=== PATIENT | female | born 1945 | race Caucasian/White ===

== ENCOUNTER → 2016-11-28 | Outpatient (CLI) | payer BC ==
[~2016-11-28] MED LIST: ASPCH81X PO; CARB1SOL; CHOL20009 PO; COEN150C PO; LEVO88TA3 PO; LORA-741 PO; MISCCAP80; MULTTAB58 PO; PANT40TA PO; SIMV40TA2 PO
[2016-11-28 12:51] LABS: ESTIMATED AVERAGE GLUCOSE 114 mg/dl; HA1C FLAG Normal (Normal)
[2016-11-28 12:56] LABS: AST/SGOT 20 U/L (15-37); BLOOD UREA NITROGEN 20 mg/dl (7-18); BUN/CREATININE RATIO 26.5 (10-20); CALCIUM 8.8 mg/dl (8.5-10.1); CARBON DIOXIDE 29 mmol/L (21-32); CHLORIDE 108 mmol/L (98-107); CREATININE 0.75 mg/dl (0.60-1.20); GLUCOSE 92 mg/dl (70-99); POTASSIUM 4.7 mmol/L (3.5-5.1); SODIUM 143 mmol/L (136-145)
[2016-11-28 13:07] LABS: ALB/GLOB RATIO 1.1 (0.9-2); ALKALINE PHOSPHATASE 70 U/L (45-117); ALT/SGPT 23 U/L (12-78); CHOLESTEROL 229 mg/dl (0-200); CHOLESTEROL/HDL RATIO 2.5; HDL CHOLESTEROL 92 mg/dl; LDL CHOLESTEROL CALCULATED 115 mg/dl; TRIGLYCERIDES 111 mg/dl (0-150); VERY LOW DENSITY LIPOPROT CALC 22 mg/dl
== END | disposition home or self-care (01) ==
LOC: C.LABBFT 07:51
PROVIDERS: ATTEND Internal Medicine
DX: Z00.00 Encounter for general adult medical examination without abnormal findings (principal); E03.9 Hypothyroidism, unspecified; E78.00 Pure hypercholesterolemia, unspecified; R73.01 Impaired fasting glucose

== ENCOUNTER → 2017-01-01 | Outpatient (CLI) | payer BC ==
--- NOTE | 2017-01-01 12:49 | MAMMOGRAPHY REPORT ---
BILATERAL DIGITAL SCREENING MAMMOGRAM WITH CAD: 01/01/2017 CLINICAL HISTORY: Patient presents for routine screening. S/P bilateral augmentation. TECHNIQUE: Current study was also evaluated with a Computer Aided Detection (CAD) system. Bilatera l CC and MLO views including implant displaced views were obtained. COMPARISON: Comparison is made to exams dated: 12/24/2015 mammogram, 12/19/2013 mammogram, 12/21/2014 mammogram, 10/19/2012 mammogram, 10/15/2011 mammogram, and 10/14/2010 mammogram - [facility] nt. BREAST COMPOSITION: The tissue of both breasts is almost entirely fatty. FINDINGS: No suspicious masses, calcifications, or areas of architectural distortion are noted in e ither breast. There has been no significant interval change compared to prior exams. Bilateral pre- pectoral silicone implants are stable in appearance. IMPRESSION: ACR BI-RADS CATEGORY 2: BENIGN There is no mammographic evidence of malignancy. A 1 year screening mammogram is recommended. The p atient will receive written notification of the results. Approximately 10% of breast cancers are not detected with mammography. A negative mammographic repor t should not delay biopsy if a clinically suggestive mass is present. Tessy Perla M.D. ah/:01/01/2017 07:50:33 Gallery Assistant: Shayy ROMERO)(Sugar), [facility] letter sent: Normal 1/2 BI-RADS Code: ACR BI-RADS Category 2: Benign
== END | disposition home or self-care (01) ==
LOC: C.MAMM 07:23
PROVIDERS: ATTEND Obstetrics & Gynecology
DX: Z12.31 Encounter for screening mammogram for malignant neoplasm of breast (principal)

== ENCOUNTER → 2017-03-13 | Outpatient (CLI) | payer BC ==
[2017-03-13 12:31] LABS: BASO % 0.6 %; BASO ABS # 0.04 K/uL (0-0.2); COMPLETE YES; EOS % 1.9 %; HEMATOCRIT 39.1 % (37-47); IG% 0.1 %; LYMPH % 32.4 %; LYMPH ABS # 2.23 K/uL (1.2-3.4); MEAN CELL VOLUME 94.9 fL (80-100); MEAN CORPUSCULAR HEMOGLOBIN 30.8 pg (25-34); MEAN CORPUSCULAR HGB CONC 32.5 g/dl (32-36); MEAN PLATELET VOLUME 11.8 fL (7.4-10.4); MONO % 8.6 %; NEUT % 56.4 %; PLATELET COUNT 238 K/uL (130-400); RED BLOOD COUNT 4.12 M/uL (4.2-5.4); WHITE BLOOD COUNT 6.88 K/uL (4.8-10.8)
[2017-03-13 13:05] LABS: ALT/SGPT 23 U/L (12-78); AST/SGOT 18 U/L (15-37); BLOOD UREA NITROGEN 21 mg/dl (7-18); BUN/CREATININE RATIO 28.5 (10-20); CARBON DIOXIDE 27 mmol/L (21-32); CHLORIDE 106 mmol/L (98-107); CREATININE 0.72 mg/dl (0.60-1.20); GLUCOSE 87 mg/dl (70-99); POTASSIUM 4.4 mmol/L (3.5-5.1); SODIUM 140 mmol/L (136-145)
[2017-03-13 13:15] LABS: ALB/GLOB RATIO 1.1 (0.9-2); ALKALINE PHOSPHATASE 72 U/L (45-117)
[2017-03-13 13:20] LABS: CALCIUM 9.1 mg/dl (8.5-10.1)
== END | disposition home or self-care (01) ==
LOC: C.LABBFT 10:06
PROVIDERS: ATTEND Physician Assistant Medical
DX: R42 Dizziness and giddiness (principal)

== ENCOUNTER → 2017-06-17 | Outpatient (CLI) | payer BC ==
[2017-06-17 13:08] LABS: ESTIMATED AVERAGE GLUCOSE 117 mg/dl; HA1C FLAG Normal (Normal)
[2017-06-17 13:22] LABS: ALT/SGPT 17 U/L (12-78); AST/SGOT 18 U/L (15-37); BLOOD UREA NITROGEN 22 mg/dl (7-18); BUN/CREATININE RATIO 31.6 (10-20); CALCIUM 8.7 mg/dl (8.5-10.1); CARBON DIOXIDE 27 mmol/L (21-32); CHLORIDE 107 mmol/L (98-107); CHOLESTEROL 228 mg/dl (0-200); CREATININE 0.69 mg/dl (0.60-1.20); GLUCOSE 93 mg/dl (70-99); POTASSIUM 4.3 mmol/L (3.5-5.1); SODIUM 140 mmol/L (136-145); TRIGLYCERIDES 83 mg/dl (0-150); VERY LOW DENSITY LIPOPROT CALC 17 mg/dl
[2017-06-17 13:32] LABS: ALB/GLOB RATIO 1.1 (0.9-2); ALKALINE PHOSPHATASE 73 U/L (45-117); CHOLESTEROL/HDL RATIO 2.7; HDL CHOLESTEROL 85 mg/dl; LDL CHOLESTEROL CALCULATED 126 mg/dl
== END | disposition home or self-care (01) ==
LOC: C.LABBFT 07:27
PROVIDERS: ATTEND Internal Medicine
DX: Z00.00 Encounter for general adult medical examination without abnormal findings (principal); E03.9 Hypothyroidism, unspecified; E78.00 Pure hypercholesterolemia, unspecified; R73.01 Impaired fasting glucose; M85.80 Other specified disorders of bone density and structure, unspecified site; E55.9 Vitamin D deficiency, unspecified; I10 Essential (primary) hypertension; Z79.1 Long term (current) use of non-steroidal anti-inflammatories (NSAID)

== ENCOUNTER → 2017-12-16 | Outpatient (CLI) | payer BC ==
[2017-12-16 12:46] LABS: ALBUMIN 3.6 gm/dl (3.4-5.0); ALT/SGPT 20 U/L (12-78); AST/SGOT 17 U/L (15-37); BLOOD UREA NITROGEN 22 mg/dl (7-18); CALCIUM 8.5 mg/dl (8.5-10.1); CARBON DIOXIDE 25 mmol/L (21-32); CREATININE 0.71 mg/dl (0.60-1.20); GLUCOSE 97 mg/dl (70-99); POTASSIUM 4.2 mmol/L (3.5-5.1); SODIUM 139 mmol/L (136-145)
[2017-12-16 12:57] LABS: ALKALINE PHOSPHATASE 68 U/L (45-117); CHOLESTEROL 229 mg/dl (0-200); LDL CHOLESTEROL CALCULATED 123 mg/dl; TOTAL PROTEIN 7.2 gm/dl (6.4-8.2)
[2017-12-16 13:06] LABS: HEMOGLOBIN A1C 5.8 % (4.5-5.6)
== END | disposition home or self-care (01) ==
LOC: C.LABBFT 07:12
PROVIDERS: ATTEND Internal Medicine
DX: Z00.00 Encounter for general adult medical examination without abnormal findings (principal); E03.9 Hypothyroidism, unspecified; E78.00 Pure hypercholesterolemia, unspecified; R73.01 Impaired fasting glucose; E55.9 Vitamin D deficiency, unspecified; I10 Essential (primary) hypertension

== ENCOUNTER → 2018-01-07 | Outpatient (CLI) | payer BC ==
--- NOTE | 2018-01-08 07:21 | MAMMOGRAPHY REPORT ---
BILATERAL DIGITAL SCREENING MAMMOGRAM TOMOSYNTHESIS WITH CAD: 01/07/2018 CLINICAL HISTORY: Patient presents for routine screening. S/P bilateral augmentation. TECHNIQUE: Breast tomosynthesis in addition to standard 2D mammography was performed. Current study was also evaluated with a Computer Aided Detection (CAD) system. Tomosynthesis images were obtained of the implant displaced views only. COMPARISON: Comparison is made to exams dated: 01/01/2017 mammogram, 12/24/2015 mammogram, 12/21/2014 m ammogram, 12/19/2013 mammogram, 10/19/2012 mammogram, and 10/15/2011 mammogram - [facility]. BREAST COMPOSITION: The tissue of both breasts is almost entirely fatty. FINDINGS: No suspicious masses, calcifications, or areas of architectural distortion are noted in ei ther breast. There has been no significant interval change compared to prior exams. Bilateral pre-pe ctoral silicone implants are stable in appearance. IMPRESSION: ACR BI-RADS CATEGORY 2: BENIGN There is no mammographic evidence of malignancy. A 1 year screening mammogram is recommended. The pa tient will receive written notification of the results. Approximately 10% of breast cancers are not detected with mammography. A negative mammographic report should not delay biopsy if a clinically suggestive mass is present. Tessy Perla M.D. /:01/07/2018 08:19:45 Director Supply Chain: Shayy STEWART(R)(M), [facility] letter sent: Normal 1/2 BI-RADS Code: ACR BI-RADS Category 2: Benign
== END | disposition home or self-care (01) ==
LOC: C.MAMM 07:53
PROVIDERS: ATTEND Obstetrics & Gynecology
DX: Z12.31 Encounter for screening mammogram for malignant neoplasm of breast (principal)

== ENCOUNTER → 2018-02-24 | Outpatient (CLI) | payer BC | END | disposition home or self-care (01) | LOC: C.LABBFT 07:23 | PROVIDERS: ATTEND Internal Medicine | DX: E78.00 Pure hypercholesterolemia, unspecified (principal); E03.9 Hypothyroidism, unspecified; Z00.00 Encounter for general adult medical examination without abnormal findings ==

== ENCOUNTER 2021-04-17 06:25 | Observation (INO) ==
--- NOTE | 2021-04-09 14:35 | PAT Medication Instructions ---
Medication Instructions Date of Service April 09, 2021 Home Medications Medication Instructions Recorded cholecalciferol (vitamin D3) 125 125 mcg PO DAILY #30 cap 04/14/20 mcg (5,000 unit) capsule simvastatin 10 mg tablet 10 mg PO QPM #90 tab 03/18/21 aspirin 81 mg tablet 81 mg PO HS cholecalciferol (vitamin D3) 125 mcg (5,000 unit) capsule 125 mcg PO DAILY cholecalciferol (vitamin D3) 50 mcg (2,000 unit) capsule 50 mcg PO DAILY simvastatin 10 mg tablet 10 mg PO QPM co [id number] oil-omega 3-E 1 cap PO QAM diclofenac sodium [Voltaren] 75 mg PO BID PRN diphenhydramine-acetaminophen [Tylenol PM Extra Strength] 1 tab PO BID PRN estradiol 0.5 mg PO UD ipratropium bromide 2 sprays INTNAS TID PRN levothyroxine [Synthroid] 112 mcg PO QAM losartan 50 mg PO QAM multivitamin 1 cap PO QAM pantoprazole 40 mg PO DAILY PRN Continue as directed estradiol 0.5 mg PO UD (continue as normal unless told otherwise by surgeon) ASK your surgeon for instructions diclofenac sodium [Voltaren] 75 mg PO BID PRN STOP taking 2 weeks before surgery (or as soon as possible if surgery is within 2 weeks) co [id number] oil-omega 3-E 1 cap PO QAM DO NOT take the morning of surgery cholecalciferol (vitamin D3) 125 mcg (5,000 unit) capsule 125 mcg PO DAILY cholecalciferol (vitamin D3) 50 mcg (2,000 unit) capsule 50 mcg PO DAILY diphenhydramine-acetaminophen [Tylenol PM Extra Strength] 1 tab PO BID PRN losartan 50 mg PO QAM multivitamin 1 cap PO QAM Take morning of surgery With a small sip of water, OTHERWISE NOTHING TO EAT OR DRINK AFTER MIDNIGHT: ipratropium bromide 2 sprays INTNAS TID PRN (if needed) levothyroxine [Synthroid] 112 mcg PO QAM pantoprazole 40 mg PO DAILY PRN(if needed) Take evening before surgery aspirin 81 mg tablet 81 mg PO HS (continue as normal unless told otherwise by surgeon) simvastatin 10 mg tablet 10 mg PO QPM diphenhydramine-acetaminophen [Tylenol PM Extra Strength] 1 tab PO BID PRN (if needed) ipratropium bromide 2 sprays INTNAS TID PRN (if needed) pantoprazole 40 mg PO DAILY PRN (if needed) Other Notes If you have any questions please call us at [phone] or [phone] or [phone] or [phone]
--- NOTE | 2021-04-10 15:07 | Anesthesiology Consultation ---
Date of Service April 10, 2021 Assessment & Plan (1) Encounter for pre-operative examination: Chart Review Chart Review: Acceptable Risk for Surgery (pending surgeon ordered PCP clearance and preop Covid testing results ) and Patient seen in Pre Admission Testing Awaiting surgeon ordered PCP clearance 04/12/21 Per PAT appt on 04/10/21, pt works in [email or web address]. No known Covid positive contacts or Covid related symptoms. No known Covid infection in the past 90 days. Preop Covid testing scheduled 04/15/21= will await results. Educated on importance of self quarantining, social distancing and wearing mask in public both for the patient after Covid testing done. Pt fully vaccinated for Covid. Teaching & Discussion Pre-Anesthesia Teaching/Discussion Notes: Instructed NPO after midnight before surgery,except medications with 15 cc of water. Medication instructions provided according to the [facility] guidelines. History Surgery Operation Date: 04/17/21 08:50 Proposed Procedures p Left Total Knee Arthroplasty(Left) - Christiano Salazar MD Height/Weight Height: 5 ft Weight: 85.4 kg Allergies Allergy/AdvReac Type Severity Reaction Status Date / Time atorvastatin [From Lipitor] Allergy Mild pt unsure Verified 04/08/21 12:44 it was long time ago Medications Home Medications Medication Instructions Recorded Confirmed Last Taken aspirin 81 mg tablet 81 mg PO HS tab 09/25/19 04/08/21 Unknown cholecalciferol (vitamin D3) 125 125 mcg PO DAILY #30 cap 04/14/20 04/08/21 Unknown mcg (5,000 unit) capsule cholecalciferol (vitamin D3) 50 50 mcg PO DAILY 07/13/20 04/08/21 Unknown mcg (2,000 unit) capsule simvastatin 10 mg tablet 10 mg PO QPM #90 tab 03/18/21 04/08/21 Unknown co [id number] oil-omega 3-E 1 cap PO QAM 04/08/21 04/08/21 Unknown diclofenac sodium [Voltaren] 75 mg PO BID PRN 04/08/21 04/08/21 Unknown diphenhydramine-acetaminophen 1 tab PO BID PRN 04/08/21 04/08/21 Unknown [Tylenol PM Extra Strength] estradiol 0.5 mg PO UD 04/08/21 04/08/21 Unknown ipratropium bromide 2 sprays INTNAS TID PRN 04/08/21 04/08/21 Unknown levothyroxine [Synthroid] 112 mcg PO QAM 04/08/21 04/08/21 Unknown losartan 50 mg PO QAM 04/08/21 04/08/21 Unknown multivitamin 1 cap PO QAM 04/08/21 04/08/21 Unknown pantoprazole 40 mg PO DAILY PRN 04/08/21 04/08/21 Unknown Past Medical History Medical History (Updated 04/10/21 @ 15:30 by Zoya Dye PA-C) GERD (gastroesophageal reflux disease) Hx of ulcers and had Ishmael Fundoplication Well controlled and stable Hyperlipidemia Hypertension Hypothyroidism Impaired fasting glucose Hgb A1C = 6.0 Obesity Osteopenia Exercise / Class Metabolic Activity II 4-5 Yardwork/Stairs/Walk up hill (one flight of stairs - no chest pain or SOB ) Past Family History Family History Father Acute myocardial infarction Mother Acute myocardial infarction Hypertension Brother Acute myocardial infarction Sister Hypertension Pure hypercholesterolemia Unknown Diabetes Denies family history of Breast cancer Colorectal cancer Colonic polyp Past Surgical History Surgical History H/O breast augmentation H/O colonoscopy History of Ishmael fundoplication Hx of cataract surgery right and left S/P total abdominal hysterectomy w/ removal of both ovaries Past Anesthesia History No Hx of Anesthesia Complications and No Family Hx of Anesthesia Complications History of PONV No Hx of PONV and No Hx of Motion Sickness Social History Smoking Status: Never smoker Do You Dip or Chew Tobacco: No Hx Alcohol Use: Yes Alcohol type: wine alcohol intake frequency: 0-2 drinks per day (1 glass of wine/night ) Hx Substance Use: No substance use type: does not use Review of Systems Patient denies chest pain, shortness of breath, dyspnea on exertion, cough, wheezing, palpitations. No hx of seizures, stroke, CT, apnea/snoring. No hx of blood clots or blood transfusions Physical Exam Vital Signs VITALS BP 141/83 P 81 TEMP 98.2 SP02 98% RESP 16 Constitutional no acute distress ENMT Mouth: no TMJ clicking Thyromental Distance: > or= 3.5 Finger Breadths (3.5) Mallampati Class: III Crowns to molars Neck neck extension not limited Respiratory normal respiratory effort; no respiratory distress Auscultation: lungs clear to auscultation bilaterally; no wheezes Cardiovascular Rate/Rhythm: regular rate and regular rhythm Heart Sounds: no murmur (no significant murmur noted ) Vessels: no carotid bruit Musculoskeletal Spine: no pain with cervical ROM Extremities: extremities normal to inspection Psychiatric Orientation: alert Lab Results Anesthesia Preop Results Results Anesthesia Widget: WBC 6.25 K/uL (4.8-10.8) 04/09/21 Hgb 11.6 g/dL (12.0-16.0) L 04/09/21 Hct 36.3 % (37-47) L 04/09/21 Plt 272 K/uL (130-400) 04/09/21 Na 140 mmol/L (136-145) 04/09/21 K 3.8 mmol/L (3.5-5.1) 04/09/21 Cl 109 mmol/L (98-107) H 04/09/21 CO2 27 mmol/L (21-32) 04/09/21 BUN 16 mg/dl (7-18) 04/09/21 Creat 0.59 mg/dl (0.6-1.2) L 04/09/21 Glucose Level 90 mg/dl (70-99) 04/09/21 PT 9.3 Seconds (9.0-12.0) 04/10/21 PTT 23.6 Seconds (21.0-31.0) 04/10/21 INR 0.9 (0.9-1.1) 04/10/21 TSH 1.160 uIu/ml (0.300-4.500) 04/09/21 HA1c 6.0 % (4.5-5.6) H 04/09/21 Urine Color Yellow 04/10/21 Urine Appearance Clear (Clear) 04/10/21 Urine pH 6.5 (4.5-7.5) 04/10/21 Urine Specific [place] 1.025 (1.000-1.030) 04/10/21 Urine Protein Trace (Negative) H 04/10/21 Urine Glucose (UA) Negative (Negative) 04/10/21 Urine Ketones Trace (Negative) H 04/10/21 Urine Blood Negative (Negative) 04/10/21 Urine Nitrite Negative (Negative) 04/10/21 Urine Bilirubin Negative (Negative) 04/10/21 Urine Urobilinogen Negative (Negative) 04/10/21 Urine Leukocyte Esterase Negative (Negative) 04/10/21 Urine WBC (Auto) 1-5 /hpf (0-5) 04/10/21 Urine RBC (Auto) 0-4 /hpf (0-4) 04/10/21 Urine Hyaline Casts (Auto) 1-5 /lpf (0-5) 04/10/21 Urine Epithelial Cells (Auto) >30 /lpf (0-5) H 04/10/21 Urine Bacteria (Auto) Negative (Negative) 04/10/21 Blood Type O Positive 04/10/21 Antibody Screen NEGATIVE 04/10/21 Lab Comments: Mild anemia- PCP ordered labs- pt has PCP clearance 04/12/21 Testing Electrocardiogram Date: 04/10/21 Normal sinus rhythm with sinus arrhythmia at 79 bpm. Chest X-Ray Date: 04/10/21 Findings: + NAD FINDINGS: PA and lateral chest radiographs are compared to study dated 01/17/2013. The cardiomediastinal silhouette is unremarkable noting atherosclerotic calcification of the thoracic aorta. There are low lung volumes with bibasilar atelectasis. No airspace consolidation or pleural effusion is identified. There is no pneumothorax. The skeletal structures are osteopenic. The bony thorax appears intact. There are calcified breast implants
--- NOTE | 2021-04-17 06:19 | History & Physical Bridge Note ---
Date of Service April 17, 2021 History & Physical Bridge Note I have examined the patient, reviewed the History & Physical and in the interval since the performance of the History & Physical I have noted the following changes of clinical significance:consent obtained/site verified/covid screen negative. no changes noted
[~2021-04-17 06:25] MED LIST changes: -ASPCH81X PO; -CARB1SOL; -CHOL20009 PO; -COEN150C PO; -LEVO88TA3 PO; -LORA-741 PO; +LR 500ML BOLUS, THEN 15ML/HR IV SCH; +LR 60ML/HR IV SCH; -MISCCAP80; -MULTTAB58 PO; -PANT40TA PO; +ROPIVACAINE 0.5% HCL/PF 150 MG, BUPIVACAINE 0.75% MPF 20 ML, EPINEPHrine 0.15 MG, Ketor... INFIL SCH; -SIMV40TA2 PO; +TRANEXAMIC ACID 1,000 MG **IV Pre-op IV SCH; +ceFAZolin 2000MG 2,000 MG/15 ML SYR IV SCH
[2021-04-17] MEDS ORDERED: EPINEPHrine INJ 1 MG/ML AMP ONE (06:33)
[2021-04-17] MEDS ORDERED: BUPIVACAINE 0.5 % 5 MG/1 ML PF 10ML VIAL ONE (06:33)
[2021-04-17] MEDS ORDERED: ROPIVACAINE 0.5% 5 MG/ML 30 ML VIAL ONE (06:33)
[2021-04-17] MEDS ORDERED: MIDAZOLAM HCL 1 MG/ML 2ML VIAL ONE ×3 (07:23→09:58)
[2021-04-17] MEDS ORDERED: fentaNYL citrate 100 MCG/2 ML VIAL ONE (07:23)
[2021-04-17] MEDS ORDERED: ORTHO JOINT ANESTHETIC ONE (08:33)
[2021-04-17] MEDS ORDERED: PROPOFOL IV EMULSION 10 MG/ML 20 ML VIAL IV ONE (08:34)
[2021-04-17] MEDS ORDERED: ONDANSETRON INJ 2 MG/ML 2 ML VIAL ONE (08:34)
[2021-04-17] MEDS ORDERED: ePHEDrine sulfate 50 MG/ML AMP IV PRN (08:56)
[2021-04-17] MEDS ORDERED: ATROPINE SULFATE 0.1 MG/ML 10ML SYR IV PRN (08:56)
--- NOTE | 2021-04-17 10:18 | Post Operative Brief Note ---
Immediate Post Op Note v1 Date of Surgery April 17, 2021 Pre & Post Diagnosis Operation Date: 04/17/21 08:50 Pre-Op Diagnosis: Left Knee Degenerative Joint Disease Post-Op Diagnosis: Left Knee Degenerative Joint Disease I identified the patient and participated in the time-out.: Yes Procedure Operation Date: 04/17/21 08:50 Actual Procedures p Left Total Knee Arthroplasty(Left) - Christiano Salazar MD Surgeon Christiano Salazar MD Licensed Nursing Assistant [facility] Estimated Blood Loss 25 Findings Consistent with Post-Op Diagnosis
--- NOTE | 2021-04-17 10:27 | Operative Report ---
Post Operative Report Pre & Post Diagnosis Operation Date: 04/17/21 08:50 Pre-Op Diagnosis: Left Knee Degenerative Joint Disease Post-Op Diagnosis: Left Knee Degenerative Joint Disease I identified the patient and participated in the time-out.: Yes Procedure Operation Date: 04/17/21 08:50 Actual Procedures p Left Total Knee Arthroplasty(Left) - Christiano Salazar MD Surgeon Christiano Salazar MD Custodial Worker JEZ iVveros Estimated Blood Loss 25 Findings Consistent with Post-Op Diagnosis Specimens Bone and soft tissue Drains None Anesthesia Type MAC Spinal Regional Complications none Disposition Accompanied Patient To Recovery: Yes Disposition: Recovery Room Description of Procedure Patient was taken to the operating room and placed under IV sedation with spinal anesthesia and peripheral nerve block done preoperatively. She was given 2 g of IV Ancef for surgical prophylaxis. Time out was performed. She was prepped and draped in routine sterile fashion. I was present during the entire case and assisted with positioning, tissue retraction, implantation of hardware, debridement, closure and dressings. Please see Dr. Salazar's operative report for further detail regarding today's procedure. Patient was awakened and transferred to the recovery room in stable condition. I attest to the content of the Intraoperative Record and any orders documented therein. Any exceptions are noted below.
--- NOTE | 2021-04-17 10:31 | Operative Report (OR) ---
DATE OF PROCEDURE: 04/17/2021 SURGEON: Christiano Salazar MD. WATCH ENGINE OPERATOR: Felice, no resident or fellow available. PREOPERATIVE DIAGNOSIS: Osteoarthritis with varus flexion deformity, left knee. POSTOPERATIVE DIAGNOSIS: Osteoarthritis with varus flexion deformity, left knee. OPERATION PERFORMED: Cemented left total knee replacement. PERIOPERATIVE SITUATION: Medically cleared female with intractable knee pain, has failed all conserv ative management and wished to proceed with surgical treatment. She understands the risks and conseq uences. SUMMARY OF IMPLANTS: Size 2.5 left femur, size 2.5 mobile bearing tray tibia, oval dome 3 peg patella , 2.5 x 12.5 posterior cruciate substituting insert, 2 bags of Palacos G cement. ESTIMATED BLOOD LOSS: 25 mL. CRYSTALLOID: Per anesthesia. Bone pathology pending. DVT prophylaxis per protocol. DESCRIPTION OF PROCEDURE: The patient was appropriately identified, site verified, consent verified. Antibiotics were confirmed as being given. The left lower extremity was prepped and draped in usua l routine fashion. Tourniquet was inflated to 300 mmHg after exsanguination of limb with a rubber Es march bandage for a total of 46 minutes. Midline exposure was utilized. Parapatellar arthrotomy per formed. Synovectomy completed, osteophytes resected. Distal femur entered. Cruciates resected. Ti arleth was subluxated, menisci resected. Distal femur resected 14 mm, proximal tibia 4 mm and the exten grecia gap was excellent. The femur was sized to 2.5. Appropriate cutting block applied. The anterio r, posterior condylar and chamfer cuts were made. Flexion gap was checked; it was excellent. Guard Sergeant ior capsule was injected. A box cut was made. Size 2.5 fit well. Tibia then subluxated, broached a nd reamed to 2.5 and with a 12.5 spacer had excellent mid range, stability, no loss of extension, and full flexion. The patella tracked well. The patella was resected and a 35 button drilled into posi tion. Excellent position was obtained and tracking obtained. The rest of the Orthomix was then inje cted about the knee. Trial implants were then removed. The wound irrigated with Betadine Pulsavac a nd the permanent cemented into position -- tibia, femur and patella in that order. At 12 minutes, the tourniquet released. Minor bleeding points controlled with electrocautery. Minimal blood loss of 2 5 mL. Once the cement was hard, the spacer was removed and then the wound irrigated one final time. Any minor cement removal occurred and then the permanent liner seated and then the knee closed at 40 degrees of flexion using #2 Vicryl, 2-0 Vicryl and stainless steel clips. Appropriate dressing appli ed. The patient was transferred to recovery room in satisfactory condition, having tolerated the pro cedure well. Pathology pending on bone. No other specimens. Job ID: [id number]
--- NOTE | 2021-04-17 10:35 | XRay Report ---
XR knee LT 1 or 2V routine HISTORY: 76 years-old Female S/P L TKA left knee total joint arthroplasty COMPARISON: 04/08/2021 TECHNIQUE: 2 views of the left knee FINDINGS: Total joint arthroplasty and patella resurfacing. Anterior midline skin jeremiah are noted along with expected postoperative soft tissue swelling and deep tissue air. No acute fracture, malalignment or u nexpected opaque foreign body. IMPRESSION: Left knee total joint arthroplasty with expected postoperative changes. ACT 112: Negative or not required by law. The above report was generated using voice recognition software. It may contain grammatical, syntax o r spelling errors. Electronically signed by: Aguilar Echeverria M.D. 04/17/2021 10:33 AM
--- NOTE | 2021-04-17 10:39 | Progress Notes ---
DATE OF SERVICE: 04/17/2021 SUBJECTIVE: Postop check status post left total knee replacement. The patient is sitting comfortabl y in bed. Denies chest pain, shortness of breath, fever, chills, nausea, vomiting or headache. OBJECTIVE: VITAL SIGNS: Stable. She is afebrile. Neurovascular check of the femoral sciatic nerve is limited by her block and spinal wearing off. Postop x-rays look excellent. ASSESSMENT: Doing well. Continue postoperative care plan. Follow up with case management, discharg e early tomorrow. Job ID: [id number]
--- NOTE | 2021-04-17 10:48 | Discharge Summary (DS) ---
DATE OF DISCHARGE: 04/18/2021, pending. CHIEF COMPLAINT: Left knee pain. HISTORY OF PRESENT ILLNESS AND HOSPITAL COURSE: Underwent elective left total knee replacement. Hospital course to date has been uneventful. PREADMISSION MEDICATIONS: Include baby aspirin, vitamins, simvastatin, estradiol, nasal spray, Synthroid, losartan, pantoprazole. ALLERGY: TO LIPITOR, NOT SURE WHAT IT WAS FAR REACTION. PAST MEDICAL AND PAST SURGICAL HISTORY: Remarkable for hyperlipidemia, hypertension, hypothyroidism, obesity, osteopenia, GERD. History of breast surgery, history of colonoscopies, history of Ishmael fundoplication, history of cataract surgery, total abdominal hysterectomy, oophorectomy. FAMILY HISTORY: Remarkable for myocardial disease, hypercholesterolemia. SOCIAL HISTORY: Reveals she does not smoke, does not drink. REVIEW OF SYSTEMS: Noncontributory. DIAGNOSTIC DATA: Postop x-rays look excellent. ASSESSMENT: Doing well status post left total knee replacement. PLAN: Discharge to home tomorrow if she does well overnight. Job ID: [id number] [facility]
--- NOTE | 2021-04-17 11:13 | Anesthesiology Progress Note ---
Date of Service April 17, 2021 Anesthesia Post Procedure Vital Signs Vital Signs: Temp Pulse Pulse Resp BP Pulse Ox 04/17/21 11:05 80 18 136/74 97 04/17/21 10:50 36.3 C L 84 16 134/65 95 04/17/21 10:40 85 17 129/67 95 04/17/21 10:30 91 H 18 114/59 L 99 04/17/21 10:24 36.1 C L 93 H 20 114/59 L 92 04/17/21 07:25 36.7 C 102 H 18 203/100 H 99 04/17/21 07:09 36.9 C 91 H 20 204/101 H 99 Transfer of Care Handoff Completed per policy Notes Mental Status: alert / awake / arousable Patient Amnestic to Procedure: Yes Nausea / Vomiting: adequately controlled Pain: adequately controlled Airway Patency, RR, SpO2: stable & adequate BP & HR: stable & adequate Hydration State: stable & adequate Neuraxial Anesthesia: was administered and sensory block is resolving Anesthetic Complications: no major complications apparent
[2021-04-17] MEDS ORDERED: PANTOprazole 40 MG TAB PO PRN (14:48)
[2021-04-17] MEDS ORDERED: NALOXONE HCL 0.4 MG/1 ML VIAL/CARP IV PRN (14:48)
[2021-04-17] MEDS ORDERED: HYDROmorphone INJ 1 MG/ML SYRINGE IV PRN (14:48)
[2021-04-17] MEDS ORDERED: bisacodyL 10 MG SUPP PR PRN (14:48)
[2021-04-17] MEDS ORDERED: SODIUM CHLORIDE 0.9% 1000ML 1,000 ML IV SCH (14:48)
[2021-04-17] MEDS ORDERED: ONDANSETRON INJ 2 MG/ML 2 ML VIAL IV PRN (14:48)
[2021-04-17] MEDS ORDERED: METOCLOPRAMIDE HCL INJ 5 MG/ML 2 ML VIAL IV PRN (14:48)
[2021-04-17] MEDS ORDERED: HYDROmorphone INJ 0.5 MG/0.5 ML SYR IV PRN (14:48)
[2021-04-17] MEDS ORDERED: MAGNESIUM HYDROXIDE SUSP 30 ML UDC PO PRN (14:48)
[2021-04-17] MEDS ORDERED: oxyCODONE HCL IR 5 MG TAB (IMMEDIATE RELEASE) PO PRN (14:48)
[2021-04-17] MEDS ORDERED: WARFARIN SOD 5 MG TAB PO SCH (16:00)
[2021-04-17] MEDS: ACETAMINOPHEN 500 MG TAB PO SCH ×2 (16:22→21:58)
[2021-04-17] MEDS: ceFAZolin 2000MG 2,000 MG/15 ML SYR IV SCH ×2 (16:23→23:53)
[2021-04-17] MEDS: LOSARTAN POTASSIUM 50 MG TAB PO SCH (16:23)
[2021-04-17] MEDS: KETOROLAC TROMETHAMINE 15 MG/ML VIAL IV SCH ×2 (16:24→21:56)
[2021-04-17] MEDS ORDERED: TRANEXAMIC ACID / 0.7% NACL 1,000 MG/100 ML BAG IV SCH (16:30)
[2021-04-17] MEDS ORDERED: SENNA 8.6 MG TAB PO SCH (21:00)
[2021-04-17] MEDS ORDERED: ASPIRIN 81 MG ECTAB PO SCH (21:00)
[2021-04-17] MEDS ORDERED: SIMVASTATIN 10 MG TAB PO SCH (21:00)
[2021-04-17] MEDS: DOCUSATE SODIUM 100 MG CAP PO SCH (21:57)
[2021-04-18] MEDS: KETOROLAC TROMETHAMINE 15 MG/ML VIAL IV SCH ×2 (03:36→09:43)
[2021-04-18] MEDS: ACETAMINOPHEN 500 MG TAB PO SCH (06:06)
--- NOTE | 2021-04-18 06:20 | Progress Notes ---
DATE: 04/18/2021 SUBJECTIVE: Status post left total knee replacement. The patient did well overnight. Denies chest pain, shortness of breath, fever, chills, nausea, vomiting or headache. OBJECTIVE: VITAL SIGNS: Stable. She is afebrile. EXTREMITIES: Wound dressing clean, dry and intact. Femoral sciatic nerve functioning well.Can do a SLR. Calves nontender. LABORATORY DATA: A.m. labs pending. ASSESSMENT: Doing well. PLAN: Discharge home today after PT/OT. Coumadin dose per INR result. Job ID: [id number] MTDD
[2021-04-18] MEDS ORDERED: LEVOTHYROXINE SODIUM 112 MCG TABLET PO SCH (06:30)
[2021-04-18 06:37] LABS: Hematocrit (blood only) 27.6 % (37-47); Hemoglobin 9.1 g/dL (12.0-16.0); Mean Corpuscular Hemoglobin 30.8 pg (25-34); Mean Corpuscular Volume 93.6 fL (80-100); Mean Platelet Volume 10.3 fL (7.4-10.4); Platelet Count 216 K/uL (130-400); RDW Coefficient of Variation 15.3 % (11.5-14.5); RDW Standard Deviation 52.4 fL (36.4-46.3); Red Blood Count 2.95 M/uL (4.2-5.4); White Blood Count 10.15 K/uL (4.8-10.8)
[2021-04-18 07:11] LABS: BUN Creatinine Ratio 26.1 (10-20); Calcium 8.4 mg/dl (8.5-10.1); Creatinine Clr Calc Pharmacy 71.7 ml/min; Est GFR (African American) 100.5 ml/min; Est GFR (Non-African American) 86.7 ml/min; Potassium 3.9 mmol/L (3.5-5.1)
[2021-04-18] MEDS ORDERED: dexAMETHasone 4 MG TAB PO SCH (08:00)
[2021-04-18] MEDS: DOCUSATE SODIUM 100 MG CAP PO SCH (08:52)
[2021-04-18] MEDS ORDERED: CHOLECALCIFEROL 1,000 UNITS 25 MCG TAB PO SCH (09:00)
[2021-04-18] MEDS ORDERED: MULTIVITAMIN TAB PO SCH (09:00)
[2021-04-18 09:10] LABS: INR 1.1 (0.9-1.1); Prothrombin Time 11.1 Seconds (9.0-12.0)
[2021-04-18] MEDS ORDERED: WARFARIN SOD 5 MG TAB PO ONE (11:15)
[2021-04-18] MEDS: LOSARTAN POTASSIUM 50 MG TAB PO SCH (11:21)
[2021-04-18] MEDS ORDERED: ORTHO WARFARIN NOMOGRAM SCH (14:00)
== END 2021-04-18 12:12 | disposition home or self-care (01) ==
LOC: PACUINP 06:25 → ASU 06:25 → 3W 14:44

== ENCOUNTER 2022-02-10 15:07 | Inpatient (IN) ==
[2022-02-10 15:51] LABS: Basophils # (auto) 0.04 K/uL (0-0.2); Basophils % (auto) 0.5 %; Eosinophils # (auto) 0.06 K/uL (0-0.5); Eosinophils % (auto) 0.8 %; Hematocrit (blood only) 36.8 % (37-47); Hemoglobin 11.6 g/dL (12.0-16.0); Immature Granulocytes # (auto) 0.01 K/uL (0.00-0.02); Immature Granulocytes % (auto) 0.1 %; Lymphocytes # (auto) 1.04 K/uL (1.2-3.4); Mean Corpuscular Hemoglobin 29.4 pg (25-34); Mean Corpuscular Hgb Conc 31.5 g/dL (32-36); Mean Corpuscular Volume 93.2 fL (80-100); Monocytes # (auto) 0.65 K/uL (0.11-0.59); Monocytes % (auto) 8.7 %; Neutrophils # (auto) 5.63 K/uL (1.4-6.5); Neutrophils % (auto) 75.9 %; Platelet Count 345 K/uL (130-400); RDW Coefficient of Variation 15.4 % (11.5-14.5); RDW Standard Deviation 51.9 fL (36.4-46.3); Red Blood Count 3.95 M/uL (4.2-5.4); White Blood Count 7.43 K/uL (4.8-10.8)
[2022-02-10 16:01] LABS: INR 1.3 (0.9-1.1); Partial Thromboplastin Ratio 1.1; Partial Thromboplastin Time 29.1 Seconds (21.0-31.0); Prothrombin Time 13.9 Seconds (9.0-12.0)
[2022-02-10] MEDS ORDERED: METOPROLOL TARTRATE 1 MG/ML VIAL IV STA ×2 (16:07→16:44)
--- NOTE | 2022-02-10 16:08 | Emergency Department Note ---
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 Patient with a right knee replacement a few weeks ago and then developed A. fib 2 weeks ago. She has had a persistent worsening decline since developing A. fib with significant exercise intolerance to the point that she cannot even ambulate without significant shortness of breath. She is having echo done over cards this morning when she was noted to have abnormalities left ventricular wall and persistent tachycardia that she was sent to the ER for further evaluation. On evaluation patient is in no significant distress though she does appear significantly fluid overloaded without hypoxia as well as she is quite tachycardic in the 140s irregular. EKG confirms A. fib RVR in the 140s. She was given initially given Lopressor 5 mg IV followed by a second dose of Lopressor 5 mg IV. She has mild improvement in her heart rate briefly following these but the heart rate does trend back up to the 130s 140s. Chest x-ray confirms concerns for developing pulmonary edema. While she is not hypoxic at this time I do feel that she is at the cusp of significant congestive heart failure. I discussed the findings with cardiology who agree with trialing some Lasix and admitting her to the hospitalist service. Patient is already on anticoagulation and thus heparin not indicated emergently. Given no significant hypoxia and she is already on anticoagulant and not think that there is clear indication that CTA is necessary emergently either. I discussed the case with hospitalist and will try a small dose of Cardizem to see how she tolerates that understanding there is some congestive failure issues going on as well. Patient comfortable with this plan as his daughter. Do not see any clear indication that this is infectious related and she otherwise looks well with blood counts looking okay. Postsurgically she is doing well from a knee replacement standpoint. Prior Medical Record and Triage/Nursing Notes reviewed by Me Additional history obtained from chart, daughter, cardiology Differentials:Premature contractions, electrolyte abnormality, cardiac dysrhythmia, thyroid dysfunction, pulmonary embolism, infection, gastrointestinal, as well as other pathologies. Vital Signs: reviewed and remarkable for tachycardia Interventions: Lopressor 5 mg IV x2, Cardizem 10 mg IV, Lasix 40 mg IV Labs:Reviewed and remarkable for no significant abnormalities Imagin view chest x-ray reveals congestive failure developing new from previous EKG:Per My Interpretation: Indication tachycardia: A. fib RVR 148 bpm, qtc 508. No Ischemia. Compared to EKG April 10, 2021 she is now in A. fib and heart rate has increased Cardiac/Tele Monitoring: Cardiac Monitoring: An Order was placed for continuous cardiac monitoring. The monitor shows a rate of 140 with a A. fib RVR rhythm. Consults:Dr. Yao, Dr Ford MONAHAN Hospitalist Plan: Disposition:Hospitalization. Condition: Good History of Present Illness: 76-year-old female arrives for evaluation of shortness of breath. Patient notes that she has been having increasing shortness of breath over the last 2 weeks. She was diagnosed with A. fib 2 weeks ago. She was started on metoprolol and Xarelto. Heart rate has continued to remain in the 140s and 150s only periodically coming down. She says she is getting a point where she can even walk across the briones. She denies any shortness of breath while just sitting and at rest. She does note she can feel her heart racing at times. She is also been dealing with on and off diarrhea which seems to come and go to the point where she can even control it when it comes. Then she will go several days without any diarrhea issues. She denies any abdominal pain, nausea, vomiting, fevers, chills, blood in stool. Stool is liquidy yellow and has been tested which she reports is negative. Patient denies any falls, trauma, injuries. She states she is having no chest pain, syncope, back pain, headache, neck pain, neurologic deficits, weakness nor other symptoms. She took her typical medications this morning. She was seen by cardiology this morning and was having an echo when she was sent to the ER for further evaluation due to the persistent A. fib and questionable left ventricular abnormality. Patient admits any exertion makes worse and rest makes better. ROS: See above HPI for pertinent positives & negatives. A total of 10 systems reviewed and were otherwise negative. Past Medical History:See Below Past Surgical History:See Below Family History:See Below Social History:See Below Home Medications:See Below Allergies: Atorvastatin Vitals:Blood Pressure: 135/85, Pulse 145, RR 16, T 36.8C, O2 97% on RA Physical Exam: GENERAL: Patient is well appearing and in no acute distress. EYES: No scleral icterus, unremarkable pupils. ENT: Mucous membranes moist, no nasal congestion. NECK: No masses appreciated, nomeningismus, trachea is midline. RESPIRATORY: Moderate crackles throughout without wheezing and equal bilaterally CARDIOVASCULAR: Tachy irregular.No murmurs, rubs, gallops appreciated. GASTROINTESTINAL: Abdomen soft, non-tender, no peritonitis.Bowel sounds positive.No masses appreciated. BACK: No midline tenderness, no CVA tenderness EXTREMITIES: Normal motion all extremities, no cyanosis, moderate bilateral lower leg edema right greater than left NEUROLOGIC: Alert and oriented, no acute motor or sensory deficits, no focal weakness, cranial nerves grossly intact. SKIN: No rash, no jaundice, no diaphoresis. PSYCH: Appropriate GCS: 15 ED Course: Times/Reassessments: Heart rate trends down briefly after IV meds but does come back up patient is relatively comfortable while sitting in bed and agreeable to cessation Critical Care: I have personally spent 37 minutes of critical care time in the direct management of this patient. A. fib RVR requiring multiple rounds of IV Lopressor and Cardizem This was a life/limb threatening event. This 37 minutes is in excess of all separately billable procedures. 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 No postop issues per anesthesia progress note. History of esophagogastroduodenoscopy (EGD) History of Ishmael fundoplication 2003, hiatal hernia Hx of cataract surgery right and left S/P total abdominal hysterectomy w/ removal of both ovaries Family History Father Acute myocardial infarction Mother Acute myocardial infarction Hypertension Brother Acute myocardial infarction Sister Hypertension Pure hypercholesterolemia Unknown Diabetes Other Stroke Denies family history of Breast cancer Colorectal cancer Colonic polyp Social History Smoking Status: Never smoker Second Hand Exposure: No; Hx Alcohol Use: Yes Alcohol type: wine Hx Substance Use: No Preferred Language: Gambian Communication Ability: Effective Visual Impairment: No Limitations Hearing Ability: Normal Front Line Leader Required: No Beliefs That Will Affect Care: None marital status: Current Living Situation: Alone current occupational status: employed How many Children do You have: 1 Feels Safe at Home: Yes Childhood Exposure to Second-Hand Smoke: Yes caffeine: Yes Dental Care, Regularly: Yes Physical Activity Frequency: Daily Physical Activity Frequency Comment: walking 20 min Seatbelt Use: always Sunscreen Use: Yes Assistive Devices: Cane and Walker Allergies Allergies Allergy/AdvReac Type Severity Reaction Status Date / Time atorvastatin [From Lipitor] Allergy Mild pt unsure Verified 02/03/22 11:00 it was long time ago Home Meds Home Medications Medication Instructions Recorded Confirmed estradiol 0.5 mg tablet 0.5 mg PO UD 04/08/21 02/10/22 ipratropium bromide 21 mcg (0.03 2 sprays INTNAS TID PRN 04/08/21 02/10/22 %) nasal spray levothyroxine 112 mcg tablet 112 mcg PO QAM 04/08/21 02/10/22 (Synthroid) losartan 50 mg tablet 50 mg PO QAM 04/08/21 02/10/22 multivitamin 1 cap PO QAM 04/08/21 02/10/22 pantoprazole 40 mg tablet,delayed 40 mg PO DAILY PRN 04/08/21 02/10/22 release cholecalciferol (vitamin D3) 125 125 mcg PO QAM 11/25/21 02/10/22 mcg (5,000 unit) capsule Previous Rx's Medication Instructions Recorded simvastatin 10 mg tablet 10 mg PO QPM #90 tab 03/18/21 lorazepam 0.5 mg tablet 0.5 mg PO Q8H PRN #30 tab 01/29/22 rivaroxaban 20 mg tablet (Xarelto) 20 mg PO DAILY #28 tab 01/29/22 metoprolol succinate 100 mg 100 mg PO DAILY #30 tab 02/03/22 tablet,extended release 24 hr Results & Data (ED) Vital Signs Vital Signs - 24 hr 02/10/22 15:16 02/10/22 16:01 02/10/22 16:02 Temperature 36.6 C Temperature Source Oral Pulse Rate 145 H Pulse Rate [Apical] 148 H Respiratory Rate 21 22 Blood Pressure 147/101 H Blood Pressure [Right Arm] 142/101 H Blood Pressure Mean 116 Blood Pressure Mean [Right Arm] 114 Pulse Oximetry 99 97 Oxygen Delivery Method Room Air Room Air Room Air Sepsis Recent Fever Within 48 Hours No Sepsis New/Unexplained Change in Mental Status N/A Sepsis Action Taken by Nursing No Action Required 02/10/22 16:14 02/10/22 16:48 02/10/22 16:49 Temperature Temperature Source Pulse Rate 147 H 140 H 138 H Pulse Rate [Apical] Respiratory Rate 20 Blood Pressure 142/101 H 138/11 L 138/111 H Blood Pressure [Right Arm] Blood Pressure Mean 120 Blood Pressure Mean [Right Arm] Pulse Oximetry 97 Oxygen Delivery Method Sepsis Recent Fever Within 48 Hours Sepsis New/Unexplained Change in Mental Status Sepsis Action Taken by Nursing Laboratory Data Result diagrams: 02/11/22 06:04 02/11/22 06:04 Lab Results 02/10/22 02/10/22 02/10/22 Range/Units 15:34 15:34 15:34 WBC 7.43 (4.8-10.8) K/uL RBC 3.95 L (4.2-5.4) M/uL Hgb 11.6 L (12.0-16.0) g/dL Hct 36.8 L (37-47) % MCV 93.2 (80-100) fL MCH 29.4 (25-34) pg MCHC 31.5 L (32-36) g/dL RDW Std Deviation 51.9 H (36.4-46.3) fL RDW Coeff of Ezequiel 15.4 H (11.5-14.5) % Plt Count 345 (130-400) K/uL MPV 11.0 H (7.4-10.4) fL Immature Gran % (Auto) 0.1 % Neut % (Auto) 75.9 % Lymph % (Auto) 14.0 % Faulk % (Auto) 8.7 % Eos % (Auto) 0.8 % Baso % (Auto) 0.5 % Neut # (Auto) 5.63 (1.4-6.5) K/uL Lymph # (Auto) 1.04 L (1.2-3.4) K/uL Faulk # (Auto) 0.65 H (0.11-0.59) K/uL Eos # (Auto) 0.06 (0-0.5) K/uL Baso # (Auto) 0.04 (0-0.2) K/uL Immature Gran # (Auto) 0.01 (0.00-0.02) K/uL PT 13.9 H (9.0-12.0) Seconds INR 1.3 H (0.9-1.1) APTT 29.1 (21.0-31.0) Seconds PTT Ratio 1.1 Sodium (136-145) mmol/L Potassium (3.5-5.1) mmol/L Chloride (98-107) mmol/L Carbon Dioxide (21-32) mmol/L Anion Gap (3-11) BUN (6-23) mg/dl Creatinine (0.6-1.2) mg/dl Est Cr Clr Drug Dosing ml/min Est GFR ( Amer) ml/min Est GFR (Non-Af Amer) ml/min BUN/Creatinine Ratio (10-20) Glucose (70-99(Fasting)) mg/dl Calcium (8.5-10.1) mg/dl Magnesium (1.7-2.4) mg/dl Total Bilirubin (0.2-1.0) mg/dl AST (13-39) U/L ALT (7-52) U/L Alkaline Phosphatase (34-104) U/L Troponin I High Sens 11.9 (0-14) pg/ml Total Protein (6.0-8.3) gm/dl Albumin (3.4-5.0) gm/dl Globulin (2.5-4.0) gm/dl Albumin/Globulin Ratio (0.9-2) TSH (0.300-4.500) uIu/ml SARS-CoV-2, RNA, NAAT (NEGATIVE) 02/10/22 02/10/22 02/10/22 Range/Units 15:34 15:34 15:34 WBC (4.8-10.8) K/uL RBC (4.2-5.4) M/uL Hgb (12.0-16.0) g/dL Hct (37-47) % MCV (80-100) fL MCH (25-34) pg MCHC (32-36) g/dL RDW Std Deviation (36.4-46.3) fL RDW Coeff of Ezequiel (11.5-14.5) % Plt Count (130-400) K/uL MPV (7.4-10.4) fL Immature Gran % (Auto) % Neut % (Auto) % Lymph % (Auto) % Faulk % (Auto) % Eos % (Auto) % Baso % (Auto) % Neut # (Auto) (1.4-6.5) K/uL Lymph # (Auto) (1.2-3.4) K/uL Faulk # (Auto) (0.11-0.59) K/uL Eos # (Auto) (0-0.5) K/uL Baso # (Auto) (0-0.2) K/uL Immature Gran # (Auto) (0.00-0.02) K/uL PT (9.0-12.0) Seconds INR (0.9-1.1) APTT (21.0-31.0) Seconds PTT Ratio Sodium 139 (136-145) mmol/L Potassium 4.2 (3.5-5.1) mmol/L Chloride 105 (98-107) mmol/L Carbon Dioxide 23 (21-32) mmol/L Anion Gap 11 (3-11) BUN 20 (6-23) mg/dl Creatinine 0.76 (0.6-1.2) mg/dl Est Cr Clr Drug Dosing 61.4 ml/min Est GFR ( Amer) 88.3 ml/min Est GFR (Non-Af Amer) 76.2 ml/min BUN/Creatinine Ratio 26.3 H (10-20) Glucose 120 H (70-99(Fasting)) mg/dl Calcium 9.2 (8.5-10.1) mg/dl Magnesium 2.0 (1.7-2.4) mg/dl Total Bilirubin 1.0 (0.2-1.0) mg/dl AST 32 (13-39) U/L ALT 24 (7-52) U/L Alkaline Phosphatase 150 H (34-104) U/L Troponin I High Sens (0-14) pg/ml Total Protein 6.5 (6.0-8.3) gm/dl Albumin 4.1 (3.4-5.0) gm/dl Globulin 2.4 L (2.5-4.0) gm/dl Albumin/Globulin Ratio 1.7 (0.9-2) TSH 3.129 (0.300-4.500) uIu/ml SARS-CoV-2, RNA, NAAT (NEGATIVE) 02/10/22 Range/Units 16:17 WBC (4.8-10.8) K/uL RBC (4.2-5.4) M/uL Hgb (12.0-16.0) g/dL Hct (37-47) % MCV (80-100) fL MCH (25-34) pg MCHC (32-36) g/dL RDW Std Deviation (36.4-46.3) fL RDW Coeff of Ezequiel (11.5-14.5) % Plt Count (130-400) K/uL MPV (7.4-10.4) fL Immature Gran % (Auto) % Neut % (Auto) % Lymph % (Auto) % Faulk % (Auto) % Eos % (Auto) % Baso % (Auto) % Neut # (Auto) (1.4-6.5) K/uL Lymph # (Auto) (1.2-3.4) K/uL Faulk # (Auto) (0.11-0.59) K/uL Eos # (Auto) (0-0.5) K/uL Baso # (Auto) (0-0.2) K/uL Immature Gran # (Auto) (0.00-0.02) K/uL PT (9.0-12.0) Seconds INR (0.9-1.1) APTT (21.0-31.0) Seconds PTT Ratio Sodium (136-145) mmol/L Potassium (3.5-5.1) mmol/L Chloride (98-107) mmol/L Carbon Dioxide (21-32) mmol/L Anion Gap (3-11) BUN (6-23) mg/dl Creatinine (0.6-1.2) mg/dl Est Cr Clr Drug Dosing ml/min Est GFR ( Amer) ml/min Est GFR (Non-Af Amer) ml/min BUN/Creatinine Ratio (10-20) Glucose (70-99(Fasting)) mg/dl Calcium (8.5-10.1) mg/dl Magnesium (1.7-2.4) mg/dl Total Bilirubin (0.2-1.0) mg/dl AST (13-39) U/L ALT (7-52) U/L Alkaline Phosphatase (34-104) U/L Troponin I High Sens (0-14) pg/ml Total Protein (6.0-8.3) gm/dl Albumin (3.4-5.0) gm/dl Globulin (2.5-4.0) gm/dl Albumin/Globulin Ratio (0.9-2) TSH (0.300-4.500) uIu/ml SARS-CoV-2, RNA, NAAT NEGATIVE (NEGATIVE) Administered Medications Diltiazem HCl 125 mg/ Dextrose 125 mls @ 15 mls/hr IV .[id number] [facility]; Protocol Stop: 03/12/22 19:14 Last Admin: 02/11/22 06:09 Dose: 15 mg/hr, 15 mls/hr Documented by: [id number] Cosigned by: [id number] Titration: 02/11/22 06:09 Dose: 15 mg/hr, 15 mls/hr Documented by: [id number] Cosigned by: [id number] Titration: 02/11/22 01:21 Dose: 15 mg/hr, 15 mls/hr Documented by: [id number] Cosigned by: [id number] Titration: 02/10/22 20:51 Dose: 10 mg/hr, 10 mls/hr Documented by: [id number] Cosigned by: [id number] Admin: 02/10/22 19:38 Dose: 5 mg/hr, 5 mls/hr Documented by: [id number] Cosigned by: [id number] Levothyroxine Sodium (Levothyroxine Sodium 112 Mcg Tablet) 112 mcg PO DAILYBB [facility] Stop: 03/13/22 06:29 Last Admin: 02/11/22 05:45 Dose: 112 mcg Documented by: [id number] Losartan Potassium (Losartan Potassium 50 Mg Tab) 50 mg PO QAM [facility] Stop: 03/13/22 08:59 Last Admin: 02/11/22 09:24 Dose: 50 mg Documented by: [id number] Potassium Chloride (Potassium Chloride 10 Meq Tabcr) 30 meq PO BID [facility] Stop: 02/11/22 21:01 Last Admin: 02/11/22 11:53 Dose: 30 meq Documented by: [id number] Rivaroxaban (Rivaroxaban 20 Mg Tab) 20 mg PO DAILY [facility] Stop: 03/13/22 08:59 Last Admin: 02/11/22 09:24 Dose: 20 mg Documented by: [id number] Simvastatin (Simvastatin 10 Mg Tab) 10 mg PO QPM [facility] Stop: 03/12/22 21:26 Last Admin: 02/10/22 22:38 Dose: 10 mg Documented by: [id number] Vitamin D (Cholecalciferol 5,000 Units 125 Mcg Tab) 5,000 units PO QAM [facility] Stop: 03/13/22 08:59 Last Admin: 02/11/22 09:24 Dose: 5,000 units Documented by: [id number] Discontinued Medications Diltiazem HCl (Diltiazem Hcl 5 Mg/Ml 5 Ml Vial) 10 mg IV NOW STA Stop: 02/10/22 17:25 Last Admin: 02/10/22 17:54 Dose: 10 mg Documented by: [id number] Cosigned by: [id number] Diltiazem HCl (Diltiazem Hcl 5 Mg/Ml 5 Ml Vial) 10 mg IV NOW STA Stop: 02/10/22 18:21 Last Admin: 02/10/22 18:39 Dose: 10 mg Documented by: [id number] Cosigned by: [id number] Furosemide (Furosemide 40 Mg/4 Ml Vial) 40 mg IV ONE ONE Stop: 02/10/22 16:51 Last Admin: 02/10/22 16:54 Dose: 40 mg Documented by: [id number] Digoxin 250 mcg/ Syringe 10 mls @ 2 mls/min IV ONE ONE Stop: 02/11/22 05:19 Last Admin: 02/11/22 06:01 Dose: 2 mls/min Documented by: [id number] Metoprolol Succinate (Metoprolol Succ 50mg Ext Rel Tab) 100 mg PO DAILY [facility] Stop: 03/13/22 08:59 Last Admin: 02/11/22 09:24 Dose: 100 mg Documented by: [id number] Metoprolol Succinate (Metoprolol Succ 50mg Ext Rel Tab) 50 mg PO NOW STA Stop: 02/11/22 10:39 Last Admin: 02/11/22 11:53 Dose: 50 mg Documented by: [id number] Metoprolol Tartrate (Metoprolol Tartrate 1 Mg/Ml Vial) 5 mg IV NOW STA; Protocol Stop: 02/10/22 16:08 Last Admin: 02/10/22 16:14 Dose: 5 mg Documented by: [id number] Metoprolol Tartrate (Metoprolol Tartrate 1 Mg/Ml Vial) 5 mg IV NOW STA; Protocol Stop: 02/10/22 16:45 Last Admin: 02/10/22 16:48 Dose: 5 mg Documented by: [id number] Discharge Plan Visit Data Chief Complaint: Arrhythmia/Palpitations Stated Complaint: SHORTNESS OF BREATH, SENT BY JOSE MYRICK ED Provider: Jose Wilkins Discharge Problem: Atrial fibrillation with rapid ventricular response, Fluid overload Patient Disposition: Admitted As Inpatient Discharge Instructions Interventions: ED Discharge Assessment Last Done: 02/10/22 21:10 Discharge Problem: Fluid overload Qualifiers: Hypervolemia type: unspecified Qualified Code(s): E87.70 - Fluid overload, unspecified
--- NOTE | 2022-02-10 16:28 | XRay Report ---
SINGLE VIEW CHEST CLINICAL HISTORY: Atypical chest pain. FINDINGS: An AP, portable, upright chest radiograph is compared to study dated 04/10/2021. The heart i s enlarged. There is pulmonary vascular congestion. Atelectasis is noted at the lung bases. No large pleural effusion or pneumothorax is seen. The skeletal structures are osteopenic. The bony thorax is grossly intact. There are calcified bilateral breast implants. IMPRESSION: Cardiomegaly with pulmonary vascular congestion. ACT 112: Negative or not required by law. Electronically signed by: Rahul Rutledge M.D. 02/10/2022 4:26 PM
[2022-02-10 16:31] LABS: Albumin Globulin Ratio 1.7 (0.9-2); Albumin Level 4.1 gm/dl (3.4-5.0); BUN Creatinine Ratio 26.3 (10-20); Calcium 9.2 mg/dl (8.5-10.1); Creatinine Clr Calc Pharmacy 61.4 ml/min; Est GFR (African American) 88.3 ml/min; Est GFR (Non-African American) 76.2 ml/min; Globulin 2.4 gm/dl (2.5-4.0); Potassium 4.2 mmol/L (3.5-5.1); Total Protein 6.5 gm/dl (6.0-8.3)
[2022-02-10] MEDS ORDERED: FUROSEMIDE 40 MG/4 ML VIAL IV ONE (16:50)
[2022-02-10] MEDS ORDERED: dilTIAZem HCl 5 MG/ML 5 ML VIAL IV STA ×2 (17:24→18:20)
[2022-02-10] MEDS ORDERED: STAT IV Infusion **Titration per Protocol STA (19:04)
--- NOTE | 2022-02-10 19:18 | History & Physical Report ---
Date of Service February 10, 2022 Assessment & Plan (1) Shortness of breath: (2) Atrial fibrillation with rapid ventricular response: Plan: Atrial fibrillation with rapid ventricular response-/hypertension/long-term anticoagulant use The patient will be admitted to telemetry for serial cardiac enzymes, serial EKG's, cardiac rhythm monitoring The patient did have an outpatient echocardiogram done earlier in the day today, and when it was noted she was in A. fib with RVR and short of breath, she was advised to come to the ED for assessment Continue metoprolol succinate 100 mg daily She was given Lopressor 5 mg IV x2 and then furosemide 40 mg IV by the ED, with no significant change in heart rate Patient was then given Cardizem 10 mg IV in succession x2, and then was started on a Cardizem drip with improvement in rate control. Continue losartan, and Xarelto Cardiology will be consulted in the a.m. to follow patient (3) Hyperlipidemia: Plan: Continue simvastatin 10 mg daily (4) GERD (gastroesophageal reflux disease): Plan: Continue pantoprazole 40 mg daily (5) Hypothyroidism: Plan: Continue levothyroxine 112 mcg daily (6) Hypertension: Plan: See above (7) Anticoagulant long-term use: Plan: See above History of Present Illness Chief Complaint: The patient presents to the emergency department for assessment of worsening shortness of breath which initially began about 2 weeks ago, and was attributed to a new onset atrial fibrillation that was detected by her PCP Primary Care Provider: Socorro Fan MD The patient is a 76-year-old female with past medical history including atrial fibrillation with rapid ventricular response, right rotator cuff tendinitis, impaired fasting glucose, metabolic syndrome, obesity, hyperlipidemia, GERD, hypothyroidism, hypertension, osteopenia and long-term anticoagulant use. Her symptoms initially developed 2 weeks ago, she was seen by her PCP, who noted on examination that she was in atrial fibrillation, which was confirmed by EKG. She was started on metoprolol and Xarelto, and had these dosages of metoprolol titrated by cardiology Dr. Yao, who increased her dosing from 25 mg twice daily to 50 mg twice daily to 75 mg twice daily and today she started 100 mg twice daily. She was advised by the outpatient doctors to come to the emergency department for assessment and further treatment. Allergies Allergy/AdvReac Type Severity Reaction Status Date / Time atorvastatin [From Lipitor] Allergy Mild pt unsure Verified 02/03/22 11:00 it was long time ago Home Medications Medication Instructions Recorded Confirmed Type simvastatin 10 mg tablet 10 mg PO QPM #90 tab 03/18/21 02/10/22 Rx estradiol 0.5 mg tablet 0.5 mg PO UD 04/08/21 02/10/22 History ipratropium bromide 21 mcg (0.03 2 sprays INTNAS TID PRN 04/08/21 02/10/22 History %) nasal spray levothyroxine 112 mcg tablet 112 mcg PO QAM 04/08/21 02/10/22 History (Synthroid) losartan 50 mg tablet 50 mg PO QAM 04/08/21 02/10/22 History multivitamin 1 cap PO QAM 04/08/21 02/10/22 History pantoprazole 40 mg tablet,delayed 40 mg PO DAILY PRN 04/08/21 02/10/22 History release cholecalciferol (vitamin D3) 125 125 mcg PO QAM 11/25/21 02/10/22 History mcg (5,000 unit) capsule lorazepam 0.5 mg tablet 0.5 mg PO Q8H PRN #30 tab 01/29/22 02/10/22 Rx rivaroxaban 20 mg tablet (Xarelto) 20 mg PO DAILY #28 tab 01/29/22 02/10/22 Rx metoprolol succinate 100 mg 100 mg PO DAILY #30 tab 02/03/22 02/10/22 Rx tablet,extended release 24 hr Past Med/Surg History Medical History (Updated 02/10/22 @ 19:53 by Bob Youngblood MD) GERD (gastroesophageal reflux disease) Hx of gastric ulcer >30 yrs ago Hx of ovarian cyst (reason for FELISHA w/BSO) Hyperlipidemia Hypertension Hypothyroidism Metabolic syndrome Obesity Osteoarthritis Osteopenia Shortness of breath Surgical History H/O breast augmentation H/O colonoscopy 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 No postop issues per anesthesia progress note. History of esophagogastroduodenoscopy (EGD) History of Ishmael fundoplication 2003, hiatal hernia Hx of cataract surgery right and left S/P total abdominal hysterectomy w/ removal of both ovaries Family History Father Acute myocardial infarction Mother Acute myocardial infarction Hypertension Brother Acute myocardial infarction Sister Hypertension Pure hypercholesterolemia Unknown Diabetes Other Stroke Denies family history of Breast cancer Colorectal cancer Colonic polyp Social History Smoking Status: Never smoker Second Hand Exposure: No; Hx Alcohol Use: Yes Alcohol type: wine Hx Substance Use: No Preferred Language: Arabic Communication Ability: Effective Visual Impairment: No Limitations Hearing Ability: Normal Regional Cra Required: No Beliefs That Will Affect Care: None marital status: Current Living Situation: Alone current occupational status: employed Feels Safe at Home: Yes Childhood Exposure to Second-Hand Smoke: Yes caffeine: Yes Dental Care, Regularly: Yes Physical Activity Frequency: Daily Physical Activity Frequency Comment: walking 20 min Seatbelt Use: always Sunscreen Use: Yes Assistive Devices: None Review of Systems Review of Systems: The patient denies chest pain, palpitations, cough, lower extremity swelling, sore throat, fevers, chills, sweats, nausea, vomiting, diarrhea , constipation, abdominal pain, pelvic pain, blood in urine or stool, dysuria, urinary frequency or urgency, lightheadedness, dizziness, headache, memory loss, loss of consciousness, rash, abnormal bruising or bleeding, imbalance, focal weakness, numbness or tingling in arms or legs, generalized arthralgias or myalgias, back or neck pain, or night sweats. The review of systems is otherwise negative other than for that already noted above, and at least 10 systems have been reviewed. Physical Exam Physical Exam: The patient is awake, alert and oriented 3, well developed and well nourished, normocephalic and atraumatic, lying in bed and in no acute distress. HEENT--PERRL, EOMI, mucous membranes and oropharynx dry. Neck--supple. No JVD. No bruits. Thyroid normal, trachea midline, no adenopathy. Heart--irregularly irregular and tachycardic. No murmurs, rubs or gallops. Lungs--clear bilaterally, no respiratory distress, no accessory muscle use. Abdomen--normal bowel sounds and soft. Nontender. Nondistended, no hernias or masses, no organomegaly. Extremities--no cyanosis or clubbing. No edema. Dermatologic--normal skin turgor, normal color, no abnormal lymph nodes, no rash. Neurologic--cranial nerves II through XII grossly intact. Rheumatologic--normal range of motion. Psychiatric--normal affect. Results & Data Results & Data ([facility]) Vital Signs (Past 12 Hours) Vital Signs Temp Pulse Pulse Resp BP BP Pulse Ox 02/10/22 18:00 141 H 18 156/121 H 94 02/10/22 16:49 138 H 20 138/111 H 97 02/10/22 16:48 140 H 138/11 L 02/10/22 16:14 147 H 142/101 H 02/10/22 16:01 148 H 22 142/101 H 97 02/10/22 15:16 36.6 C 145 H 21 147/101 H 99 Laboratory Results Laboratory Results WBC 7.43 K/uL (4.8-10.8) 02/10/22 15:34 RBC 3.95 M/uL (4.2-5.4) L 02/10/22 15:34 Hgb 11.6 g/dL (12.0-16.0) L 02/10/22 15:34 Hct 36.8 % (37-47) L 02/10/22 15:34 MCV 93.2 fL (80-100) 02/10/22 15:34 MCH 29.4 pg (25-34) 02/10/22 15:34 MCHC 31.5 g/dL (32-36) L 02/10/22 15:34 RDW Std Deviation 51.9 fL (36.4-46.3) H 02/10/22 15:34 RDW Coeff of Ezequiel 15.4 % (11.5-14.5) H 02/10/22 15:34 Plt Count 345 K/uL (130-400) 02/10/22 15:34 MPV 11.0 fL (7.4-10.4) H 02/10/22 15:34 Immature Gran % (Auto) 0.1 % 02/10/22 15:34 Neut % (Auto) 75.9 % 02/10/22 15:34 Lymph % (Auto) 14.0 % 02/10/22 15:34 Jewell % (Auto) 8.7 % 02/10/22 15:34 Eos % (Auto) 0.8 % 02/10/22 15:34 Baso % (Auto) 0.5 % 02/10/22 15:34 Neut # (Auto) 5.63 K/uL (1.4-6.5) 02/10/22 15:34 Lymph # (Auto) 1.04 K/uL (1.2-3.4) L 02/10/22 15:34 Jewell # (Auto) 0.65 K/uL (0.11-0.59) H 02/10/22 15:34 Eos # (Auto) 0.06 K/uL (0-0.5) 02/10/22 15:34 Baso # (Auto) 0.04 K/uL (0-0.2) 02/10/22 15:34 Immature Gran # (Auto) 0.01 K/uL (0.00-0.02) 02/10/22 15:34 PT 13.9 Seconds (9.0-12.0) H 02/10/22 15:34 INR 1.3 (0.9-1.1) H 02/10/22 15:34 APTT 29.1 Seconds (21.0-31.0) 02/10/22 15:34 PTT Ratio 1.1 02/10/22 15:34 Sodium 139 mmol/L (136-145) 02/10/22 15:34 Potassium 4.2 mmol/L (3.5-5.1) 02/10/22 15:34 Chloride 105 mmol/L (98-107) 02/10/22 15:34 Carbon Dioxide 23 mmol/L (21-32) 02/10/22 15:34 Anion Gap 11 (3-11) 02/10/22 15:34 BUN 20 mg/dl (6-23) 02/10/22 15:34 Creatinine 0.76 mg/dl (0.6-1.2) 02/10/22 15:34 Est Cr Clr Drug Dosing 61.4 ml/min 02/10/22 15:34 Est GFR ( Amer) 88.3 ml/min 02/10/22 15:34 Est GFR (Non-Af Amer) 76.2 ml/min 02/10/22 15:34 BUN/Creatinine Ratio 26.3 (10-20) H 02/10/22 15:34 Glucose 120 mg/dl (70-99(Fasting)) H 02/10/22 15:34 Calcium 9.2 mg/dl (8.5-10.1) 02/10/22 15:34 Magnesium 2.0 mg/dl (1.7-2.4) 02/10/22 15:34 Total Bilirubin 1.0 mg/dl (0.2-1.0) 02/10/22 15:34 AST 32 U/L (13-39) 02/10/22 15:34 ALT 24 U/L (7-52) 02/10/22 15:34 Alkaline Phosphatase 150 U/L (34-104) H 02/10/22 15:34 Troponin I High Sens 11.9 pg/ml (0-14) 02/10/22 15:34 Total Protein 6.5 gm/dl (6.0-8.3) 02/10/22 15:34 Albumin 4.1 gm/dl (3.4-5.0) 02/10/22 15:34 Globulin 2.4 gm/dl (2.5-4.0) L 02/10/22 15:34 Albumin/Globulin Ratio 1.7 (0.9-2) 02/10/22 15:34 TSH 3.129 uIu/ml (0.300-4.500) 02/10/22 15:34 SARS-CoV-2, RNA, NAAT NEGATIVE (NEGATIVE) 02/10/22 16:17 Impressions Chest X-Ray 02/10/22 15:19 SINGLE VIEW CHEST CLINICAL HISTORY: Atypical chest pain. FINDINGS: An AP, portable, upright chest radiograph is compared to study dated 04/10/2021. The heart is enlarged. There is pulmonary vascular congestion. Ate lectasis is noted at the lung bases. No large pleural effusion or pneumothorax is seen. The skeletal structures are osteopenic. The bony thorax is grossly intact. There are calcified bilateral breast implants. IMPRESSION: Cardiomegaly with pulmonary vascular congestion. ACT 112: Negative or not required by law. Electronically signed by: Rahul Rutledge M.D. 02/10/2022 4:26 PM Code Status & VTE Plan Code Status Full code VTE Prophylaxis Plan VTE Prophylaxis will be ordered: Yes PG Care Time/CCT Total # of Minutes Spent Total Time Spent with Patient: Total time spent is greater than 50% in coordination of care (as documented) at patient's floor/unit and/or counseling patient: Coding Level of Care Code 60512 Initial Inpt Care Lvl 3 Diagnoses Atrial fibrillation with rapid ventricular response I48.91 Hyperlipidemia E78.5 GERD (gastroesophageal reflux disease) K21.9 Hypothyroidism E03.9 Hypertension I10 Shortness of breath R06.02 Anticoagulant long-term use Z79.01
[2022-02-10] MEDS: dilTIAZem HCL 125 MG in DEXTROSE 5% 100 ML IV SCH (19:38)
[2022-02-10] MEDS ORDERED: PANTOprazole 40 MG TAB PO PRN (21:27)
[2022-02-10] MEDS ORDERED: ACETAMINOPHEN 325 MG TAB PO PRN (21:27)
[2022-02-10] MEDS ORDERED: LORazepam 0.5 MG TAB PO PRN (21:27)
[2022-02-10] MEDS ORDERED: ONDANSETRON INJ 2 MG/ML 2 ML VIAL IV PRN (21:27)
[2022-02-10] MEDS: SIMVASTATIN 10 MG TAB PO SCH (22:38)
--- NOTE | 2022-02-11 05:01 | Communication Note ---
Date of Service: February 11, 2022 Notified by patient's nurse around 02 08 that patient had remained persistently in atrial fibrillation with rapid ventricular response despite being maxed out on diltiazem drip since around 11 10. I spoke with telemetry, who did confirm that patient's rates had persistently been in the [id number] range with occasional spikes to the 150s Thankfully, patient remained asymptomatic throughout all this; her blood pressures remained stable, as that her oxygen saturation and respiratory rate Her TTE was reviewed, which was taken yesterday; EF 35 to 40% Given that she received multiple rounds of Lopressor, diltiazem, and is maxed out on diltiazem drip with ongoing RVR, opt to load now with digoxin 250 mcg Can consider additional loading pending response at 0800 (2 hours post first dose) Maintain magnesium over 2, potassium over 4 d/w attending physician, updated RN about plan In close contact with patient's RN Resident Activity Tracking Resident Involvement: Resident Care Provided Care Provided: Adult Hospital Medicine
[2022-02-11] MEDS ORDERED: DIGOXIN 250 MCG in SYRINGE 9 ML IV ONE (05:15)
[2022-02-11] MEDS: LEVOTHYROXINE SODIUM 112 MCG TABLET PO SCH (05:45)
[2022-02-11] MEDS: dilTIAZem HCL 125 MG in DEXTROSE 5% 100 ML IV SCH ×3 (06:09→22:12)
[2022-02-11 07:10] LABS: Basophils # (auto) 0.05 K/uL (0-0.2); Basophils % (auto) 0.7 %; Eosinophils # (auto) 0.09 K/uL (0-0.5); Eosinophils % (auto) 1.2 %; Hematocrit (blood only) 33.3 % (37-47); Hemoglobin 10.5 g/dL (12.0-16.0); Immature Granulocytes # (auto) 0.02 K/uL (0.00-0.02); Immature Granulocytes % (auto) 0.3 %; Lymphocytes % (auto) 19.9 %; Mean Corpuscular Hemoglobin 29.2 pg (25-34); Mean Corpuscular Hgb Conc 31.5 g/dL (32-36); Mean Corpuscular Volume 92.8 fL (80-100); Monocytes # (auto) 0.96 K/uL (0.11-0.59); Monocytes % (auto) 12.7 %; Neutrophils # (auto) 4.91 K/uL (1.4-6.5); Neutrophils % (auto) 65.2 %; Platelet Count 319 K/uL (130-400); RDW Coefficient of Variation 15.3 % (11.5-14.5); RDW Standard Deviation 51.7 fL (36.4-46.3); Red Blood Count 3.59 M/uL (4.2-5.4); White Blood Count 7.53 K/uL (4.8-10.8)
[2022-02-11 08:47] LABS: Albumin Level 3.6 gm/dl (3.4-5.0); BUN Creatinine Ratio 23.1 (10-20); Calcium 8.7 mg/dl (8.5-10.1); Creatinine Clr Calc Pharmacy 59.8 ml/min; Est GFR (African American) 85.6 ml/min; Est GFR (Non-African American) 73.8 ml/min; Magnesium 1.8 mg/dl (1.7-2.4); Phosphorus 3.6 mg/dl (2.5-4.9); Potassium 3.2 mmol/L (3.5-5.1)
--- NOTE | 2022-02-11 08:57 | Cardiology Progress Note ---
Date of Service February 11, 2022 Assessment & Plan (1) Atrial fibrillation with rapid ventricular response: (2) Hypertension: (3) Hypothyroidism: (4) Obesity: (5) Hyperlipidemia: (6) Anticoagulant long-term use: (7) Cardiomyopathy: (8) CHF exacerbation: Plan: 1. Atrial fibrillation: Atrial fibrillation was only diagnosed around January 29, 2022 when an electrocardiogram was done for shortness of breath. The shortness of breath probably started several weeks before, it is conceivable that she has had this arrhythmia before but it has not been identified, she did have an electrocardiogram done in December 2021 which showed sinus rhythm so it is not a longstanding arrhythmia. Since she does not have palpitations it is hard to know exactly when it might have started. It is also not possible to determine whether was related to the stress of her retiring or whether it is a spontaneous arrhythmia, since it is common I do not think we can assume that it is due to stress. Atrial fibrillation is correlated to weight as well as sleep apnea, and she also has hypothyroidism for which she is on Synthroid although her TSH was normal in October of this year. She does have severe left atrial enlargement which correlates with atrial fibrillation. It is a little bit early to convert her rhythm (she has only been on anticoagulation for about 2 weeks) but we could consider that with a MYRNA. If possible I would like to get her heart rate controlled as this may be a long- term issue in any case and I do want to go up on beta-blockade with her cardiomyopathy. My approach therefore would be to control her heart rate over the next day or 2 and see whether we can postpone cardioversion for a week or 2. 2. Hypertension: She does have a history of hypertension, today her blood pressure is borderline. She could use a little better blood pressure control based on her recent measurements and I am going to be going up on her metoprolol to help control heart rate as well 3. Hypothyroidism: She does take Synthroid, her TSH is normal so I suspect this is not a cause of her atrial fibrillation but we will follow-up on that. 4. Obesity: She is overweight, her weight has really not changed much lately based on her history and our records. This may or may not be influencing her atrial fibrillation. 5. Hyperlipidemia: She is on low-dose simvastatin and I recommended she continue. 6. Anticoagulation: She is on Xarelto, she is tolerating it well. She is on the correct dose and I recommended she continue it. 7. Cardiomyopathy: She does have left ventricular dysfunction and I am hopeful this is related to her arrhythmia but she does have a lot of other issues including severe tricuspid regurgitation with pulmonary hypertension mild to moderate mitral regurgitation, mild to moderate aortic insufficiency and severe left atrial enlargement. Some of these findings may improve with control of her arrhythmia but I suspect they are part of the reason she has atrial fibrillation. We will need to keep her on medications for her cardiomyopathy a nd hopefully heart function will improve. 8. Congestive heart failure: I think she has congestive heart failure, most likely related to the onset of the atrial fibrillation in the setting of her lef t ventricular dysfunction and other issues. I think little more diuresis would be in order. Her BUN and creatinine have not increased. Admission and Anticipated Discharge Date Admission Date: February 10, 2022 Subjective This is a 76-year-old woman who has a history of hypothyroidism, hypertension, dyslipidemia and more recently identification of atrial fibrillation. She had right knee surgery performed on December 31, 2021 and at that time was not in atrial fibrillation, however developed some shortness of breath which initially was orthopnea around the first week of January 2022. She had an electrocardiogram performed on January 29, 2022 when this was investigated and was in atrial fibrillation with a rapid ventricular response. Xarelto 20 mg daily and metoprolol succinate 25 mg daily were initiated on that day. An echocardiogram was scheduled but was not done until February 10, 2022. In general she has been feeling quite well until recently. 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 She then had the knee surgery and she has been under a lot of stress with her snf and although she has physically felt fairly well (other than some shortness of breath, she has no palpitations) she has felt anxious although that may be due to her situation not the arrhythmia. She is unaware of the arrhythmia itself and could have had it in the past although it has never been identified. We had been adjusting her rate control medications as an outpatient and we were using metoprolol succinate 100 mg daily, additionally she has been taking Xarelto 20 mg daily. She had her echocardiogram done February 10, 2022 and this showed normal left ventricular size with moderate left ventricular systolic dysfunction and ejection fraction felt to be 35 to 40% with global hypokinesis. She did have severe left atrial dilatation, mild to moderate aortic regurgitation and mild to moderate mitral regurgitation as well as severe tricuspid regurgitation and moderate pulmonary hypertension. She had noticed increasing shortness of breath recently and her heart rate remained fast, therefore with worsening symptoms and her left ventricular dysfunction she was referred to the emergency room on February 10, 2022. She was diuresed in the emergency room and diltiazem intravenously was added to her regimen. She feels much better today, she is much less short of breath with ambulation in the room and notes that her leg swelling is improved. She has had no lightheadedness or dizziness and very little in the way of palpitations. Physical Exam Physical Exam: Constitutional: Alert, cooperative and in no distress. HEENT: Unremarkable Neck: No jugular venous distention, carotid pulses are irregular but otherwise normal and equal bilaterally without bruits. Pulmonary: Basilar crackles bilaterally. Cardiac: Irregular rhythm with no murmur, gallop or rub. Abdomen: Soft, nontender with normal bowel sounds. Extremities: No edema. Distal pulses intact. Neurologic: No focal findings. Gait was not tested. Skin: No rash, ecchymoses or petechiae. Results & Data ([facility]) Vital Signs (Past 12 Hours) Vital Signs Temp Pulse Pulse Resp BP Pulse Ox 02/11/22 07:20 123 H 02/11/22 07:04 37.1 C 123 H 18 132/91 98 02/11/22 06:01 132 H 02/11/22 04:35 37.2 C 130 H 16 119/84 92 02/11/22 00:00 116 H 02/10/22 23:43 36.8 C 144 H 12 140/86 96 02/10/22 21:30 127 H 02/10/22 21:28 37.0 C 146 H 20 141/100 H 96 Laboratory Results Cardiac Enzymes 02/10/22 02/10/22 Range/Units 15:34 15:34 AST 32 (13-39) U/L Troponin I High Sens 11.9 (0-14) pg/ml Coagulation 02/10/22 Range/Units 15:34 PT 13.9 H (9.0-12.0) Seconds APTT 29.1 (21.0-31.0) Seconds CBC 02/10/22 02/11/22 Range/Units 15:34 06:04 WBC 7.43 7.53 (4.8-10.8) K/uL RBC 3.95 L 3.59 L (4.2-5.4) M/uL Hgb 11.6 L 10.5 L (12.0-16.0) g/dL Hct 36.8 L 33.3 L (37-47) % Plt Count 345 319 (130-400) K/uL Neut # (Auto) 5.63 4.91 (1.4-6.5) K/uL Lymph # (Auto) 1.04 L 1.50 (1.2-3.4) K/uL Darke # (Auto) 0.65 H 0.96 H (0.11-0.59) K/uL Eos # (Auto) 0.06 0.09 (0-0.5) K/uL Baso # (Auto) 0.04 0.05 (0-0.2) K/uL Comprehensive Metabolic Panel 02/10/22 02/11/22 Range/Units 15:34 06:04 Sodium 139 140 (136-145) mmol/L Potassium 4.2 3.2 L D (3.5-5.1) mmol/L Chloride 105 104 (98-107) mmol/L Carbon Dioxide 23 24 (21-32) mmol/L BUN 20 18 (6-23) mg/dl Creatinine 0.76 0.78 (0.6-1.2) mg/dl Glucose 120 H 93 (70-99(Fasting)) mg/dl Calcium 9.2 8.7 (8.5-10.1) mg/dl AST 32 (13-39) U/L ALT 24 (7-52) U/L Alkaline Phosphatase 150 H (34-104) U/L Total Protein 6.5 (6.0-8.3) gm/dl Albumin 4.1 3.6 (3.4-5.0) gm/dl Intake and Output 02/10/22 02/11/22 02/11/22 22:59 06:59 14:59 Intake Total 6.083 / 273.083 267 / 273.083 Output Total 650 / 650 Balance 6.083 / -376.917 -383 / -376.917 Intake: IV 6.083 / 123.083 117 / 123.083 dilTIAZem HCL 125 mg In 6.083 / 123.083 117 / 123.083 Dextrose 5% 100 ml @ 15 MG/HR 15 mls/hr IV .[id number] MICHELINE Rx#: [id number] Oral 150 / 150 Output: Urine 650 / 650 Other: Other Intake Source sips Weight 86.2 kg Weight Measurement Method Chair Scale Diagnostic Findings Telemetry: Atrial fibrillation, heart rate still elevated at around 120 bpm. PG Care Time/CCT Total # of Minutes Spent Total Time Spent with Patient: Total time spent is greater than 50% in coordination of care (as documented) at patient's floor/unit and/or counseling patient: Coding Level of Care Code 10722 Subseq Hosp Care Lvl 3 Diagnoses Atrial fibrillation with rapid ventricular response I48.91 Anticoagulant long-term use Z79.01 Hypertension I10 Hypertension type: primary hypertension Hypothyroidism E03.9 Obesity E66.09 Obesity type: due to excess calories Obesity classification: unspecified obesity classification Serious obesity comorbidity presence: without serious comorbidity Cardiomyopathy I42.9 Cardiomyopathy type: unspecified CHF exacerbation I50.43 Heart failure type: combined systolic and diastolic Hyperlipidemia E78.5 Hyperlipidemia type: unspecified (1) Hypertension Hypertension type: primary hypertension Qualified Code(s): I10 - Essential (primary) hypertension (2) Obesity Obesity type: due to excess calories Obesity classification: unspecified obes ity classification Serious obesity comorbidity presence: without serious comorbidity Qualified Code(s): E66.09 - Other obesity due to excess calories (3) Cardiomyopathy Cardiomyopathy type: unspecified Qualified Code(s): I42.9 - Cardiomyopathy, unspecified (4) CHF exacerbation Heart failure type: combined systolic and diastolic Qualified Code(s): I50.43 - Acute on chronic combined systolic (congestive) and diastolic (congestive) heart failure (5) Hyperlipidemia Hyperlipidemia type: unspecified Qualified Code(s): E78.5 - Hyperlipidemia, unspecified
[2022-02-11] MEDS ORDERED: METOPROLOL SUCC 50MG EXT REL TAB PO SCH (09:00)
[2022-02-11] MEDS: LOSARTAN POTASSIUM 50 MG TAB PO SCH (09:24)
[2022-02-11] MEDS: CHOLECALCIFEROL 5,000 UNITS 125 MCG TAB PO SCH (09:24)
[2022-02-11] MEDS: RIVAROXABAN 20 MG TAB PO SCH (09:24)
[2022-02-11] MEDS ORDERED: METOPROLOL SUCC 50MG EXT REL TAB PO STA (10:38)
[2022-02-11] MEDS: POTASSIUM CHLORIDE 10 MEQ TABCR PO SCH ×2 (11:53→19:27)
--- NOTE | 2022-02-11 14:34 | Hospitalist Progress Note ---
Date of Service February 11, 2022 Assessment & Plan (1) Atrial fibrillation with rapid ventricular response: Plan: Atrial fibrillation with rapid ventricular response. - Continue metoprolol succinate 100 mg daily - Continue diltiazem gtt - Continue Xarelto - Cardiology consulted (2) Cardiomyopathy: Plan: Echo on 02/10 showed EF 35-40%. Likely tachycardia-mediated acute on chronic systolic heart failure. - Plan as above -> Continue rate control - Continue ARB (3) Hypertension: Plan: BP presently 135/85. - Continue home losartan (4) Hyperlipidemia: Plan: - Continue simvastatin 10 mg daily (5) GERD (gastroesophageal reflux disease): Plan: - Continue pantoprazole 40 mg daily (6) Hypothyroidism: Plan: - Continue levothyroxine 112 mcg daily Admission and Anticipated Discharge Date Admission Date: February 10, 2022 Subjective A bit discouraged, but overall doing well. Reports no fevers/chills, chest pain, shortness of breath, abdominal pain, nausea, or vomiting. Physical Exam Constitutional: WD/WN, vitals as above Eyes: EOM intact bilaterally; no conjunctival abnormality ENMT: external ear and nose normal, oropharynx normal Neck: trachea midline, no thyromegaly normal visual inspection Respiratory: normal respiratory effort, lungs clear to auscultation no respiratory distress Cardiovascular: Rate/Rhythm: + tachycardic and + irregularly irregular Extremities: no edema Gastrointestinal (Abdomen): Inspection/Auscultation: abdomen normal to inspection; abdomen not distended Musculoskeletal: no cyanosis or clubbing, extremities motor strength 5/5 Skin: no rashes, warm and dry Neurologic: moves all extremities and awake Psychiatric: Orientation: alert, oriented to person and cooperative Results & Data Results & Data ([facility]) Vital Signs (Past 12 Hours) Vital Signs Temp Pulse Pulse Resp BP Pulse Ox 02/11/22 11:43 36.8 C 120 H 17 135/85 97 02/11/22 07:20 123 H 02/11/22 07:04 37.1 C 123 H 18 132/91 98 02/11/22 06:01 132 H 02/11/22 04:35 37.2 C 130 H 16 119/84 92 PG Care Time/CCT Total # of Minutes Spent Total Time Spent with Patient: Total time spent is greater than 50% in coordination of care (as documented) at patient's floor/unit and/or counseling patient: Coding Level of Care Code 47548 Subseq Hosp Care Lvl 3 Diagnoses Atrial fibrillation with rapid ventricular response I48.91 Hyperlipidemia E78.5 Hyperlipidemia type: unspecified GERD (gastroesophageal reflux disease) K21.9 Hypothyroidism E03.9 Hypertension I10 Hypertension type: primary hypertension Cardiomyopathy I42.9 Cardiomyopathy type: unspecified (1) Hyperlipidemia Hyperlipidemia type: unspecified Qualified Code(s): E78.5 - Hyperlipidemia, unspecified (2) Hypertension Hypertension type: primary hypertension Qualified Code(s): I10 - Essential (primary) hypertension (3) Cardiomyopathy Cardiomyopathy type: unspecified Qualified Code(s): I42.9 - Cardiomyopathy, unspecified
[2022-02-11] MEDS: SIMVASTATIN 10 MG TAB PO SCH (19:27)
[2022-02-12 06:17] LABS: Basophils # (auto) 0.02 K/uL (0-0.2); Basophils % (auto) 0.3 %; Eosinophils # (auto) 0.19 K/uL (0-0.5); Eosinophils % (auto) 2.7 %; Hematocrit (blood only) 32.6 % (37-47); Hemoglobin 10.3 g/dL (12.0-16.0); Immature Granulocytes # (auto) 0.02 K/uL (0.00-0.02); Immature Granulocytes % (auto) 0.3 %; Lymphocytes # (auto) 1.07 K/uL (1.2-3.4); Mean Corpuscular Hemoglobin 29.3 pg (25-34); Mean Corpuscular Hgb Conc 31.6 g/dL (32-36); Mean Corpuscular Volume 92.6 fL (80-100); Monocytes # (auto) 0.87 K/uL (0.11-0.59); Monocytes % (auto) 12.2 %; Neutrophils # (auto) 4.95 K/uL (1.4-6.5); Neutrophils % (auto) 69.5 %; Platelet Count 321 K/uL (130-400); RDW Coefficient of Variation 15.4 % (11.5-14.5); RDW Standard Deviation 51.4 fL (36.4-46.3); Red Blood Count 3.52 M/uL (4.2-5.4); White Blood Count 7.12 K/uL (4.8-10.8)
[2022-02-12] MEDS: LEVOTHYROXINE SODIUM 112 MCG TABLET PO SCH (06:25)
[2022-02-12 06:37] LABS: Albumin Level 3.4 gm/dl (3.4-5.0); BUN Creatinine Ratio 21.6 (10-20); Calcium 8.7 mg/dl (8.5-10.1); Creatinine Clr Calc Pharmacy 52.6 ml/min; Est GFR (Non-African American) 63.8 ml/min; Magnesium 1.8 mg/dl (1.7-2.4); Potassium 3.8 mmol/L (3.5-5.1)
[2022-02-12] MEDS: dilTIAZem HCL 125 MG in DEXTROSE 5% 100 ML IV SCH (07:00)
[2022-02-12] MEDS: LOSARTAN POTASSIUM 50 MG TAB PO SCH (08:28)
[2022-02-12] MEDS: CHOLECALCIFEROL 5,000 UNITS 125 MCG TAB PO SCH (08:30)
[2022-02-12] MEDS: RIVAROXABAN 20 MG TAB PO SCH (08:30)
[2022-02-12] MEDS ORDERED: estradioL 1 MG TAB PO SCH (09:00)
[2022-02-12] MEDS ORDERED: METOPROLOL SUCC 50MG EXT REL TAB PO SCH (09:00)
[2022-02-12] MEDS ORDERED: METOPROLOL SUCC 50MG EXT REL TAB PO STA (10:41)
--- NOTE | 2022-02-12 10:47 | Cardiology Progress Note ---
Date of Service February 12, 2022 Assessment & Plan (1) Atrial fibrillation with rapid ventricular response: (2) Hypertension: (3) Hypothyroidism: (4) Obesity: (5) Hyperlipidemia: (6) Anticoagulant long-term use: (7) Cardiomyopathy: (8) CHF exacerbation: Plan: 1. Atrial fibrillation: Atrial fibrillation was only diagnosed around January 29, 2022 when an electrocardiogram was done for shortness of breath. The shortness of breath probably started several weeks before, it is conceivable that she has had this arrhythmia before but it has not been identified, she did have an electrocardiogram done in December 2021 which showed sinus rhythm so it is not a longstanding arrhythmia. Since she does not have palpitations it is hard to know exactly when it might have started. It is also not possible to determine whether was related to the stress of her retiring or whether it is a spontaneous arrhythmia, since it is common and she does have other cardiac issues and risk factors for atrial fibrillation I do not think we can assume that it is due to stress. Atrial fibrillation is correlated to weight as well as sleep apnea, and she also has hypothyroidism for which she is on Synthroid although her TSH was normal in October of this year. She does have severe left atrial enlargement which correlates with atrial fibrillation. It is a little bit early to convert her rhythm (she has only been on anticoagulation for about 2 weeks) but we could consider that with a MYRNA. If possible I would like to get her heart rate controlled as this may be a long- term issue in any case and I do want to go up on beta-blockade with her cardiomyopathy. My approach therefore would be to control her heart rate and see whether we can postpone cardioversion for a week or 2. We are going to increase her metoprolol succinate to 150 mg today and discontinue the diltiazem. 2. Hypertension: She does have a history of hypertension, today her blood pressure is good. She could probably use a little better blood pressure control based on her recent measurements and I am going to continue increasing her metoprolol to help control heart rate as well. 3. Hypothyroidism: She does take Synthroid, her TSH is normal so I suspect this is not a cause of her atrial fibrillation but we will follow-up on that. 4. Obesity: She is overweight, her weight has really not changed much lately based on her history and our records. This may or may not be influencing her atrial fibrillation. 5. Hyperlipidemia: She is on low-dose simvastatin and I recommended she continue. 6. Anticoagulation: She is on Xarelto, she is tolerating it well. She is on the correct dose and I recommended she continue it. 7. Cardiomyopathy: She does have left ventricular dysfunction and I am hopeful this is related to her arrhythmia but she does have a lot of other issues including severe tricuspid regurgitation with pulmonary hypertension, mild to moderate mitral regurgitation, mild to moderate aortic insufficiency and severe left atrial enlargement. Some of these findings may improve with control of her arrhythmia but I suspect they are part of the reason she has atrial fibrillation. We will need to keep her on medications for her cardiomyopathy and hopefully heart function will improve. 8. Congestive heart failure: I think she had congestive heart failure on presentation, most likely related to the onset of the atrial fibrillation in the setting of her left ventricular dysfunction and other issues. I think she is relatively euhydrated currently. Her BUN and creatinine have not increased and her weight has dropped slightly by our scales. Admission and Anticipated Discharge Date Admission Date: February 10, 2022 Subjective She is feeling relatively well, she has not been ambulating in the briones but does not have difficulty in her room and is definitely better than on presentation as far as her breathing. No palpitations. Physical Exam Physical Exam: Constitutional: Alert, cooperative and in no distress. HEENT: Unremarkable Neck: No jugular venous distention, carotid pulses are irregular but otherwise normal and equal bilaterally without bruits. Pulmonary: Basilar crackles bilaterally. Cardiac: Irregular rhythm with a grade 2/6 holosystolic murmur at the apex, no gallop or rub. Abdomen: Soft, nontender with normal bowel sounds. Extremities: No edema. Distal pulses intact. Neurologic: No focal findings. Gait was not tested. Skin: No rash, ecchymoses or petechiae. Results & Data ([facility]) Vital Signs (Past 12 Hours) Vital Signs Temp Pulse Pulse Resp BP Pulse Ox 02/12/22 08:00 37.0 C 109 H 20 122/76 96 02/12/22 07:34 113 H 02/12/22 03:45 37.4 C 106 H 20 130/92 93 02/12/22 00:00 37.1 C 116 H 112 H 20 108/72 93 Laboratory Results CBC 02/12/22 Range/Units 05:33 WBC 7.12 (4.8-10.8) K/uL RBC 3.52 L (4.2-5.4) M/uL Hgb 10.3 L (12.0-16.0) g/dL Hct 32.6 L (37-47) % Plt Count 321 (130-400) K/uL Neut # (Auto) 4.95 (1.4-6.5) K/uL Lymph # (Auto) 1.07 L (1.2-3.4) K/uL [place] # (Auto) 0.87 H (0.11-0.59) K/uL Eos # (Auto) 0.19 (0-0.5) K/uL Baso # (Auto) 0.02 (0-0.2) K/uL Comprehensive Metabolic Panel 02/12/22 Range/Units 05:33 Sodium 138 (136-145) mmol/L Potassium 3.8 (3.5-5.1) mmol/L Chloride 105 (98-107) mmol/L Carbon Dioxide 25 (21-32) mmol/L BUN 19 (6-23) mg/dl Creatinine 0.88 (0.6-1.2) mg/dl Glucose 108 H (70-99(Fasting)) mg/dl Calcium 8.7 (8.5-10.1) mg/dl Albumin 3.4 (3.4-5.0) gm/dl Intake and Output 02/11/22 02/12/22 02/12/22 22:59 06:59 14:59 Intake Total 242.75 / 1505.75 125 / 1505.75 Balance 242.75 / 1305.75 125 / 1305.75 Intake: IV 122.75 / 365.75 125 / 365.75 dilTIAZem HCL 125 mg In 122.75 / 365.75 125 / 365.75 Dextrose 5% 100 ml @ 15 MG/HR 15 mls/hr IV .[id number] [facility] Rx#: [id number] Oral 120 / 1140 Other: # Unmeasured Voids 2 Weight 85 kg Weight Measurement Method Built in [facility] Diagnostic Findings Telemetry: Atrial fibrillation, heart rate varies from 90-110 with an average of about 100 visually over the past 24 hours PG Care Time/CCT Total # of Minutes Spent Total Time Spent with Patient: Total time spent is greater than 50% in coordination of care (as documented) at patient's floor/unit and/or counseling patient: Coding Level of Care Code 36109 Subseq Hosp Care Lvl 2 Diagnoses Atrial fibrillation with rapid ventricular response I48.91 Hypertension I10 Hypertension type: primary hypertension Hypothyroidism E03.9 Obesity E66.09 Obesity type: due to excess calories Obesity classification: unspecified obesity classification Serious obesity comorbidity presence: without serious comorbidity Hyperlipidemia E78.5 Hyperlipidemia type: unspecified Anticoagulant long-term use Z79.01 Cardiomyopathy I42.9 Cardiomyopathy type: unspecified CHF exacerbation I50.43 Heart failure type: combined systolic and diastolic (1) Hypertension Hypertension type: primary hypertension Qualified Code(s): I10 - Essential (primary) hypertension (2) Obesity Obesity type: due to excess calories Obesity classification: unspecified obesity classification Serious obesity comorbidity presence: without serious comorbidity Qualified Code(s): E66.09 - Other obesity due to excess calories (3) Hyperlipidemia Hyperlipidemia type: unspecified Qualified Code(s): E78.5 - Hyperlipidemia, unspecified (4) Cardiomyopathy Cardiomyopathy type: unspecified Qualified Code(s): I42.9 - Cardiomyopathy, unspecified (5) CHF exacerbation Heart failure type: combined systolic and diastolic Qualified Code(s): I50.43 - Acute on chronic combined systolic (congestive) and diastolic (congestive) heart failure
--- NOTE | 2022-02-12 15:03 | Electrocardiogram Report ---
Test Reason : Blood Pressure : / mmHG Vent. Rate : 148 BPM Atrial Rate : 147 BPM P-R Int : 000 ms QRS Dur : 080 ms QT Int : 324 ms P-R-T Axes : 000 018 052 degrees QTc Int : 508 ms Poor data quality, interpretation may be adversely affected Atrial fibrillation with rapid ventricular response Possible Anterior infarct , age undetermined Abnormal ECG When compared with ECG of 10-APR-2021 15:39, Atrial fibrillation has replaced Sinus rhythm Vent. rate has increased BY 69 BPM Borderline criteria for Anterior infarct are now Present Nonspecific T wave abnormality now evident in Lateral leads Confirmed by Jesus Yao ([id number]) on 02/12/2022 3:02:55 PM Referred By: Confirmed By:Jesus Yao
--- NOTE | 2022-02-12 15:10 | Discharge Summary ---
Date of Service February 12, 2022 Admission HPI Per Admitting Provider The patient is a 76-year-old female with past medical history including atrial fibrillation with rapid ventricular response, right rotator cuff tendinitis, impaired fasting glucose, metabolic syndrome, obesity, hyperlipidemia, GERD, hypothyroidism, hypertension, osteopenia and long-term anticoagulant use. Her symptoms initially developed 2 weeks ago, she was seen by her PCP, who noted on examination that she was in atrial fibrillation, which was confirmed by EKG. She was started on metoprolol and Xarelto, and had these dosages of metoprolol titrated by cardiology Dr. Yao, who increased her dosing from 25 mg twice daily to 50 mg twice daily to 75 mg twice daily and today she started 100 mg twice daily. She was advised by the outpatient doctors to come to the emergency department for assessment and further treatment. Principal Diagnosis Afib with RVR Discharge Exam Constitutional WD/WN, vitals as above Eyes EOM intact bilaterally; no conjunctival abnormality ENMT external ear and nose normal, oropharynx normal Neck trachea midline, no thyromegaly normal visual inspection Respiratory normal respiratory effort, lungs clear to auscultation no respiratory distress Cardiovascular Rate/Rhythm: + tachycardic and + irregularly irregular Extremities: no edema Gastrointestinal (Abdomen) Inspection/Auscultation: abdomen normal to inspection; abdomen not distended Musculoskeletal no cyanosis or clubbing, extremities motor strength 5/5 Skin no rashes, warm and dry Neurologic moves all extremities and awake Psychiatric Orientation: alert, oriented to person and cooperative Discharge Data Allergies Allergy/AdvReac Type Severity Reaction Status Date / Time atorvastatin [From Lipitor] Allergy Mild pt unsure Verified 02/03/22 11:00 it was long time ago Consultations 02/10/22 17:01 ED Decision to Admit Stat 02/10/22 21:27 Consult Cardiology Routine Hospital Course (1) Atrial fibrillation with rapid ventricular response: Atrial fibrillation with rapid ventricular response. - Continue metoprolol succinate -> Increased to 150 mg daily - Held diltiazem gtt on 02/12 per cardiology. Rates remained stable off dilt iazem gtt. - Continue Xarelto - Cardiology consulted -> Discussed with Dr. Yao on the day of discharge. Plan for office visit in ~2 weeks for cardioversion at that time. (4 weeks after starting anticoagulation). (2) Cardiomyopathy: Echo on 02/10 showed EF 35-40%. Likely tachycardia-mediated acute on chronic systolic heart failure. - Plan as above -> Continue rate control - Continue ARB - Appeared euvolemic on day of discharge. (3) Hypertension: BP presently 105/65. 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 Yao at your previously scheduled appointment.) Socorro Fan MD [Primary Care Provider] - Diet: Heart Healthy Addtl Attending Provider Instructions: Ms. Joiner, You were admitted to the hospital with a rapid heart rate from atrial fibrillation. With a day or so of adjustments, we were able to get it going slower. Dr. Yao saw you while here and would like to see you in 2 weeks to see how your heart rate is doing and consider converting you back into normal sinus rhythm at that time. For now, we would like you to take 1 1/2 of your metoprolol tablets. (These are the [address] Yao sent in recently.) You should have plenty of refills at the pharmacy, but if you think you will run out, let Dr. Yao or Dr. Fan's office know. Please check your heart rate in the morning. You can check your Apple Watch to see what your heart rate averaged overnight, and what it is while you are at rest. The goal would in the 80 - 90 range while at rest, then somewhat higher with exertion (such as perhaps 120 - 130). If you see your heart rate changing or well outside of those guidelines, please call Dr. Yao's office. Please come back to the hospital if you feel lightheaded, dizzy, pass out, have worsening shortness of breath, chest pain, or other concerning symptoms. Pending Studies at Discharge: No Stand-Alone Forms: My [facility] [email or web address], Smoking Cessation Medications and DC Order Prescriptions: Continued simvastatin 10 mg tablet 10 mg PO QPM Qty: 90 RF: 3 lorazepam 0.5 mg tablet 0.5 mg PO Q8H PRN (Reason: anxiety) Qty: 30 RF: 0 Xarelto 20 mg tablet 20 mg PO DAILY Qty: 28 RF: 0 multivitamin Capsule 1 cap PO QAM RF: 0 losartan 50 mg tablet 50 mg PO QAM RF: 0 pantoprazole 40 mg tablet,delayed release (DR/EC) 40 mg PO DAILY PRN (Reason: Stomach Upset) RF: 0 estradiol 0.5 mg tablet 0.5 mg PO UD RF: 0 ipratropium bromide 0.03 % spray,non-aerosol 2 sprays INTNAS TID PRN (Reason: Congestion) RF: 0 levothyroxine [Synthroid] 112 mcg tablet 112 mcg PO QAM RF: 0 cholecalciferol (vitamin D3) 125 mcg (5,000 unit) capsule 125 mcg PO QAM RF: 0 Changed metoprolol succinate 100 mg tablet extended release 24 hr 150 mg PO DAILY Qty: 30 RF: 2 Discharge Orders: Discharge Order (Routine); Ordered 02/12/22 Ordered By: Seamus Alvarado Admission Data Admit Date/Time: 02/10/22 17:52 Attending Provider: Seamus Alvarado Admit Provider: Bob Youngblood Primary Care Provider: Socorro Fan Other Providers: Jesus Yao ; Seamus Alvarado Coding Level of Care Code D/C DAY MANAGEMENT >30 MINS Diagnoses Atrial fibrillation with rapid ventricular response I48.91 Cardiomyopathy I42.9 Cardiomyopathy type: unspecified Hypertension I10 Hypertension type: primary hypertension Hyperlipidemia E78.5 Hyperlipidemia type: unspecified GERD (gastroesophageal reflux disease) K21.9 Hypothyroidism E03.9
--- NOTE | 2022-02-12 15:39 | Electrocardiogram Report ---
Test Reason : Blood Pressure : / mmHG Vent. Rate : 133 BPM Atrial Rate : 138 BPM P-R Int : 000 ms QRS Dur : 076 ms QT Int : 354 ms P-R-T Axes : 000 000 -55 degrees QTc Int : 526 ms Atrial fibrillation with rapid ventricular response Nonspecific ST and T wave abnormality Abnormal ECG When compared with ECG of 10-FEB-2022 15:23, (unconfirmed) Borderline criteria for Anterior infarct are no longer Present Nonspecific T wave abnormality now evident in Inferior leads Confirmed by Jesus Yao ([id number]) on 02/12/2022 3:39:28 PM Referred By: REFERRED SELF Confirmed By:Jesus Yao
[2022-02-13] MEDS ORDERED: METOPROLOL SUCC 50MG EXT REL TAB PO SCH (09:00)
--- NOTE | 2022-02-13 10:33 | Electrocardiogram Report ---
Test Reason : Blood Pressure : / mmHG Vent. Rate : 107 BPM Atrial Rate : 131 BPM P-R Int : 000 ms QRS Dur : 080 ms QT Int : 278 ms P-R-T Axes : 000 -07 107 degrees QTc Int : 371 ms Atrial fibrillation with rapid ventricular response Inferior infarct , age undetermined Cannot rule out Anterior infarct , age undetermined Abnormal ECG When compared with ECG of 11-FEB-2022 05:55, (unconfirmed) No significant change was found Confirmed by Jesus Yao ([id number]) on 02/13/2022 10:32:33 AM Referred By: REFERRED SELF Confirmed By:Jesus Yao
== END 2022-02-12 16:18 | disposition home or self-care (01) | DRG 308 ==
LOC: ED 15:07 → SUATTDRO 17:52 → 2S 17:52
DX: Z90.710 Acquired absence of both cervix and uterus; Z96.652 Presence of left artificial knee joint; Z98.41 Cataract extraction status, right eye; E66.9 Obesity, unspecified; I48.91 Unspecified atrial fibrillation; K21.9 Gastro-esophageal reflux disease without esophagitis; Z90.722 Acquired absence of ovaries, bilateral; M19.90 Unspecified osteoarthritis, unspecified site; I50.43 Acute on chronic combined systolic (congestive) and diastolic (congestive) heart failure; E03.9 Hypothyroidism, unspecified; Z79.890 Hormone replacement therapy; Z79.01 Long term (current) use of anticoagulants; E88.81 Metabolic syndrome and other insulin resistance; I42.9 Cardiomyopathy, unspecified; Z98.42 Cataract extraction status, left eye; Z88.8 Allergy status to other drugs, medicaments and biological substances; I11.0 Hypertensive heart disease with heart failure; Z68.36 Body mass index [BMI] 36.0-36.9, adult; E78.5 Hyperlipidemia, unspecified

== ENCOUNTER 2022-03-11 14:01 | Inpatient (IN) ==
[2022-03-11] MEDS ORDERED: dilTIAZem HCl 5 MG/ML 5 ML VIAL IV STA (15:03)
[2022-03-11] MEDS ORDERED: STAT IV Infusion **Titration per Protocol STA (15:03)
--- NOTE | 2022-03-11 15:07 | Emergency Department Note ---
Impression & Plan Atrial fibrillation with RVR, Palpitations ED Provider Note NAME: ANGELA MAYFIELD AGE: 76 SEX: F : 1945 ARRIVES VIA: Walk-In INFORMANT: Patient ED PROVIDER(S): Geovanny Alvarez DO CHIEF COMPLAINT: palpitations HPI: Patient is a 76-year-old female recently diagnosed with A. fib in early February. She also has a history of cardiomyopathy and CHF. 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 fib with RVR. She denies any headache or change in vision. No chest pain or shortness of breath. She can somewhat feel her heart racing. She admits to some intermittent small loose bowel movements. No belly pain. No dysuria, urgency, or frequency. No other exacerbating or remitting factors. ROS: See above HPI for pertinent positives & negatives. A total of 10 systems reviewed and were otherwise negative. PAST MEDICAL HISTORY:See Below PAST SURGICAL HISTORY:See Below FAMILY HISTORY:See Below SOCIAL HISTORY:See Below HOME MEDICATIONS:See Below ALLERGIES:See Below VITALS:See Below PHYSICAL EXAMINATION: GENERAL: Sitting up in bed, alert, well appearing, well nourished, no distress, non-toxic EYE EXAM: normal conjunctiva. PERRL and EOM's grossly intact. OROPHARYNX: no exudate, no erythema, lips, buccal mucosa, and tongue normal and mucous membranes are moist NECK: supple, no nuchal rigidity, no adenopathy, non-tender LUNGS: Clear to auscultation. Normal chest wall mechanics HEART: Tachycardic and irregular regular, S1 normal and S2 normal ABDOMEN: abdomen soft, non-tender, normo-active bowel sounds, no masses, no rebound or guarding. UPPER EXTREMITIES: upper extremities are grossly normal. LOWER EXTREMITIES: No pitting edema. NEURO EXAM: Normal sensorium, cranial nerves II-XII grossly intact, normal speech, no gross weakness of arms, no gross weakness of legs. MEDICAL DECISION MAKING: Patient is a 76-year-old female who presents the ER with past medical history of CHF and a cardiomyopathy for A. fib with RVR. Patient was seen in cardiology's office and sent over for further evaluation. IV was established blood work was obtained. Labs show no significant leukocytosis or anemia. INR 1.6. BMP along with LFTs bilirubin and troponin was remarkable for T bili 1.1. Lipase was normal. COVID was negative. Patient was placed on Cardizem drip and given a bolus. She is updated bedside. Chest x-ray was unremarkable. Patient was updated bedside admit to the hospital for further work-up. Heart rate trended down from the 170s to 130s while in the ER. Cardizem drip was titrated up to 10. Triage Nursing notes reviewed. Limited review of prior medical records performed Vital Signs: reviewed and remarkable for hypotension and tachy Differential diagnosis: Differential diagnoses includes but is not limited to acute coronary syndrome, myocardial infarction, pericarditis, pulmonary embolus, aortic dissection, pneumonia, pneumothorax, musculoskeletal, shingles, esophageal. ER treatment provided: See below Diagnostics interpreted by me: ECG: A. fib RVR rate of 167 Normal axis No PVCs QTC 463 Cardiac Monitoring: An order was placed for continuous cardiac monitoring. The monitor shows a rate of 162 with sinus rhythm. Laboratory studies: As stated above and show below. Imaging studies: Portable AP upright 1 view of the chest showed no focal infiltrate Consultation(s): Discussed with hospitalist for further evaluation Procedures: none Critical Care: I have personally spent 32 minutes of critical care time in the direct management of this patient. This includes bedside care, interpretation of diagnostic studies, and testing, discussion with consultants, patient, and family members, and other required patient management activities. This 32 minutes is in excess of all separately billable procedures. Past Med/Surg History Medical History (Updated 03/11/22 @ 21:33 by Geovanny Alvarez DO) Anticoagulant long-term use Xarelto daily Atrial fibrillation with rapid ventricular response Admitted to [facility] 02/10/22 to 02/12/22 Cardiomyopathy EF 35-40% on 02/10/22 ECHO GERD (gastroesophageal reflux disease) Hx of gastric ulcer >30 yrs ago Hx of ovarian cyst (reason for FELISHA w/BSO) Hyperlipidemia Hypertension Hypothyroidism Metabolic syndrome Hgb A1C 5.7 in 10/2021 Obesity Osteoarthritis Osteopenia Shortness of breath SOB with stairs and exertion per nursing assessment Surgical History H/O breast augmentation H/O colonoscopy 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 No postop issues per anesthesia progress note. History of esophagogastroduodenoscopy (EGD) History of Ishmael fundoplication 2003, hiatal hernia History of total right knee replacement (TKR) (~12/2021) @ [facility] Hx of cataract surgery right and left S/P total abdominal hysterectomy w/ removal of both ovaries Family History Father Acute myocardial infarction Mother Acute myocardial infarction Hypertension Brother Acute myocardial infarction Sister Hypertension Pure hypercholesterolemia Unknown Diabetes Other Stroke Denies family history of Breast cancer Colorectal cancer Colonic polyp Social History (Updated 02/18/22 @ 13:47 by Lisa Villatoro LPN) Smoking Status: Never smoker Second Hand Exposure: No; Do You Dip or Chew Tobacco: No; Tobacco Cessation Education Requested by Patient: No Hx Alcohol Use: Yes Alcohol type: wine Hx Substance Use: No Preferred Language: Luxembourgish Communication Ability: Effective Visual Impairment: No Limitations Hearing Ability: Normal Pantograph Ii Engraver Required: No Beliefs That Will Affect Care: None marital status: Current Living Situation: Alone current occupational status: employed How many Children do You have: 1 Other Information That Helps Us Care for You: No Feels Safe at Home: Yes Safety Concerns: Feels Safe At This Time Childhood Exposure to Second-Hand Smoke: Yes caffeine: Yes Dental Care, Regularly: Yes Physical Activity Frequency: Daily Physical Activity Frequency Comment: walking 20 min Seatbelt Use: always Sunscreen Use: Yes Assistive Devices: Glasses Allergies Allergies Allergy/AdvReac Type Severity Reaction Status Date / Time atorvastatin [From Lipitor] Allergy Mild pt unsure Verified 03/11/22 14:55 it was long time ago Home Meds Home Medications Medication Instructions Recorded Confirmed estradiol 0.5 mg tablet 0.5 mg PO 3XWK 04/08/21 03/11/22 ipratropium bromide 21 mcg (0.03 2 sprays INTNAS TID PRN 04/08/21 03/11/22 %) nasal spray pantoprazole 40 mg tablet,delayed 40 mg PO DAILY PRN 04/08/21 03/11/22 release cholecalciferol (vitamin D3) 125 125 mcg PO QAM 11/25/21 03/11/22 mcg (5,000 unit) capsule levothyroxine 112 mcg tablet 112 mcg PO QAM 02/28/22 03/11/22 (Synthroid) losartan 50 mg tablet 50 mg PO QAM 02/28/22 03/11/22 rivaroxaban 20 mg tablet (Xarelto) 20 mg PO QAM 02/28/22 03/11/22 multivitamin 1 tab PO DAILY 03/11/22 03/11/22 potassium chloride 20 mEq 20 meq PO UD PRN 03/11/22 03/11/22 tablet,extended release Previous Rx's Medication Instructions Recorded simvastatin 10 mg tablet 10 mg PO QPM #90 tab 03/18/21 furosemide 20 mg tablet 20 mg PO DAILY PRN #30 tab 02/13/22 lorazepam 0.5 mg tablet 0.5 mg PO Q8H PRN #30 tab 02/24/22 metoprolol succinate 100 mg 150 mg PO QAM #135 tab 03/05/22 tablet,extended release 24 hr Results & Data (ED) Vital Signs Vital Signs - 24 hr 03/11/22 14:30 03/11/22 14:42 03/11/22 14:50 Temperature 36.8 C Temperature Source Temporal Artery Scan Pulse Rate 177 H 158 H Pulse Rate [Apical] 166 H Pulse Rhythm Irregular Pulse Strength Normal Respiratory Rate 20 21 23 Respiratory Effort / Characteristics Non-Labored Spontaneous Respiratory Depth Normal Blood Pressure 134/77 Blood Pressure [Right Arm] 94/66 L Blood Pressure Mean 96 Blood Pressure Mean [Right Arm] 75 Blood Pressure Position Lying Pulse Oximetry 97 98 99 Oxygen Delivery Method Room Air Room Air Room Air Sepsis Recent Fever Within 48 Hours No Sepsis New/Unexplained Change in Mental Status N/A Sepsis Action Taken by Nursing No Action Required 03/11/22 15:14 03/11/22 16:44 Temperature Temperature Source Pulse Rate Pulse Rate [Apical] 147 H 149 H Pulse Rhythm Pulse Strength Respiratory Rate 28 H 15 Respiratory Effort / Characteristics Non-Labored Spontaneous Non-Labored Spontaneous Respiratory Depth Normal Normal Blood Pressure Blood Pressure [Right Arm] 120/103 H 147/104 H Blood Pressure Mean Blood Pressure Mean [Right Arm] 108 118 Blood Pressure Position Pulse Oximetry 98 97 Oxygen Delivery Method Room Air Room Air Sepsis Recent Fever Within 48 Hours Sepsis New/Unexplained Change in Mental Status Sepsis Action Taken by Nursing Laboratory Data Result diagrams: 03/11/22 14:45 03/11/22 14:45 Lab Results 03/11/22 03/11/22 03/11/22 Range/Units 14:45 14:45 14:45 WBC 5.59 (4.8-10.8) K/uL RBC 4.72 (4.2-5.4) M/uL Hgb 12.6 (12.0-16.0) g/dL Hct 40.6 (37-47) % MCV 86.0 (80-100) fL MCH 26.7 (25-34) pg MCHC 31.0 L (32-36) g/dL RDW Std Deviation 50.4 H (36.4-46.3) fL RDW Coeff of Ezequiel 16.0 H (11.5-14.5) % Plt Count 339 (130-400) K/uL MPV 11.6 H (7.4-10.4) fL Immature Gran % (Auto) 0.4 % Neut % (Auto) 66.5 % Lymph % (Auto) 20.4 % [place] % (Auto) 10.4 % Eos % (Auto) 1.4 % Baso % (Auto) 0.9 % Neut # (Auto) 3.72 (1.4-6.5) K/uL Lymph # (Auto) 1.14 L (1.2-3.4) K/uL [place] # (Auto) 0.58 (0.11-0.59) K/uL Eos # (Auto) 0.08 (0-0.5) K/uL Baso # (Auto) 0.05 (0-0.2) K/uL Immature Gran # (Auto) 0.02 (0.00-0.02) K/uL PT 16.4 H (9.0-12.0) Seconds INR 1.6 H (0.9-1.1) Sodium 138 (136-145) mmol/L Potassium 3.8 (3.5-5.1) mmol/L Chloride 102 (98-107) mmol/L Carbon Dioxide 25 (21-32) mmol/L Anion Gap 11 (3-11) BUN 16 (6-23) mg/dl Creatinine 0.92 (0.6-1.2) mg/dl Est Cr Clr Drug Dosing 48.7 ml/min Est GFR ( Amer) 70.1 ml/min Est GFR (Non-Af Amer) 60.5 ml/min BUN/Creatinine Ratio 17.4 (10-20) Glucose 135 H (70-99(Fasting)) mg/dl Calcium 9.2 (8.5-10.1) mg/dl Total Bilirubin 1.1 H (0.2-1.0) mg/dl AST 20 (13-39) U/L ALT 12 (7-52) U/L Alkaline Phosphatase 121 H (34-104) U/L Troponin I High Sens 9.2 (0-14) pg/ml Total Protein 7.0 (6.0-8.3) gm/dl Albumin 3.9 (3.4-5.0) gm/dl Globulin 3.1 (2.5-4.0) gm/dl Albumin/Globulin Ratio 1.3 (0.9-2) Lipase 14 (11-82) U/L SARS-CoV-2, RNA, NAAT (NEGATIVE) 03/11/22 Range/Units 15:22 WBC (4.8-10.8) K/uL RBC (4.2-5.4) M/uL Hgb (12.0-16.0) g/dL Hct (37-47) % MCV (80-100) fL MCH (25-34) pg MCHC (32-36) g/dL RDW Std Deviation (36.4-46.3) fL RDW Coeff of Ezequiel (11.5-14.5) % Plt Count (130-400) K/uL MPV (7.4-10.4) fL Immature Gran % (Auto) % Neut % (Auto) % Lymph % (Auto) % [place] % (Auto) % Eos % (Auto) % Baso % (Auto) % Neut # (Auto) (1.4-6.5) K/uL Lymph # (Auto) (1.2-3.4) K/uL [place] # (Auto) (0.11-0.59) K/uL Eos # (Auto) (0-0.5) K/uL Baso # (Auto) (0-0.2) K/uL Immature Gran # (Auto) (0.00-0.02) K/uL PT (9.0-12.0) Seconds INR (0.9-1.1) Sodium (136-145) mmol/L Potassium (3.5-5.1) mmol/L Chloride (98-107) mmol/L Carbon Dioxide (21-32) mmol/L Anion Gap (3-11) BUN (6-23) mg/dl Creatinine (0.6-1.2) mg/dl Est Cr Clr Drug Dosing ml/min Est GFR ( Amer) ml/min Est GFR (Non-Af Amer) ml/min BUN/Creatinine Ratio (10-20) Glucose (70-99(Fasting)) mg/dl Calcium (8.5-10.1) mg/dl Total Bilirubin (0.2-1.0) mg/dl AST (13-39) U/L ALT (7-52) U/L Alkaline Phosphatase (34-104) U/L Troponin I High Sens (0-14) pg/ml Total Protein (6.0-8.3) gm/dl Albumin (3.4-5.0) gm/dl Globulin (2.5-4.0) gm/dl Albumin/Globulin Ratio (0.9-2) Lipase (11-82) U/L SARS-CoV-2, RNA, NAAT NEGATIVE (NEGATIVE) Administered Medications Diltiazem HCl 125 mg/ Dextrose 125 mls @ 15 mls/hr IV .[id number] [facility]; Protocol Stop: 04/10/22 15:14 Last Titration: 03/11/22 16:51 Dose: 15 mg/hr, 15 mls/hr Documented by: [id number] Cosigned by: [id number] Titration: 03/11/22 15:51 Dose: 10 mg/hr, 10 mls/hr Documented by: [id number] Cosigned by: [id number] Admin: 03/11/22 15:15 Dose: 5 mg/hr, 5 mls/hr Documented by: [id number] Cosigned by: [id number] Discontinued Medications Diltiazem HCl (Diltiazem Hcl 5 Mg/Ml 5 Ml Vial) 10 mg IV NOW STA Stop: 03/11/22 15:04 Last Admin: 03/11/22 15:08 Dose: 10 mg Documented by: [id number] Cosigned by: [id number] Metoprolol Tartrate (Metoprolol Tartrate 50 Mg Tab) 100 mg PO NOW STA Stop: 03/11/22 17:43 Last Admin: 03/11/22 21:04 Dose: 100 mg Documented by: [id number] Miscellaneous (Stat Iv Infusion Titration Per Protocol) 1 ea N/A NOW STA Stop: 03/11/22 15:04 Last Admin: 03/11/22 15:34 Dose: Not Given Documented by: [id number] Imaging Data Radiologist's Impression: Chest X-Ray 03/11/22 14:55 XR chest 1V portable CLINICAL HISTORY: Atypical chest pain TECHNIQUE: Single frontal radiograph of the chest was obtained. Comparison: Comparison is made to chest radiograph 02/10/2022 FINDINGS: No lines and tubes are seen. The cardiomediastinal silhouette is normal. The lungs are clear. No evidence of pleural effusion or pneumothorax. IMPRESSION: No acute chest disease. Previously noted pulmonary edema has resolved. ACT 112: Negative or not required by law. Electronically signed by: Chacho Nieves M.D. 03/11/2022 3:09 PM Discharge Plan Visit Data Chief Complaint: Referred by Doctor Stated Complaint: A FIB, REFERRED BY ED Provider: Geovanny Alvarez Discharge Problem: Atrial fibrillation with RVR, Palpitations Patient Disposition: Admitted As Inpatient Discharge Instructions Interventions: ED Discharge Assessment Last Done: 03/11/22 17:58
--- NOTE | 2022-03-11 15:10 | XRay Report ---
XR chest 1V portable CLINICAL HISTORY: Atypical chest pain TECHNIQUE: Single frontal radiograph of the chest was obtained. Comparison: Comparison is made to chest radiograph 02/10/2022 FINDINGS: No lines and tubes are seen. The cardiomediastinal silhouette is normal. The lungs are clear. No evid ence of pleural effusion or pneumothorax. IMPRESSION: No acute chest disease. Previously noted pulmonary edema has resolved. ACT 112: Negative or not required by law. Electronically signed by: Chacho Nieves M.D. 03/11/2022 3:09 PM
[2022-03-11 15:11] LABS: Basophils # (auto) 0.05 K/uL (0-0.2); Basophils % (auto) 0.9 %; Eosinophils # (auto) 0.08 K/uL (0-0.5); Eosinophils % (auto) 1.4 %; Hematocrit (blood only) 40.6 % (37-47); Hemoglobin 12.6 g/dL (12.0-16.0); Immature Granulocytes # (auto) 0.02 K/uL (0.00-0.02); Immature Granulocytes % (auto) 0.4 %; Lymphocytes # (auto) 1.14 K/uL (1.2-3.4); Lymphocytes % (auto) 20.4 %; Mean Corpuscular Hemoglobin 26.7 pg (25-34); Mean Platelet Volume 11.6 fL (7.4-10.4); Monocytes # (auto) 0.58 K/uL (0.11-0.59); Monocytes % (auto) 10.4 %; Neutrophils # (auto) 3.72 K/uL (1.4-6.5); Neutrophils % (auto) 66.5 %; Platelet Count 339 K/uL (130-400); RDW Standard Deviation 50.4 fL (36.4-46.3); Red Blood Count 4.72 M/uL (4.2-5.4); White Blood Count 5.59 K/uL (4.8-10.8)
[2022-03-11] MEDS: dilTIAZem HCL 125 MG in DEXTROSE 5% 100 ML IV SCH (15:15)
[2022-03-11 15:26] LABS: INR 1.6 (0.9-1.1); Prothrombin Time 16.4 Seconds (9.0-12.0)
--- NOTE | 2022-03-11 15:28 | Electrocardiogram Report ---
Test Reason : Blood Pressure : / mmHG Vent. Rate : 167 BPM Atrial Rate : 197 BPM P-R Int : 000 ms QRS Dur : 074 ms QT Int : 278 ms P-R-T Axes : 000 001 109 degrees QTc Int : 463 ms Poor data quality, interpretation may be adversely affected Atrial fibrillation with rapid ventricular response Low voltage QRS Nonspecific ST and T wave abnormality Abnormal ECG When compared with ECG of 05-MAR-2022 07:24, Atrial fibrillation has replaced Sinus rhythm Vent. rate has increased BY 87 BPM Nonspecific T wave abnormality, worse in Inferior leads T wave inversion now evident in Lateral leads Confirmed by Russ Williamson ([id number]) on 03/11/2022 3:28:42 PM Referred By: Confirmed By:Russ Williamson
[2022-03-11 15:31] LABS: Troponin I High Sensitivity 9.2 pg/ml (0-14)
[2022-03-11 15:32] LABS: Potassium 3.8 mmol/L (3.5-5.1)
[2022-03-11 15:33] LABS: Albumin Globulin Ratio 1.3 (0.9-2); Albumin Level 3.9 gm/dl (3.4-5.0); BUN Creatinine Ratio 17.4 (10-20); Bilirubin,Total 1.1 mg/dl (0.2-1.0); Calcium 9.2 mg/dl (8.5-10.1); Creatinine Clr Calc Pharmacy 48.7 ml/min; Est GFR (African American) 70.1 ml/min; Est GFR (Non-African American) 60.5 ml/min; Globulin 3.1 gm/dl (2.5-4.0)
[2022-03-11] MEDS ORDERED: LORazepam 0.5 MG TAB PO PRN (17:11)
[2022-03-11] MEDS ORDERED: PANTOprazole 40 MG TAB PO PRN (17:11)
--- NOTE | 2022-03-11 17:25 | History & Physical Report ---
Date of Service March 11, 2022 Assessment & Plan (1) Atrial fibrillation with RVR: Plan: Patient admitted to PCU with A fib RVR Placed on Diltiazem drip. Patient did not take her medications this AM. Will given a stat dose of metoprolol [address] on 100 mg PO BID. Patient may require cardioversion in AM. Patient will be npo after midnight. Consult cardio May require amiodarone (2) Cardiomyopathy: Plan: echo from 02/10/22: EF 35-40 Globa hypokinesis. Patient does not have acute CHF. will resume home meds (3) Anticoagulant long-term use: Plan: resume xarelto. due to creatinine: will place on 15 mg (4) Hyperlipidemia: Plan: held simvastatin. will likely need to switch to atorvastatin. (5) Hypothyroidism: Plan: resume home meds recent TSH at goal (6) Hypertension: Plan: resume home meds (7) Diarrhea: Plan: Patient has had fecal incontinence. Doubt c diff. Patient had colonscopy by Dr. Hartman last year which was negative. May require repeat scope as symptoms are new.. Dif diagnosis: microscopic colitis, bacterial overgrowth syndrome. History of Present Illness Chief Complaint: rapid heart rate Primary Care Provider: Socorro Fan MD 76 yo female with history of hypothyroidism, hypertension, dyslipidemia and more recently identification of atrial fibrillation. She reports having 3 weeks of looe stools and diarrhea. Patient sttaes she had a colonoscopcy by Dr. Hartman on Nov. Patient denies any recent antibiotic use. Patient was seen by her veneer layer for followup after cardioversion last week on 03/05. She was found to be in atrial fibrillation and was told to return to the ER, Patient placed on diltaizem drip and admission was called. Allergies Allergy/AdvReac Type Severity Reaction Status Date / Time atorvastatin [From Lipitor] Allergy Mild pt unsure Verified 03/11/22 14:55 it was long time ago Home Medications Medication Instructions Recorded Confirmed Type simvastatin 10 mg tablet 10 mg PO QPM #90 tab 03/18/21 03/11/22 Rx estradiol 0.5 mg tablet 0.5 mg PO 3XWK 04/08/21 03/11/22 History ipratropium bromide 21 mcg (0.03 2 sprays INTNAS TID PRN 04/08/21 03/11/22 History %) nasal spray pantoprazole 40 mg tablet,delayed 40 mg PO DAILY PRN 04/08/21 03/11/22 History release cholecalciferol (vitamin D3) 125 125 mcg PO QAM 11/25/21 03/11/22 History mcg (5,000 unit) capsule furosemide 20 mg tablet 20 mg PO DAILY PRN #30 tab 02/13/22 03/11/22 Rx lorazepam 0.5 mg tablet 0.5 mg PO Q8H PRN #30 tab 02/24/22 03/11/22 Rx levothyroxine 112 mcg tablet 112 mcg PO QAM 02/28/22 03/11/22 History (Synthroid) losartan 50 mg tablet 50 mg PO QAM 02/28/22 03/11/22 History rivaroxaban 20 mg tablet (Xarelto) 20 mg PO QAM 02/28/22 03/11/22 History metoprolol succinate 100 mg 150 mg PO QAM #135 tab 03/05/22 03/11/22 Rx tablet,extended release 24 hr multivitamin 1 tab PO DAILY 03/11/22 03/11/22 History potassium chloride 20 mEq 20 meq PO UD PRN 03/11/22 03/11/22 History tablet,extended release Past Med/Surg History Medical History Anticoagulant long-term use Xarelto daily Atrial fibrillation with rapid ventricular response Admitted to [facility] 02/10/22 to 02/12/22 Cardiomyopathy EF 35-40% on 02/10/22 ECHO GERD (gastroesophageal reflux disease) Hx of gastric ulcer >30 yrs ago Hx of ovarian cyst (reason for FELISHA w/BSO) Hyperlipidemia Hypertension Hypothyroidism Metabolic syndrome Hgb A1C 5.7 in 10/2021 Obesity Osteoarthritis Osteopenia Shortness of breath SOB with stairs and exertion per nursing assessment Surgical History H/O breast augmentation H/O colonoscopy 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 No postop issues per anesthesia progress note. History of esophagogastroduodenoscopy (EGD) History of Ishmael fundoplication 2003, hiatal hernia History of total right knee replacement (TKR) (~12/2021) @ [facility] Hx of cataract surgery right and left S/P total abdominal hysterectomy w/ removal of both ovaries Family History Father Acute myocardial infarction Mother Acute myocardial infarction Hypertension Brother Acute myocardial infarction Sister Hypertension Pure hypercholesterolemia Unknown Diabetes Other Stroke Denies family history of Breast cancer Colorectal cancer Colonic polyp Social History Smoking Status: Never smoker Second Hand Exposure: No; Do You Dip or Chew Tobacco: No; Tobacco Cessation Education Requested by Patient: No Hx Alcohol Use: Yes Alcohol type: wine Hx Substance Use: No Preferred Language: Slovak Communication Ability: Effective Visual Impairment: No Limitations Hearing Ability: Normal Metal Forger'S Assistant Required: No Beliefs That Will Affect Care: None marital status: Current Living Situation: Alone current occupational status: employed How many Children do You have: 1 Other Information That Helps Us Care for You: No Feels Safe at Home: Yes Safety Concerns: Feels Safe At This Time Childhood Exposure to Second-Hand Smoke: Yes caffeine: Yes Dental Care, Regularly: Yes Physical Activity Frequency: Daily Physical Activity Frequency Comment: walking 20 min Seatbelt Use: always Sunscreen Use: Yes Assistive Devices: Glasses Review of Systems Constitutional: no fever Eyes: no blind spots and no diplopia Ear, Nose, Mouth, Throat: no ear pain Respiratory: + dyspnea and + dyspnea on exertion; no cough Cardiovascular: no chest pain and no chest pain at rest Gastrointestinal: + diarrhea/loose stools Genitourinary: no dysuria Musculoskeletal: no swelling Integumentary: no acne Neurologic: no gait abnormality Psychiatric: no behavioral changes Endocrine: no fatigue Hematologic / Lymphatic: no easy bleeding Allergy / Immunological: no GI upset with certain foods Physical Exam Constitutional: WD/WN, vitals as above Eyes: PERRL, conjunctivae normal, anicteric sclerae ENMT: external ear and nose normal, oropharynx normal Neck: trachea midline, no thyromegaly Respiratory: normal respiratory effort, lungs clear to auscultation Cardiovascular: Rate/Rhythm: + tachycardic and + irregularly irregular Heart Sounds: normal S1 and normal S2 Gastrointestinal (Abdomen): normal bowel sounds, soft, nontender, no hepatosplenomegaly Musculoskeletal: no cyanosis or clubbing, extremities motor strength 5/5 Skin: no rashes, warm and dry Neurologic: PERRL, EOMI, accommodation nl, no face palsy, no dysarthria Psychiatric: A+Ox3, euthymic affect Lymphatic: no cervical or axillary lymphadenopathy Results & Data Results & Data ([facility]) Vital Signs (Past 12 Hours) Vital Signs Temp Pulse Pulse Resp BP BP Pulse Ox 03/11/22 16:44 149 H 15 147/104 H 97 03/11/22 15:14 147 H 28 H 120/103 H 98 03/11/22 14:50 158 H 23 99 03/11/22 14:42 166 H 21 94/66 L 98 03/11/22 14:30 36.8 C 177 H 20 134/77 97 PG Care Time/CCT Total # of Minutes Spent Total Time Spent with Patient: Total time spent is greater than 50% in coordination of care (as documented) at patient's floor/unit and/or counseling patient: Coding Level of Care Code 19912 Initial Inpt Care Lvl 3 Diagnoses Atrial fibrillation with RVR I48.91 Cardiomyopathy I42.9 Cardiomyopathy type: unspecified Anticoagulant long-term use Z79.01 Hyperlipidemia E78.5 Hyperlipidemia type: unspecified Hypothyroidism E03.9 Hypertension I10 Hypertension type: primary hypertension Diarrhea R19.7 (1) Cardiomyopathy Cardiomyopathy type: unspecified Qualified Code(s): I42.9 - Cardiomyopathy, unspecified (2) Hyperlipidemia Hyperlipidemia type: unspecified Qualified Code(s): E78.5 - Hyperlipidemia, unspecified (3) Hypertension Hypertension type: primary hypertension Qualified Code(s): I10 - Essential (primary) hypertension
[2022-03-11] MEDS ORDERED: METOPROLOL TARTRATE 50 MG TAB PO STA (17:42)
[2022-03-11] MEDS ORDERED: IPRATROPIUM BROMIDE NASAL SPRAY 0.06% 15ML NAE PRN (18:40)
[2022-03-12] MEDS: dilTIAZem HCL 125 MG in DEXTROSE 5% 100 ML IV SCH ×2 (00:22→08:03)
[2022-03-12] MEDS: LEVOTHYROXINE SODIUM 112 MCG TABLET PO SCH (05:55)
[2022-03-12 07:02] LABS: Hematocrit (blood only) 37.2 % (37-47); Hemoglobin 11.5 g/dL (12.0-16.0); Mean Corpuscular Hemoglobin 26.4 pg (25-34); Mean Corpuscular Hgb Conc 30.9 g/dL (32-36); Mean Corpuscular Volume 85.3 fL (80-100); Mean Platelet Volume 11.3 fL (7.4-10.4); Platelet Count 337 K/uL (130-400); RDW Standard Deviation 50.1 fL (36.4-46.3); Red Blood Count 4.36 M/uL (4.2-5.4); White Blood Count 5.56 K/uL (4.8-10.8)
[2022-03-12 07:26] LABS: BUN Creatinine Ratio 17.1 (10-20); Calcium 8.7 mg/dl (8.5-10.1); Creatinine Clr Calc Pharmacy 54.9 ml/min; Est GFR (African American) 80.6 ml/min; Est GFR (Non-African American) 69.5 ml/min; Potassium 3.6 mmol/L (3.5-5.1)
[2022-03-12] MEDS: MULTIVITAMIN TAB PO SCH (08:06)
[2022-03-12] MEDS: estradioL 1 MG TAB PO SCH (08:06)
[2022-03-12] MEDS: CHOLECALCIFEROL 5,000 UNITS 125 MCG TAB PO SCH (08:06)
[2022-03-12] MEDS: LOSARTAN POTASSIUM 50 MG TAB PO SCH (08:08)
--- NOTE | 2022-03-12 08:13 | Hospitalist Progress Note ---
Date of Service March 12, 2022 Assessment & Plan (1) Atrial fibrillation with RVR: Plan: Patient admitted to PCU with A fib RVR -- rates initially 160-170s, now 130- 140s, asymptomatic Recently cardioverted Remains on cardizem gtt Continue metoprolol 100mg BID Cardiology on consulted Plans on repeating echo given prior EF 35-40% to determine antiarrhythmic Dr Yao said last ECHO during acute episode and hopefully EF improved as patient looks better Remains NPO for cardioversion, timing to be determined today May require amio vs other Of note, most recent TSH wnl, however did repeat and TSH elevated at 7.36 ?if reactive with her diarrhea (RUQ US pending given elevated TB/ALP) if normal US, consider increasing to 125mcg daily vs repeat outpatient Continue to monitor on telemetry (2) Diarrhea: Plan: Patient has had fecal incontinence. Doubt c diff. Patient had colonscopy by Dr. Hartman last year which was negative. May require repeat scope as symptoms are new.. Dif diagnosis: microscopic colitis, bacterial overgrowth syndrome. Review of labs on admission with Tb 1.1, alk phos elevated to 121. Lipase wnl -CXR on admit done for "atypical chest pain" -Not febrile/no WBC elevation but given diarrhea will check routine GB US given atypical CP on admit -repeat LFTs with morning labs -stool pcr -GI consulted on admission for diarrhea Of note, patient also with what sounds like history of Ishmael fundoplication in the past Monitor (3) Cardiomyopathy: Plan: echo from 02/10/22: EF 35-40. Global hypokinesis. Patient does not have acute CHF. Home meds continued Repeat ECHO as above (4) Anticoagulant long-term use: Plan: Secondary to afib, nonvalvular Continued on Xarelto but reduced to 15mg this morning due to cr cl improved on am labs but given 15mg tablet discussed with pharmacy and additional 2 of the 2.5mg tablets provided after discussion with Dr Yao (5) Hyperlipidemia: Plan: held simvastatin. will likely need to switch to atorvastatin however reported allergy on medication list (6) Hypothyroidism: Plan: continue usual synthroid recent TSH at goal, however did repeat with AM labs -- elevated at 7.36 ?reactive from diarrhea vs increase her usual dose to 125mcg vs repeat outpt 4-6 wks/adjustment if needed (7) Hypertension: Plan: BP stable continue TIEN/BB Plan: repeat echo pending to assess EF/consideration for antiarrhythmics cardioversion for today planned Admission and Anticipated Discharge Date Admission Date: March 11, 2022 Supervising Physician Co-Signing Physician Notes KIERAN Supervision Note: I personally saw and examined the patient. I verified all mcdonough points and agree with KIERAN Kowalski with the following exceptions and/or additions: S-Pt seen after cardioversion while having hypotension to the 70s systolic that was persistent despite bolus of 250mL NS, bradycardia in the 40s, with associated nausea/vomiting, lightheadedness. SHe was placed flat in bed and given the bolus. Dr. Yao came to bedside as well. Decision made to start low dose dopamine infusion until BPs and HR improved. O- Vitals reviewed Gen: [AAOx3, NAD, anxious] HEENT: [anicteric sclerae] CV: [reg rhythm, bradycardic, no mgr nl S1S2] Pulm: [CTAB no wcr] Abd: [+BS soft NT ND no masses or hernias] Ext: [no edema, 2+ DP pulses] Skin: [no rashes, warm/dry] Neuro: [full strength throughout] A/P-76 yo female here with PEDRO now s/p CV and started on sotalol, with post-CV hypotension and bradycardia likely 2/2 previous dilt gtt, metoprolol po, losartan, and sotalol all on board. continue dopamine gtt until dilt wears off and then likely BPs will improve. Hold losartan and po metoprolol, continue sotalol Subjective Patient evaluated this morning. Doing alright. No CP/SOb at rest. States she does note SOB after walking up stairs and takes a break for rest. Dr Yao in room during eval, planning to repeat ECHO to eval EF to determine antiarrhythmic as we would like to initiate this. She notes no furthr diarrhea this morning but has been having loose stools for couple of weeks, sometimes incontinent. In past couple weeks did use imodium which has helped some. No other sick contacts. Will obtain stool PCR. Discussed checking US of gallbladder as she notes she has had 15-20lb weight loss due to nausea and then cant tell if nausea from not eating or from eating. She does note history of hiatal hernia and states she had surgery to correct this in the past. No fever/chills, nausea/vomiting, abdominal pain, dysuria at this time. Review of Systems Review of Systems: All systems reviewed & are unremarkable except as noted in HPI & below Physical Exam Constitutional: WD/WN, vitals as above Eyes: PERRL, conjunctivae normal, anicteric sclerae ENMT: external ear and nose normal, oropharynx normal Neck: trachea midline, no thyromegaly Respiratory: normal respiratory effort, lungs clear to auscultation Cardiovascular: Rate/Rhythm: + tachycardic (rate 130bpm) and + irregularly irregular Heart Sounds: normal S1, normal S2 and + murmur (systolic) Gastrointestinal (Abdomen): normal bowel sounds, soft, nontender, no hepatosplenomegaly Musculoskeletal: no cyanosis or clubbing, extremities motor strength 5/5 Skin: no rashes, warm and dry Neurologic: PERRL, EOMI, accommodation nl, no face palsy, no dysarthria Psychiatric: A+Ox3, euthymic affect Lymphatic: no cervical or axillary lymphadenopathy Results & Data Results & Data ([facility]) Vital Signs (Past 12 Hours) Vital Signs Temp Pulse Pulse Resp BP BP Pulse Ox 03/12/22 08:00 36.8 C 16 103/70 03/12/22 03:36 36.9 C 140 H 18 95/73 L 94 03/12/22 00:39 108/78 03/11/22 23:29 36.8 C 133 H 18 100/78 95 03/11/22 22:22 122 H 03/11/22 20:21 36.9 C 168 H 20 121/93 92 Laboratory Results 03/12/22 03/12/22 03/12/22 Range/Units 09:22 09:22 06:44 WBC (4.8-10.8) K/uL RBC (4.2-5.4) M/uL Hgb (12.0-16.0) g/dL Hct (37-47) % MCV (80-100) fL MCH (25-34) pg MCHC (32-36) g/dL RDW Std Deviation (36.4-46.3) fL RDW Coeff of Ezequiel (11.5-14.5) % Plt Count (130-400) K/uL MPV (7.4-10.4) fL Immature Gran % (Auto) % Neut % (Auto) % Lymph % (Auto) % [place] % (Auto) % Eos % (Auto) % Baso % (Auto) % Neut # (Auto) (1.4-6.5) K/uL Lymph # (Auto) (1.2-3.4) K/uL [place] # (Auto) (0.11-0.59) K/uL Eos # (Auto) (0-0.5) K/uL Baso # (Auto) (0-0.2) K/uL Immature Gran # (Auto) (0.00-0.02) K/uL PT (9.0-12.0) Seconds INR (0.9-1.1) Sodium 137 (136-145) mmol/L Potassium 3.6 (3.5-5.1) mmol/L Chloride 104 (98-107) mmol/L Carbon Dioxide 23 (21-32) mmol/L Anion Gap 10 (3-11) BUN 14 (6-23) mg/dl Creatinine 0.82 (0.6-1.2) mg/dl Est Cr Clr Drug Dosing 54.9 ml/min Est GFR ( Amer) 80.6 ml/min Est GFR (Non-Af Amer) 69.5 ml/min BUN/Creatinine Ratio 17.1 (10-20) Glucose 106 H (70-99(Fasting)) mg/dl Calcium 8.7 (8.5-10.1) mg/dl Magnesium 1.5 L (1.7-2.4) mg/dl Total Bilirubin 0.9 (0.2-1.0) mg/dl Direct Bilirubin 0.3 H (0-0.2) mg/dl AST 18 (13-39) U/L ALT 10 (7-52) U/L Alkaline Phosphatase 98 (34-104) U/L Troponin I High Sens (0-14) pg/ml Total Protein 6.2 (6.0-8.3) gm/dl Albumin 3.5 (3.4-5.0) gm/dl Globulin (2.5-4.0) gm/dl Albumin/Globulin Ratio (0.9-2) Lipase (11-82) U/L TSH 7.369 H (0.300-4.500) uIu/ml Free T4 Pending SARS-CoV-2, RNA, NAAT (NEGATIVE) 03/12/22 03/11/22 03/11/22 Range/Units 06:44 15:22 14:45 WBC 5.56 (4.8-10.8) K/uL RBC 4.36 (4.2-5.4) M/uL Hgb 11.5 L (12.0-16.0) g/dL Hct 37.2 (37-47) % MCV 85.3 (80-100) fL MCH 26.4 (25-34) pg MCHC 30.9 L (32-36) g/dL RDW Std Deviation 50.1 H (36.4-46.3) fL RDW Coeff of Ezequiel 16.0 H (11.5-14.5) % Plt Count 337 (130-400) K/uL MPV 11.3 H (7.4-10.4) fL Immature Gran % (Auto) % Neut % (Auto) % Lymph % (Auto) % [place] % (Auto) % Eos % (Auto) % Baso % (Auto) % Neut # (Auto) (1.4-6.5) K/uL Lymph # (Auto) (1.2-3.4) K/uL [place] # (Auto) (0.11-0.59) K/uL Eos # (Auto) (0-0.5) K/uL Baso # (Auto) (0-0.2) K/uL Immature Gran # (Auto) (0.00-0.02) K/uL PT 16.4 H (9.0-12.0) Seconds INR 1.6 H (0.9-1.1) Sodium (136-145) mmol/L Potassium (3.5-5.1) mmol/L Chloride (98-107) mmol/L Carbon Dioxide (21-32) mmol/L Anion Gap (3-11) BUN (6-23) mg/dl Creatinine (0.6-1.2) mg/dl Est Cr Clr Drug Dosing ml/min Est GFR ( Amer) ml/min Est GFR (Non-Af Amer) ml/min BUN/Creatinine Ratio (10-20) Glucose (70-99(Fasting)) mg/dl Calcium (8.5-10.1) mg/dl Magnesium (1.7-2.4) mg/dl Total Bilirubin (0.2-1.0) mg/dl Direct Bilirubin (0-0.2) mg/dl AST (13-39) U/L ALT (7-52) U/L Alkaline Phosphatase (34-104) U/L Troponin I High Sens (0-14) pg/ml Total Protein (6.0-8.3) gm/dl Albumin (3.4-5.0) gm/dl Globulin (2.5-4.0) gm/dl Albumin/Globulin Ratio (0.9-2) Lipase (11-82) U/L TSH (0.300-4.500) uIu/ml Free T4 SARS-CoV-2, RNA, NAAT NEGATIVE (NEGATIVE) 03/11/22 03/11/22 Range/Units 14:45 14:45 WBC 5.59 (4.8-10.8) K/uL RBC 4.72 (4.2-5.4) M/uL Hgb 12.6 (12.0-16.0) g/dL Hct 40.6 (37-47) % MCV 86.0 (80-100) fL MCH 26.7 (25-34) pg MCHC 31.0 L (32-36) g/dL RDW Std Deviation 50.4 H (36.4-46.3) fL RDW Coeff of Ezequiel 16.0 H (11.5-14.5) % Plt Count 339 (130-400) K/uL MPV 11.6 H (7.4-10.4) fL Immature Gran % (Auto) 0.4 % Neut % (Auto) 66.5 % Lymph % (Auto) 20.4 % [place] % (Auto) 10.4 % Eos % (Auto) 1.4 % Baso % (Auto) 0.9 % Neut # (Auto) 3.72 (1.4-6.5) K/uL Lymph # (Auto) 1.14 L (1.2-3.4) K/uL [place] # (Auto) 0.58 (0.11-0.59) K/uL Eos # (Auto) 0.08 (0-0.5) K/uL Baso # (Auto) 0.05 (0-0.2) K/uL Immature Gran # (Auto) 0.02 (0.00-0.02) K/uL PT (9.0-12.0) Seconds INR (0.9-1.1) Sodium 138 (136-145) mmol/L Potassium 3.8 (3.5-5.1) mmol/L Chloride 102 (98-107) mmol/L Carbon Dioxide 25 (21-32) mmol/L Anion Gap 11 (3-11) BUN 16 (6-23) mg/dl Creatinine 0.92 (0.6-1.2) mg/dl Est Cr Clr Drug Dosing 48.7 ml/min Est GFR ( Amer) 70.1 ml/min Est GFR (Non-Af Amer) 60.5 ml/min BUN/Creatinine Ratio 17.4 (10-20) Glucose 135 H (70-99(Fasting)) mg/dl Calcium 9.2 (8.5-10.1) mg/dl Magnesium (1.7-2.4) mg/dl Total Bilirubin 1.1 H (0.2-1.0) mg/dl Direct Bilirubin (0-0.2) mg/dl AST 20 (13-39) U/L ALT 12 (7-52) U/L Alkaline Phosphatase 121 H (34-104) U/L Troponin I High Sens 9.2 (0-14) pg/ml Total Protein 7.0 (6.0-8.3) gm/dl Albumin 3.9 (3.4-5.0) gm/dl Globulin 3.1 (2.5-4.0) gm/dl Albumin/Globulin Ratio 1.3 (0.9-2) Lipase 14 (11-82) U/L TSH (0.300-4.500) uIu/ml Free T4 SARS-CoV-2, RNA, NAAT (NEGATIVE) Diagnostic Findings Chest X-Ray 03/11/22 14:55 XR chest 1V portable CLINICAL HISTORY: Atypical chest pain TECHNIQUE: Single frontal radiograph of the chest was obtained. Comparison: Comparison is made to chest radiograph 02/10/2022 FINDINGS: No lines and tubes are seen. The cardiomediastinal silhouette is normal. The lungs are clear. No evidence of pleural effusion or pneumothorax. IMPRESSION: No acute chest disease. Previously noted pulmonary edema has resolved. ACT 112: Negative or not required by law. Electronically signed by: Chacho Nieves M.D. 03/11/2022 3:09 PM PG Care Time/CCT Total # of Minutes Spent Total Time Spent with Patient: Total time spent is greater than 50% in coordination of care (as documented) at patient's floor/unit and/or counseling patient: Coding Level of Care Code 52026 Subseq Hosp Care Lvl 3 Diagnoses Atrial fibrillation with RVR I48.91 Cardiomyopathy I42.9 Cardiomyopathy type: unspecified Anticoagulant long-term use Z79.01 Hyperlipidemia E78.5 Hyperlipidemia type: unspecified Hypothyroidism E03.9 Hypertension I10 Hypertension type: primary hypertension Diarrhea R19.7 (1) Hyperlipidemia Hyperlipidemia type: unspecified Qualified Code(s): E78.5 - Hyperlipidemia, unspecified (2) Hypertension Hypertension type: primary hypertension Qualified Code(s): I10 - Essential (primary) hypertension (3) Cardiomyopathy Cardiomyopathy type: unspecified Qualified Code(s): I42.9 - Cardiomyopathy, unspecified
[2022-03-12] MEDS ORDERED: METOPROLOL TARTRATE 100 MG TAB PO SCH (09:00)
[2022-03-12] MEDS ORDERED: RIVAROXABAN 2.5 MG TAB PO ONE (09:00)
[2022-03-12] MEDS ORDERED: RIVAROXABAN 15 MG TAB PO SCH (09:00)
--- NOTE | 2022-03-12 09:29 | Cardiology Progress Note ---
Date of Service March 12, 2022 Assessment & Plan (1) Atrial fibrillation with RVR: (2) Cardiomyopathy: Plan: 1. Atrial fibrillation: Her heart rate remains fast, she is on 15 mg/h of diltiazem as well as her beta-blockade. We are not going to be able to adequately control her heart rate it seems. I did consider adding digoxin but that is a little bit risky, additionally I was considering amiodarone but with her GI distress and the time it would take to become effective orally that may not be a good idea. At this point I think the best short-term option is cardioversion which is arranged for today but I do not have a time. For the long run we need to consider other alternatives such as ablation or AV block with dual-chamber pacing. With her very large atrium and early recurrence this time this may become a long-term management issue that we cannot easily manage medically. 2. Cardiomyopathy: She still has left ventricular dysfunction although some of it may be due to the rapid heart rate. I will repeat the echocardiogram when she is in sinus rhythm. I think would be safer to avoid drugs like flecainide so I am going to start her on sotalol to try to maintain sinus rhythm. 3. Anticoagulation: She has been on Xarelto without interruption and we will continue. Admission and Anticipated Discharge Date Admission Date: March 11, 2022 Subjective She is feeling better today, feels that her heart rate is improved although it is still fast. No shortness of breath, no lightheadedness or dizziness. She still has some anorexia and little bit of nausea but has not been vomiting. Physical Exam Physical Exam: Constitutional: Alert, cooperative and in no distress. HEENT: Unremarkable Neck: No jugular venous distention, carotid pulses are irregular but otherwise normal and equal bilaterally without bruits. Pulmonary: Basilar crackles bilaterally. Cardiac: Irregular rapid rhythm with a grade 2/6 holosystolic murmur at the apex, no gallop or rub. Abdomen: Soft, nontender with normal bowel sounds. Extremities: No edema. Distal pulses intact. Neurologic: No focal findings. Gait was not tested. Skin: No rash, ecchymoses or petechiae. Results & Data ([facility]) Vital Signs (Past 12 Hours) Vital Signs Temp Pulse Pulse Resp BP BP Pulse Ox 03/12/22 08:00 36.8 C 16 103/70 03/12/22 03:36 36.9 C 140 H 18 95/73 L 94 03/12/22 00:39 108/78 03/11/22 23:29 36.8 C 133 H 18 100/78 95 03/11/22 22:22 122 H Laboratory Results Cardiac Enzymes 03/11/22 Range/Units 14:45 AST 20 (13-39) U/L Troponin I High Sens 9.2 (0-14) pg/ml Coagulation 03/11/22 Range/Units 14:45 PT 16.4 H (9.0-12.0) Seconds CBC 03/11/22 03/12/22 Range/Units 14:45 06:44 WBC 5.59 5.56 (4.8-10.8) K/uL RBC 4.72 4.36 (4.2-5.4) M/uL Hgb 12.6 11.5 L (12.0-16.0) g/dL Hct 40.6 37.2 (37-47) % Plt Count 339 337 (130-400) K/uL Neut # (Auto) 3.72 (1.4-6.5) K/uL Lymph # (Auto) 1.14 L (1.2-3.4) K/uL [place] # (Auto) 0.58 (0.11-0.59) K/uL Eos # (Auto) 0.08 (0-0.5) K/uL Baso # (Auto) 0.05 (0-0.2) K/uL Comprehensive Metabolic Panel 03/11/22 03/12/22 Range/Units 14:45 06:44 Sodium 138 137 (136-145) mmol/L Potassium 3.8 3.6 (3.5-5.1) mmol/L Chloride 102 104 (98-107) mmol/L Carbon Dioxide 25 23 (21-32) mmol/L BUN 16 14 (6-23) mg/dl Creatinine 0.92 0.82 (0.6-1.2) mg/dl Glucose 135 H 106 H (70-99(Fasting)) mg/dl Calcium 9.2 8.7 (8.5-10.1) mg/dl AST 20 (13-39) U/L ALT 12 (7-52) U/L Alkaline Phosphatase 121 H (34-104) U/L Total Protein 7.0 (6.0-8.3) gm/dl Albumin 3.9 (3.4-5.0) gm/dl Intake and Output 03/11/22 03/12/22 03/12/22 22:59 06:59 14:59 Intake Total 113 / 225 112 / 225 115.25 / 115.25 Balance 113 / 225 112 / 225 115.25 / 115.25 Intake: IV 112 / 125 115.25 / 115.25 dilTIAZem HCL 125 mg In 112 / 125 115.25 / 115.25 Dextrose 5% 100 ml @ 15 MG/HR 15 mls/hr IV .Q8H20M [facility] Rx#: [id number] Oral 100 / 100 Other: Other Intake Source Patient is NPO # Unmeasured Voids 1 Weight 80.7 kg 80.7 kg Weight Measurement Method Standing Scale Built in [facility] Diagnostic Findings Telemetry: Atrial fibrillation with rapid heart rate remains, averaging around 120 bpm this morning Echocardiogram: I reviewed her echocardiogram when it was done and her ejection fraction will probably measure low, however it may be the heart rate and ir regularity. It may not be quite normal however. Certainly is no worse than before. PG Care Time/CCT Total # of Minutes Spent Total Time Spent with Patient: Total time spent is greater than 50% in coordination of care (as documented) at patient's floor/unit and/or counseling patient: Coding Level of Care Code 92734 Subseq Hosp Care Lvl 3 Diagnoses Atrial fibrillation with RVR I48.91 Cardiomyopathy I42.9 Cardiomyopathy type: unspecified (1) Cardiomyopathy Cardiomyopathy type: unspecified Qualified Code(s): I42.9 - Cardiomyopathy, unspecified
[2022-03-12 10:11] LABS: Albumin Level 3.5 gm/dl (3.4-5.0); Bilirubin Direct 0.3 mg/dl (0-0.2); Bilirubin,Total 0.9 mg/dl (0.2-1.0); Magnesium 1.5 mg/dl (1.7-2.4); Total Protein 6.2 gm/dl (6.0-8.3)
[2022-03-12 10:20] LABS: Thyroid Stimulating Hormone 7.369 uIu/ml (0.300-4.500)
[2022-03-12 10:54] LABS: T4 Free Thyroxine 1.42 ng/dl (0.61-1.60)
--- NOTE | 2022-03-12 11:05 | Ultrasound Report ---
ULTRASOUND RIGHT UPPER QUADRANT ABDOMEN CLINICAL HISTORY: Elevated hepatic transaminases. Diarrhea. COMPARISON STUDY: Abdominal CT dated 07/27/2019. TECHNIQUE: Real-time, grayscale, and color flow sonography of the right upper quadrant of the abdomen was performed. Images are reviewed in the transverse and longitudinal planes. FINDINGS: Liver: The liver is normal in size and echotexture. There is no intrahepatic biliary ductal dilatatio n. The main portal vein is patent. Gallbladder: The gallbladder is normal in appearance. No gallstones are identified. There is no gallb ladder wall thickening or pericholecystic fluid. A sonographic Guillen's sign is reportedly absent. Th e common bile duct measures up to 0.4 cm in diameter. Pancreas: Visualized portions of the pancreatic head and body are normal in appearance. Right kidney: Survey images of the right kidney demonstrate normal size and echotexture. There is no hydronephrosis. Ascites: None. IMPRESSION: Unremarkable sonographic examination of the right upper quadrant. No gallstones are ident ified. ACT 112: Negative or not required by law. Electronically signed by: Rahul Rutledge M.D. 03/12/2022 11:04 AM
--- NOTE | 2022-03-12 11:22 | Anesthesiology Consultation ---
Date of Service March 12, 2022 Assessment & Plan Chart Review Chart Review: Acceptable Risk for Surgery and Patient NOT seen in Pre Admission Testing Consults Requested none ASA ASA3 Proposed Anesthesia Anesthesia Type: MAC History Surgery Operation Date: 03/12/22 11:20 Proposed Procedures p Cardioversion Disk Sander w/Anesthesia - Jesus Yao MD Height/Weight Height: 5 ft Weight: 80.7 kg Allergies Allergy/AdvReac Type Severity Reaction Status Date / Time atorvastatin [From Lipitor] Allergy Mild pt unsure Verified 03/11/22 14:55 it was long time ago Medications Home Medications Medication Instructions Recorded Confirmed Last Taken simvastatin 10 mg tablet 10 mg PO QPM #90 tab 03/18/21 03/11/22 03/10/22 estradiol 0.5 mg tablet 0.5 mg PO [id number] 04/08/21 03/11/22 03/10/22 ipratropium bromide 21 mcg (0.03 2 sprays INTNAS TID PRN 04/08/21 03/11/22 03/10/22 %) nasal spray pantoprazole 40 mg tablet,delayed 40 mg PO DAILY PRN 04/08/21 03/11/22 2 Weeks Ago release ~04/03/21 cholecalciferol (vitamin D3) 125 125 mcg PO QAM 11/25/21 03/11/22 03/10/22 mcg (5,000 unit) capsule furosemide 20 mg tablet 20 mg PO DAILY PRN #30 tab 02/13/22 03/11/22 Unknown lorazepam 0.5 mg tablet 0.5 mg PO Q8H PRN #30 tab 02/24/22 03/11/22 Unknown levothyroxine 112 mcg tablet 112 mcg PO QAM 02/28/22 03/11/22 03/10/22 (Synthroid) losartan 50 mg tablet 50 mg PO QAM 02/28/22 03/11/22 03/10/22 rivaroxaban 20 mg tablet (Xarelto) 20 mg PO QAM 02/28/22 03/11/22 03/10/22 metoprolol succinate 100 mg 150 mg PO QAM #135 tab 03/05/22 03/11/22 03/10/22 tablet,extended release 24 hr multivitamin 1 tab PO DAILY 03/11/22 03/11/22 03/10/22 potassium chloride 20 mEq 20 meq PO UD PRN 03/11/22 03/11/22 Unknown tablet,extended release Active Medications Generic Name Dose Route Start Last Admin Trade Name Doreen PRN Reason Stop Dose Admin Estradiol 0.5 mg 03/12/22 09:00 03/12/22 08:06 Estradiol 1 Mg Tab PO 04/11/22 08:59 0.5 mg [id number] MICHELINE Administration Diltiazem HCl 125 mg/ Dextrose 125 mls @ 15 mls/hr 03/11/22 15:15 03/12/22 08:03 IV 04/10/22 15:14 15 mg/hr .Q8H20M MICHELINE 15 mls/hr Administration Protocol 15 MG/HR Levothyroxine Sodium 112 mcg 03/12/22 06:30 03/12/22 05:55 Levothyroxine Sodium 112 Mcg Tablet PO 04/11/22 06:29 112 mcg DAILYBB MICHELINE Administration Losartan Potassium 50 mg 03/12/22 09:00 03/12/22 08:08 Losartan Potassium 50 Mg Tab PO 04/11/22 08:59 50 mg QAM MICHELINE Administration Metoprolol Tartrate 100 mg 03/12/22 09:00 03/12/22 08:07 Metoprolol Tartrate 100 Mg Tab PO 04/11/22 08:59 100 mg BID MICHELINE Administration Multivitamins 1 tab 03/12/22 09:00 03/12/22 08:06 Multivitamin Tab PO 04/11/22 08:59 1 tab DAILY MICHELINE Administration Vitamin D 5,000 units 03/12/22 09:00 03/12/22 08:06 Cholecalciferol 5,000 Units 125 Mcg Tab PO 04/11/22 08:59 5,000 units QAM MICHELINE Administration Past Medical History Medical History Anticoagulant long-term use Xarelto daily Atrial fibrillation with rapid ventricular response Admitted to [facility] 02/10/22 to 02/12/22 Cardiomyopathy EF 35-40% on 02/10/22 ECHO GERD (gastroesophageal reflux disease) Hx of gastric ulcer >30 yrs ago Hx of ovarian cyst (reason for FELISHA w/BSO) Hyperlipidemia Hypertension Hypothyroidism Metabolic syndrome Hgb A1C 5.7 in 10/2021 Obesity Osteoarthritis Osteopenia Shortness of breath SOB with stairs and exertion per nursing assessment Past Family History Family History Father Acute myocardial infarction Mother Acute myocardial infarction Hypertension Brother Acute myocardial infarction Sister Hypertension Pure hypercholesterolemia Unknown Diabetes Other Stroke Denies family history of Breast cancer Colorectal cancer Colonic polyp Past Surgical History Surgical History H/O breast augmentation H/O colonoscopy 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 No postop issues per anesthesia progress note. History of esophagogastroduodenoscopy (EGD) History of Ishmael fundoplication 2003, hiatal hernia History of total right knee replacement (TKR) (~12/2021) @ [facility] Hx of cataract surgery right and left S/P total abdominal hysterectomy w/ removal of both ovaries Social History Smoking Status: Never smoker Do You Dip or Chew Tobacco: No Hx Alcohol Use: Yes Alcohol type: wine alcohol intake frequency: a few times a week Hx Substance Use: No substance use type: does not use Physical Exam Vital Signs Last Vital Signs Temp 36.8 C 03/12/22 08:10 Pulse 128 H 03/12/22 08:10 Resp 16 03/12/22 08:10 BP 103/70 03/12/22 08:10 Pulse Ox 95 03/12/22 08:10 Testing Laboratory Results 03/12/22 06:44 03/12/22 06:44 PT 16.4 Seconds (9.0-12.0) H 03/11/22 14:45 INR 1.6 (0.9-1.1) H 03/11/22 14:45 Echocardiogram Date: 03/12/22 EF: 35 Other Findings: + atrial enlargement pulmonary htn
--- NOTE | 2022-03-12 11:28 | Cardioversion ---
Date of Service March 12, 2022 PG Electrical Cardioversion Rp Electrical Cardioversion Report The patient was brought to the laboratory being NPO after midnight and was identified in the laboratory, connected to the recording apparatus including electrocardiographic monitoring, noninvasive blood pressure monitoring and pulse oximetry. Anteroposterior patch electrodes were placed. The patient was anesthetized by the anesthesia department. Once adequate anesthesia was obtained a synchronized biphasic shock was delivered using 200 J with conversion to a sinus bradycardia. Dopamine has been discontinued immediately prior to cardioversion and probably still remains in her system. The patient awoke from the anesthetic without sequela, will be observed briefly and then discharged. Coding Level of Care Code Cardioversion, elective Additional Codes Electrical Cardioversion Report ([id number])
[2022-03-12] MEDS: SOTALOL HCL 80 MG TAB PO SCH ×2 (12:05→20:21)
--- NOTE | 2022-03-12 12:57 | Anesthesiology Progress Note ---
Date of Service March 12, 2022 Anesthesia Post Procedure Vital Signs Vital Signs: Temp Pulse Pulse Pulse Resp BP BP 03/12/22 12:44 48 L 18 88/58 L 03/12/22 12:26 80/50 L 03/12/22 12:19 36.4 C L 62 18 73/49 L 03/12/22 11:38 47 L 14 84/54 L 03/12/22 11:23 45 L 16 85/45 L 03/12/22 08:10 36.8 C 128 H 16 103/70 03/12/22 08:00 36.8 C 16 103/70 03/12/22 03:36 36.9 C 140 H 18 03/12/22 00:39 108/78 03/11/22 23:29 36.8 C 133 H 18 03/11/22 22:22 122 H 03/11/22 20:21 36.9 C 168 H 20 121/93 03/11/22 20:02 157 H 03/11/22 17:58 15 03/11/22 16:44 149 H 15 03/11/22 15:14 147 H 28 H 03/11/22 14:50 158 H 23 03/11/22 14:42 166 H 21 03/11/22 14:30 36.8 C 177 H 20 134/77 BP Pulse Ox 03/12/22 12:44 97 03/12/22 12:26 03/12/22 12:19 97 03/12/22 11:38 99 03/12/22 11:23 98 03/12/22 08:10 95 03/12/22 08:00 03/12/22 03:36 95/73 L 94 03/12/22 00:39 03/11/22 23:29 100/78 95 03/11/22 22:22 03/11/22 20:21 92 03/11/22 20:02 03/11/22 17:58 97 03/11/22 16:44 147/104 H 97 03/11/22 15:14 120/103 H 98 03/11/22 14:50 99 03/11/22 14:42 94/66 L 98 03/11/22 14:30 97 Transfer of Care Handoff Completed per policy Notes Mental Status: alert / awake / arousable Patient Amnestic to Procedure: Yes Nausea / Vomiting: adequately controlled Pain: adequately controlled Airway Patency, RR, SpO2: stable & adequate BP & HR: stable & adequate Hydration State: stable & adequate Anesthetic Complications: no major complications apparent
[2022-03-12] MEDS ORDERED: SODIUM CHLORIDE 0.9% 1000ML 250 ML IV ONE (13:12)
[2022-03-12] MEDS ORDERED: POTASSIUM CHLORIDE CRTAB 20 MEQ TABCR PO STA (13:14)
[2022-03-12] MEDS: MAGNESIUM SULFATE / D5W 1 GM/100 ML BAG IV SCH ×2 (13:39→15:32)
--- NOTE | 2022-03-12 13:39 | XRay Report ---
XR chest 1V portable HISTORY: Shortness of breath. COMPARISON: Chest 03/11/2022. FINDINGS: No pneumothorax. The cardiac silhouette remains mildly enlarged. Calcified breast implants are again noted. Small patchy bibasilar densities are noted. These have slightly progressed. The uppe r lung zones are clear. No evidence for pulmonary edema. IMPRESSION: 1. Small patchy bibasilar densities. This may represent atelectasis or developing pneumonia. 2. Stable cardiomegaly. ACT 112: Negative or not required by law. Electronically signed by: Garrett Hampton M.D. 03/12/2022 1:37 PM
[2022-03-12] MEDS ORDERED: STAT IV Infusion **Titration per Protocol STA (14:04)
[2022-03-12] MEDS ORDERED: DOPamine / D5W 400 MG/250 ML BAG IV SCH (14:15)
--- NOTE | 2022-03-12 14:39 | Gastrointestinal Consultation ---
Date of Consultation March 12, 2022 Assessment & Plan (1) Loose stools: Pt is experiencing small volume loose BMs with rectal mucous as well as some fecal incontinence. Etiologies considered include microscopic colitis, diet changes during hospitalizations w A-fib, related to A-fib itself or anxiety, or side effect of medications from A-fib Will check stool for C-diff and culture but the pt doesn't appear to have clinically significant diarrhea. Would add fiber, once daily to firm up the stool. If no improvement then recommend OP GI office visit in approx one month at which time we will consider repeating the colonoscopy with biopsies. Supervising Physician Co-Signing Physician Notes Attending attestation I have seen, examined this patient, and agree with the findings and above by our mid-level provider FÉLIX Bernal, with the following additions: - Semi- Solid stool now, will arrange outpt f/u History of Present Illness Reason for Consultation: Diarrhea Requesting Physician: Dr. Mazariegos Attending Physician: Shara Sal MD History of Present Illness Ms. Yecenia Joiner is a 76 yr old female pt of Dr. Socorro Fan with a hx of hypothyroidism, hypertension, dyslipidemia. She has been dx'ed with new A-fib approx a month ago and was started on Xeralto. During this hospitalization, this was changed to Eliquis, and sotolol and diltiazem were added. She was sent from her cardiology office to the ED yesterday, 03/11 for A-fib in RVR. She underwent cardioversion today. On arrival, she mentioned loose stools and GI is consulted for diarrhea. This change in bowel habits started a week ago and consists of approx 3-4 BMs/day, the consistency of which are small soft pieces of stool with rectal mucous. She is most concerned about the yellow color of the fecal material. She denies liquid diarrhea. She has had incontinence of small amts of stool/mucous which is very concerning for her. Today, she had not yet had a BM at the time of our interview. She has not had abdominal pain/cramping. Her most recent Colonoscopy was in Nov [address] Hartman, was endoscopically normal, with a 3mm adenomatous polyp and recommendation for surveillance in 2024. Allergies Allergy/AdvReac Type Severity Reaction Status Date / Time atorvastatin [From Lipitor] Allergy Mild pt unsure Verified 03/11/22 14:55 it was long time ago Home Medications Medication Instructions Recorded Confirmed Type simvastatin 10 mg tablet 10 mg PO QPM #90 tab 03/18/21 03/11/22 Rx estradiol 0.5 mg tablet 0.5 mg PO 3XWK 04/08/21 03/11/22 History ipratropium bromide 21 mcg (0.03 2 sprays INTNAS TID PRN 04/08/21 03/11/22 History %) nasal spray pantoprazole 40 mg tablet,delayed 40 mg PO DAILY PRN 04/08/21 03/11/22 History release cholecalciferol (vitamin D3) 125 125 mcg PO QAM 11/25/21 03/11/22 History mcg (5,000 unit) capsule furosemide 20 mg tablet 20 mg PO DAILY PRN #30 tab 02/13/22 03/11/22 Rx lorazepam 0.5 mg tablet 0.5 mg PO Q8H PRN #30 tab 02/24/22 03/11/22 Rx levothyroxine 112 mcg tablet 112 mcg PO QAM 02/28/22 03/11/22 History (Synthroid) losartan 50 mg tablet 50 mg PO QAM 02/28/22 03/11/22 History rivaroxaban 20 mg tablet (Xarelto) 20 mg PO QAM 02/28/22 03/11/22 History metoprolol succinate 100 mg 150 mg PO QAM #135 tab 03/05/22 03/11/22 Rx tablet,extended release 24 hr multivitamin 1 tab PO DAILY 03/11/22 03/11/22 History potassium chloride 20 mEq 20 meq PO UD PRN 03/11/22 03/11/22 History tablet,extended release Patient History Medical History Anticoagulant long-term use Xarelto daily Atrial fibrillation with rapid ventricular response Admitted to [facility] 02/10/22 to 02/12/22 Cardiomyopathy EF 35-40% on 02/10/22 ECHO GERD (gastroesophageal reflux disease) Hx of gastric ulcer >30 yrs ago Hx of ovarian cyst (reason for FELISHA w/BSO) Hyperlipidemia Hypertension Hypothyroidism Metabolic syndrome Hgb A1C 5.7 in 10/2021 Obesity Osteoarthritis Osteopenia Shortness of breath SOB with stairs and exertion per nursing assessment Surgical History H/O breast augmentation H/O colonoscopy 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 No postop issues per anesthesia progress note. History of esophagogastroduodenoscopy (EGD) History of Ishmael fundoplication 2003, hiatal hernia History of total right knee replacement (TKR) (~12/2021) @ [facility] Hx of cataract surgery right and left S/P total abdominal hysterectomy w/ removal of both ovaries Family History Father Acute myocardial infarction Mother Acute myocardial infarction Hypertension Brother Acute myocardial infarction Sister Hypertension Pure hypercholesterolemia Unknown Diabetes Other Stroke Denies family history of Breast cancer Colorectal cancer Colonic polyp Social History Smoking Status: Never smoker Second Hand Exposure: No; Do You Dip or Chew Tobacco: No; Tobacco Cessation Education Requested by Patient: No Hx Alcohol Use: Yes Alcohol type: wine Hx Substance Use: No Preferred Language: Italian Communication Ability: Effective Visual Impairment: No Limitations Hearing Ability: Normal Sales Forecast Analyst Required: No Beliefs That Will Affect Care: None marital status: Current Living Situation: Alone current occupational status: employed How many Children do You have: 1 Other Information That Helps Us Care for You: No Feels Safe at Home: Yes Safety Concerns: Feels Safe At This Time Childhood Exposure to Second-Hand Smoke: Yes caffeine: Yes Dental Care, Regularly: Yes Physical Activity Frequency: Daily Physical Activity Frequency Comment: walking 20 min Seatbelt Use: always Sunscreen Use: Yes Assistive Devices: Cane and Walker Review of Systems Review of Systems: ROS: Gen: Denies weakness, fevers, weight loss Eyes: No eye redness, or pain, no recent vision changes Resp: No SOB, no cough Cardio: No palpitations/irregular beats, no chest pain GI: As per HPI, otherwis (-) : Denies pain on urination Skin: No jaundice, itching or new rashes Physical Exam Constitutional: well developed and cooperative Eyes: PERRL, conjunctivae normal, anicteric sclerae ENMT: external ear and nose normal, oropharynx normal Neck: trachea midline, no thyromegaly Respiratory: normal respiratory effort, lungs clear to auscultation Cardiovascular: Rate/Rhythm: + irregularly irregular Heart Sounds: no murmur peripheral edema Gastrointestinal (Abdomen): normal bowel sounds, soft, nontender, no hepatosplenomegaly Skin: no rashes, warm and dry normal turgor Neurologic: PERRL, EOMI, accommodation nl, no face palsy, no dysarthria awake; not confused Psychiatric: A+Ox3, euthymic affect Orientation: alert, oriented x 3 and cooperative Lymphatic: no cervical or axillary lymphadenopathy Results & Data ([facility]) Vital Signs (Past 12 Hours) Vital Signs Temp Pulse Pulse Resp BP BP Pulse Ox 03/12/22 14:28 47 L 20 72/42 L 97 03/12/22 13:57 42 L 74/38 L 03/12/22 13:41 78/45 L 03/12/22 13:34 49 L 22 78/50 L 97 03/12/22 13:09 78/50 L 03/12/22 12:44 48 L 18 88/58 L 97 03/12/22 12:26 80/50 L 03/12/22 12:19 36.4 C L 62 18 73/49 L 97 03/12/22 11:38 47 L 14 84/54 L 99 03/12/22 11:23 45 L 16 85/45 L 98 03/12/22 08:10 36.8 C 128 H 16 103/70 95 03/12/22 08:00 36.8 C 16 103/70 03/12/22 03:36 36.9 C 140 H 18 95/73 L 94 Laboratory Results WBC 5, Hb 11, Hct 37, Plts 337, Na 137, K 3.6, Cl 104, CO2 30, BUN 9, Cr 0.83, glucose 85. Diagnostic Findings RUQ US 03/12/22: normal.
[2022-03-12] MEDS ORDERED: METOPROLOL TARTRATE 25 MG TAB PO SCH (21:00)
--- NOTE | 2022-03-12 22:14 | XCELERA ---
[id number] \\[id number]___[id number]
--- NOTE | 2022-03-12 22:20 | XCELERA ---
[id number] \\[id number]___[id number]
[2022-03-13] MEDS: LEVOTHYROXINE SODIUM 112 MCG TABLET PO SCH (06:12)
--- NOTE | 2022-03-13 07:40 | Hospitalist Progress Note ---
Date of Service March 13, 2022 Assessment & Plan (1) Atrial fibrillation with RVR: Plan: Patient admitted to PCU with A fib RVR -- rates initially 160-170s, now 130- 140s, asymptomatic Recently cardioverted but flipped back into afib RVR at office visit, sent to ER Placed on cardizem gtt but was at max rate to keep rates 120-140s prior to being taken to EP suite for cardioversion. Had also gotten 100mg metoprolol, her losartan, and then was given sotalol directly afterwards Developed hypotension, nausea, vomiting post procedure Evaluated, ECHO not in system but EF low normal (reported improved after cardioversion), but was given 250cc NSS bolus with some improvement initially but pressures then stayed 70/80s systolic and was placed on dopamine at 2.5mg/kr/hr in MICU as waiting for sinus node depressing medications to wear off Pressures improved evening to 120s/70s and this was discontinued and patient no longer feeling nauseated, no vomiting, and was able to ambulate to the bathroom Metoprolol was placed on hold last evening to prevent worsening hypotension -- patient on succinate 150mg daily and was placed on tartrate 100mg BID on admission to help with rates Discontinuing metoprolol given improvement in EF to 50-55% after cardioversion Need to monitor on telemetry while on sotaolol at least another 24 hours, possible 48 hours. Heart rates remain in NSR in the 50-60s today, BP remains stable. No lightheadedness/dizziness when up and walking Of note, most recent TSH wnl, however did repeat and TSH elevated at 7.36 ?if reactive with her diarrhea (RUQ US pending given elevated TB/ALP --> RUQ without abnormality Repeat levels outpatient Continue to monitor on telemetry (2) Diarrhea: Plan: Patient has had fecal incontinence. Doubt c diff. Patient had colonscopy by Dr. Hartman last year which was negative. May require repeat scope as symptoms are new.. Dif diagnosis: microscopic colitis, bacterial overgrowth syndrome --> rec probiotc Review of labs on admission with Tb 1.1, alk phos elevated to 121. Lipase wnl -CXR on admit done for "atypical chest pain" -Not febrile/no WBC elevation but given diarrhea will check routine GB US given atypical CP on admit -repeat LFTs with morning labs with resolution -stool pcr not collected yet -GI consulted on admission for diarrhea Of note, patient also with what sounds like history of Corrine fundoplication in the past Add fiber On protonix daily prn --> given famotidine x 1 for some reflux, however discussed would resume daily protonix tomorrow and at discharge/monitor (3) Cardiomyopathy: Plan: echo from 02/10/22: EF 35-40. Global hypokinesis. Patient does not have acute CHF. Repeat ECHO with improvement in EF BB discontinued Sotalol to maintain NSR Would rec outpatient stress as discussed with Dr Yao. No need acutely (4) Anticoagulant long-term use: Plan: Secondary to afib, nonvalvular Continue xarelto -- 20mg daily (cr cl dipped today, but CHELA likely due to hypotension following cardioversion as above) Monitor cr cl for am, resume usual 20mg dose if stable (5) Hyperlipidemia: Plan: held simvastatin for now, resume in AM (6) Hypothyroidism: Plan: continue usual synthroid recent TSH at goal, however did repeat with AM labs -- elevated at 7.36, likely reactive --> rec repeat w/ PCP outpt (7) Hypertension: Plan: BP stable continue TEIN, BB discontinued --> placed losartan on hold but was given this morning BP remain stable 107/67 currently Plan: continue inpatient monitoring on sotalol Admission and Anticipated Discharge Date Admission Date: March 11, 2022 Supervising Physician Co-Signing Physician Notes PA Supervision Note: I did not personally see or examine the patient today, but I verified all mcdonough points of KIERAN Kowalski's assessment and plan with the following exceptions/additions: None Subjective Patient evaluated this morning. Doing well. Eating/drinking and ambulating in room. No lightheaded/dizziness. Initially hopeful for discharge but then discussed with cards and myself about monitoring on new medication but will discontinue the metoprolol. Did discuss my conversation with cards for stress testing in future given REAL reported in days prior and they are going to arrange for outpatient testing in future in follow up. She did note some nausea last evening with some regurgitation of mucus. Noted she did think she had to have some diarrhea last night but again just a little mucus/no further yellow appearance. Discussed prior corrine over 20 years ago and her PPI prn dosing. She does note she has had to increase this recently over the past couple weeks when she is having things like chocolate that increase reflux symptoms. No fever/chills, chest pain, lightheadedness, dizziness, abdominal pain, dysuria at this time. Continuing to monitor on telemetry. Possible d/c in next 24-48 hours. Review of Systems Review of Systems: All systems reviewed & are unremarkable except as noted in HPI & below Physical Exam Constitutional: WD/WN, vitals as above Eyes: PERRL, conjunctivae normal, anicteric sclerae ENMT: external ear and nose normal, oropharynx normal Neck: trachea midline, no thyromegaly Respiratory: normal respiratory effort, lungs clear to auscultation Cardiovascular: Rate/Rhythm: regular rhythm and + bradycardic Heart Sounds: normal S1, normal S2 and + murmur (systolic) Gastrointestinal (Abdomen): normal bowel sounds, soft, nontender, no hepatosplenomegaly Musculoskeletal: no cyanosis or clubbing, extremities motor strength 5/5 Skin: no rashes, warm and dry Neurologic: PERRL, EOMI, accommodation nl, no face palsy, no dysarthria Psychiatric: A+Ox3, euthymic affect Lymphatic: no cervical or axillary lymphadenopathy Results & Data Results & Data ([facility]) Vital Signs (Past 12 Hours) Vital Signs Temp Pulse Pulse Pulse Resp BP Pulse Ox 03/13/22 06:14 58 L 98/62 L 03/13/22 04:59 56 L 98/67 L 03/13/22 04:32 62 112/72 03/13/22 04:06 36.8 C 58 L 16 93/53 L 93 03/13/22 01:51 58 L 104/78 03/13/22 01:00 03/12/22 23:18 58 L 03/12/22 22:46 60 114/94 96 03/12/22 22:22 36.6 C 59 L 24 90/51 L 92 03/12/22 20:20 62 115/79 Pulse Ox 03/13/22 06:14 03/13/22 04:59 03/13/22 04:32 03/13/22 04:06 03/13/22 01:51 03/13/22 01:00 93 03/12/22 23:18 03/12/22 22:46 03/12/22 22:22 03/12/22 20:20 Laboratory Results 03/13/22 03/13/22 Range/Units 07:15 07:15 WBC 6.57 (4.8-10.8) K/uL RBC 4.00 L (4.2-5.4) M/uL Hgb 11.3 L (12.0-16.0) g/dL Hct 34.5 L (37-47) % MCV 86.3 (80-100) fL MCH 28.3 (25-34) pg MCHC 32.8 (32-36) g/dL RDW Std Deviation 51.6 H (36.4-46.3) fL RDW Coeff of Ezequiel 16.3 H (11.5-14.5) % Plt Count 303 (130-400) K/uL MPV 11.2 H (7.4-10.4) fL Sodium 136 (136-145) mmol/L Potassium 4.0 (3.5-5.1) mmol/L Chloride 105 (98-107) mmol/L Carbon Dioxide 20 L (21-32) mmol/L Anion Gap 11 (3-11) BUN 19 (6-23) mg/dl Creatinine 1.63 H D (0.6-1.2) mg/dl Est Cr Clr Drug Dosing 27.2 ml/min Est GFR ( Amer) 35.1 ml/min Est GFR (Non-Af Amer) 30.3 ml/min BUN/Creatinine Ratio 11.7 (10-20) Glucose 90 (70-99(Fasting)) mg/dl Calcium 8.5 (8.5-10.1) mg/dl Magnesium 2.1 (1.7-2.4) mg/dl Diagnostic Findings Chest X-Ray 03/11/22 14:55 XR chest 1V portable CLINICAL HISTORY: Atypical chest pain TECHNIQUE: Single frontal radiograph of the chest was obtained. Comparison: Comparison is made to chest radiograph 02/10/2022 FINDINGS: No lines and tubes are seen. The cardiomediastinal silhouette is normal. The lungs are clear. No evidence of pleural effusion or pneumothorax. IMPRESSION: No acute chest disease. Previously noted pulmonary edema has resolved. ACT 112: Negative or not required by law. Electronically signed by: Chacho Nieves M.D. 03/11/2022 3:09 PM Gallbladder Ultrasound 03/12/22 08:16 ULTRASOUND RIGHT UPPER QUADRANT ABDOMEN CLINICAL HISTORY: Elevated hepatic transaminases. Diarrhea. COMPARISON STUDY: Abdominal CT dated 07/27/2019. TECHNIQUE: Real-time, grayscale, and color flow sonography of the right upper quadrant of the abdomen was performed. Images are reviewed in the transverse and longitudinal planes. FINDINGS: Liver: The liver is normal in size and echotexture. There is no intrahepatic biliary ductal dilatation. The main portal vein is patent. Gallbladder: The gallbladder is normal in appearance. No gallstones are identified. There is no gallbladder wall thickening or pericholecystic fluid. A sonographic Guillen's sign is reportedly absent. The common bile duct measures up to 0.4 cm in diameter. Pancreas: Visualized portions of the pancreatic head and body are normal in appearance. Right kidney: Survey images of the right kidney demonstrate normal size and echotexture. There is no hydronephrosis. Ascites: None. IMPRESSION: Unremarkable sonographic examination of the right upper quadrant. No gallstones are identified. ACT 112: Negative or not required by law. Electronically signed by: Rahul Rutledge M.D. 03/12/2022 11:04 AM Chest X-Ray 03/12/22 13:12 XR chest 1V portable HISTORY: Shortness of breath. COMPARISON: Chest 03/11/2022. FINDINGS: No pneumothorax. The cardiac silhouette remains mildly enlarged. Calcified breast implants are again noted. Small patchy bibasilar densities are noted. These have slightly progressed. The upper lung zones are clear. No evidence for pulmonary edema. IMPRESSION: 1. Small patchy bibasilar densities. This may represent atelectasis or developing pneumonia. 2. Stable cardiomegaly. ACT 112: Negative or not required by law. Electronically signed by: Garrett Hampton M.D. 03/12/2022 1:37 PM PG Care Time/CCT Total # of Minutes Spent Total Time Spent with Patient: Total time spent is greater than 50% in coordination of care (as documented) at patient's floor/unit and/or counseling patient: Coding Level of Care Code 67796 Subseq Hosp Care Lvl 3 Diagnoses Atrial fibrillation with RVR I48.91 Diarrhea R19.7 Cardiomyopathy I42.9 Cardiomyopathy type: unspecified Anticoagulant long-term use Z79.01 Hyperlipidemia E78.5 Hyperlipidemia type: unspecified Hypothyroidism E03.9 Hypertension I10 Hypertension type: primary hypertension (1) Hyperlipidemia Hyperlipidemia type: unspecified Qualified Code(s): E78.5 - Hyperlipidemia, unspecified (2) Hypertension Hypertension type: primary hypertension Qualified Code(s): I10 - Essential (primary) hypertension (3) Cardiomyopathy Cardiomyopathy type: unspecified Qualified Code(s): I42.9 - Cardiomyopathy, unspecified
[2022-03-13 07:59] LABS: Hematocrit (blood only) 34.5 % (37-47); Hemoglobin 11.3 g/dL (12.0-16.0); Mean Corpuscular Hemoglobin 28.3 pg (25-34); Mean Corpuscular Hgb Conc 32.8 g/dL (32-36); Mean Corpuscular Volume 86.3 fL (80-100); Mean Platelet Volume 11.2 fL (7.4-10.4); Platelet Count 303 K/uL (130-400); RDW Coefficient of Variation 16.3 % (11.5-14.5); RDW Standard Deviation 51.6 fL (36.4-46.3); White Blood Count 6.57 K/uL (4.8-10.8)
[2022-03-13 08:07] LABS: BUN Creatinine Ratio 11.7 (10-20); Calcium 8.5 mg/dl (8.5-10.1); Creatinine Clr Calc Pharmacy 27.2 ml/min; Est GFR (African American) 35.1 ml/min; Est GFR (Non-African American) 30.3 ml/min; Magnesium 2.1 mg/dl (1.7-2.4)
[2022-03-13] MEDS: SOTALOL HCL 80 MG TAB PO SCH ×2 (08:37→20:09)
[2022-03-13] MEDS: MULTIVITAMIN TAB PO SCH (08:38)
[2022-03-13] MEDS: LOSARTAN POTASSIUM 50 MG TAB PO SCH (08:38)
[2022-03-13] MEDS: CHOLECALCIFEROL 5,000 UNITS 125 MCG TAB PO SCH (08:38)
[2022-03-13] MEDS ORDERED: RIVAROXABAN 20 MG TAB PO SCH (09:00)
[2022-03-13] MEDS ORDERED: FAMOTIDINE 20 MG TAB PO ONE (09:57)
--- NOTE | 2022-03-13 13:49 | Electrocardiogram Report ---
Test Reason : Blood Pressure : / mmHG Vent. Rate : 047 BPM Atrial Rate : 047 BPM P-R Int : 144 ms QRS Dur : 084 ms QT Int : 486 ms P-R-T Axes : -11 - 020 degrees QTc Int : 430 ms Sinus bradycardia Otherwise normal ECG When compared with ECG of 11-MAR-2022 14:41, Sinus rhythm has replaced Atrial fibrillation Vent. rate has decreased BY 120 BPM Nonspecific T wave abnormality, improved in Inferior leads T wave inversion no longer evident in Lateral leads Confirmed by Russ Williamson ([id number]) on 03/13/2022 1:49:00 PM Referred By: Socorro Fan Confirmed By:Russ Williamson
--- NOTE | 2022-03-13 14:22 | Electrocardiogram Report ---
Test Reason : Blood Pressure : / mmHG Vent. Rate : 050 BPM Atrial Rate : 050 BPM P-R Int : 148 ms QRS Dur : 092 ms QT Int : 602 ms P-R-T Axes : -24 047 040 degrees QTc Int : 548 ms Sinus bradycardia Prolonged QT Nonspecific T wave abnormality Septal leads Abnormal ECG When compared with ECG of 12-MAR-2022 11:25, QT has lengthened T-wave inversion in Septal leads now present Confirmed by Russ Williamson ([id number]) on 03/13/2022 2:22:00 PM Referred By: Socorro Fan Confirmed By:Russ Williamson
--- NOTE | 2022-03-13 16:37 | Cardiology Progress Note ---
Date of Service March 13, 2022 Assessment & Plan (1) Atrial fibrillation with RVR: (2) Cardiomyopathy: Plan: 1. Atrial fibrillation: She has remained in sinus rhythm and sinus bradycardia since cardioversion yesterday. I am hopeful that this will be controllable with sotalol. Technically she should remain in the hospital for 3 days on sotalol but if she is doing well tomorrow afternoon we can probably send her home. 2. Anticoagulation: She needs to continue anticoagulation. She is on the correct dose. 3. Cardiomyopathy: During atrial fibrillation her left ventricular function appears diminished however some of that may be simply due to the irregularity and the rapid rate, a repeat echocardiogram yesterday following termination of the arrhythmia shows near normalization of left ventricular function. I would continue our current treatment but do not think we need to add a beta-yenifer to her sotalol which could cause significant bradycardia. I do not think I would evaluate for ischemia at this point, we can consider that in the future. Admission and Anticipated Discharge Date Admission Date: March 11, 2022 Subjective She is feeling much better today, she is not having any of the weak feelings that she had yesterday when her heart rate was slow and aside from a little bit of nausea yesterday she has been tolerating her medications well so far. She is not having any palpitations (although has not in the past). Physical Exam Physical Exam: Constitutional: Alert, cooperative and in no distress. HEENT: Unremarkable Neck: No jugular venous distention, carotid pulses are normal and equal bilaterally without bruits. Pulmonary: Clear to auscultation bilaterally. Cardiac: Regular rhythm with no murmur, gallop or rub. Abdomen: Soft, nontender with normal bowel sounds. Extremities: No edema. Distal pulses intact. Neurologic: No focal findings. Gait is steady. Skin: No rash, ecchymoses or petechiae. Results & Data ([facility]) Vital Signs (Past 12 Hours) Vital Signs Temp Pulse Pulse Pulse Resp BP Pulse Ox 03/13/22 15:17 36.5 C 55 L 20 107/67 93 03/13/22 14:15 52 L 03/13/22 10:57 36.7 C 54 L 17 100/65 96 03/13/22 07:52 36.9 C 56 L 18 106/66 95 03/13/22 07:10 54 L 03/13/22 06:14 58 L 98/62 L 03/13/22 04:59 56 L 98/67 L Laboratory Results CBC 03/13/22 Range/Units 07:15 WBC 6.57 (4.8-10.8) K/uL RBC 4.00 L (4.2-5.4) M/uL Hgb 11.3 L (12.0-16.0) g/dL Hct 34.5 L (37-47) % Plt Count 303 (130-400) K/uL Comprehensive Metabolic Panel 03/13/22 Range/Units 07:15 Sodium 136 (136-145) mmol/L Potassium 4.0 (3.5-5.1) mmol/L Chloride 105 (98-107) mmol/L Carbon Dioxide 20 L (21-32) mmol/L BUN 19 (6-23) mg/dl Creatinine 1.63 H D (0.6-1.2) mg/dl Glucose 90 (70-99(Fasting)) mg/dl Calcium 8.5 (8.5-10.1) mg/dl Intake and Output 03/13/22 03/13/22 03/13/22 06:59 14:59 22:59 Other: Other Intake Source Sips # Unmeasured Voids 1 Weight 78.6 kg Weight Measurement Method Built in [facility] Diagnostic Findings Telemetry: Sinus rhythm and sinus bradycardia since cardioversion yesterday. PG Care Time/CCT Total # of Minutes Spent Total Time Spent with Patient: Total time spent is greater than 50% in coordination of care (as documented) at patient's floor/unit and/or counseling patient: Coding Level of Care Code 69574 Subseq Hosp Care Lvl 2 Diagnoses Atrial fibrillation with RVR I48.91 Cardiomyopathy I42.9 Cardiomyopathy type: unspecified (1) Cardiomyopathy Cardiomyopathy type: unspecified Qualified Code(s): I42.9 - Cardiomyopathy, unspecified
[2022-03-13] MEDS: PSYLLIUM or GUAR GUM FIBER POWDER PACKET PO SCH (17:56)
[2022-03-14] MEDS ORDERED: ceFAZolin 330 MG/ML 1 GM VIAL IV SCH (06:00)
[2022-03-14] MEDS: LEVOTHYROXINE SODIUM 112 MCG TABLET PO SCH (06:14)
[2022-03-14 07:28] LABS: Albumin Level 3.3 gm/dl (3.4-5.0); BUN Creatinine Ratio 15.5 (10-20); Bilirubin Direct 0.2 mg/dl (0-0.2); Bilirubin,Total 0.7 mg/dl (0.2-1.0); Calcium 8.7 mg/dl (8.5-10.1); Creatinine Clr Calc Pharmacy 25.4 ml/min; Est GFR (African American) 32.4 ml/min; Magnesium 2.1 mg/dl (1.7-2.4); Potassium 4.1 mmol/L (3.5-5.1); Total Protein 5.8 gm/dl (6.0-8.3)
--- NOTE | 2022-03-14 07:59 | Hospitalist Progress Note ---
Date of Service March 14, 2022 Assessment & Plan (1) Atrial fibrillation with RVR: Plan: Patient admitted to PCU with A fib RVR -- rates initially 160-170s, now 130- 140s, asymptomatic Recently cardioverted but flipped back into afib RVR at office visit, sent to ER Placed on cardizem gtt but was at max rate to keep rates 120-140s prior to being taken to EP suite for cardioversion. Had also gotten 100mg metoprolol, her losartan, and then was given sotalol directly afterwards Developed hypotension, nausea, vomiting post procedure and BP improved after dopamine 2.5mg/kg/hr which was d/c as BP improved as washout from BB effect evening 03/12 around 7pm Metoprolol discontinued as HR lower end, normalization of EF to 50-55% s/p cardioversion 03/12 03/14 BP remained stable, but QTC prolonged this morning, frequent ectopy on monitor however patient asymptomatic from such Eval Dr Yao , partially secondary to sotalol with prolonged QTC Moving to ICU for isoproterenol for improvement of HR NPO for permanent pacemaker and then discussion on AV ablation procedure Giving 1gm IV mag to help with QTC Keep mag >2, Phos>3, K>4 (will check phos to AM labs) BP stable 115/72 CHELA likely from hypotension following cardioversion -- monitor (given 500cc NS this morning) Continue to monitor on telemetry (2) Diarrhea: Plan: Patient has had fecal incontinence. Doubt c diff. Patient had colonscopy by Dr. Hartman last year which was negative. May require repeat scope as symptoms are new.. Dif diagnosis: microscopic colitis, bacterial overgrowth syndrome --> rec probiotc Review of labs on admission with Tb 1.1, alk phos elevated to 121. Lipase wnl -CXR on admit done for "atypical chest pain" -Not febrile/no WBC elevation but given diarrhea will check routine GB US given atypical CP on admit -repeat LFTs with morning labs with resolution -stool pcr not collected yet -GI consulted on admission for diarrhea Of note, patient also with what sounds like history of Ishmael fundoplication in the past Add fiber On protonix daily prn --> given famotidine x 1 for some reflux, however discussed would resume daily protonix (but would await normal Cr) NO FURTHER DIARRHEA 03/14 (3) Cardiomyopathy: Plan: echo from 02/10/22: EF 35-40. Global hypokinesis. Patient does not have acute CHF. Repeat ECHO with improvement in EF BB discontinued Sotalol to maintain NSR --> now on hold given QTC and PVC as above Would rec outpatient stress as discussed with Dr Yao. No need acutely (4) Anticoagulant long-term use: Plan: Secondary to afib, nonvalvular Continue xarelto -- 20mg daily (cr cl bumped today, but CHELA likely due to hypotension following cardioversion as above) Monitor cr cl for am, --> changed to 15mg for today, monitor AM labs/adjustment as needed (5) Hyperlipidemia: Plan: held simvastatin for now, resume in AM (6) Hypothyroidism: Plan: continue usual synthroid recent TSH at goal, however did repeat with AM labs -- elevated at 7.36, likely reactive --> rec repeat w/ PCP outpt (7) Hypertension: Plan: BP stable hold TIEN, BB discontinued BP stable IV gtt in ICU as above Plan: tx ICU, isoproterenol gtt per Maximilian, NPO for pacemaker Possibly could tx back to MICU after procedure Admission and Anticipated Discharge Date Admission Date: March 11, 2022 Supervising Physician Co-Signing Physician Notes PA Supervision Note: I did not personally see or examine the patient today, but I verified all mcdonough points of KIERAN Kowalski's assessment and plan with the following exceptions/additions: None Subjective Patient evaluated this morning. [place] ok, but having frequent ectopy on monitor. Eval by Dr Yao, wanting to place ICD and move to ICU for isoproterenol gtt to improve heart rate. Also giving 1gm IV magnesium to help with QTC. Patient denies fever, chills, chest pain, shortness of breath (but did get a little short of breath walking to the bathroom), palpitations, nausea/vomiting or abdominal pain. She does note some anxiety about staying more days but provided reassurance and will ensure she is doing well prior to discharge for safety. Review of Systems Review of Systems: All systems reviewed & are unremarkable except as noted in HPI & below Physical Exam Constitutional: WD/WN, vitals as above Eyes: PERRL, conjunctivae normal, anicteric sclerae ENMT: external ear and nose normal, oropharynx normal Neck: trachea midline, no thyromegaly Respiratory: normal respiratory effort, lungs clear to auscultation Cardiovascular: Rate/Rhythm: regular rhythm (frequent PVCs) and + bradycardic Heart Sounds: normal S1, normal S2 and + murmur (systolic) trace non- pitting edema pacemaker pads in place Gastrointestinal (Abdomen): normal bowel sounds, soft, nontender, no hepatosplenomegaly Musculoskeletal: no cyanosis or clubbing, extremities motor strength 5/5 Skin: no rashes, warm and dry Neurologic: PERRL, EOMI, accommodation nl, no face palsy, no dysarthria Psychiatric: A+Ox3, euthymic affect Lymphatic: no cervical or axillary lymphadenopathy Results & Data Results & Data ([facility]) Vital Signs (Past 12 Hours) Vital Signs Temp Pulse Pulse Pulse Resp BP Pulse Ox 03/14/22 03:31 36.7 C 62 18 109/60 94 03/14/22 00:00 54 L 03/13/22 23:19 36.7 C 61 18 118/69 98 Laboratory Results 03/14/22 03/13/22 03/13/22 Range/Units 06:32 07:15 07:15 WBC 6.57 (4.8-10.8) K/uL RBC 4.00 L (4.2-5.4) M/uL Hgb 11.3 L (12.0-16.0) g/dL Hct 34.5 L (37-47) % MCV 86.3 (80-100) fL MCH 28.3 (25-34) pg MCHC 32.8 (32-36) g/dL RDW Std Deviation 51.6 H (36.4-46.3) fL RDW Coeff of Ezequiel 16.3 H (11.5-14.5) % Plt Count 303 (130-400) K/uL MPV 11.2 H (7.4-10.4) fL Sodium 136 136 (136-145) mmol/L Potassium 4.1 4.0 (3.5-5.1) mmol/L Chloride 104 105 (98-107) mmol/L Carbon Dioxide 21 20 L (21-32) mmol/L Anion Gap 11 11 (3-11) BUN 27 H 19 (6-23) mg/dl Creatinine 1.74 H 1.63 H D (0.6-1.2) mg/dl Est Cr Clr Drug Dosing 25.4 27.2 ml/min Est GFR ( Amer) 32.4 35.1 ml/min Est GFR (Non-Af Amer) 28.0 30.3 ml/min BUN/Creatinine Ratio 15.5 11.7 (10-20) Glucose 92 90 (70-99(Fasting)) mg/dl Calcium 8.7 8.5 (8.5-10.1) mg/dl Magnesium 2.1 2.1 (1.7-2.4) mg/dl Total Bilirubin 0.7 (0.2-1.0) mg/dl Direct Bilirubin 0.2 (0-0.2) mg/dl AST 27 (13-39) U/L ALT 15 (7-52) U/L Alkaline Phosphatase 84 (34-104) U/L Total Protein 5.8 L (6.0-8.3) gm/dl Albumin 3.3 L (3.4-5.0) gm/dl PG Care Time/CCT Total # of Minutes Spent Total Time Spent with Patient: Total time spent is greater than 50% in coordination of care (as documented) at patient's floor/unit and/or counseling patient: Coding Level of Care Code 88811 Subseq Hosp Care Lvl 3 Diagnoses Atrial fibrillation with RVR I48.91 Diarrhea R19.7 Cardiomyopathy I42.9 Cardiomyopathy type: unspecified Anticoagulant long-term use Z79.01 Hyperlipidemia E78.5 Hyperlipidemia type: unspecified Hypothyroidism E03.9 Hypertension I10 Hypertension type: primary hypertension (1) Hyperlipidemia Hyperlipidemia type: unspecified Qualified Code(s): E78.5 - Hyperlipidemia, unspecified (2) Hypertension Hypertension type: primary hypertension Qualified Code(s): I10 - Essential (primary) hypertension (3) Cardiomyopathy Cardiomyopathy type: unspecified Qualified Code(s): I42.9 - Cardiomyopathy, unspecified
[2022-03-14] MEDS ORDERED: SODIUM CHLORIDE 0.9% 500 ML IV SCH (08:00)
[2022-03-14] MEDS: estradioL 1 MG TAB PO SCH (08:33)
[2022-03-14] MEDS: CHOLECALCIFEROL 5,000 UNITS 125 MCG TAB PO SCH (08:33)
[2022-03-14] MEDS: PSYLLIUM or GUAR GUM FIBER POWDER PACKET PO SCH (08:34)
[2022-03-14] MEDS: SOTALOL HCL 80 MG TAB PO SCH (08:34)
[2022-03-14] MEDS: MULTIVITAMIN TAB PO SCH (08:34)
[2022-03-14] MEDS ORDERED: PANTOprazole 40 MG TAB PO SCH (09:00)
[2022-03-14] MEDS: RIVAROXABAN 15 MG TAB PO SCH (09:38)
[2022-03-14] MEDS ORDERED: STAT IV Infusion **Titration per Protocol STA (10:28)
[2022-03-14] MEDS ORDERED: MAG SULFATE 50% 1GM/2ML VIAL IV ONE (10:32)
[2022-03-14] MEDS ORDERED: MAGNESIUM SULFATE / D5W 1 GM/100 ML BAG IV ONE (11:15)
--- NOTE | 2022-03-14 11:18 | Cardiology Progress Note ---
Date of Service March 14, 2022 Assessment & Plan (1) Atrial fibrillation with RVR: (2) Cardiomyopathy: (3) Anticoagulant long-term use: (4) Prolonged Q-T interval on ECG: Plan: 1. Atrial fibrillation: She has remained in sinus rhythm and sinus bradycardia since cardioversion. I was hopeful that this would be controllable with sotalol however she is having marked bradycardia and QT prolongation and ventricular ectopy. Some of this may be that she is on a somewhat increased dose, however it is not a terribly high dose and this indicates sotalol cannot be used over the long run. Amiodarone would almost certainly cause the same bradycardia although perhaps not the QT prolongation and ventricular ectopy. Dickason will likely be an issue as well. At this point I do not think we have a lot of options for medical therapy alone. My recommendation therefore is to implant a pacemaker, I would use a biventricular device, and then we can consider medical therapy for rhythm control and if needed can proceed with creation of AV block for rate control. We discussed doing this procedure today. 2. Anticoagulation: She needs to continue anticoagulation over the long run. She is on the correct dose. 3. Cardiomyopathy: During atrial fibrillation her left ventricular function appears diminished however some of that may be simply due to the irregularity and the rapid rate, a repeat echocardiogram yesterday following termination of the arrhythmia shows near normalization of left ventricular function. I held beta-blockade with the use of sotalol however after pacemaker implantation we should probably add metoprolol succinate. I do not think I would evaluate for ischemia at this point, we can consider that in the future. 4. QT prolongation: She has had significant prolongation on sotalol, we will not be able to use that drug. She is also having increased ventricular ectopy. I think we should try to increase her heart rate to shorten her QT interval by adding isoproterenol and I have ordered that. Additionally I am going to give her a dose of magnesium. Admission and Anticipated Discharge Date Admission Date: March 11, 2022 Subjective She is feeling relatively well today, she does not feel quite normal but is not having lightheadedness or dizziness. She has been pretty much staying in bed. Physical Exam Physical Exam: Constitutional: Alert, cooperative and in no distress. HEENT: Unremarkable Neck: No jugular venous distention, carotid pulses are normal and equal bilaterally without bruits. Pulmonary: Clear to auscultation bilaterally. Cardiac: Regular slow rhythm with premature beats and no murmur, gallop or rub. Abdomen: Soft, nontender with normal bowel sounds. Extremities: No edema. Distal pulses intact. Neurologic: No focal findings. Skin: No rash, ecchymoses or petechiae. Results & Data ([facility]) Vital Signs (Past 12 Hours) Vital Signs Temp Pulse Pulse Pulse Resp BP BP 03/14/22 09:00 36.7 C 64 18 115/72 03/14/22 08:30 129/72 03/14/22 08:00 60 03/14/22 03:31 36.7 C 62 18 109/60 03/14/22 00:00 54 L 03/13/22 23:19 36.7 C 61 18 118/69 Pulse Ox 03/14/22 09:00 93 03/14/22 08:30 03/14/22 08:00 03/14/22 03:31 94 03/14/22 00:00 03/13/22 23:19 98 Laboratory Results Cardiac Enzymes 03/14/22 Range/Units 06:32 AST 27 (13-39) U/L Comprehensive Metabolic Panel 03/14/22 Range/Units 06:32 Sodium 136 (136-145) mmol/L Potassium 4.1 (3.5-5.1) mmol/L Chloride 104 (98-107) mmol/L Carbon Dioxide 21 (21-32) mmol/L BUN 27 H (6-23) mg/dl Creatinine 1.74 H (0.6-1.2) mg/dl Glucose 92 (70-99(Fasting)) mg/dl Calcium 8.7 (8.5-10.1) mg/dl Direct Bilirubin 0.2 (0-0.2) mg/dl AST 27 (13-39) U/L ALT 15 (7-52) U/L Alkaline Phosphatase 84 (34-104) U/L Total Protein 5.8 L (6.0-8.3) gm/dl Albumin 3.3 L (3.4-5.0) gm/dl Intake and Output 03/13/22 03/14/22 03/14/22 22:59 06:59 14:59 Intake Total 200 / 200 Balance 200 / 200 Intake: Oral 200 / 200 Other: # Unmeasured Voids 1 Weight 78.1 kg Weight Measurement Method Built in [facility] Diagnostic Findings Telemetry: Sinus bradycardia with increasing ventricular ectopy including periods of bigeminy, as well as short runs of ventricular tachycardia and what appears to be QT prolongation. PG Care Time/CCT Total # of Minutes Spent Total Time Spent with Patient: Total time spent is greater than 50% in coordination of care (as documented) at patient's floor/unit and/or counseling patient: Coding Level of Care Code 24214 Subseq Hosp Care Lvl 3 Diagnoses Atrial fibrillation with RVR I48.91 Cardiomyopathy I42.9 Cardiomyopathy type: unspecified Anticoagulant long-term use Z79.01 Prolonged Q-T interval on ECG R94.31 (1) Cardiomyopathy Cardiomyopathy type: unspecified Qualified Code(s): I42.9 - Cardiomyopathy, unspecified
[2022-03-14] MEDS ORDERED: LIDOCAINE 1% LOCAL 20 ML VIAL ONE (12:08)
[2022-03-14] MEDS ORDERED: WATER, STERILE FOR INJ 10 ML VIAL ONE (12:08)
[2022-03-14] MEDS ORDERED: VANCOMYCIN HCL 1000MG/20ML VIAL ONE (12:08)
--- NOTE | 2022-03-14 12:37 | Critical Care Consultation ---
Date of Consultation March 14, 2022 Assessment & Plan (1) Atrial fibrillation with RVR: (2) Palpitations: (3) Prolonged Q-T interval on ECG: --A. fib with RVR with ventricular ectopy Currently on sotalol Started on isoproterenol by EP Plan is for permanent pacemaker -- Prolonged QT Partly secondary to sotalol, which was discontinued, QTC was 562 03/14/2022 Try to keep phosphorus greater than 3, magnesium greater than 2, potassium greater than 4 Avoid any other QT prolonging medication --CHELA Likely from hypotensive episode Monitor BUNs/creatinine Avoid nephrotoxic medication -- Dyslipidemia Continue with statin -- Hypothyroidism Continue with levothyroxine TSH 7.3, free T4 1.42 --Prophylaxis VTE: Rivaroxaban GI: Protonix Lines: Peripheral Diet: N.p.o. Plan: Continue with isoproterenol drip Keep an eye for ectopies Incentive spirometry will beneficial I have personally spent 35 minutes of critical care time in the direct management of this patient. This is a life/limb threatening event. This includes time spent evaluating patient, direct bedside care, chart review, placing orders, interpretation of diagnostic studies, discussion with consultants, patient, and family members, as well as other required patient management activities. This time is exclusive of all separately billable procedures, and teaching time and separate from and in addition to any other critical care service time. Please note the above document was generated using voice recognition software. It may contain grammatical, syntax or spelling errors. History of Present Illness Attending Physician: Shara Sal MD History of Present Illness 76-year-old female present to the hospital with A. fib and RVR Past medical history: Hypothyroidism, hypertension, dyslipidemia Patient had cardioversion done on 03/05/2022. At the time of admission she was started on diltiazem drip and sent to PCU Patient was again cardioverted and was given metoprolol. She had an episode of hypotension and was started on dopamine drip Today patient was found to have increased PVC and ectopy She was sent to the ICU for isoproterenol infusion Plan is to have pacemaker placed in today At the time of examination patient was on 4 of isoproterenol. Her heart rate was in the mid 60s, sinus rhythm. She denied any chest pain, no shortness of breath, no dizziness, no nausea, no vomiting. Denies any headache or blurry vision. Social history: Lifetime non-smoker. Has 2 dogs at home. Allergies Allergy/AdvReac Type Severity Reaction Status Date / Time atorvastatin [From Lipitor] Allergy Mild pt unsure Verified 03/11/22 14:55 it was long time ago Home Medications Medication Instructions Recorded Confirmed Type simvastatin 10 mg tablet 10 mg PO QPM #90 tab 03/18/21 03/11/22 Rx estradiol 0.5 mg tablet 0.5 mg PO [id number] 04/08/21 03/11/22 History ipratropium bromide 21 mcg (0.03 2 sprays INTNAS TID PRN 04/08/21 03/11/22 History %) nasal spray pantoprazole 40 mg tablet,delayed 40 mg PO DAILY PRN 04/08/21 03/11/22 History release cholecalciferol (vitamin D3) 125 125 mcg PO QAM 11/25/21 03/11/22 History mcg (5,000 unit) capsule furosemide 20 mg tablet 20 mg PO DAILY PRN #30 tab 02/13/22 03/11/22 Rx lorazepam 0.5 mg tablet 0.5 mg PO Q8H PRN #30 tab 02/24/22 03/11/22 Rx levothyroxine 112 mcg tablet 112 mcg PO QAM 02/28/22 03/11/22 History (Synthroid) losartan 50 mg tablet 50 mg PO QAM 02/28/22 03/11/22 History rivaroxaban 20 mg tablet (Xarelto) 20 mg PO QAM 02/28/22 03/11/22 History metoprolol succinate 100 mg 150 mg PO QAM #135 tab 03/05/22 03/11/22 Rx tablet,extended release 24 hr multivitamin 1 tab PO DAILY 03/11/22 03/11/22 History potassium chloride 20 mEq 20 meq PO UD PRN 03/11/22 03/11/22 History tablet,extended release Patient History Medical History (Updated 03/14/22 @ 11:13 by Jesus Yao MD) Anticoagulant long-term use Xarelto daily Atrial fibrillation with rapid ventricular response Admitted to [facility] 02/10/22 to 02/12/22 Cardiomyopathy EF 50-55% 03/13/22 ECHO EF 35-40% on 02/10/22 ECHO GERD (gastroesophageal reflux disease) Hx of gastric ulcer >30 yrs ago Hx of ovarian cyst (reason for FELISHA w/BSO) Hyperlipidemia Hypertension Hypothyroidism Metabolic syndrome Hgb A1C 5.7 in 10/2021 Obesity Osteoarthritis Osteopenia Shortness of breath SOB with stairs and exertion per nursing assessment Surgical History H/O breast augmentation H/O colonoscopy 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 No postop issues per anesthesia progress note. History of esophagogastroduodenoscopy (EGD) History of Ishmael fundoplication 2003, hiatal hernia History of total right knee replacement (TKR) (~12/2021) @ [facility] Hx of cataract surgery right and left S/P total abdominal hysterectomy w/ removal of both ovaries Family History Father Acute myocardial infarction Mother Acute myocardial infarction Hypertension Brother Acute myocardial infarction Sister Hypertension Pure hypercholesterolemia Unknown Diabetes Other Stroke Denies family history of Breast cancer Colorectal cancer Colonic polyp Social History Smoking Status: Never smoker Second Hand Exposure: No; Do You Dip or Chew Tobacco: No; Tobacco Cessation Education Requested by Patient: No Hx Alcohol Use: Yes Alcohol type: wine Hx Substance Use: No Preferred Language: Icelandic Communication Ability: Effective Visual Impairment: No Limitations Hearing Ability: Normal Antique Dealer Required: No Beliefs That Will Affect Care: None marital status: Current Living Situation: Alone current occupational status: employed How many Children do You have: 1 Other Information That Helps Us Care for You: No Feels Safe at Home: Yes Safety Concerns: Feels Safe At This Time Childhood Exposure to Second-Hand Smoke: Yes caffeine: Yes Dental Care, Regularly: Yes Physical Activity Frequency: Daily Physical Activity Frequency Comment: walking 20 min Seatbelt Use: always Sunscreen Use: Yes Assistive Devices: Cane and Walker Review of Systems Review of Systems: All systems reviewed & are unremarkable except as noted in HPI & below Physical Exam Physical Exam: Constitutional: No acute distress HEENT: EOMI, PERRLA Respiratory system: Good air entry bilaterally, no wheeze, no rhonchi, positive crackles bilateral lower lobes CVS: S1-S2 positive, no murmurs or gallops Abdomen: Soft, nontender, nondistended, positive bowel sounds x4 Extremities: +2 pulses bilaterally radialis/ dorsalis pedis, no cyanosis, no edema Neuro: Awake alert oriented x3 Psych: Normal mood and affect G/U: No [place] Skin: no rashes, warm and dry Lymphatic: no cervical or axillary lymphadenopathy Results & Data Results & Data ([facility]) Vital Signs (Past 12 Hours) Vital Signs Temp Pulse Pulse Pulse Resp BP BP 03/14/22 09:00 36.7 C 64 18 115/72 03/14/22 08:30 129/72 03/14/22 08:00 60 03/14/22 03:31 36.7 C 62 18 109/60 Pulse Ox 03/14/22 09:00 93 03/14/22 08:30 03/14/22 08:00 03/14/22 03:31 94 Laboratory Results 03/13/22 07:15 03/14/22 06:32 Coding Level of Care Code Critical Care 1st 30-74 mins Diagnoses Atrial fibrillation with RVR I48.91 Palpitations R00.2 Prolonged Q-T interval on ECG R94.31 Time Spent (min) 35
[2022-03-14] MEDS ORDERED: LACTATED RINGER'S 1,000 ML IV SCH (12:45)
[2022-03-14] MEDS ORDERED: fentaNYL citrate 100 MCG/2 ML VIAL ONE (13:06)
[2022-03-14] MEDS ORDERED: MIDAZOLAM HCL 5 MG/ML 1 ML VIAL ONE (13:06)
[2022-03-14] MEDS ORDERED: ceFAZolin 330 MG/ML 1 GM VIAL ONE (13:07)
--- NOTE | 2022-03-14 13:10 | Pre Anesthesia Assessment ---
Date of Service March 14, 2022 Pre Sedation Assessment Vital Signs Temp Pulse Pulse Pulse Resp BP BP 03/14/22 12:50 53 L 19 138/81 03/14/22 12:41 67 28 H 137/79 03/14/22 12:40 66 29 H 03/14/22 12:30 66 23 137/71 03/14/22 12:20 56 L 20 133/71 03/14/22 12:10 52 L 18 131/66 03/14/22 12:00 54 L 30 H 128/68 03/14/22 11:57 54 L 28 H 124/69 03/14/22 11:56 65 23 03/14/22 11:50 59 L 25 H 03/14/22 11:40 51 L 22 03/14/22 11:30 65 22 03/14/22 11:20 56 L 29 H 03/14/22 11:10 56 L 24 03/14/22 11:01 55 L 23 03/14/22 10:50 70 21 03/14/22 10:40 59 L 23 03/14/22 10:30 54 L 16 03/14/22 10:20 53 L 20 03/14/22 10:10 51 L 15 03/14/22 10:00 54 L 20 03/14/22 09:50 51 L 24 03/14/22 09:40 61 12 03/14/22 09:30 60 19 03/14/22 09:20 60 29 H 03/14/22 09:10 61 25 H 03/14/22 09:00 36.7 C 62 64 29 H 115/72 03/14/22 08:50 64 29 H 03/14/22 08:40 64 22 03/14/22 08:31 66 25 H 129/72 03/14/22 08:30 66 28 H 129/72 03/14/22 08:20 65 26 H 03/14/22 08:10 67 26 H 03/14/22 08:00 59 L 26 H 03/14/22 07:50 57 L 17 03/14/22 07:40 56 L 24 03/14/22 07:37 60 25 H 136/77 03/14/22 07:30 62 30 H 03/14/22 07:20 62 21 03/14/22 07:10 61 24 03/14/22 03:31 36.7 C 62 18 06/03/22 00:00 54 L 03/13/22 23:19 36.7 C 61 18 03/13/22 19:49 36.9 C 55 L 16 03/13/22 15:17 36.5 C 55 L 20 03/13/22 14:15 52 L BP Pulse Ox 03/14/22 12:50 91 03/14/22 12:41 96 03/14/22 12:40 95 03/14/22 12:30 97 03/14/22 12:20 96 03/14/22 12:10 95 03/14/22 12:00 94 03/14/22 11:57 97 03/14/22 11:56 83 L 03/14/22 11:50 94 03/14/22 11:40 98 03/14/22 11:30 94 03/14/22 11:20 95 03/14/22 11:10 96 03/14/22 11:01 97 03/14/22 10:50 95 03/14/22 10:40 03/14/22 10:30 97 03/14/22 10:20 95 03/14/22 10:10 93 03/14/22 10:00 90 03/14/22 09:50 94 03/14/22 09:40 94 03/14/22 09:30 96 03/14/22 09:20 94 03/14/22 09:10 94 03/14/22 09:00 95 03/14/22 08:50 93 03/14/22 08:40 95 03/14/22 08:31 95 03/14/22 08:30 95 03/14/22 08:20 93 03/14/22 08:10 95 03/14/22 08:00 93 03/14/22 07:50 95 03/14/22 07:40 97 03/14/22 07:37 99 03/14/22 07:30 96 03/14/22 07:20 96 03/14/22 07:10 96 03/14/22 03:31 109/60 94 03/14/22 00:00 03/13/22 23:19 118/69 98 03/13/22 19:49 123/77 95 03/13/22 15:17 107/67 93 03/13/22 14:15 Cardiovascular RRR, no murmur, no edema Respiratory normal respiratory effort, lungs clear to auscultation Pre-Sedation Airway Assessment Smoking Status: Never smoker Hx Sleep Apnea: No Mallampati Class: II ASA: ASA4 NPO Status Date of Last Intake of Fluids: 03/14/22 Date of Last Intake of Solid Food: 03/14/22 Procedure Planning Contraindications for Sedation: none Current Medications Reviewed: Yes Notes The planned sedation has been discussed with the patient. Informed Consent was obtained. I have identified the patient, determined the appropriateness of sedation and have assessed the patient immediately prior to the procedure. All medicine(s) and interventions are by my order.
[2022-03-14] MEDS ORDERED: BACITRACIN OINT 0.9 GM PKT ONE (14:52)
[2022-03-14] MEDS ORDERED: ACETAMINOPHEN 325 MG TAB PO PRN (15:19)
[2022-03-14] MEDS ORDERED: ACETAMINOPHEN W/CODEINE #3 1 TAB PO PRN (15:19)
--- NOTE | 2022-03-14 15:19 | Electrophysiology Report ---
Date of Service March 14, 2022 Electrophysiology Procedure Electrophysiology Procedure Report Preoperative diagnosis: Sick sinus syndrome with planned AV kristine ablation procedure Postoperative diagnosis: Same Procedure: Left subclavian venogram Atrial and ventricular pacemaker lead implantation Coronary sinus angiography Left ventricular lead implantation Biventricular pacemaker implantation Surgeon: Jesus Yao MD Estimated blood loss: 50 cc Complications: None Disposition: Cardiology recovery Procedure details: After obtaining informed consent for the procedure, the patient was brought to the laboratory and prepped and draped in the standard sterile manner. Dye was injected the left arm IV site to opacify the left subclavian vein. The subclavian vein was identified and found to be free of obstruction. The left prepectoral region was anesthetized with 1% lidocaine local anesthetic and left axillary venipuncture was performed by percutaneous technique and a guidewire placed through the left subclavian vein into the superior vena cava. The area was further infiltrated with 1% lidocaine local anesthetic and a 5 cm incision was made parallel to the left clavicle and 2 cm below it and carried down to the anterior pectoralis fascia. An pacemaker pocket was formed by blunt dissection anterior to the pectoralis fascia and a vancomycin-soaked sponge was placed in the pocket. An 8 [place] [employer] lead introducer was placed over the guidewire into the left subclavian vein, the dilator and guidewire were removed and a bipolar active fixation steroid tipped ventricular pacemaker lead was advanced through the introducer into the superior vena cava. A guidewire was placed through the introducer and the introducer was stripped from the lead and guidewire. An 8 [place] Med[employer] lead introducer was placed over the guidewire into the left subclavian vein, the dilator and guidewire were removed and a bipolar active fixation steroid tipped atrial lead was advanced through the introducer into the superior vena cava. A guidewire was placed back through the introducer and the introducer was stripped from the lead and guidewire. Using a curved stylette the ventricular lead was advanced through the right ventricular outflow tract into the pulmonary artery and then using a straight stylette was positioned in the right ventricular apex. The screw was extended fixing the lead in position. Pacing and sensing thresholds were evaluated in bipolar configuration and are recorded on the implant data sheet. Diaphragmatic pacing was evaluated at full bipolar output as indicated on the data sheet. Using a curved stylette the atrial lead was positioned in the region of the atrial appendage and the screw extended fixing the lead in position. Pacing and sensing thresholds were evaluated in bipolar configuration and are recorded on the implant data sheet. Diaphragmatic pacing was evaluated at full bipolar output as indicated on the data sheet. Once the leads were in position they were attached to the anterior pectoralis fascia using 1 suture of 2-0 silk around each lead collar. The short guidewire was exchanged for a long guidewire and a Valeriano coronary sinus sheath was advanced to position in the right atrium. The curved obturator was placed through the sheath and using x-ray dye the os of the coronary sinus was identified. A guidewire was placed through the introducer into the coronary sinus and the [place] sheath was advanced into the coronary sinus. Using a right angle catheter dye was injected in various projections and a good vessel was identified and a 0.014 inch guidewire was advanced into this vessel. A quadripolar coronary sinus catheter was advanced over the guidewire into good distal position. The left ventricular pacing threshold was evaluated in various configurations, as recorded on the implant data sheet. Diaphragmatic pacing was evaluated at full output, as indicated on the data sheet. Once this lead was in position the introducer system was removed from the lead and the lead was attached to the anterior pectoral fascia using 2 sutures of 2-0 silk around the lead collar. An additional suture of 2-0 silk was placed around each of the atrial and ventricular lead collars as well. The vancomycin-soaked sponge was removed from the pocket, hemostasis was obtained, the pacemaker was attached to the leads and placed in the pocket with the leads coiled beneath it. The incision was closed with a running double subcutaneous closure of 3-0 Vicryl absorbable suture, followed by running subcuticular skin closure of 4-0 Vicryl absorbable suture. Bacitracin ointment was placed on the incision and a dressing applied. [facility] Electrophysiology codes Indication for Procedure (1) SSS (sick sinus syndrome): Pacing Procedure 1: Pacin Insert/Replace Pacer A & V Procedure 2: Pacin BiV electrode w/Pacer / ICD implant, add on code Miscellaneous Procedures Procedure 1: EP Miscellaneous: 36183 Contrast injection for venography Procedure 2: EP Miscellaneous: 15908-37 Vengraphy, extremity Procedure 3: EP Miscellaneous: 37806-28 Venography, CS supevsion/interp PG Moderate Sedation Codes Moderate Sedation Codes Procedure 1: Sedation/Anesthesia: 96552 Mod Sedation by the same physician;Init15 Min Child Age 5 & Up Procedure 2: Sedation/Anesthesia: 23543 Mod Sedation by the same physician; Ea [id number] Minutes
[2022-03-14] MEDS ORDERED: METOPROLOL TARTRATE 100 MG TAB PO STA (15:20)
--- NOTE | 2022-03-14 17:01 | Post Anesthesia Assessment ---
Date of Service March 14, 2022 Post Sedation Assessment Vital Signs Temp Pulse Pulse Pulse Resp BP BP 03/14/22 16:15 63 20 03/14/22 16:11 60 21 145/87 H 03/14/22 16:01 67 18 142/89 H 03/14/22 16:00 75 15 03/14/22 15:51 62 23 150/75 H 03/14/22 15:45 61 24 153/77 H 03/14/22 15:30 60 16 145/82 H 03/14/22 15:15 60 16 149/79 H 03/14/22 12:50 53 L 19 138/81 03/14/22 12:41 67 28 H 137/79 03/14/22 12:40 66 29 H 03/14/22 12:30 66 23 137/71 03/14/22 12:20 56 L 20 133/71 03/14/22 12:10 52 L 18 131/66 03/14/22 12:00 54 L 30 H 128/68 03/14/22 11:57 54 L 28 H 124/69 03/14/22 11:56 65 23 03/14/22 11:50 59 L 25 H 03/14/22 11:40 51 L 22 03/14/22 11:30 65 22 03/14/22 11:20 56 L 29 H 03/14/22 11:10 56 L 24 03/14/22 11:01 55 L 23 03/14/22 10:50 70 21 03/14/22 10:40 59 L 23 03/14/22 10:30 54 L 16 03/14/22 10:20 53 L 20 03/14/22 10:10 51 L 15 03/14/22 10:00 54 L 20 03/14/22 09:50 51 L 24 03/14/22 09:40 61 12 03/14/22 09:30 60 19 03/14/22 09:20 60 29 H 03/14/22 09:10 61 25 H 03/14/22 09:00 36.7 C 62 64 29 H 115/72 03/14/22 08:50 64 29 H 03/14/22 08:40 64 22 03/14/22 08:31 66 25 H 129/72 03/14/22 08:30 66 28 H 129/72 03/14/22 08:20 65 26 H 06/03/22 08:10 67 26 H 03/14/22 08:00 59 L 26 H 03/14/22 07:50 57 L 17 03/14/22 07:40 56 L 24 03/14/22 07:37 60 25 H 136/77 03/14/22 07:30 62 30 H 03/14/22 07:20 62 21 03/14/22 07:10 61 24 03/14/22 03:31 36.7 C 62 18 03/14/22 00:00 54 L 03/13/22 23:19 36.7 C 61 18 03/13/22 19:49 36.9 C 55 L 16 BP Pulse Ox 03/14/22 16:15 97 03/14/22 16:11 83 L 03/14/22 16:01 92 03/14/22 16:00 95 03/14/22 15:51 93 03/14/22 15:45 94 03/14/22 15:30 96 03/14/22 15:15 96 03/14/22 12:50 91 03/14/22 12:41 96 03/14/22 12:40 95 03/14/22 12:30 97 03/14/22 12:20 96 03/14/22 12:10 95 03/14/22 12:00 94 03/14/22 11:57 97 03/14/22 11:56 83 L 03/14/22 11:50 94 03/14/22 11:40 98 03/14/22 11:30 94 03/14/22 11:20 95 03/14/22 11:10 96 03/14/22 11:01 97 03/14/22 10:50 95 03/14/22 10:40 03/14/22 10:30 97 03/14/22 10:20 95 03/14/22 10:10 93 03/14/22 10:00 90 03/14/22 09:50 94 03/14/22 09:40 94 03/14/22 09:30 96 03/14/22 09:20 94 03/14/22 09:10 94 03/14/22 09:00 95 03/14/22 08:50 93 03/14/22 08:40 95 03/14/22 08:31 95 03/14/22 08:30 95 03/14/22 08:20 93 03/14/22 08:10 95 03/14/22 08:00 93 03/14/22 07:50 95 03/14/22 07:40 97 03/14/22 07:37 99 03/14/22 07:30 96 03/14/22 07:20 96 03/14/22 07:10 96 03/14/22 03:31 109/60 94 03/14/22 00:00 03/13/22 23:19 118/69 98 03/13/22 19:49 123/77 95 Recovery Score Activity: Moves 4 extremities Respiration: Deep Breath/Cough Circulation: +/-20% PreAnes Value Consciousness: Fully Awake Oxygen Saturation: > 92% On Room Air Post Anesthesia Score: 10 Discharge Sedation Level of Care: Fast Track Phase II Post Sedation Plan On clinical assessment, the patient appears to have tolerated the sedation without complications. Patient is recovering as anticipated. Patient will continue to be monitored by nursing and may be discharged when sedation discharge criteria are met per below protocol. Upon Completions of procedure up to 15 minutes continue every 5 minute vital signs and the P.A.R. score; then discharge to a Phase I or Fast Track to Phase II per the following guidelines: * Discharge Patient to appropriate Phase II area if PAR is 8 or greater or return to pre- procedure baseline. The post - procedure orders will be as directed. * If PAR score is less than 8 or not return to pre-procedure baseline then patient will follow Phase I monitoring till PAR is reached for Phase II. The Phase I may be done in procedure room or may call to secure a Phase I area. * If naloxone or flumazenil are used for reversal, hold in Phase I for continued monitoring from when last reversal dose was given for a minimum of 60 minutes or longer pending the nurse and/or physician discretion of patient condition before discharge to Phase II. Please call the Sedation Physician to re-evaluate and complete post-note for discharge to Phase II area. Do NOT discharge from procedure sedation or Phase 1 until post- sedation evaluation note is complete by procedure /sedation MD Sedation Discharge Instructions to be given to the patient at discharge to home.
[2022-03-15 05:42] LABS: Hematocrit (blood only) 32.4 % (37-47); Mean Corpuscular Hemoglobin 26.2 pg (25-34); Mean Corpuscular Hgb Conc 30.9 g/dL (32-36); Mean Platelet Volume 11.1 fL (7.4-10.4); Platelet Count 312 K/uL (130-400); RDW Coefficient of Variation 16.2 % (11.5-14.5); RDW Standard Deviation 50.3 fL (36.4-46.3); Red Blood Count 3.81 M/uL (4.2-5.4); White Blood Count 5.91 K/uL (4.8-10.8)
[2022-03-15 06:03] LABS: BUN Creatinine Ratio 18.9 (10-20); Calcium 8.3 mg/dl (8.5-10.1); Creatinine Clr Calc Pharmacy 34.8 ml/min; Est GFR (African American) 47.5 ml/min; Magnesium 2.1 mg/dl (1.7-2.4); Potassium 3.8 mmol/L (3.5-5.1)
[2022-03-15] MEDS: LEVOTHYROXINE SODIUM 112 MCG TABLET PO SCH (06:18)
--- NOTE | 2022-03-15 07:43 | Hospitalist Progress Note ---
Date of Service March 15, 2022 Assessment & Plan (1) Atrial fibrillation with RVR: Plan: Patient admitted to PCU with A fib RVR -- rates initially 160-170s, now 130- 140s, asymptomatic Recently cardioverted but flipped back into afib RVR at office visit, sent to ER Placed on cardizem gtt but was at max rate to keep rates 120-140s prior to being taken to EP suite for cardioversion. Had also gotten 100mg metoprolol, her losartan, and then was given sotalol directly afterwards Developed hypotension, nausea, vomiting post procedure and BP improved after dopamine 2.5mg/kg/hr which was d/c as BP improved as washout from BB effect evening 03/12 around 7pm Metoprolol discontinued as HR lower end, normalization of EF to 50-55% s/p cardioversion 03/12 03/14: BP remained stable, but QTC prolonged in the morning with frequent ectopy and requested additional EKG --> further prolonged QT. Eval/discussed with Dr Yao and partially secondary to sotalol, given 500cc NS Given gm mag, tx to ICU for isoproterenol gtt and HR to 67 SR with no ventricular ectopy and QT interval appeared more normal Discussion for pacemaker implantation had, and sent to EP lab afternoon (returned to ICU post-pacer in stable condition and appeared comfortable visiting with daughter) 03/15: POD #1 s/p Left subclavian venogram, Atrial and ventricular pacemaker lead implantation, Coronary sinus angiography, Left ventricular lead implantation, Biventricular pacemaker implantation with Dr Yao. EBL 50cc Sotalol has been discontinued and patient placed on metoprolol succinate 200mg daily per Dr Yao BMP with improvement in CHELA (ATN 2nd from prolonged hypotension after cardioversion) - Cr 1.74--> 1.27 and will continue to hold losartan for now. Continue reduced dose 15mg Xarelto for now as well and monitor labs in AM/adjust if able to resume 20mg dose BP 119/76 (2) Diarrhea: Plan: Patient has had fecal incontinence. Doubt c diff. Patient had colonscopy by Dr. Hartman last year which was negative. May require repeat scope as symptoms are new.. Dif diagnosis: microscopic colitis, bacterial overgrowth syndrome --> rec probiotc Review of labs on admission with Tb 1.1, alk phos elevated to 121. Lipase wnl -CXR on admit done for "atypical chest pain" -Not febrile/no WBC elevation but given diarrhea will check routine GB US given atypical CP on admit -repeat LFTs with morning labs with resolution -stool pcr not collected yet -GI consulted on admission for diarrhea Of note, patient also with what sounds like history of Ishmael fundoplication in the past Add fiber On protonix daily prn --> given famotidine x 1 for some reflux, however discussed would resume daily protonix (but would await normal Cr) NO FURTHER DIARRHEA 03/14 (3) Cardiomyopathy: Plan: echo from 02/10/22: EF 35-40. Global hypokinesis. Patient does not have acute CHF. Repeat ECHO with improvement in EF BB discontinued Sotalol to maintain NSR --> now on hold given QTC and PVC as above Would rec outpatient stress as discussed with Dr Yao. No need acutely (4) Anticoagulant long-term use: Plan: Secondary to afib, nonvalvular Continue xarelto -- 20mg daily (cr cl bumped today, but CHELA likely due to hypotension following cardioversion as above) Monitor cr cl for am, --> changed to 15mg for today, monitor AM labs/adjustment as needed (5) Hyperlipidemia: Plan: held simvastatin for now, resume in AM (6) Hypothyroidism: Plan: continue usual synthroid recent TSH at goal, however did repeat with AM labs -- elevated at 7.36, likely reactive --> rec repeat w/ PCP outpt (7) Hypertension: Plan: BP stable hold TIEN, BB discontinued BP stable IV gtt in ICU as above Plan: tx ICU, isoproterenol gtt per Maximilian, VINO for pacemaker Possibly could tx back to MICU after procedure Admission and Anticipated Discharge Date Admission Date: March 11, 2022 Results & Data Results & Data ([facility]) Vital Signs (Past 12 Hours) Vital Signs Pulse Resp BP Pulse Ox 03/15/22 05:00 66 19 119/76 87 L 03/15/22 04:00 66 18 139/84 95 03/15/22 03:00 65 20 127/71 93 03/15/22 02:01 66 21 153/81 H 95 03/15/22 02:00 67 26 H 93 03/15/22 01:01 58 L 19 142/69 H 95 03/15/22 01:00 64 19 92 03/15/22 00:01 65 21 122/68 93 03/15/22 00:00 64 20 92 03/14/22 23:59 65 03/14/22 23:00 66 22 143/81 H 94 03/14/22 22:30 66 22 127/72 93 03/14/22 22:28 68 22 111/95 91 03/14/22 22:15 66 20 91 03/14/22 22:00 66 21 92 03/14/22 21:00 60 21 93 03/14/22 20:00 66 20 92 03/14/22 19:50 60 20 119/59 L 92 03/14/22 19:40 60 20 117/65 95 PG Care Time/CCT Total # of Minutes Spent Total Time Spent with Patient: Total time spent is greater than 50% in coordination of care (as documented) at patient's floor/unit and/or counseling patient: Coding Diagnoses Atrial fibrillation with RVR I48.91 Diarrhea R19.7 Cardiomyopathy I42.9 Cardiomyopathy type: unspecified Anticoagulant long-term use Z79.01 Hyperlipidemia E78.5 Hyperlipidemia type: unspecified Hypothyroidism E03.9 Hypertension I10 Hypertension type: primary hypertension (1) Cardiomyopathy Cardiomyopathy type: unspecified Qualified Code(s): I42.9 - Cardiomyopathy, unspecified (2) Hyperlipidemia Hyperlipidemia type: unspecified Qualified Code(s): E78.5 - Hyperlipidemia, unspecified (3) Hypertension Hypertension type: primary hypertension Qualified Code(s): I10 - Essential (primary) hypertension
[2022-03-15] MEDS: MULTIVITAMIN TAB PO SCH ×2 (07:56→08:29)
[2022-03-15] MEDS: RIVAROXABAN 15 MG TAB PO SCH (07:56)
[2022-03-15] MEDS: PSYLLIUM or GUAR GUM FIBER POWDER PACKET PO SCH ×2 (07:56→08:29)
[2022-03-15] MEDS: CHOLECALCIFEROL 5,000 UNITS 125 MCG TAB PO SCH (07:56)
--- NOTE | 2022-03-15 07:56 | Critical Care Progress Note ---
Date of Service March 15, 2022 Assessment & Plan (1) Atrial fibrillation with RVR: (2) Palpitations: (3) Prolonged Q-T interval on ECG: Plan: --A. fib with RVR with ventricular ectopy s/p isoproterenol by EP S/p permanent pacemaker 03/14/22 -- Prolonged QT Partly secondary to sotalol, which was discontinued, QTC was 562 03/14/2022 Try to keep phosphorus greater than 3, magnesium greater than 2, potassium greater than 4 Avoid any other QT prolonging medication --CHELA improving Likely from hypotensive episode Monitor BUNs/creatinine Avoid nephrotoxic medication -- Dyslipidemia Continue with statin -- Hypothyroidism Continue with levothyroxine TSH 7.3, free T4 1.42 --Prophylaxis VTE: Rivaroxaban GI: Protonix Lines: Peripheral Diet: Cardiac Plan: In/out: +1.2 L, not strict output measured. Patient is hemodynamically stable. Saturating well on room air Creatinine function is improving. Okay to be downgraded from ICU Please note the above document was generated using voice recognition software. It may contain grammatical, syntax or spelling errors.Any formal questions or concerns about the content, text or information contained within the body of this dictation should be directly addressed to the provider for clarification. Admission and Anticipated Discharge Date Admission Date: March 11, 2022 Subjective Patient seen and examined at bedside. No acute distress, no adverse events overnight. Does complain of mild soreness at the site of the pacemaker No dizziness, no headache, no nausea, no vomiting Fair appetite. Review of Systems Review of Systems: All systems reviewed & are unremarkable except as noted in Subjective Physical Exam Physical Exam: Constitutional: No acute distress HEENT: EOMI, PERRLA Respiratory system: Good air entry bilaterally, no wheeze, no rhonchi, positive crackles bilateral lower lobes CVS: S1-S2 positive, no murmurs or gallops Abdomen: Soft, nontender, nondistended, positive bowel sounds x4 Extremities: +2 pulses bilaterally radialis/ dorsalis pedis, no cyanosis, no edema Neuro: Awake alert oriented x3 Psych: Normal mood and affect G/U: No [place] Skin: no rashes, warm and dry Lymphatic: no cervical or axillary lymphadenopathy Results & Data Results & Data ([facility]) Vital Signs (Past 12 Hours) Vital Signs Pulse Resp BP Pulse Ox 03/15/22 05:00 66 19 119/76 87 L 03/15/22 04:00 66 18 139/84 95 03/15/22 03:00 65 20 127/71 93 03/15/22 02:01 66 21 153/81 H 95 03/15/22 02:00 67 26 H 93 03/15/22 01:01 58 L 19 142/69 H 95 03/15/22 01:00 64 19 92 03/15/22 00:01 65 21 122/68 93 03/15/22 00:00 64 20 92 03/14/22 23:59 65 03/14/22 23:00 66 22 143/81 H 94 03/14/22 22:30 66 22 127/72 93 03/14/22 22:28 68 22 111/95 91 03/14/22 22:15 66 20 91 03/14/22 22:00 66 21 92 03/14/22 21:00 60 21 93 03/14/22 20:00 66 20 92 Laboratory Results 03/15/22 05:17 03/15/22 05:17 Coding Level of Care Code 08159 Subseq Hosp Care Lvl 2 Diagnoses Atrial fibrillation with RVR I48.91 Palpitations R00.2 Prolonged Q-T interval on ECG R94.31
--- NOTE | 2022-03-15 08:16 | XRay Report ---
XR chest 2V PA/lateral HISTORY: 76 years-old Female EXACT TIME ORDERED Evaluate for pneumothorax and l status post placemen t of a left subclavian pacer COMPARISON: Chest radiograph 03/12/2022 TECHNIQUE: PA and lateral views of the chest FINDINGS: The cardiac silhouette is enlarged. Left subclavian pacer. Mild chronic interstitial coarsening of th e lung bases. No pneumothorax. Trace pleural effusions. Degenerative changes of the shoulders and spi ne. Calcified breast implants. IMPRESSION: 1. Status post placement of a 3-lead left subclavian pacer. No postprocedural pneumothorax. 2. Cardiomegaly with trace pleural effusions. ACT 112: Negative or not required by law. The above report was generated using voice recognition software. It may contain grammatical, syntax o r spelling errors. Electronically signed by: Aguilar Echeverria M.D. 03/15/2022 8:15 AM
[2022-03-15] MEDS ORDERED: METOPROLOL SUCC 50MG EXT REL TAB PO SCH (09:00)
[2022-03-15] MEDS ORDERED: AMIODARONE 200 MG TAB PO SCH (09:30)
--- NOTE | 2022-03-15 09:32 | Discharge Summary ---
Date of Service March 15, 2022 Admission HPI Per Admitting Provider 76 yo female with history of hypothyroidism, hypertension, dyslipidemia and more recently identification of atrial fibrillation. She reports having 3 weeks of looe stools and diarrhea. Patient sttaes she had a colonoscopcy by Dr. Hartman on Nov. Patient denies any recent antibiotic use. Patient was seen by her online marketing analyst for followup after cardioversion last week on 03/05. She was found to be in atrial fibrillation and was told to return to the ER, Patient placed on diltaizem drip and admission was called. Admission Exam Per Admitting Provider Constitutional: WD/WN, vitals as above Eyes: PERRL, conjunctivae normal, anicteric sclerae ENMT: external ear and nose normal, oropharynx normal Neck: trachea midline, no thyromegaly Respiratory: normal respiratory effort, lungs clear to auscultation Cardiovascular: Rate/Rhythm: + tachycardic and + irregularly irregular Heart Sounds: normal S1 and normal S2 Gastrointestinal (Abdomen): normal bowel sounds, soft, nontender, no hepatosplenomegaly Musculoskeletal: no cyanosis or clubbing, extremities motor strength 5/5 Skin: no rashes, warm and dry Neurologic: PERRL, EOMI, accommodation nl, no face palsy, no dysarthria Psychiatric: A+Ox3, euthymic affect Lymphatic: no cervical or axillary lymphadenopathy Principal Diagnosis AFIB RVR, SSS, s/p pacemaker Discharge Exam Constitutional: WD/WN, vitals as above Eyes: PERRL, conjunctivae normal, anicteric sclerae ENMT: external ear and nose normal, oropharynx normal Neck: trachea midline, no thyromegaly Respiratory: normal respiratory effort, lungs clear to auscultation, no w/c/r, on room air Cardiovascular: Chest: pacemaker L chest, dressing changed by Dr Yao at bedside, appropriately tender to palpation, no increased bleeding/hematoma Rate/Rhythm: RRR, +faint systolic murmur, trace edema, pulses palpable, calves non-tender Gastrointestinal (Abdomen): normal bowel sounds, soft, nontender, no hepatosplenomegaly Musculoskeletal: no cyanosis or clubbing, extremities motor strength 5/5 Skin: no rashes, warm and dry Neurologic: PERRL, EOMI, accommodation nl, no face palsy, no dysarthria Psychiatric: A+Ox3, pleasant and cooperative Lymphatic: no cervical or axillary lymphadenopathy Discharge Data Allergies Allergy/AdvReac Type Severity Reaction Status Date / Time atorvastatin [From Lipitor] Allergy Mild pt unsure Verified 03/11/22 14:55 it was long time ago Consultations 03/11/22 16:18 ED Decision to Admit Stat 03/11/22 21:54 Consult Gastroenterology Routine 03/11/22 22:18 Consult Cardiology Routine Procedures Performed Operation Date: 03/12/22 11:20 Actual Procedures p Cardioversion - Jesus Yao MD Operation Date: 03/14/22 11:30 Actual Procedures p Pacer with A/V Leads (Dual)(Left) - Jesus Yao MD s Angiogram Extremity Unilateral - Jesus Yao MD s Insertion Single Lead Only - Jesus Yao MD Ordered Studies Chest X-Ray 03/11/22 14:55 XR chest 1V portable CLINICAL HISTORY: Atypical chest pain TECHNIQUE: Single frontal radiograph of the chest was obtained. Comparison: Comparison is made to chest radiograph 02/10/2022 FINDINGS: No lines and tubes are seen. The cardiomediastinal silhouette is normal. The lungs are clear. No evidence of pleural effusion or pneumothorax. IMPRESSION: No acute chest disease. Previously noted pulmonary edema has resolved. ACT 112: Negative or not required by law. Electronically signed by: Chacho Nieves M.D. 03/11/2022 3:09 PM Gallbladder Ultrasound 03/12/22 08:16 ULTRASOUND RIGHT UPPER QUADRANT ABDOMEN CLINICAL HISTORY: Elevated hepatic transaminases. Diarrhea. COMPARISON STUDY: Abdominal CT dated 07/27/2019. TECHNIQUE: Real-time, grayscale, and color flow sonography of the right upper quadrant of the abdomen was performed. Images are reviewed in the transverse and longitudinal planes. FINDINGS: Liver: The liver is normal in size and echotexture. There is no intrahepatic biliary ductal dilatation. The main portal vein is patent. Gallbladder: The gallbladder is normal in appearance. No gallstones are identified. There is no gallbladder wall thickening or pericholecystic fluid. A sonographic Guillen's sign is reportedly absent. The common bile duct measures up to 0.4 cm in diameter. Pancreas: Visualized portions of the pancreatic head and body are normal in appearance. Right kidney: Survey images of the right kidney demonstrate normal size and echotexture. There is no hydronephrosis. Ascites: None. IMPRESSION: Unremarkable sonographic examination of the right upper quadrant. No gallstones are identified. ACT 112: Negative or not required by law. Electronically signed by: Rahul Rutledge M.D. 03/12/2022 11:04 AM Chest X-Ray 03/12/22 13:12 XR chest 1V portable HISTORY: Shortness of breath. COMPARISON: Chest 03/11/2022. FINDINGS: No pneumothorax. The cardiac silhouette remains mildly enlarged. Calcified breast implants are again noted. Small patchy bibasilar densities are noted. These have slightly progressed. The upper lung zones are clear. No evidence for pulmonary edema. IMPRESSION: 1. Small patchy bibasilar densities. This may represent atelectasis or developing pneumonia. 2. Stable cardiomegaly. ACT 112: Negative or not required by law. Electronically signed by: Garrett Hampton M.D. 03/12/2022 1:37 PM ECHOCARDIOGRAM 03/12 PRE-CARDIOVERSION LV size normal, mild concentric LVH. LVEF 35-40% global mild-moderate LV dysfunction. Mildly dilated RV with normal function. Moderate TR. Normal est PASP. Compared to prior study 02/10/2022: Remains in AF with RVR, no significant change ECHOCARDIOGRAM 03/12 POST-CARDIOVERSION LVEF 50-55%. Abnormal septal motion. Mild-moderate eccentric mitral regurgitation. Compared to earlier study, SR replaced AF. LV function has improved. Discussion with Dr Yao given exertional dyspnea and will arrange for outpatient follow-up/outpatient stress testing in follow-up Chest X-Ray 03/15/22 07:00 XR chest 2V PA/lateral HISTORY: 76 years-old Female EXACT TIME ORDERED Evaluate for pneumothorax and l status post placement of a left subclavian pacer COMPARISON: Chest radiograph 03/12/2022 TECHNIQUE: PA and lateral views of the chest FINDINGS: The cardiac silhouette is enlarged. Left subclavian pacer. Mild chronic interstitial coarsening of the lung bases. No pneumothorax. Trace pleural e ffusions. Degenerative changes of the shoulders and spine. Calcified breast implants. IMPRESSION: 1. Status post placement of a 3-lead left subclavian pacer. No postprocedural pneumothorax. 2. Cardiomegaly with trace pleural effusions. ACT 112: Negative or not required by law. The above report was generated using voice recognition software. It may contain grammatical, syntax or spelling errors. Electronically signed by: Aguilar Echeverria M.D. 03/15/2022 8:15 AM Hospital Course (1) Atrial fibrillation with RVR: Patient admitted to PCU with A fib RVR -- rates initially 160-170s, now 130-140s, asymptomatic Recently cardioverted but flipped back into afib RVR at office visit, sent to ER Placed on cardizem gtt but was at max rate to keep rates 120-140s prior to being taken to EP suite for cardioversion. Had also gotten 100mg metoprolol, her losartan, and then was given sotalol directly afterwards Developed hypotension, nausea, vomiting post procedure and BP improved after dopamine 2.5mg/kg/hr which was d/c as BP improved as washout from BB effect evening 03/12 around 7pm Metoprolol discontinued as HR lower end, normalization of EF to 50-55% s/p cardioversion 03/12/3: BP remained stable, but QTC prolonged in the morning with frequent ectopy and requested additional EKG --> further prolonged QT. Eval/discussed with Dr Yao and partially secondary to sotalol, given 500cc NS Given gm mag, tx to ICU for isoproterenol gtt and HR to 67 SR with no ventricular ectopy and QT interval appeared more normal Discussion for pacemaker implantation had, and sent to EP lab afternoon (returned to ICU post-pacer in stable condition and appeared comfortable visiting with daughter) 03/15: POD #1 s/p Left subclavian venogram, Atrial and ventricular pacemaker lead implantation, Coronary sinus angiography, Left ventricular lead implantation, Biventricular pacemaker implantation with Dr Yao. EBL 50cc Sotalol has been discontinued and patient placed on metoprolol succinate 200mg daily per Dr Yao BMP with improvement in CHELA (ATN 2nd from prolonged hypotension after cardioversion) - Cr 1.74--> 1.27 and will continue to hold losartan for now. Continue reduced dose 15mg Xarelto for now as well and monitor labs in AM/adjust if able to resume 20mg dose BP 119/[address] Yao, plans for continue metoprolol succinate but to 200mg daily added amiodarone 200mg BID for prevention and continued. Continue daily H2 yenifer vs PPI at discharge for reflux symptoms as reported improved Discontinued losartan for now as discussed with cards, can discuss resuming in follow up to prevent hypotensive episodes given inpatient course Stable for d/c, pacer check Thursday and f/u office 2 weeks (2) Diarrhea: Patient has had fecal incontinence reported, no stool amt concerning for c-diff C-scope [facility] last year, negative TB 1.1, alp 121 . Lipase wnl. checked RUQ US --> unremarkable, no stones or edema. CBD not dilated. No RUQ pain Hx Ishmael fundoplication in past, rec resuming protonix more often given she stated worse with eating chocolate Improvement in upper GI sx w/ pepcid as utilzed given elevated Cr however from ATN/hypotension and Cr improved and almost resolved on AM labs No stool pcr collected GI consulted, add fiber --> to do outpatient No further diarrhea reported (3) Cardiomyopathy: Improvement in EF on repeat echo post-cardiovesion No CP/SOB reported Sotalol discontinued and continue on BB as above, losartan placed on hold. F/u Dr Yao outpatient and rec'd/discussed with him about outpatient stress for further evaluation (4) Anticoagulant long-term use: Secondary to afib, nonvalvular Continue xarelto -- 20mg daily (cr cl lower than on admission) and changed to 15mg with reduction Cr improved and still given 15mg appropriately this morning for kidney function and as suspect given no further hypotension will be normalized in AM and instructed patient to resume her usual 20mg daily AC not held for pacemaker as was more emergent procedure, however pacer site looked great/no hematoma/significant bruising (5) Hyperlipidemia: On Simvastatin (6) Hypothyroidism: continue usual synthroid recent TSH at goal, however did repeat with AM labs -- elevated at 7.36, likely reactive --> rec repeat w/ PCP outpt, especially given new start for amiodarone avoided increasing give high recurrance of afib/s/p ablation and risk for arrhythmia and suspected reactive on admission from diarrhea (could have been viral) (7) Hypertension: Improved after intervnetion as above Metoprolol increased to 200mg daily at discharge (prior 150 daily), and held losartan as outlined BP stable and no further hypotension prior to discharge over last 24 hours discharged home with daughter Total Time Total Time Spent Total Time Spent (In Minutes): 60 Discharge Plan Discharge Items Patient Disposition: Home - Self-Care Reason For Visit: ATRIAL FIBRILLATION RVR Discharge Diagnosis: Atrial Fibrillation Goals: You have been hospitalized for an urgent problem which required surgery. During your stay at [facility], we have made an effort to correct the problem that brought you to the hospital while keeping you as comfortable as possible. Surgery and medications were used to bring your condition under control and your discharge instructions will include directions for any medications you should take after leaving the hospital. Please make sure to follow the advice of your surgeon regarding follow up with the surgeon and with your primary care provider. Activity: As commented below Activity Comment: no lifting arm above head for 2 weeks Non-emergency contact: Primary Care Provider and Facility Attendant Call non-emergency contact if: you have any medication questions, your symptoms worsen, your pain is not controlled and you have a fever Follow-up/Referrals: Jesus Yao MD [Physician] - (2 weeks) Socorro Fan MD [Primary Care Provider] - Diet: Dialysis Renal Addtl Attending Provider Instructions: You have been hospitalized for atrial fibrillation. We cardioverted you and you converted into a normal rhtyhm, and had some drop in blood pressure after with EKG changes and you were moved to ICU and taken for a pacemaker with Dr Yao. You are being restarted on Metoprolol but will have increased to 200mg daily. You should STOP your losartan for now. You have been started on amiodarone 200mg by mouth twice daily. You will need follow up with cardiology Thursday mid-morning for pacemaker check and will have follow up with Dr Yao in 2 weeks. Given the amiodarone can cause GI upset and we already placed you on pepcid for reflux with improvement in your GI symptoms I would recommend you continue this daily. You will need follow up with your PCP to recheck your thyroid hormones as well in 4-6 weeks, as they were elevated but likely reactive from stress/etc however amiodarone can affect these and we would like to monitor. Please return to the ER with any chest pain/shortness of breath or for any other symptoms concerning for you. Take care! Addtl Shanker Out Provider Instructions: ACTIVITY RECOMMENDATIONS: * Do not raise affected arm over head for 2 weeks. SPECIAL CARE INSTRUCTIONS: * If bleeding occurs, apply direct pressure to area for 5 minutes. * Call your doctor if you have severe pain, fever, drainage or bleeding at site. * Keep dressing on and dry for 48 hours then remove. * Keep any scheduled doctor's appointment. * Implant Card - hand held device with website information given. SKIN IRRITATION: * You may experience some redness and/or swelling in the area where radiation was administered. If any skin irritation occurs, please contact your family physician. FOLLOW UP VISIT: Keep any scheduled doctor appointments. Pending Studies at Discharge: No Stand-Alone Forms: My [facility] Medications and DC Order Prescriptions: New amiodarone 200 mg Tablet 200 mg PO BIDM Qty: 60 RF: 1 famotidine 20 mg tablet 20 mg PO DAILY Qty: 30 RF: 0 metoprolol succinate 200 mg tablet extended release 24 hr 200 mg PO DAILY Qty: 30 RF: 0 Continued simvastatin 10 mg tablet 10 mg PO QPM Qty: 90 RF: 3 furosemide 20 mg tablet 20 mg PO DAILY PRN (Reason: Leg swelling) Qty: 30 RF: 2 lorazepam 0.5 mg tablet 0.5 mg PO Q8H PRN (Reason: anxiety) Qty: 30 RF: 0 pantoprazole 40 mg tablet,delayed release (DR/EC) 40 mg PO DAILY PRN (Reason: Stomach Upset) RF: 0 estradiol 0.5 mg tablet 0.5 mg PO 3XWK RF: 0 ipratropium bromide 0.03 % spray,non-aerosol 2 sprays INTNAS TID PRN (Reason: Congestion) RF: 0 cholecalciferol (vitamin D3) 125 mcg (5,000 unit) capsule 125 mcg PO QAM RF: 0 multivitamin Tablet 1 tab PO DAILY RF: 0 potassium chloride 20 mEq tablet extended release 20 meq PO UD PRN (Reason: leg swelling) RF: 0 levothyroxine [Synthroid] 112 mcg tablet 112 mcg PO QAM RF: 0 Xarelto 20 mg tablet 20 mg PO QAM RF: 0 Discontinued metoprolol succinate 100 mg tablet extended release 24 hr 150 mg PO QAM Qty: 135 RF: 3 losartan 50 mg tablet 50 mg PO QAM RF: 0 Discharge Orders: Discharge Order (Routine); Ordered 03/15/22 Ordered By: Mary Kowalski Admission Data Admit Date/Time: 03/11/22 16:57 Attending Provider: Jose Sun Admit Provider: Jose Sun Primary Care Provider: Socorro Fan Other Providers: Jose Sun ; Monica Bautista ; Shima Elias ; Mark Mitchell ; Tanya Schwarz ; Kevin Hearn ; Mahsa Buckner ; Robe Hartman ; Bryce Whyte ; Lizbeth Salazar ; Katiana Blunt ; Mya Sloan ; Emilia Sage ; Yanet Wood ; Jesus Yao Other Interventions: Discharge Summary Assessment (RN) Last Done: 03/15/22 13:09 Coding Level of Care Code D/C DAY MANAGEMENT >30 MINS Diagnoses Atrial fibrillation with RVR I48.91 Diarrhea R19.7 Cardiomyopathy I42.9 Cardiomyopathy type: unspecified Anticoagulant long-term use Z79.01 Hyperlipidemia E78.5 Hyperlipidemia type: unspecified Hypothyroidism E03.9 Hypertension I10 Hypertension type: primary hypertension
--- NOTE | 2022-03-15 09:35 | Cardiology Progress Note ---
Date of Service March 15, 2022 Assessment & Plan (1) SSS (sick sinus syndrome): (2) Status post placement of cardiac pacemaker: Plan: 1. Postop day #1 pacemaker: Doing well postop, the chest x-ray looks good, the site looks good. RV and LV thresholds are somewhat elevated, this is acceptable at this time although future lead revision is possible. We do not have a lot of options for LV lead placement however. I did increase her atrial pacing rate to 70 to minimize the risk of recurrent atrial fibrillation. I also activated atrial arrhythmia antitachycardia pacing. 2. Atrial fibrillation: She has remained in sinus rhythm and sinus bradycardia since cardioversion. I am hopeful we can keep her out of atrial fibrillation, at least for the most part, but we will need some sort of medication. I think amiodarone would be the safest and I would suggest starting that at 200 mg twice a day. I would continue metoprolol succinate 200 mg daily. With the increased pacing rate, atrial antitachycardia pacing and amiodarone hopefully she will not have recurrence. 3. Anticoagulation: She needs to continue anticoagulation over the long run. She is on Xarelto and it was continued throughout surgery so I would continue it now. 4. Cardiomyopathy: During atrial fibrillation her left ventricular function appears diminished however some of that may be simply due to the irregularity and the rapid rate, a repeat echocardiogram yesterday following termination of the arrhythmia shows near normalization of left ventricular function. I do want to continue metoprolol succinate in part for rate control during atrial fibrillation and in part for her cardiomyopathy, we can hold off on TIEN or ARB therapy for the moment since her blood pressure is not elevated and I do not know that she needs it over the long run. 5. QT prolongation: She had significant prolongation on sotalol, we will not be able to use that drug. I would also be concerned about Tikosyn for the same reason. Amiodarone generally is not an issue for long QT therefore I am going to use that, at least for the time being. Today her QT interval is normal. Admission and Anticipated Discharge Date Admission Date: March 11, 2022 Subjective She is feeling much better today, she has no significant incisional discomfort, no chest discomfort and no shortness of breath. She feels that she could go home. Physical Exam Physical Exam: The incision is clean and dry, no significant ecchymosis, no bleeding or drainage, erythema or tenderness. Lungs are clear Cardiac rhythm is regular without rub. Results & Data ([facility]) Vital Signs (Past 12 Hours) Vital Signs Pulse Resp BP Pulse Ox 03/15/22 05:00 66 19 119/76 87 L 03/15/22 04:00 66 18 139/84 95 03/15/22 03:00 65 20 127/71 93 03/15/22 02:01 66 21 153/81 H 95 03/15/22 02:00 67 26 H 93 03/15/22 01:01 58 L 19 142/69 H 95 03/15/22 01:00 64 19 92 03/15/22 00:01 65 21 122/68 93 03/15/22 00:00 64 20 92 03/14/22 23:59 65 03/14/22 23:00 66 22 143/81 H 94 03/14/22 22:30 66 22 127/72 93 03/14/22 22:28 68 22 111/95 91 03/14/22 22:15 66 20 91 03/14/22 22:00 66 21 92 Laboratory Results CBC 03/15/22 Range/Units 05:17 WBC 5.91 (4.8-10.8) K/uL RBC 3.81 L (4.2-5.4) M/uL Hgb 10.0 L (12.0-16.0) g/dL Hct 32.4 L (37-47) % Plt Count 312 (130-400) K/uL Comprehensive Metabolic Panel 03/15/22 Range/Units 05:17 Sodium 138 (136-145) mmol/L Potassium 3.8 (3.5-5.1) mmol/L Chloride 106 (98-107) mmol/L Carbon Dioxide 21 (21-32) mmol/L BUN 24 H (6-23) mg/dl Creatinine 1.27 H D (0.6-1.2) mg/dl Glucose 83 (70-99(Fasting)) mg/dl Calcium 8.3 L (8.5-10.1) mg/dl Intake and Output 03/14/22 03/15/22 03/15/22 22:59 06:59 14:59 Intake Total 794.82 / 1262.67 300 / 1262.67 Balance 794.82 / 1262.67 300 / 1262.67 Intake: IV 794.82 / 812.67 Magnesium Sulfate / D5w 1 gm In 100 / 100 100 ml @ 50 mls/hr IV NOW ONE Rx#:[id number] Sodium Chloride 0.9% 500 ml @ 500 / 500 75 mls/hr IV .Q6H40M [facility] Rx#: [id number] isoproterenol HCL 1 mg In 194.82 / 212.67 Dextrose 5% 250 ml @ 4 MCG/MIN 61.2 mls/hr IV .Q4H10M [facility] Rx#: [id number] Oral 300 / 450 Other: # Unmeasured Voids 1 1 Weight 77.9 kg Weight Measurement Method Built in [facility] TAVR number okay can you spell the last name sriram he said Marisel bhatia thank you Diagnostic Findings Telemetry: Mostly atrial pacing appropriately with intact AV conduction Chest x-ray: Good lead position, no pneumothorax Electrocardiogram: Atrial paced appropriately, QT interval is normal. Device interrogation: Excellent atrial pacing and sensing, no atrial fibrillation. Her right ventricular and left ventricular thresholds are somewhat high, this is not an immediate problem but of concern over the long run if she would need to pace. PG Care Time/CCT Total # of Minutes Spent Total Time Spent with Patient: Total time spent is greater than 50% in coordination of care (as documented) at patient's floor/unit and/or counseling patient: Coding Level of Care Code 17409 Post Operative Follow-Up Diagnoses SSS (sick sinus syndrome) I49.5 Status post placement of cardiac pacemaker Z95.0 CPT Codes Pacemaker Multi Lead Programming - 80020 ([id number])
--- NOTE | 2022-03-16 07:53 | Electrocardiogram Report ---
Test Reason : Blood Pressure : / mmHG Vent. Rate : 060 BPM Atrial Rate : 060 BPM P-R Int : 160 ms QRS Dur : 082 ms QT Int : 562 ms P-R-T Axes : 038 006 029 degrees QTc Int : 562 ms Normal sinus rhythm Low voltage QRS Prolonged QT Abnormal ECG When compared with ECG of 12-MAR-2022 15:09, Nonspecific T wave abnormality now evident in Inferior leads Confirmed by Jesus Yao ([id number]) on 03/16/2022 7:53:17 AM Referred By: Socorro Fan Confirmed By:Jesus Yao
--- NOTE | 2022-03-16 07:56 | Electrocardiogram Report ---
Test Reason : Blood Pressure : / mmHG Vent. Rate : 052 BPM Atrial Rate : 052 BPM P-R Int : 116 ms QRS Dur : 082 ms QT Int : 742 ms P-R-T Axes : 040 003 024 degrees QTc Int : 690 ms Sinus bradycardia with ventricular bigeminy Nonspecific ST and T wave abnormality Prolonged QT Abnormal ECG When compared with ECG of 14-MAR-2022 09:10, (unconfirmed) Ventricular bigeminy is now present QT has lengthened Confirmed by Jesus Yao ([id number]) on 03/16/2022 7:55:53 AM Referred By: Socorro Fan Confirmed By:Jesus Yao
--- NOTE | 2022-03-16 08:41 | Electrocardiogram Report ---
Test Reason : Blood Pressure : / mmHG Vent. Rate : 070 BPM Atrial Rate : 070 BPM P-R Int : 212 ms QRS Dur : 070 ms QT Int : 438 ms P-R-T Axes : -15 -07 007 degrees QTc Int : 473 ms Atrial-paced rhythm with prolonged AV conduction Nonspecific ST and T wave abnormality Abnormal ECG When compared with ECG of 14-MAR-2022 10:11, (unconfirmed) Atrial-paced rhythm is now Present QT has shortened Confirmed by Jesus Yao ([id number]) on 03/16/2022 8:40:38 AM Referred By: Socorro Fan Confirmed By:Jesus Yao
== END 2022-03-15 13:43 | disposition home or self-care (01) | DRG 224 ==
LOC: ED 14:01 → SUATTDRO 16:57 → EDINP 16:57 → 2E 20:08 → 1E 03-14 11:02

== ENCOUNTER 2024-10-14 11:49 | Inpatient (IN) ==
--- NOTE | 2024-10-14 12:41 | XRay Report ---
XR knee RT 3V CLINICAL HISTORY: right knee pain, hematoma COMPARISON: Right knee radiograph December 31, 2021 and February 18, 2023. FINDINGS: Alignment of the total right knee arthroplasty is anatomic. There is no periprosthetic fra cture or lucency. There is a possible small joint effusion. Extensive right knee soft tissue swelling is noted. This is greatest anteriorly. IMPRESSION: 1. Intact right knee arthroplasty. No periprosthetic fracture or lucency. 2. Extensive soft tissue swelling, greatest anteriorly. This favors a contusion/hematoma. ACT 112: Negative or not required by law. Electronically signed by: Myron Fan M.D. 10/14/2024 12:40 PM
--- NOTE | 2024-10-14 13:39 | CT Scan Report ---
CT head/brain wo con CLINICAL HISTORY: head injury, facial injuries Technique: Contiguous axial CT images of the head were acquired from the base of the skull to the kapil huber without intravenous contrast administration. Images were viewed in brain, subdural and bone [facility] ws. Automated dose lowering techniques and/or adjustment according to patient size were utilized for this exam. Comparison: None available at the time of this dictation. Findings: The ventricles, basal cisterns, and cerebral sulci are normal. There is no acute intracranial hemorrh age or evidence of acute territorial infarction. Neither mass effect, shift of the midline structures , nor abnormal extra-axial fluid collections are shown. Imaged portions of the paranasal sinuses and mastoid air cells are clear. The orbits appear normal. There are no acute fractures of the calvaria or scalp swelling. Impression: No acute intracranial hemorrhage, no evidence of acute territorial infarction or other acute intracra nial disease process. ACT 112: Negative or not required by law. Electronically signed by: Chacho Nieves M.D. 10/14/2024 1:37 PM
--- NOTE | 2024-10-14 13:47 | CT Scan Report ---
MAXILLOFACIAL CT WITHOUT CONTRAST CLINICAL HISTORY: head injury, facial injuries COMPARISON STUDY: CT of the neck May 15, 2023. TECHNIQUE: A maxillofacial CT was performed without IV contrast. Coronal and sagittal reformats were viewed. Automated exposure control was utilized for the study. A dose lowering technique was utiliz ed adhering to the principles of ALARA. FINDINGS: Alignment of the temporomandibular joints is anatomic. No skull base fractures are identifi ed. Globes are intact. There is no retrobulbar hematoma. There is a nasal contusion. There is a proba ble acute nondisplaced right nasal bone fracture. There is a possible acute nondisplaced fracture of the nasal septum on image 168 of [id number]. No displaced facial fractures are identified. Orbital floors ar e intact. IMPRESSION: Nasal contusion. Probable acute nondisplaced right nasal bone fracture. Possible acute no ndisplaced nasal septal fracture. ACT 112: Negative or not required by law. Electronically signed by: Myron Fan M.D. 10/14/2024 1:45 PM
[2024-10-14 13:54] LABS: Basophils # (auto) 0.05 K/uL (0.00-0.20); Basophils % (auto) 0.5 %; Eosinophils # (auto) 0.08 K/uL (0.00-0.50); Eosinophils % (auto) 0.9 %; Hematocrit (blood only) 26.5 % (37.0-47.0); Hemoglobin 8.3 g/dl (12.0-16.0); Immature Granulocytes # (auto) 0.12 K/uL (0.01-0.20); Immature Granulocytes % (auto) 1.3 %; Lymphocytes # (auto) 0.95 K/uL (1.20-3.40); Lymphocytes % (auto) 10.2 %; Mean Corpuscular Hemoglobin 30.9 pg (25.0-34.0); Mean Corpuscular Hgb Conc 31.3 g/dL (32.0-36.0); Mean Corpuscular Volume 98.5 fL (80.0-100.0); Mean Platelet Volume 10.9 fL (9.4-12.4); Monocytes # (auto) 0.85 K/uL (0.11-0.59); Monocytes % (auto) 9.1 %; Neutrophils # (auto) 7.27 K/uL (1.40-6.50); Platelet Count 205 K/uL (130-400); RDW Coefficient of Variation 15.4 % (11.5-14.5); RDW Standard Deviation 55.4 fL (36.4-46.3); Red Blood Count 2.69 M/uL (4.20-5.40); White Blood Count 9.32 K/ul (4.8-10.8)
--- NOTE | 2024-10-14 13:54 | CT Scan Report ---
CT OF THE CERVICAL SPINE WITHOUT CONTRAST CLINICAL HISTORY: CT of the neck May 15, 2023. COMPARISON STUDY: No previous studies for comparison. TECHNIQUE: Helical axial images of the cervical spine were obtained without IV contrast. Sagittal a nd coronal reconstructions were viewed. Automated exposure control was utilized for the study. A do se lowering technique was utilized adhering to the principles of ALARA. FINDINGS: Alignment of the cervical spine is anatomic. Vertebral body heights are maintained. No acut e cervical spine fracture or subluxation is present. There is no prevertebral edema. Facet joints are intact. Moderate multilevel disc space narrowing and facet arthrosis is present. The central canal and neural foramen are suboptimally assessed given CT technique IMPRESSION: No acute cervical spine fracture or subluxation. ACT 112: Negative or not required by law. Electronically signed by: Myron Fan M.D. 10/14/2024 1:51 PM
[2024-10-14 14:10] LABS: Albumin Globulin Ratio 1.7 (0.9-2); Albumin Level 3.8 gm/dl (3.4-5.0); BUN Creatinine Ratio 16.5 (10-20); Bilirubin,Total 0.7 mg/dl (0.2-1.0); Calcium 9.2 mg/dl (8.6-10.3); Creatinine Clr Calc Pharmacy 46.9 ml/min; Globulin 2.2 gm/dl (2.5-4.0); Potassium 3.9 mmol/L (3.5-5.1)
[2024-10-14 14:16] LABS: Troponin I High Sensitivity 11.3 pg/ml (0-14)
--- NOTE | 2024-10-14 15:27 | Electrocardiogram Report ---
Test Reason : Blood Pressure : */* mmHG Vent. Rate : 70 BPM Atrial Rate : 70 BPM P-R Int : 186 ms QRS Dur : 92 ms QT Int : 432 ms P-R-T Axes : 245 -15 1 degrees QTcB Int : 466 ms Atrial-paced rhythm Moderate voltage criteria for LVH, may be normal variant ( R in aVL ) Abnormal ECG When compared with ECG of 15-Mar-2022 09:41, T wave inversion no longer evident in Anterior leads Confirmed by Darshan Yarbrough ([id number]) on 10/14/2024 3:26:58 PM Referred By: Confirmed By: Darshan Yarbrough
--- NOTE | 2024-10-14 16:09 | Emergency Department Note ---
ED Provider Note History of Present Illness Chief Complaint: Fall Stated Complaint: FELL ON FACE, ON BLOOD THINNER Time Seen by Provider: 10/14/24 11:59 Source: patient Mode of arrival: ambulatory Limitations: no limitations This patient is a 79-year-old female who presents to the emergency department for evaluation of a fall which occurred yesterday morning. Patient reports that she woke up in the middle of the night and got up to go to the bathroom. She states that she sat on the edge of the bed for a few minutes to make sure she was fully awake before standing up. She started to walk into the bathroom and the next thing she remembers she was waking up on the floor after hitting her face on the ground. She is not sure if she tripped and fell or what happened. She does not recall having any dizziness or lightheadedness. She does take Eliquis. She initially had some bleeding from the nose which has stopped. She has some bruising around both eyes. She reports some pain in the right knee and some swelling and bruising of the right knee and lower leg which is painful, but she is able to walk on with a walker/cane. She denies any abdominal, chest or back pain. He denies any confusion, vision changes or issues with her speech. Home Medications Medication Instructions Recorded Confirmed Type cholecalciferol (vitamin D3) 125 125 mcg PO QAM 11/25/21 10/14/24 History mcg (5,000 unit) capsule multivitamin 1 tab PO DAILY 03/11/22 10/14/24 History amoxicillin 500 mg tablet 2,000 mg (4 x 500 mg) PO .COMPLEX 03/11/23 10/14/24 Rx #4 tabs metoprolol succinate 200 mg 200 mg PO DAILY #90 tabs 11/27/23 10/14/24 Rx tablet,extended release 24 hr famotidine 20 mg tablet 20 mg PO HS PRN breakthrough acid 01/22/24 10/14/24 Rx reflux #90 tabs pantoprazole 40 mg tablet,delayed 40 mg PO DAILY #90 tabs 01/22/24 10/14/24 Rx release ipratropium bromide 21 mcg (0.03 2 spray intranasal TID PRN 03/24/24 10/14/24 Rx %) nasal spray Congestion #30 mL atorvastatin 20 mg tablet 20 mg PO DAILY #90 tabs 05/15/24 10/14/24 Rx amiodarone 100 mg tablet 100 mg PO DAILY #90 tabs 06/28/24 10/14/24 Rx lorazepam 0.5 mg tablet 0.5 mg PO Q8H PRN anxiety #30 tabs 08/16/24 10/14/24 Rx apixaban 2.5 mg tablet 2.5 mg PO BID #60 tabs 09/13/24 10/14/24 Rx estradiol 0.01% (0.1 mg/gram) 0.5 g vaginal .COMPLEX #42.5 grams 10/04/24 10/14/24 Rx vaginal cream levothyroxine 150 mcg tablet 150 mcg PO DAILYBB 10/14/24 10/14/24 History losartan 50 mg tablet 50 mg PO DAILY 10/14/24 10/14/24 History Allergies Allergy/AdvReac Type Severity Reaction Status Date / Time No Known Drug Allergies Allergy Verified 10/04/24 11:00 Past Med/Surg History Problem List (Updated 10/16/24 @ 13:01 by Orlando Hahn PA-C) Traumatic hematoma of right knee Venous insufficiency (Chronic) Degenerative disc disease at L5-S1 level (Chronic) Impaired fasting glucose (Chronic) Hormone replacement therapy Lumbosacral facet joint syndrome Hyperlipidemia (Chronic) Osteopenia (Chronic) Tendinitis of right rotator cuff Prolonged Q-T interval on ECG SSS (sick sinus syndrome) On amiodarone therapy Knee effusion Silicone leakage from breast implant Tinnitus Sacroiliac inflammation Leg length discrepancy Tendinitis of both rotator cuffs Medical History (Updated 10/16/24 @ 13:01 by Orlando Hahn PA-C) Closed head injury Fracture of nasal bones, closed Hematoma of right lower leg Aortic stenosis Mitral regurgitation Atrial fibrillation pacemaker 2021 Cardiac pacemaker Anticoagulant long-term use Xarelto daily Hypertension Hypothyroidism GERD (gastroesophageal reflux disease) Hx of ovarian cyst (reason for FELISHA w/BSO) Hx of gastric ulcer >30 yrs ago Osteoarthritis Surgical History Status post right knee replacement (12/2021) Status post placement of cardiac pacemaker History of total right knee replacement (TKR) (~12/2021) @ [facility] History of esophagogastroduodenoscopy (EGD) 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 No postop issues per anesthesia progress note. History of Ishmael fundoplication 2003, hiatal hernia H/O breast augmentation Hx of cataract surgery right and left S/P total abdominal hysterectomy w/ removal of both ovaries H/O colonoscopy Family History Father Acute myocardial infarction Mother Acute myocardial infarction Hypertension Brother Acute myocardial infarction Sister Hypertension Pure hypercholesterolemia Unknown Diabetes Other Stroke Denies family history of Breast cancer Colorectal cancer Colonic polyp Social History Smoking Status: Never smoker Second Hand Exposure: No; Do You Dip or Chew Tobacco: No; Tobacco Cessation Education Requested by Patient: No Hx Alcohol Use: Yes Alcohol type: wine and hard liquor Hx Substance Use: No Preferred Language: Malay Communication Ability: Effective Visual Impairment: No Limitations Hearing Ability: Normal 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 Beliefs That Will Affect Care: None marital status: Current Living Situation: Alone current occupational status: retired How many Children do You have: 1 Other Information That Helps Us Care for You: No Feels Safe at Home: Yes Safety Concerns: Feels Safe At This Time Childhood Exposure to Second-Hand Smoke: Yes caffeine: Yes Dental Care, Regularly: Yes Physical Activity Frequency: Daily Physical Activity Frequency Comment: walking 20 min Seatbelt Use: always Sunscreen Use: Yes Assistive Devices: None Physical Exam Vital Signs Vital Signs - 24 hr 10/16/24 08:00 10/16/24 08:02 10/16/24 08:02 Temperature 36.9 C Temperature Source Oral Pulse Rate 70 Pulse Rate [Apical] 70 Respiratory Rate 18 Respiratory Depth Normal Blood Pressure [Left Arm] 147/73 H Blood Pressure Mean [Left Arm] 97 Blood Pressure Position [Left Arm] Semi-fowlers Pulse Oximetry 97 Oxygen Delivery Method Nasal Cannula Oxygen Flow Rate 2 EWS Level of Consciousness - Last Result Spontaneously Alert EWS Temperature - Last Result 36.8 EWS Respiratory Rate - Last Result 21 EWS Oxygen Saturation - Last Result 95 EWS Oxygen in Use - Last Result Yes EWS Score 3 EWS Clinical Risk Moderate Risk VITALS: Vitals are noted on the nurse's note and reviewed by myself. GENERAL: This is a 79-year-old female, in no acute distress, well-developed well-nourished. SKIN: The skin was without rashes, erythema, edema, or bruising. HEAD: Normocephalic atraumatic. EARS: External auditory canals clear, tympanic membranes pearly hanson without erythema or effusion bilaterally. No hemotympanum. EYES: Infraorbital ecchymosis bilaterally. Pupils equal round and reactive to light and accommodation. No subconjunctival hemorrhage. No hyphema. NOSE: There is edema and ecchymosis over the nasal bridge. No bleeding from the nares. MOUTH: Mucous membranes moist. NECK: Supple without nuchal rigidity. Cervical spine is nontender. HEART: Regular rate and rhythm without murmurs gallops or rubs. LUNGS: Clear to auscultation bilaterally without wheezes, rales or rhonchi. ABDOMEN: Positive bowel sounds x 4. Soft, nontender. EXTREMITIES: There are no deformities. There is some generalized tenderness to palpation of the right knee. There is ecchymosis of the right knee extending into the right lower leg with significant swelling noted. Dorsalis pedis pulses are intact. Capillary refill within 2 seconds. NEURO: Patient was alert and oriented to person place and time. Course Administered Medications Acetaminophen (Acetaminophen 325 Mg Tab) 650 mg PO Q4H PRN PRN Reason: Pain or Fever Stop: 11/13/24 20:44 Last Admin: 10/15/24 14:50 Dose: 650 mg Documented By: GREGORY Amiodarone HCl (Amiodarone 200 Mg Tab) 100 mg PO DAILY [facility] Stop: 11/14/24 08:59 Last Admin: 10/16/24 08:18 Dose: 100 mg Documented By: Admin: 10/15/24 09:12 Dose: 100 mg Documented By: EUNICE Atorvastatin Calcium (Atorvastatin 20 Mg Tab) 20 mg PO HS [facility] Stop: 11/14/24 00:44 Last Admin: 10/16/24 20:36 Dose: 20 mg Documented By: ALTerrie Admin: 10/15/24 21:30 Dose: 20 mg Documented By: Admin: 10/15/24 01:37 Dose: 20 mg Documented By: ANA Levothyroxine Sodium (Levothyroxine Sodium 150 Mcg Tablet) [facility]: 11/14/24 06:29 Last Admin: 10/17/24 05:42 Dose: 150 mcg Documented By: Admin: 10/16/24 06:37 Dose: 150 mcg Documented By: Admin: 10/15/24 06:28 Dose: 150 mcg Documented By: PEYTON Lorazepam (Lorazepam 0.5 Mg Tab) 0.5 mg PO HS PRN PRN Reason: anxiety Stop: 11/14/24 00:57 Last Admin: 10/17/24 00:25 Dose: 0.5 mg Documented By: Admin: 10/15/24 01:37 Dose: 0.5 mg Documented By: ANA Losartan Potassium (Losartan Potassium 50 Mg Tab) 50 mg PO DAILY [facility] Stop: 11/14/24 08:59 Last Admin: 10/16/24 08:18 Dose: 50 mg Documented By: Admin: 10/15/24 09:12 Dose: 50 mg Documented By: EUNICE Metoprolol Succinate (Metoprolol Succ 50mg Ext Rel Tab) 200 mg PO DAILY [facility] Stop: 11/14/24 08:59 Last Admin: 10/16/24 08:17 Dose: 200 mg Documented By: Admin: 10/15/24 09:10 Dose: 200 mg Documented By: EUNICE Morphine Sulfate (Morphine Sulfate 2 Mg/Ml Carp) 2 mg IV Q4 PRN PRN Reason: Severe Pain (Scale 7, 8, 9,10) Stop: 10/29/24 15:36 Last Admin: 10/15/24 15:50 Dose: 2 mg Documented By: GREGORY Pantoprazole Sodium (Pantoprazole 40 Mg Tab) 40 mg PO DAILY [facility] Stop: 11/14/24 08:59 Last Admin: 10/16/24 08:18 Dose: 40 mg Documented By: Admin: 10/15/24 09:13 Dose: 40 mg Documented By: EUNICE Vitamin D (Cholecalciferol 125 Mcg (5,000 Units) Tab) 125 mcg PO QAM [facility] Stop: 11/14/24 08:59 Last Admin: 10/16/24 08:18 Dose: 125 mcg Documented By: Admin: 10/15/24 09:12 Dose: 125 mcg Documented By: EUNICE Discontinued Medications Bupivacaine HCl (Bupivacaine 0.5 % 5 Mg/1 Ml Mpf 30ml Vial) Confirm Administered Dose 30 ml .ROUTE .[facility] Stop: 10/15/24 20:08 Last Admin: 10/15/24 19:42 Dose: 12 ml Documented By: PSS Tranexamic Acid (Tranexamic Acid / 0.7% Nacl) 1,000 mg in 100 mls @ 600 mls/hr IV NOW STA Stop: 10/15/24 17:24 Last Infusion: 10/15/24 17:44 Dose: Infused Documented By: K Admin: 10/15/24 17:33 Dose: 600 mls/hr Documented By: GREGORY Cefazolin Sodium (Ancef 2000mg) 2,000 mg in 15 mls @ 3.75 mls/min IV ONCE ONE; Protocol Stop: 10/15/24 20:40 Last Admin: 10/15/24 19:42 Dose: 3.75 mls/min Documented By: TAP Tranexamic Acid (Tranexamic Acid / 0.7% Nacl) 1,000 mg in 100 mls @ 600 mls/hr IV ONE ONE Stop: 10/16/24 03:12 Last Infusion: 10/16/24 04:05 Dose: Infused Documented By: Admin: 10/16/24 03:41 Dose: 600 mls/hr Documented By: JORDYN Cefazolin Sodium (Ancef 2000mg) 2,000 mg in 15 mls @ 3.75 mls/min IV Q8H [facility] Stop: 10/17/24 03:59 Last Admin: 10/16/24 20:36 Dose: 3.75 mls/min Documented By: Admin: 10/16/24 11:46 Dose: 3.75 mls/min Documented By: Admin: 10/16/24 03:41 Dose: 3.75 mls/min Documented By: JORDYN Ioversol (Optiray 320 125ml) 119 ml IV ONCE ONE Stop: 10/15/24 16:17 Last Admin: 10/15/24 16:18 Dose: 119 ml Documented By: SAULO Labetalol HCl (Labetalol Hcl Iv 5 Mg/Ml 20ml) 5 mg IV Q5M PRN PRN Reason: PACU Use-SBP>160 or DBP>100 Stop: 10/16/24 05:23 Last Admin: 10/15/24 21:29 Dose: 5 mg Documented By: APRYL Lidocaine HCl (Lidocaine 1% Local 20 Ml Vial) Confirm Administered Dose 20 ml .ROUTE .[facility]-MED ONE Stop: 10/15/24 20:08 Last Admin: 10/15/24 20:35 Dose: 12 ml Documented By: CAMELIA Ondansetron HCl (Ondansetron Inj 2 Mg/Ml 2 Ml Vial) 4 mg IV ONCE PRN PRN Reason: PACU Use Only-Nausea/Vomiting Stop: 10/16/24 03:08 Last Admin: 10/15/24 21:10 Dose: 4 mg Documented By: APRYL Medical Decision Making Differential Diagnosis Differential diagnosis includes intracranial hemorrhage, cervical spine fracture, periprosthetic fracture, knee effusion, hematoma, among others. Laboratory Data Attestation: I reviewed the patient's lab results. 10/16/24 05:50 10/16/24 05:50 Lab Results 10/14/24 10/14/24 10/15/24 Range/Units 13:34 20:00 02:05 WBC 9.32 9.35 (4.8-10.8) K/ul RBC 2.69 L 2.60 L (4.20-5.40) M/uL Hgb 8.3 L 8.2 L 8.1 L (12.0-16.0) g/dl Hct 26.5 L 26.1 L 25.6 L (37.0-47.0) % MCV 98.5 98.5 (80.0-100.0) fL MCH 30.9 31.2 (25.0-34.0) pg MCHC 31.3 L 31.6 L (32.0-36.0) g/dL RDW Std Deviation 55.4 H 55.1 H (36.4-46.3) fL RDW Coeff of Ezequiel 15.4 H 15.2 H (11.5-14.5) % Plt Count 205 205 (130-400) K/uL MPV 10.9 10.8 (9.4-12.4) fL Immature Gran % (Auto) 1.3 % Neut % (Auto) 78.0 % Lymph % (Auto) 10.2 % [place] % (Auto) 9.1 % Eos % (Auto) 0.9 % Baso % (Auto) 0.5 % Neut # (Auto) 7.27 H (1.40-6.50) K/uL Lymph # (Auto) 0.95 L (1.20-3.40) K/uL [place] # (Auto) 0.85 H (0.11-0.59) K/uL Eos # (Auto) 0.08 (0.00-0.50) K/uL Baso # (Auto) 0.05 (0.00-0.20) K/uL Immature Gran # (Auto) 0.12 (0.01-0.20) K/uL PT 11.0 (9.0-12.0) Seconds INR 1.0 (0.9-1.1) APTT (21-31) Seconds PTT Ratio Fibrinogen (184-400) mg/dl Heparin Anti-Xa, LM Wt (< 0.10) IU/ML Sodium 139 140 (136-145) mmol/L Potassium 3.9 3.9 (3.5-5.1) mmol/L Chloride 105 106 (98-107) mmol/L Carbon Dioxide 27 25 (21-32) mmol/L Anion Gap 7 9 (3-11) BUN 15 13 (6-23) mg/dl Creatinine 0.91 0.77 (0.6-1.2) mg/dl Est Cr Clr Drug Dosing 46.9 55.5 ml/min eGFR 64.17 78.42 BUN/Creatinine Ratio 16.5 16.9 (10-20) Glucose 102 H 99 (70-99(Fasting)) mg/dl Calcium 9.2 8.7 (8.6-10.3) mg/dl Phosphorus 3.3 (2.5-4.9) mg/dl Magnesium 2.0 1.9 (1.7-2.4) mg/dl Total Bilirubin 0.7 (0.2-1.0) mg/dl AST 18 (13-39) U/L ALT 12 (7-52) U/L Alkaline Phosphatase 64 (34-104) U/L Troponin I High Sens 11.3 (0-14) pg/ml Total Protein 6.0 (6.0-8.3) gm/dl Albumin 3.8 (3.4-5.0) gm/dl Globulin 2.2 L (2.5-4.0) gm/dl Albumin/Globulin Ratio 1.7 (0.9-2) Urine Color Urine Appearance (Clear) Urine pH (4.5-7.5) Ur Specific [place] (1.000-1.030) Urine Protein (Negative) Urine Glucose (UA) (Negative) Urine Ketones (Negative) Urine Blood (Negative) Urine Nitrite (Negative) Urine Bilirubin (Negative) Urine Urobilinogen (Negative) Ur Leukocyte Esterase (Negative) Urine WBC (Auto) (0-5) /hpf Urine RBC (Auto) (0-2) /hpf U Hyaline Cast (Auto) (0-2) /lpf U Epithel Cells (Auto) (0-2) /hpf Urine Bacteria (Auto) (None Seen) Blood Type O Positive Antibody Screen NEGATIVE Crossmatch See Detail 10/15/24 10/15/24 10/15/24 Range/Units 07:54 15:15 16:40 WBC (4.8-10.8) K/ul RBC (4.20-5.40) M/uL Hgb 7.3 L 9.6 L (12.0-16.0) g/dl Hct 23.1 L 29.6 L (37.0-47.0) % MCV (80.0-100.0) fL MCH (25.0-34.0) pg MCHC (32.0-36.0) g/dL RDW Std Deviation (36.4-46.3) fL RDW Coeff of Ezequiel (11.5-14.5) % Plt Count (130-400) K/uL MPV (9.4-12.4) fL Immature Gran % (Auto) % Neut % (Auto) % Lymph % (Auto) % [place] % (Auto) % Eos % (Auto) % Baso % (Auto) % Neut # (Auto) (1.40-6.50) K/uL Lymph # (Auto) (1.20-3.40) K/uL [place] # (Auto) (0.11-0.59) K/uL Eos # (Auto) (0.00-0.50) K/uL Baso # (Auto) (0.00-0.20) K/uL Immature Gran # (Auto) (0.01-0.20) K/uL PT 10.6 (9.0-12.0) Seconds INR 1.0 (0.9-1.1) APTT 25 (21-31) Seconds PTT Ratio 0.9 Fibrinogen 387 (184-400) mg/dl Heparin Anti-Xa, LM Wt 0.49 (< 0.10) IU/ML Sodium (136-145) mmol/L Potassium (3.5-5.1) mmol/L Chloride (98-107) mmol/L Carbon Dioxide (21-32) mmol/L Anion Gap (3-11) BUN (6-23) mg/dl Creatinine (0.6-1.2) mg/dl Est Cr Clr Drug Dosing ml/min eGFR BUN/Creatinine Ratio (10-20) Glucose (70-99(Fasting)) mg/dl Calcium (8.6-10.3) mg/dl Phosphorus (2.5-4.9) mg/dl Magnesium (1.7-2.4) mg/dl Total Bilirubin (0.2-1.0) mg/dl AST (13-39) U/L ALT (7-52) U/L Alkaline Phosphatase (34-104) U/L Troponin I High Sens (0-14) pg/ml Total Protein (6.0-8.3) gm/dl Albumin (3.4-5.0) gm/dl Globulin (2.5-4.0) gm/dl Albumin/Globulin Ratio (0.9-2) Urine Color Urine Appearance (Clear) Urine pH (4.5-7.5) Ur Specific [place] (1.000-1.030) Urine Protein (Negative) Urine Glucose (UA) (Negative) Urine Ketones (Negative) Urine Blood (Negative) Urine Nitrite (Negative) Urine Bilirubin (Negative) Urine Urobilinogen (Negative) Ur Leukocyte Esterase (Negative) Urine WBC (Auto) (0-5) /hpf Urine RBC (Auto) (0-2) /hpf U Hyaline Cast (Auto) (0-2) /lpf U Epithel Cells (Auto) (0-2) /hpf Urine Bacteria (Auto) (None Seen) Blood Type Antibody Screen Crossmatch 10/15/24 10/16/24 Range/Units Unknown 05:50 WBC 12.55 H (4.8-10.8) K/ul RBC 2.84 L (4.20-5.40) M/uL Hgb 8.9 L (12.0-16.0) g/dl Hct 27.8 L (37.0-47.0) % MCV 97.9 (80.0-100.0) fL MCH 31.3 (25.0-34.0) pg MCHC 32.0 (32.0-36.0) g/dL RDW Std Deviation 58.0 H (36.4-46.3) fL RDW Coeff of Ezequiel 16.2 H (11.5-14.5) % Plt Count 183 (130-400) K/uL MPV 11.0 (9.4-12.4) fL Immature Gran % (Auto) % Neut % (Auto) % Lymph % (Auto) % [place] % (Auto) % Eos % (Auto) % Baso % (Auto) % Neut # (Auto) (1.40-6.50) K/uL Lymph # (Auto) (1.20-3.40) K/uL [place] # (Auto) (0.11-0.59) K/uL Eos # (Auto) (0.00-0.50) K/uL Baso # (Auto) (0.00-0.20) K/uL Immature Gran # (Auto) (0.01-0.20) K/uL PT (9.0-12.0) Seconds INR (0.9-1.1) APTT (21-31) Seconds PTT Ratio Fibrinogen (184-400) mg/dl Heparin Anti-Xa, LM Wt (< 0.10) IU/ML Sodium 137 (136-145) mmol/L Potassium 4.8 D (3.5-5.1) mmol/L Chloride 104 (98-107) mmol/L Carbon Dioxide 24 (21-32) mmol/L Anion Gap 9 (3-11) BUN 13 (6-23) mg/dl Creatinine 0.77 (0.6-1.2) mg/dl Est Cr Clr Drug Dosing 55.3 ml/min eGFR 78.42 BUN/Creatinine Ratio 16.9 (10-20) Glucose 150 H (70-99(Fasting)) mg/dl Calcium 8.3 L (8.6-10.3) mg/dl Phosphorus (2.5-4.9) mg/dl Magnesium (1.7-2.4) mg/dl Total Bilirubin (0.2-1.0) mg/dl AST (13-39) U/L ALT (7-52) U/L Alkaline Phosphatase (34-104) U/L Troponin I High Sens (0-14) pg/ml Total Protein (6.0-8.3) gm/dl Albumin (3.4-5.0) gm/dl Globulin (2.5-4.0) gm/dl Albumin/Globulin Ratio (0.9-2) Urine Color Yellow Urine Appearance Cloudy A (Clear) Urine pH 6.0 (4.5-7.5) Ur Specific [place] 1.017 (1.000-1.030) Urine Protein 1+ H (Negative) Urine Glucose (UA) Negative (Negative) Urine Ketones 1+ H (Negative) Urine Blood Negative (Negative) Urine Nitrite Negative (Negative) Urine Bilirubin Negative (Negative) Urine Urobilinogen Negative (Negative) Ur Leukocyte Esterase 2+ H (Negative) Urine WBC (Auto) >50 H (0-5) /hpf Urine RBC (Auto) 0-2 (0-2) /hpf U Hyaline Cast (Auto) 0-2 (0-2) /lpf U Epithel Cells (Auto) 0-2 (0-2) /hpf Urine Bacteria (Auto) 4+ H (None Seen) Blood Type Antibody Screen Crossmatch Imaging Data Attestation: I personally reviewed and interpreted this imaging study as follows: Radiologist's Impression: Face CT 10/14/24 12:[address] WITHOUT CONTRAST CLINICAL HISTORY: head injury, facial injuries COMPARISON STUDY: CT of the neck May 15, 2023. TECHNIQUE: A maxillofacial CT was performed without IV contrast. Coronal and sagittal reformats were viewed. Automated exposure control was utilized for the study. A dose lowering technique was utilized adhering to the principles of ALARA. FINDINGS: Alignment of the temporomandibular joints is anatomic. No skull base fractures are identified. Globes are intact. There is no retrobulbar hematoma. There is a nasal contusion. There is a probable acute nondisplaced right nasal bone fracture. There is a possible acute nondisplaced fracture of the nasal septum on image 168 of [id number]. No displaced facial fractures are identified. Orbital floors are intact. IMPRESSION: Nasal contusion. Probable acute nondisplaced right nasal bone fracture. Possible acute nondisplaced nasal septal fracture. ACT 112: Negative or not required by law. Electronically signed by: Myron Fan M.D. 10/14/2024 1:45 PM Knee X-Ray 10/14/24 12:15 XR knee RT 3V CLINICAL HISTORY: right knee pain, hematoma COMPARISON: Right knee radiograph December 31, 2021 and February 18, 2023. FINDINGS: Alignment of the total right knee arthroplasty is anatomic. There is no periprosthetic fracture or lucency. There is a possible small joint effusion. Extensive right knee soft tissue swelling is noted. This is greatest anteriorly. IMPRESSION: 1. Intact right knee arthroplasty. No periprosthetic fracture or lucency. 2. Extensive soft tissue swelling, greatest anteriorly. This favors a contusion/hematoma. ACT 112: Negative or not required by law. Electronically signed by: Myron Fan M.D. 10/14/2024 12:[address] 10/14/24 12:16 CT OF THE CERVICAL SPINE WITHOUT CONTRAST CLINICAL HISTORY: CT of the neck May 15, 2023. COMPARISON STUDY: No previous studies for comparison. TECHNIQUE: Helical axial images of the cervical spine were obtained without IV contrast. Sagittal and coronal reconstructions were viewed. Automated exposure control was utilized for the study. A dose lowering technique was utilized adhering to the principles of ALARA. FINDINGS: Alignment of the cervical spine is anatomic. Vertebral body heights are maintained. No acute cervical spine fracture or subluxation is present. There is no prevertebral edema. Facet joints are intact. Moderate multilevel disc space narrowing and facet arthrosis is present. The central canal and neural foramen are suboptimally assessed given CT technique IMPRESSION: No acute cervical spine fracture or subluxation. ACT 112: Negative or not required by law. Electronically signed by: Myron Fan M.D. 10/14/2024 1:[address] 10/14/24 12:16 CT head/brain wo con CLINICAL HISTORY: head injury, facial injuries Technique: Contiguous axial CT images of the head were acquired from the base of the skull to the vertex without intravenous contrast administration. Images were viewed in brain, subdural and bone windows. Automated dose lowering techniques and/or adjustment according to patient size were utilized for this exam. Comparison: None available at the time of this dictation. Findings: The ventricles, basal cisterns, and cerebral sulci are normal. There is no acute intracranial hemorrhage or evidence of acute territorial infarction. Neither mass effect, shift of the midline structures, nor abnormal extra-axial fluid collections are shown. Imaged portions of the paranasal sinuses and mastoid air cells are clear. The orbits appear normal. There are no acute fractures of the calvaria or scalp swelling. Impression: No acute intracranial hemorrhage, no evidence of acute territorial infarction or other acute intracranial disease process. ACT 112: Negative or not required by law. Electronically signed by: Chacho Nieves M.D. 10/14/2024 1:37 PM MDM Narrative This patient is a 79-year-old female who presents to the emergency department for evaluation after a fall. Patient fell and sustained a head injury yesterday. She is on Eliquis due to a history of atrial fibrillation. CT of the head shows no intracranial bleeding. CT of the facial bones shows nasal bone fractures but is otherwise negative. Cervical spine CT was negative. Knee x-ray does not show any fractures, although there is extensive soft tissue swelling consistent with patient's hematoma. Unfortunately patient's hemoglobin has decreased from 11.1 to 8.3 from 09/13/24. Suspect this is likely due to bleeding into the hematoma but given this significant drop I did recommend observation here to trend the hemoglobin. Patient was agreeable with the plan of care. Case discussed with the hospitalist who agreed to evaluate the patient for further care. Attending Attestation: I William Lopez MD independently saw and evaluated this patient and agree with history and physical is otherwise documented by the advanced practitioner. See their note for full details. Impression Hematoma of right lower leg, Fracture of nasal bones, closed, Closed head injury Discharge Plan Visit Data Chief Complaint: Fall Stated Complaint: FELL ON FACE, ON BLOOD THINNER ED Provider: William Lopez ED Midlevel Provider: Latonia Jones Discharge Problem: Hematoma of right lower leg, Fracture of nasal bones, closed, Closed head injury Patient Disposition: Admitted As Inpatient Discharge Instructions Interventions: ED Discharge Assessment Last Done: 10/14/24 20:46
--- NOTE | 2024-10-14 17:25 | History & Physical Report ---
Date of Service October 14, 2024 Assessment & Plan (1) Fracture of nasal bones, closed: (2) Hematoma of right lower leg: (3) Atrial fibrillation: (4) Hypothyroidism: (5) Hypertension: Plan #Fall #RLE ecchymosis #Periocular ecchymosis - place in observation with tele - hold eliquis - fall precautions - PT / OT eval - neurovascular checks - CT head / Cervical neck: without acute abnormalities #Anemia - admission Hgb 8.3, baseline Hgb around 11 - trend Hgb q6h x24 hrs - check iron studies - holding eliquis for now #Nondisplaced right nasal bone fracture #Nondisplaced right nasal septal fracture - noted on CT face - no intervention while inpt, likely heal on its own - pt can follow up with ENT as outpatient if she wishes #AFib - hold eliquis - cont amio, metoprolol #Hypothyroidism - cont synthroid #HLD - cont Lipitor #HTN - cont metoprolol and losartan History of Present Illness Primary Care Provider: Socorro Fan MD 79 yo F with PMHx of AFib, Hypothyroidism, HTN, HLD presents to the hospital for the evaluation after a fall. Pt had a fall 430am on 10/13/24. She was fully awake during the episode and did not lose consciousness. She did not have any prodromal symptoms. Since she is on Eliquis, she had significant bruising of the anterior right leg as well as around her eyes. She is otherwise asymptomatic. She did note that she has chronic lower extremity swelling that is causing some numbness and tingling and decreased sensation. She also noted that she has carpets in the room and possible that she may have tripped on it. She will be getting rid of them once she gets home. Allergies Allergy/AdvReac Type Severity Reaction Status Date / Time No Known Drug Allergies Allergy Verified 10/04/24 11:00 Home Medications Medication Instructions Recorded Confirmed Type cholecalciferol (vitamin D3) 125 125 mcg PO QAM 11/25/21 10/14/24 History mcg (5,000 unit) capsule multivitamin 1 tab PO DAILY 03/11/22 10/14/24 History amoxicillin 500 mg tablet 2,000 mg (4 x 500 mg) PO .COMPLEX 03/11/23 10/14/24 Rx #4 tabs metoprolol succinate 200 mg 200 mg PO DAILY #90 tabs 11/27/23 10/14/24 Rx tablet,extended release 24 hr famotidine 20 mg tablet 20 mg PO HS PRN breakthrough acid 01/22/24 10/14/24 Rx reflux #90 tabs pantoprazole 40 mg tablet,delayed 40 mg PO DAILY #90 tabs 01/22/24 10/14/24 Rx release ipratropium bromide 21 mcg (0.03 2 spray intranasal TID PRN 03/24/24 10/14/24 Rx %) nasal spray Congestion #30 mL atorvastatin 20 mg tablet 20 mg PO DAILY #90 tabs 05/15/24 10/14/24 Rx amiodarone 100 mg tablet 100 mg PO DAILY #90 tabs 06/28/24 10/14/24 Rx lorazepam 0.5 mg tablet 0.5 mg PO Q8H PRN anxiety #30 tabs 08/16/24 10/14/24 Rx apixaban 2.5 mg tablet 2.5 mg PO BID #60 tabs 09/13/24 10/14/24 Rx estradiol 0.01% (0.1 mg/gram) 0.5 g vaginal .COMPLEX #42.5 grams 10/04/24 10/14/24 Rx vaginal cream levothyroxine 150 mcg tablet 150 mcg PO DAILYBB 10/14/24 10/14/24 History losartan 50 mg tablet 50 mg PO DAILY 10/14/24 10/14/24 History Past Med/Surg History Problem List (Updated 10/14/24 @ 16:19 by Latonia Jones PA-C) Closed head injury (Acute) Fracture of nasal bones, closed (Acute) Hematoma of right lower leg (Acute) Aortic stenosis Venous insufficiency (Chronic) Degenerative disc disease at L5-S1 level (Chronic) Mitral regurgitation Impaired fasting glucose (Chronic) Hormone replacement therapy Cardiac pacemaker Atrial fibrillation (Chronic) pacemaker 2021 Lumbosacral facet joint syndrome Hyperlipidemia (Chronic) GERD (gastroesophageal reflux disease) (Chronic) Hypothyroidism (Chronic) Hypertension (Chronic) Osteopenia (Chronic) Tendinitis of right rotator cuff Anticoagulant long-term use Xarelto daily Prolonged Q-T interval on ECG SSS (sick sinus syndrome) On amiodarone therapy Knee effusion Silicone leakage from breast implant Tinnitus Sacroiliac inflammation Leg length discrepancy Tendinitis of both rotator cuffs Medical History Hx of ovarian cyst (reason for FELISHA w/BSO) Hx of gastric ulcer >30 yrs ago Osteoarthritis Surgical History Status post right knee replacement (12/2021) Status post placement of cardiac pacemaker History of total right knee replacement (TKR) (~12/2021) @ [facility] History of esophagogastroduodenoscopy (EGD) 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 No postop issues per anesthesia progress note. History of Ishmael fundoplication 2003, hiatal hernia H/O breast augmentation Hx of cataract surgery right and left S/P total abdominal hysterectomy w/ removal of both ovaries H/O colonoscopy Family History Father Acute myocardial infarction Mother Acute myocardial infarction Hypertension Brother Acute myocardial infarction Sister Hypertension Pure hypercholesterolemia Unknown Diabetes Other Stroke Denies family history of Breast cancer Colorectal cancer Colonic polyp Social History Smoking Status: Never smoker Second Hand Exposure: No; Do You Dip or Chew Tobacco: No; Hx Alcohol Use: Yes Alcohol type: wine Hx Substance Use: No Preferred Language: Spanish Communication Ability: Effective Visual Impairment: No Limitations Hearing Ability: Normal Rubber Goods Inspector Required: No Beliefs That Will Affect Care: None marital status: Current Living Situation: Alone current occupational status: retired How many Children do You have: 1 Feels Safe at Home: Yes Childhood Exposure to Second-Hand Smoke: Yes caffeine: Yes Dental Care, Regularly: Yes Physical Activity Frequency: Daily Physical Activity Frequency Comment: walking 20 min Seatbelt Use: always Sunscreen Use: Yes Assistive Devices: Glasses and Other Review of Systems Review of Systems: Comprehensive ROS neg Physical Exam Physical Exam: Gen: NAD, in bed comfortable, conversing appropriately HEENT: robert ocular ecchymosis, MMM Lungs: CTAB CVS: s1s2nl, RRR Abd: nl bowel sounds, soft, NT Ext: significant ecchymosis of the right knee / soto (pt states it is improving), pulses intact, cap refills < 2 secs Results & Data Results & Data Vital Signs (Past 12 Hours) Vital Signs Temp Pulse Resp BP Pulse Ox O2 Del Method 10/14/24 16:15 71 17 10/14/24 16:03 70 19 10/14/24 16:00 164/86 H 10/14/24 15:48 70 10/14/24 15:45 71 22 10/14/24 15:33 69 10/14/24 15:31 164/106 H 10/14/24 15:24 70 20 10/14/24 15:09 72 94 10/14/24 14:54 70 22 95 10/14/24 14:48 71 19 91 10/14/24 14:30 174/104 H 10/14/24 14:00 70 24 163/77 H 98 10/14/24 13:39 70 10/14/24 13:38 98 Room Air 10/14/24 11:52 36.6 C 79 16 135/60 96 Room Air Code Status & VTE Plan VTE Prophylaxis Plan VTE Prophylaxis will be ordered: No Reason for no VTE drug order: Contraindicated PG Care Time/CCT Total # of Minutes Spent Total Time Spent with Patient: Total time spent is greater than 50% in coordination of care (as documented) at patient's floor/unit and/or counseling patient: Coding Level of Care Code 16505 INT INP/OBS CARE 375MIN Diagnoses Fracture of nasal bones, closed S02.2XXA Encounter type: initial encounter Hematoma of right lower leg S80.11XA Atrial fibrillation I48.91 Hypothyroidism E03.9 Primary hypertension I10 Hypertension type: primary hypertension (1) Fracture of nasal bones, closed Encounter type: initial encounter Qualified Code(s): S02.2XXA - Fracture of nasal bones, initial encounter for closed fracture (5) Hypertension Hypertension type: primary hypertension Qualified Code(s): I10 - Essential (p rimary) hypertension
[2024-10-14 20:31] LABS: Hematocrit (blood only) 26.1 % (37.0-47.0); Hemoglobin 8.2 g/dl (12.0-16.0)
[2024-10-15] MEDS: ATORVASTATIN 20 MG TAB PO SCH (01:37)
[2024-10-15] MEDS: LORazepam 0.5 MG TAB PO PRN (01:37)
[2024-10-15 02:24] LABS: Hematocrit (blood only) 25.6 % (37.0-47.0); Hemoglobin 8.1 g/dl (12.0-16.0); Mean Corpuscular Hemoglobin 31.2 pg (25.0-34.0); Mean Corpuscular Hgb Conc 31.6 g/dL (32.0-36.0); Mean Corpuscular Volume 98.5 fL (80.0-100.0); Mean Platelet Volume 10.8 fL (9.4-12.4); Platelet Count 205 K/uL (130-400); RDW Coefficient of Variation 15.2 % (11.5-14.5); RDW Standard Deviation 55.1 fL (36.4-46.3); White Blood Count 9.35 K/ul (4.8-10.8)
[2024-10-15 02:33] LABS: BUN Creatinine Ratio 16.9 (10-20); Calcium 8.7 mg/dl (8.6-10.3); Creatinine Clr Calc Pharmacy 55.5 ml/min; Magnesium 1.9 mg/dl (1.7-2.4); Phosphorus 3.3 mg/dl (2.5-4.9); Potassium 3.9 mmol/L (3.5-5.1)
[2024-10-15] MEDS: LEVOTHYROXINE SODIUM 150 MCG TABLET PO SCH (06:28)
[2024-10-15 08:09] LABS: Hematocrit (blood only) 23.1 % (37.0-47.0); Hemoglobin 7.3 g/dl (12.0-16.0)
[2024-10-15] MEDS ORDERED: ATORVASTATIN 20 MG TAB PO SCH (09:00)
[2024-10-15] MEDS: METOPROLOL SUCC 50MG EXT REL TAB PO SCH (09:10)
[2024-10-15] MEDS: LOSARTAN POTASSIUM 50 MG TAB PO SCH (09:12)
[2024-10-15] MEDS: AMIODARONE 200 MG TAB PO SCH (09:12)
[2024-10-15] MEDS: CHOLECALCIFEROL 125 MCG (5,000 UNITS) TAB PO SCH (09:12)
[2024-10-15] MEDS: PANTOprazole 40 MG TAB PO SCH (09:13)
[2024-10-15] MEDS ORDERED: SODIUM CHLORIDE 0.9% 100 ML IV PRN (10:41)
[2024-10-15] MEDS ORDERED: SODIUM CHLORIDE 0.9% 50 ML IV PRN (10:41)
--- NOTE | 2024-10-15 11:38 | Hospitalist Progress Note ---
Date of Service October 15, 2024 Assessment & Plan (1) Fracture of nasal bones, closed: (2) Hematoma of right lower leg: (3) Atrial fibrillation: (4) Hypothyroidism: (5) Hypertension: Plan #Fall #RLE ecchymosis #Periocular ecchymosis - will make her inpt with tele - hold eliquis - fall precautions - PT / OT eval - neurovascular checks remains stable - CT head / Cervical neck: without acute abnormalities #Anemia - admission Hgb 8.3--> 7.3, baseline Hgb around 11 - trend Hgb q6h x24 hrs - given drop in Hgb, will give 1 unit PRBC, if continuing to drop after transfusion, will give KCentra. Pt is currently hemodynamically stable - holding eliquis for now #Nondisplaced right nasal bone fracture #Nondisplaced right nasal septal fracture - noted on CT face - no intervention while inpt, likely heal on its own - pt can follow up with ENT as outpatient if she wishes #AFib - hold eliquis - cont amio, metoprolol #Hypothyroidism - cont synthroid #HLD - cont Lipitor #HTN - cont metoprolol and losartan Dispo: discharge pending stable Hgb, PT / OT eval Admission and Anticipated Discharge Date Admission Date: October 14, 2024 Subjective No acute events overnight Currently states the leg is looking better and offered no other complaints Review of Systems Review of Systems: Comprehensive ROS neg Physical Exam Physical Exam: Gen: NAD, in bed comfortable, conversing appropriately HEENT: robert ocular ecchymosis, MMM Lungs: CTAB CVS: s1s2nl, RRR Abd: nl bowel sounds, soft, NT Ext: significant ecchymosis of the right knee / soto (pt states it is improving- though appears to extend more today), pulses intact, cap refills < 2 secs Results & Data Results & Data Vital Signs (Past 12 Hours) Vital Signs Temp Pulse Resp BP BP Pulse Ox 10/15/24 11:25 36.8 C 72 21 162/81 H 94 10/15/24 11:12 70 23 96 10/15/24 11:09 71 23 166/89 H 97 10/15/24 11:07 166/89 H 10/15/24 11:06 70 28 H 93 10/15/24 11:05 36.7 C 70 22 176/90 H 97 10/15/24 11:00 70 24 94 10/15/24 10:00 71 22 95 10/15/24 09:57 70 24 93 10/15/24 09:33 71 23 92 10/15/24 09:15 71 28 H 95 10/15/24 08:51 70 27 H 93 10/15/24 08:36 71 22 176/90 H 95 10/15/24 08:12 71 24 90 10/15/24 08:00 71 25 H 97 10/15/24 07:57 70 25 H 92 10/15/24 07:36 71 21 93 10/15/24 07:21 70 19 92 10/15/24 07:18 70 10/15/24 07:06 71 22 90 10/15/24 07:02 169/77 H 10/15/24 07:01 169/77 H 10/15/24 07:01 169/77 H 10/15/24 06:57 70 19 95 10/15/24 06:54 72 19 93 10/15/24 06:42 70 22 10/15/24 06:39 71 23 96 10/15/24 06:24 70 25 H 92 10/15/24 06:15 73 18 95 10/15/24 06:04 69 20 184/93 H 95 10/15/24 05:42 70 22 93 10/15/24 05:39 70 26 H 91 10/15/24 05:21 71 24 96 10/15/24 05:18 71 22 88 L 10/15/24 05:00 70 25 H 90 10/15/24 04:45 78 21 92 10/15/24 04:33 70 25 H 95 10/15/24 04:05 184/93 H 10/15/24 04:05 184/93 H 10/15/24 04:03 71 16 10/15/24 03:48 71 22 92 10/15/24 03:30 70 18 94 10/15/24 03:21 71 23 96 10/15/24 02:42 70 27 H 96 10/15/24 02:30 70 22 96 10/15/24 02:21 75 28 H 90 10/15/24 02:15 70 25 H 96 10/15/24 02:06 69 30 H 94 10/15/24 01:54 73 24 94 10/15/24 01:21 70 24 90 10/15/24 01:12 73 27 H 91 10/15/24 01:00 11210/15/24 01:00 PG Care Time/CCT Total # of Minutes Spent Total Time Spent with Patient: Total time spent is greater than 50% in coordination of care (as documented) at patient's floor/unit and/or counseling patient: Coding Level of Care Code 61214 SUB INP/OBS CARE 3/50MIN Diagnoses Fracture of nasal bones, closed S02.2XXA Encounter type: initial encounter Hematoma of right lower leg S80.11XA Atrial fibrillation I48.91 Hypothyroidism E03.9 Primary hypertension I10 Hypertension type: primary hypertension (1) Fracture of nasal bones, closed Encounter type: initial encounter Qualified Code(s): S02.2XXA - Fracture of nasal bones, initial encounter for closed fracture (5) Hypertension Hypertension type: primary hypertension Qualified Code(s): I10 - Essential (primary) hypertension
[2024-10-15 13:22] LABS: Appearance Urine Cloudy (Clear); Bacteria Urine Automated 4+ (None Seen); Bilirubin Urine Negative (Negative); Blood Urine Negative (Negative); Cast Urine Automated 0-2 /lpf (0-2); Color Urine Yellow; Epithelial Cell Urine Auto 0-2 /hpf (0-2); Glucose Urine UA Negative (Negative); Ketones Urine 1+ (Negative); Leukocyte Esterase Urine 2+ (Negative); Nitrite Urine Negative (Negative); Protein Urine 1+ (Negative); RBC Urine Automated 0-2 /hpf (0-2); Specific Gravity Urine 1.017 (1.000-1.030); Urobilinogen Urine Negative (Negative); WBC Urine Automated >50 /hpf (0-5)
[2024-10-15] MEDS: ACETAMINOPHEN 325 MG TAB PO PRN (14:50)
[2024-10-15 15:32] LABS: Hematocrit (blood only) 29.6 % (37.0-47.0); Hemoglobin 9.6 g/dl (12.0-16.0)
[2024-10-15] MEDS: MoRPHine SULFATE 2 MG/ML CARP IV PRN (15:50)
[2024-10-15] MEDS ORDERED: PROTHROMBIN COMP CONC- KCENTRA 2,000 UNITS in SYRINGE 0 ML IV STA (15:59)
[2024-10-15] MEDS ORDERED: STAT IV/IM STA (15:59)
[2024-10-15] MEDS: OPTIRAY 320 125ml IV ONE (16:18)
--- NOTE | 2024-10-15 16:47 | Communication Note ---
Notified by RN that pt is complaining of 10/10 right leg pain. She is also complaining of increasing tightness over the knee. This is a big change from prior previous evaluation. At bedside eval, her pulses are strong on doppler, however, her cap refills are slightly delayed and her foot looks slightly congested. STAT CTA Rt LE completed. Spoke with Dr. Lakhani about Eliquis reversal. Given pt's last dose was yesterday with lower dosing for renal function, advised against Kcentra or other blood products at this time. She did request call back if pt clinically decompensates. Spoke with Orthopedic Dr. Miller regarding possible development of compartment syndrome. Recs keeping leg elevated. Consult placed. Cont NV checks of the RLE. Date of Service: October 15, 2024
--- NOTE | 2024-10-15 16:50 | CT Scan Report ---
CT angiogram, right lower extremity with contrast History: Pain/weakness Comparison: None Technique: CT performed of the extremity with IV contrast. Dose reduction techniques were achieved by using automatic exposure control and/or adjustment of mA and/or kV according to patient size and/or use of iterative reconstruction technique. Findings: No fracture or dislocation. Joint spaces are normally aligned. There is been a total knee arthroplasty. Resurfacing of the patella. There is an apparent fracture line extending through the anteromedial corner of the patella, as seen on series 3 image 329, measuring 1.2 cm in length. A subcutaneous soft tissue hematoma is seen anterior to the knee and lower extremity, measuring approximately 14.3 cm craniocaudal, up to 4.9 cm AP, and up to 9.1 cm transverse. The superior superficial to the muscular compartments and the knee joint. Note that a total knee arthroplasty is in place, associated with streak artifact, limiting visualization internally of portions of the hematoma. There is otherwise no visualized contrast extravasation within the hematoma. Mild edema tracks within the deep subcutaneous soft tissues about the lower leg, and superficial to the muscular fascial compartment. The internal fascial planes of the flexor and extensor compartment of the lower extremity otherwise appear intact without effacement, and there is no mass or fluid collection within the muscular compartments. No aggressive osseous lesion. Impression: Prominent subcutaneous hematoma anterior to the region of the knee and lower extremity, and superficial to the joint space and muscular fascial compartments. Streak artifact from an arthroplasty somewhat limits visualization internally of the hematoma, however without definite active extravasation. There is a likely small fracture about the anteromedial portion of the patella. Mild edema is seen superficial to the muscular fascial compartment throughout the lower leg, with otherwise intact fascial compartments seen and no abscess or fluid collection. Electronically signed by Darin Walls 10-15-2024 4:50 PM
[2024-10-15 17:20] LABS: Fibrinogen 387 mg/dl (184-400); Partial Thromboplastin Ratio 0.9; Partial Thromboplastin Time 25 Seconds (21-31); Prothrombin Time 10.6 Seconds (9.0-12.0)
[2024-10-15 17:25] LABS: ANTI-Xa, LMWH(Low Molecular Wt 0.49 IU/ML (< 0.10)
[2024-10-15] MEDS: TRANEXAMIC ACID / 0.7% NACL 1,000 MG/100 ML BAG IV STA (17:33)
--- NOTE | 2024-10-15 18:33 | Orthopedic Consultation ---
Date of Consultation October 15, 2024 Assessment & Plan (1) Hematoma of right lower leg: I reviewed the knee images and CT scan. She has a total knee in place without evidence of complication. There may be a marginal nondisplaced fracture of the upper medial corner of the patella. This would likely be contained within the extensor mechanism and not represent a potential open fracture or unstable injury. Small. There is no large structural fracture. She does have a large hematoma anterolateral. This is extracapsular. There is minimal if any fluid within the knee. The report is noted. With her permission I aspirated the right knee subcutaneous area. I did a preprocedural timeout and marked the site with my initials sterile technique was utilized with alcohol and Betadine and then an 18-gauge needle was introduced into the subcutaneous tissues superficial to the knee joint and I was able to evacuate only 10 cc of blood. Pressure was held until bleeding was controlled and then a wrap was applied. There is a large tense fluid collection in this area. I recommended to the patient that she consider surgery and that we do it now. I would regard this as a surgical urgency and things such as n.p.o. status would not apply. I think by doing surgery now we can relieve her pain shorten her recovery and prevent any further tissue damage. If we wait or do nothing I think there could be more tissue damage. This could result in an open wound which could be problematic in the setting of an underlying total knee arthroplasty. If the skin survived then hematoma of the size could take weeks to resolve. There could be latent problems with the wound as well. It is possible that the point for developing soft tissue necrosis has passed and that no matter what we do there will be skin compromise. Spoke with Dr. Sheikh. The patient talked with Dr. Sheikh and her daughter. She agrees to proceed. She was educated about risks of benefits rehab recovery. Informed consent obtained. NPO. Plan for proceeding to the operating room when the staff is available. Will open the old incision evacuate the hematoma. Control bleeding irrigate out the area and closed over drains. We did discuss the possibility of a wound VAC and the potential need for additional surgeries depending on what happens with her soft tissue envelope. Dr. Lama madden was contacted about the patient's Eliquis. She is on a low dosage and it is felt that this has already cleared and that Kcentra would not be necessary. I did give her a stat dose of TXA. Her last dose of Eliquis was yesterday morning. She has missed 3 doses. History of Present Illness Attending Physician: Ailyn Sheikh MD History of Present Illness Yecenia is a 79-year-old female. Early morning she fell in her bathroom. She hit her right knee and hit her face. After the injury she was able to walk using a cane. She did not note any knee instability. She did have knee pain and progressive swelling. Because of the swelling and bruising she came to the emergency room tonight Thursday, and was admitted to the hospital. Dr. Sheikh called me to see the patient about concerns regarding a recent increase in pain and a concern for compartment syndrome. When she was admitted her pain was not that great however this afternoon she developed increased pain and swelling on her knee. The patient notes that prior to admission she did have some blistering of her skin which now has gotten worse. Dr. Luna did her knee replacement several years ago. Allergies Allergy/AdvReac Type Severity Reaction Status Date / Time No Known Drug Allergies Allergy Verified 10/04/24 11:00 Home Medications Medication Instructions Recorded Confirmed Type cholecalciferol (vitamin D3) 125 125 mcg PO QAM 11/25/21 10/14/24 History mcg (5,000 unit) capsule multivitamin 1 tab PO DAILY 03/11/22 10/14/24 History amoxicillin 500 mg tablet 2,000 mg (4 x 500 mg) PO .COMPLEX 03/11/23 10/14/24 Rx #4 tabs metoprolol succinate 200 mg 200 mg PO DAILY #90 tabs 11/27/23 10/14/24 Rx tablet,extended release 24 hr famotidine 20 mg tablet 20 mg PO HS PRN breakthrough acid 01/22/24 10/14/24 Rx reflux #90 tabs pantoprazole 40 mg tablet,delayed 40 mg PO DAILY #90 tabs 01/22/24 10/14/24 Rx release ipratropium bromide 21 mcg (0.03 2 spray intranasal TID PRN 03/24/24 10/14/24 Rx %) nasal spray Congestion #30 mL atorvastatin 20 mg tablet 20 mg PO DAILY #90 tabs 05/15/24 10/14/24 Rx amiodarone 100 mg tablet 100 mg PO DAILY #90 tabs 06/28/24 10/14/24 Rx lorazepam 0.5 mg tablet 0.5 mg PO Q8H PRN anxiety #30 tabs 08/16/24 10/14/24 Rx apixaban 2.5 mg tablet 2.5 mg PO BID #60 tabs 09/13/24 10/14/24 Rx estradiol 0.01% (0.1 mg/gram) 0.5 g vaginal .COMPLEX #42.5 grams 10/04/24 10/14/24 Rx vaginal cream levothyroxine 150 mcg tablet 150 mcg PO DAILYBB 10/14/24 10/14/24 History losartan 50 mg tablet 50 mg PO DAILY 10/14/24 10/14/24 History Patient History Medical History Hx of ovarian cyst (reason for FELISHA w/BSO) Hx of gastric ulcer >30 yrs ago Osteoarthritis Surgical History Status post right knee replacement (12/2021) Status post placement of cardiac 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 No postop issues per anesthesia progress note. History of Ishmael fundoplication 2003, hiatal hernia H/O breast augmentation Hx of cataract surgery right and left S/P total abdominal hysterectomy w/ removal of both ovaries H/O colonoscopy Family History Father Acute myocardial infarction Mother Acute myocardial infarction Hypertension Brother Acute myocardial infarction Sister Hypertension Pure hypercholesterolemia Unknown Diabetes Other Stroke Denies family history of Breast cancer Colorectal cancer Colonic polyp Social History Smoking Status: Never smoker Second Hand Exposure: No; Do You Dip or Chew Tobacco: No; Hx Alcohol Use: Yes Alcohol type: wine and hard liquor Hx Substance Use: No Preferred Language: Maltese Communication Ability: Effective Visual Impairment: No Limitations Hearing Ability: Normal Special Education Para Professional Required: No Beliefs That Will Affect Care: None marital status: Current Living Situation: Alone current occupational status: retired How many Children do You have: 1 Feels Safe at Home: Yes Childhood Exposure to Second-Hand Smoke: Yes caffeine: Yes Dental Care, Regularly: Yes Physical Activity Frequency: Daily Physical Activity Frequency Comment: walking 20 min Seatbelt Use: always Sunscreen Use: Yes Assistive Devices: None Physical Exam Physical Exam: DP and PT pulses are dopplerable. Sensation is intact in both lower extremities and equal. She does report chronic numbness pre-existing before her injury and thinks she may have neuropathy. She does not have any significant pain with passive range of motion of the right ankle or toes. She has 5 out of 5 ankle and toe plantarflexion dorsiflexion inversion and eversion strength. There is extensive bruising and swelling mainly about the knee but also in the upper third of the leg and lower third of the medial thigh. Her thigh compartments are soft. The calf compartments are soft and not tender. She cannot do a leg lift and can only bend her knee about 5 or 10 degrees. She does not have any pain to palpation of the foot leg thigh or hip. There is significant pain to palpation over the knee area mainly in the suprapatellar region. She has a large hematoma. I do not feel her patella. There is tenderness diffusely about the medial lateral and anterior aspects of her knee but not posteriorly. There are several fracture blisters in various stages of appearing. One has already ruptured. Another is forming and is large. There are several smaller ones. The incision is more medial longitudinal. Other than that cannot really examine her knee in terms of movement or stability. She is awake alert and oriented. Results & Data Vital Signs (Past 12 Hours) Vital Signs Temp Pulse Pulse Resp BP BP Pulse Ox 10/15/24 16:23 78 10/15/24 15:17 36.6 C 70 20 164/86 H 97 10/15/24 14:34 36.6 C 14 163/86 H 93 10/15/24 13:59 36.7 C 72 22 180/82 H 97 10/15/24 13:26 181/84 H 10/15/24 13:24 71 24 94 10/15/24 13:10 36.7 C 71 22 181/84 H 95 10/15/24 12:57 70 20 96 10/15/24 12:54 70 24 90 10/15/24 12:45 70 22 92 10/15/24 12:27 70 24 96 10/15/24 12:15 71 23 95 10/15/24 12:15 150/95 H 10/15/24 12:15 150/95 H 10/15/24 12:15 150/95 H 10/15/24 12:10 36.5 C 71 23 180/80 H 98 10/15/24 12:00 180/80 H 10/15/24 12:00 180/80 H 10/15/24 12:00 180/80 H 10/15/24 12:00 180/80 H 10/15/24 12:00 70 26 H 90 10/15/24 11:45 151/78 H 10/15/24 11:42 70 20 97 10/15/24 11:40 36.8 C 69 24 151/78 H 94 10/15/24 11:30 71 25 H 93 10/15/24 11:30 152/92 H 10/15/24 11:27 72 23 93 10/15/24 11:27 162/81 H 10/15/24 11:27 162/81 H 10/15/24 11:27 162/81 H 10/15/24 11:25 36.8 C 72 21 162/81 H 94 10/15/24 11:24 71 25 H 96 10/15/24 11:12 70 23 96 10/15/24 11:09 71 23 166/89 H 97 10/15/24 11:07 166/89 H 10/15/24 11:06 70 28 H 93 10/15/24 11:05 36.7 C 70 22 176/90 H 97 10/15/24 11:00 70 24 94 10/15/24 10:00 71 22 95 10/15/24 09:57 70 24 93 10/15/24 09:33 71 23 92 10/15/24 09:15 71 28 H 95 10/15/24 08:51 70 27 H 93 10/15/24 08:36 71 22 176/90 H 95 10/15/24 08:12 71 24 90 10/15/24 08:00 71 25 H 97 10/15/24 07:57 70 25 H 92 10/15/24 07:36 71 21 93 10/15/24 07:21 70 19 92 10/15/24 07:18 70 10/15/24 07:06 71 22 90 10/15/24 07:02 169/77 H 10/15/24 07:01 169/77 H 10/15/24 07:01 169/77 H 10/15/24 06:57 70 19 95 10/15/24 06:54 72 19 93 10/15/24 06:42 70 22 10/15/24 06:39 71 23 96 O2 Del Method 10/15/24 16:23 10/15/24 15:17 Room Air 10/15/24 14:34 Room Air 10/15/24 13:59 10/15/24 13:26 10/15/24 13:24 10/15/24 13:10 10/15/24 12:57 10/15/24 12:54 10/15/24 12:45 10/15/24 12:27 10/15/24 12:15 10/15/24 12:15 10/15/24 12:15 10/15/24 12:15 10/15/24 12:10 10/15/24 12:00 10/15/24 12:00 10/15/24 12:00 10/15/24 12:00 10/15/24 12:00 10/15/24 11:45 10/15/24 11:42 10/15/24 11:40 10/15/24 11:30 10/15/24 11:30 10/15/24 11:27 10/15/24 11:27 10/15/24 11:27 10/15/24 11:27 10/15/24 11:25 10/15/24 11:24 10/15/24 11:12 10/15/24 11:09 10/15/24 11:07 10/15/24 11:06 10/15/24 11:05 10/15/24 11:00 10/15/24 10:00 10/15/24 09:57 10/15/24 09:33 10/15/24 09:15 10/15/24 08:51 10/15/24 08:36 10/15/24 08:12 10/15/24 08:00 10/15/24 07:57 10/15/24 07:36 10/15/24 07:21 10/15/24 07:18 10/15/24 07:06 10/15/24 07:02 10/15/24 07:01 10/15/24 07:01 10/15/24 06:57 10/15/24 06:54 10/15/24 06:42 10/15/24 06:39 Laboratory Results Laboratory Results WBC 9.35 K/ul (4.8-10.8) 10/15/24 02:05 RBC 2.60 M/uL (4.20-5.40) L 10/15/24 02:05 Hgb 9.6 g/dl (12.0-16.0) L 10/15/24 15:15 Hct 29.6 % (37.0-47.0) L 10/15/24 15:15 MCV 98.5 fL (80.0-100.0) 10/15/24 02:05 MCH 31.2 pg (25.0-34.0) 10/15/24 02:05 MCHC 31.6 g/dL (32.0-36.0) L 10/15/24 02:05 RDW Std Deviation 55.1 fL (36.4-46.3) H 10/15/24 02:05 RDW Coeff of Ezequiel 15.2 % (11.5-14.5) H 10/15/24 02:05 Plt Count 205 K/uL (130-400) 10/15/24 02:05 MPV 10.8 fL (9.4-12.4) 10/15/24 02:05 Immature Gran % (Auto) 1.3 % 10/14/24 13:34 Neut % (Auto) 78.0 % 10/14/24 13:34 Lymph % (Auto) 10.2 % 10/14/24 13:34 [place] % (Auto) 9.1 % 10/14/24 13:34 Eos % (Auto) 0.9 % 10/14/24 13:34 Baso % (Auto) 0.5 % 10/14/24 13:34 Neut # (Auto) 7.27 K/uL (1.40-6.50) H 10/14/24 13:34 Lymph # (Auto) 0.95 K/uL (1.20-3.40) L 10/14/24 13:34 [place] # (Auto) 0.85 K/uL (0.11-0.59) H 10/14/24 13:34 Eos # (Auto) 0.08 K/uL (0.00-0.50) 10/14/24 13:34 Baso # (Auto) 0.05 K/uL (0.00-0.20) 10/14/24 13:34 Immature Gran # (Auto) 0.12 K/uL (0.01-0.20) 10/14/24 13:34 PT 10.6 Seconds (9.0-12.0) 10/15/24 16:40 INR 1.0 (0.9-1.1) 10/15/24 16:40 APTT 25 Seconds (21-31) 10/15/24 16:40 PTT Ratio 0.9 10/15/24 16:40 Fibrinogen 387 mg/dl (184-400) 10/15/24 16:40 Heparin Anti-Xa, LM Wt 0.49 IU/ML (< 0.10) 10/15/24 16:40 Sodium 140 mmol/L (136-145) 10/15/24 02:05 Potassium 3.9 mmol/L (3.5-5.1) 10/15/24 02:05 Chloride 106 mmol/L (98-107) 10/15/24 02:05 Carbon Dioxide 25 mmol/L (21-32) 10/15/24 02:05 Anion Gap 9 (3-11) 10/15/24 02:05 BUN 13 mg/dl (6-23) 10/15/24 02:05 Creatinine 0.77 mg/dl (0.6-1.2) 10/15/24 02:05 Est Cr Clr Drug Dosing 55.5 ml/min 10/15/24 02:05 eGFR 78.42 10/15/24 02:05 BUN/Creatinine Ratio 16.9 (10-20) 10/15/24 02:05 Glucose 99 mg/dl (70-99(Fasting)) 10/15/24 02:05 Calcium 8.7 mg/dl (8.6-10.3) 10/15/24 02:05 Phosphorus 3.3 mg/dl (2.5-4.9) 10/15/24 02:05 Magnesium 1.9 mg/dl (1.7-2.4) 10/15/24 02:05 Total Bilirubin 0.7 mg/dl (0.2-1.0) 10/14/24 13:34 AST 18 U/L (13-39) 10/14/24 13:34 ALT 12 U/L (7-52) 10/14/24 13:34 Alkaline Phosphatase 64 U/L (34-104) 10/14/24 13:34 Troponin I High Sens 11.3 pg/ml (0-14) 10/14/24 13:34 Total Protein 6.0 gm/dl (6.0-8.3) 10/14/24 13:34 Albumin 3.8 gm/dl (3.4-5.0) 10/14/24 13:34 Globulin 2.2 gm/dl (2.5-4.0) L 10/14/24 13:34 Albumin/Globulin Ratio 1.7 (0.9-2) 10/14/24 13:34 Urine Color Yellow 10/15/24 Unknown Urine Appearance Cloudy (Clear) A 10/15/24 Unknown Urine pH 6.0 (4.5-7.5) 10/15/24 Unknown Ur Specific [place] 1.017 (1.000-1.030) 10/15/24 Unknown Urine Protein 1+ (Negative) H 10/15/24 Unknown Urine Glucose (UA) Negative (Negative) 10/15/24 Unknown Urine Ketones 1+ (Negative) H 10/15/24 Unknown Urine Blood Negative (Negative) 10/15/24 Unknown Urine Nitrite Negative (Negative) 10/15/24 Unknown Urine Bilirubin Negative (Negative) 10/15/24 Unknown Urine Urobilinogen Negative (Negative) 10/15/24 Unknown Ur Leukocyte Esterase 2+ (Negative) H 10/15/24 Unknown Urine WBC (Auto) >50 /hpf (0-5) H 10/15/24 Unknown Urine RBC (Auto) 0-2 /hpf (0-2) 10/15/24 Unknown U Hyaline Cast (Auto) 0-2 /lpf (0-2) 10/15/24 Unknown U Epithel Cells (Auto) 0-2 /hpf (0-2) 10/15/24 Unknown Urine Bacteria (Auto) 4+ (None Seen) H 10/15/24 Unknown Blood Type O Positive 10/14/24 20:00 Antibody Screen NEGATIVE 10/14/24 20:00 Crossmatch See Detail 10/14/24 20:[address] 10/14/24 12:[address] WITHOUT CONTRAST CLINICAL HISTORY: head injury, facial injuries COMPARISON STUDY: CT of the neck May 15, 2023. TECHNIQUE: A maxillofacial CT was performed without IV contrast. Coronal and sagittal reformats were viewed. Automated exposure control was utilized for the study. A dose lowering technique was utilized adhering to the principles of ALARA. FINDINGS: Alignment of the temporomandibular joints is anatomic. No skull base fractures are identified. Globes are intact. There is no retrobulbar hematoma. There is a nasal contusion. There is a probable acute nondisplaced right nasal bone fracture. There is a possible acute nondisplaced fracture of the nasal septum on image 168 of [id number]. No displaced facial fractures are identified. Orbital floors are intact. IMPRESSION: Nasal contusion. Probable acute nondisplaced right nasal bone fracture. Possible acute nondisplaced nasal septal fracture. ACT 112: Negative or not required by law. Electronically signed by: Myron Fan M.D. 10/14/2024 1:45 PM Knee X-Ray 10/14/24 12:15 XR knee RT 3V CLINICAL HISTORY: right knee pain, hematoma COMPARISON: Right knee radiograph December 31, 2021 and February 18, 2023. FINDINGS: Alignment of the total right knee arthroplasty is anatomic. There is no periprosthetic fracture or lucency. There is a possible small joint effusion. Extensive right knee soft tissue swelling is noted. This is greatest anteriorly. IMPRESSION: 1. Intact right knee arthroplasty. No periprosthetic fracture or lucency. 2. Extensive soft tissue swelling, greatest anteriorly. This favors a contusion/hematoma. ACT 112: Negative or not required by law. Electronically signed by: Myron Fan M.D. 10/14/2024 12:[address] 10/14/24 12:16 CT OF THE CERVICAL SPINE WITHOUT CONTRAST CLINICAL HISTORY: CT of the neck May 15, 2023. COMPARISON STUDY: No previous studies for comparison. TECHNIQUE: Helical axial images of the cervical spine were obtained without IV contrast. Sagittal and coronal reconstructions were viewed. Automated exposure control was utilized for the study. A dose lowering technique was utilized adhering to the principles of ALARA. FINDINGS: Alignment of the cervical spine is anatomic. Vertebral body heights are maintained. No acute cervical spine fracture or subluxation is present. There is no prevertebral edema. Facet joints are intact. Moderate multilevel disc space narrowing and facet arthrosis is present. The central canal and neural foramen are suboptimally assessed given CT technique IMPRESSION: No acute cervical spine fracture or subluxation. ACT 112: Negative or not required by law. Electronically signed by: Myron Fan M.D. 10/14/2024 1:[address] 10/14/24 12:16 CT head/brain wo con CLINICAL HISTORY: head injury, facial injuries Technique: Contiguous axial CT images of the head were acquired from the base of the skull to the vertex without intravenous contrast administration. Images were viewed in brain, subdural and bone windows. Automated dose lowering techniques and/or adjustment according to patient size were utilized for this exam. Comparison: None available at the time of this dictation. Findings: The ventricles, basal cisterns, and cerebral sulci are normal. There is no acute intracranial hemorrhage or evidence of acute territorial infarction. Neither mass effect, shift of the midline structures, nor abnormal extra-axial fluid collections are shown. Imaged portions of the paranasal sinuses and mastoid air cells are clear. The orbits appear normal. There are no acute fractures of the calvaria or scalp swelling. Impression: No acute intracranial hemorrhage, no evidence of acute territorial infarction or other acute intracranial disease process. ACT 112: Negative or not required by law. Electronically signed by: Chacho Nieves M.D. 10/14/2024 1:37 PM Lower Extremity CTA 10/15/24 15:56 CT angiogram, right lower extremity with contrast History: Pain/weakness Comparison: None Technique: CT performed of the extremity with IV contrast. Dose reduction techniques were achieved by using automatic exposure control and/or adjustment of mA and/or kV according to patient size and/or use of iterative reconstruction technique. Findings: No fracture or dislocation. Joint spaces are normally aligned. There is been a total knee arthroplasty. Resurfacing of the patella. There is an apparent fracture line extending through the anteromedial corner of the patella, as seen on series 3 image 329, measuring 1.2 cm in length. A subcutaneous soft tissue hematoma is seen anterior to the knee and lower extremity, measuring approximately 14.3 cm craniocaudal, up to 4.9 cm AP, and up to 9.1 cm transverse. The superior superficial to the muscular compartments and the knee joint. Note that a total knee arthroplasty is in place, associated with streak artifact, limiting visualization internally of portions of the hematoma. There is otherwise no visualized contrast extravasation within the hematoma. Mild edema tracks within the deep subcutaneous soft tissues about the lower leg, and superficial to the muscular fascial compartment. The internal fascial planes of the flexor and extensor compartment of the lower extremity otherwise appear intact without effacement, and there is no mass or fluid collection within the muscular compartments. No aggressive osseous lesion. Impression: Prominent subcutaneous hematoma anterior to the region of the knee and lower extremity, and superficial to the joint space and muscular fascial compartments. Streak artifact from an arthroplasty somewhat limits visualization internally of the hematoma, however without definite active extravasation. There is a likely small fracture about the anteromedial portion of the patella. Mild edema is seen superficial to the muscular fascial compartment throughout the lower leg, with otherwise intact fascial compartments seen and no abscess or fluid collection. Electronically signed by Darin Walls 10-15-2024 4:50 PM
[2024-10-15] MEDS ORDERED: ONDANSETRON INJ 2 MG/ML 2 ML VIAL ONE (18:53)
[2024-10-15] MEDS ORDERED: DEXAMETHASONE SOD INJ 4 MG/ML VIAL ONE (18:53)
[2024-10-15] MEDS ORDERED: LIDOCAINE 2% 2 ML VIAL/AMP(20MG/ML) INFIL ONE (18:53)
[2024-10-15] MEDS ORDERED: PROPOFOL IV EMULSION 10 MG/ML 20 ML VIAL IV ONE (18:53)
[2024-10-15] MEDS ORDERED: SUCCINYLCHOLINE 100MG/5ML SYR IV ONE (18:53)
[2024-10-15] MEDS ORDERED: PHENYLEPHRINE 100MCG/ML 5ML SYR ONE (18:53)
[2024-10-15] MEDS ORDERED: fentaNYL citrate PF 100 MCG/2 ML VIAL ONE ×2 (18:54→19:58)
[2024-10-15] MEDS ORDERED: PROMETHAZINE HCL 6.25 MG in SODIUM CHLORIDE 0.9% 50 ML IV PRN (19:08)
[2024-10-15] MEDS ORDERED: ePHEDrine sulfate 50 MG/ML AMP IV PRN (19:08)
[2024-10-15] MEDS ORDERED: ATROPINE SULFATE 0.1 MG/ML 10ML SYR IV PRN (19:08)
[2024-10-15] MEDS ORDERED: fentaNYL citrate PF 100 MCG/2 ML VIAL IV PRN (19:08)
[2024-10-15] MEDS ORDERED: HYDROmorphone INJ 1 MG/ML SYRINGE IV PRN (19:08)
--- NOTE | 2024-10-15 19:13 | Anesthesiology Consultation ---
Date of Service October 15, 2024 Assessment & Plan (1) Encounter for pre-operative examination: Chart Review Chart Review: Acceptable Risk for Surgery and Patient NOT seen in Pre Admission Testing Consults Requested none History Surgery Operation Date: 10/15/24 20:00 Proposed Procedures p Incision and Drainage Knee - Femi Miller MD Height/Weight Height: 5 ft Weight: 79.7 kg Allergies Allergy/AdvReac Type Severity Reaction Status Date / Time No Known Drug Allergies Allergy Verified 10/04/24 11:00 Medications Home Medications Medication Instructions Recorded Confirmed Last Taken cholecalciferol (vitamin D3) 125 125 mcg PO QAM 11/25/21 10/14/24 03/10/22 mcg (5,000 unit) capsule multivitamin 1 tab PO DAILY 03/11/22 10/14/24 03/10/22 amoxicillin 500 mg tablet 2,000 mg (4 x 500 mg) PO .COMPLEX 03/11/23 10/14/24 Unknown #4 tabs metoprolol succinate 200 mg 200 mg PO DAILY #90 tabs 11/27/23 10/14/24 Unknown tablet,extended release 24 hr famotidine 20 mg tablet 20 mg PO HS PRN breakthrough acid 01/22/24 10/14/24 Unknown reflux #90 tabs pantoprazole 40 mg tablet,delayed 40 mg PO DAILY #90 tabs 01/22/24 10/14/24 Unknown release ipratropium bromide 21 mcg (0.03 2 spray intranasal TID PRN 03/24/24 10/14/24 Unknown %) nasal spray Congestion #30 mL atorvastatin 20 mg tablet 20 mg PO DAILY #90 tabs 05/15/24 10/14/24 Unknown amiodarone 100 mg tablet 100 mg PO DAILY #90 tabs 06/28/24 10/14/24 Unknown lorazepam 0.5 mg tablet 0.5 mg PO Q8H PRN anxiety #30 tabs 08/16/24 10/14/24 Unknown apixaban 2.5 mg tablet 2.5 mg PO BID #60 tabs 09/13/24 10/14/24 Unknown estradiol 0.01% (0.1 mg/gram) 0.5 g vaginal .COMPLEX #42.5 grams 10/04/24 10/14/24 Unknown vaginal cream levothyroxine 150 mcg tablet 150 mcg PO DAILYBB 10/14/24 10/14/24 Unknown losartan 50 mg tablet 50 mg PO DAILY 10/14/24 10/14/24 Unknown Active Medications Generic Name Dose Route Start Last Admin Trade Name Freq PRN Reason Stop Dose Admin Acetaminophen 650 mg 10/14/24 20:45 10/15/24 14:50 Acetaminophen 325 Mg Tab PO 11/13/24 20:44 650 mg Q4H PRN Administration Pain or Fever Amiodarone HCl 100 mg 10/15/24 09:00 10/15/24 09:12 Amiodarone 200 Mg Tab PO 11/14/24 08:59 100 mg DAILY MICHELINE Administration Atorvastatin Calcium 20 mg 10/15/24 00:45 10/15/24 01:37 Atorvastatin 20 Mg Tab PO 11/14/24 00:44 20 mg HS MICHELINE Administration Levothyroxine Sodium 150 mcg 10/15/24 06:30 10/15/24 06:28 Levothyroxine Sodium 150 Mcg Tablet PO 11/14/24 06:29 150 mcg DAILYBB MICHELINE Administration Lorazepam 0.5 mg 10/15/24 00:58 10/15/24 01:37 Lorazepam 0.5 Mg Tab PO 11/14/24 00:57 0.5 mg HS PRN Administration anxiety Losartan Potassium 50 mg 10/15/24 09:00 10/15/24 09:12 Losartan Potassium 50 Mg Tab PO 11/14/24 08:59 50 mg DAILY MICHELINE Administration Metoprolol Succinate 200 mg 10/15/24 09:00 10/15/24 09:10 Metoprolol Succ 50mg Ext Rel Tab PO 11/14/24 08:59 200 mg DAILY MICHELINE Administration Morphine Sulfate 2 mg 10/15/24 15:37 10/15/24 15:50 Morphine Sulfate 2 Mg/Ml Carp IV 10/29/24 15:36 2 mg Q4 PRN Administration Severe Pain (Scale 7, 8, 9,10) Pantoprazole Sodium 40 mg 10/15/24 09:00 10/15/24 09:13 Pantoprazole 40 Mg Tab PO 11/14/24 08:59 40 mg DAILY MICHELINE Administration Vitamin D 125 mcg 10/15/24 09:00 10/15/24 09:12 Cholecalciferol 125 Mcg (5,000 Units) Tab PO 11/14/24 08:59 125 mcg QAM MICHELINE Administration Past Medical History Medical History (Updated 10/15/24 @ 19:13 by Cheko Petty MD) Closed head injury Fracture of nasal bones, closed Hematoma of right lower leg Aortic stenosis Mitral regurgitation Atrial fibrillation pacemaker 2021 Cardiac pacemaker Anticoagulant long-term use Xarelto daily Hypertension Hypothyroidism GERD (gastroesophageal reflux disease) Hx of ovarian cyst (reason for FELISHA w/BSO) Hx of gastric ulcer >30 yrs ago Osteoarthritis Past Family History Family History Father Acute myocardial infarction Mother Acute myocardial infarction Hypertension Brother Acute myocardial infarction Sister Hypertension Pure hypercholesterolemia Unknown Diabetes Other Stroke Denies family history of Breast cancer Colorectal cancer Colonic polyp Past Surgical History Surgical History Status post right knee replacement (12/2021) Status post placement of cardiac pacemaker History of total right knee replacement (TKR) (~12/2021) @ [facility] History of esophagogastroduodenoscopy (EGD) 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 No postop issues per anesthesia progress note. History of Ishmael fundoplication 2003, hiatal hernia H/O breast augmentation Hx of cataract surgery right and left S/P total abdominal hysterectomy w/ removal of both ovaries H/O colonoscopy Social History Smoking Status: Never smoker Do You Dip or Chew Tobacco: No Hx Alcohol Use: Yes Alcohol type: wine and hard liquor alcohol intake frequency: holidays/special occasions only Hx Substance Use: No substance use type: does not use Physical Exam Vital Signs Last Vital Signs Temp 36.6 C 10/15/24 15:17 Pulse 78 10/15/24 16:23 Resp 20 10/15/24 15:17 BP 164/86 H 10/15/24 15:17 Pulse Ox 97 10/15/24 15:17 O2 Del Method Room Air 10/15/24 15:17 Testing Laboratory Results 10/15/24 15:15 10/15/24 02:05 PT 10.6 Seconds (9.0-12.0) 10/15/24 16:40 INR 1.0 (0.9-1.1) 10/15/24 16:40 APTT 25 Seconds (21-31) 10/15/24 16:40 Urine Color Yellow 10/15/24 Unknown Urine Appearance Cloudy (Clear) A 10/15/24 Unknown Urine pH 6.0 (4.5-7.5) 10/15/24 Unknown Ur Specific Girard 1.017 (1.000-1.030) 10/15/24 Unknown Urine Protein 1+ (Negative) H 10/15/24 Unknown Urine Glucose (UA) Negative (Negative) 10/15/24 Unknown Urine Ketones 1+ (Negative) H 10/15/24 Unknown Urine Nitrite Negative (Negative) 10/15/24 Unknown Ur Leukocyte Esterase 2+ (Negative) H 10/15/24 Unknown Urine WBC (Auto) >50 /hpf (0-5) H 10/15/24 Unknown Urine RBC (Auto) 0-2 /hpf (0-2) 10/15/24 Unknown U Hyaline Cast (Auto) 0-2 /lpf (0-2) 10/15/24 Unknown U Epithel Cells (Auto) 0-2 /hpf (0-2) 10/15/24 Unknown Urine Bacteria (Auto) 4+ (None Seen) H 10/15/24 Unknown Blood Type O Positive 10/14/24 20:00 Antibody Screen NEGATIVE 10/14/24 20:00 Patient received 1 unit pRBC today. Electrocardiogram Date: 10/14/24 DICTATED BY: Darshan Yarbrough MD Test Reason : Blood Pressure : */* mmHG Vent. Rate : 70 BPM Atrial Rate : 70 BPM P-R Int : 186 ms QRS Dur : 92 ms QT Int : 432 ms P-R-T Axes : 245 -15 1 degrees QTcB Int : 466 ms Atrial-paced rhythm Moderate voltage criteria for LVH, may be normal variant ( R in aVL ) Abnormal ECG When compared with ECG of 15-Mar-2022 09:41, T wave inversion no longer evident in Anterior leads Confirmed by Darshan Yarbrough ([id number]) on 10/14/2024 3:26:[address] OF THE CERVICAL SPINE WITHOUT CONTRAST CLINICAL HISTORY: CT of the neck May 15, 2023. COMPARISON STUDY: No previous studies for comparison. TECHNIQUE: Helical axial images of the cervical spine were obtained without IV contrast. Sagittal and coronal reconstructions were viewed. Automated exposure control was utilized for the study. A dose lowering technique was utilized adhering to the principles of ALARA. FINDINGS: Alignment of the cervical spine is anatomic. Vertebral body heights are maintained. No acute cervical spine fracture or subluxation is present. There is no prevertebral edema. Facet joints are intact. Moderate multilevel disc space narrowing and facet arthrosis is present. The central canal and neural foramen are suboptimally assessed given CT technique IMPRESSION: No acute cervical spine fracture or subluxation.
[2024-10-15] MEDS ORDERED: ceFAZolin 330 MG/ML 1 GM VIAL ONE (19:39)
[2024-10-15] MEDS: BUPIVACAINE 0.5 % 5 MG/1 ML MPF 30ML VIAL ONE (19:42)
[2024-10-15] MEDS: ceFAZolin 2000MG 2,000 MG/15 ML SYR IV ONE (19:42)
[2024-10-15] MEDS: LIDOCAINE 1% LOCAL 20 ML VIAL ONE (20:35)
--- NOTE | 2024-10-15 20:58 | Operative Report ---
Post Operative Report Pre & Post Diagnosis Operation Date: 10/15/24 20:00 Pre-Op Diagnosis: Right Knee Hematoma Post-Op Diagnosis: Right Knee Hematoma I identified the patient and participated in the time-out.: Yes Procedure Operation Date: 10/15/24 20:00 Actual Procedures p Incision and Evacuationof Right Knee Hematoma - Femi Miller MD Surgeon Femi Miller MD Physical Ther Orlando Hahn physicians publisher assistant no resident or fellow available Estimated Blood Loss 10 (Hematoma removed was 325ml) Findings Consistent with Post-Op Diagnosis Specimens None Drains Hemovac x 2 Anesthesia Type General Regional Complications none Disposition Accompanied Patient To Recovery: No Disposition: Recovery Room Indications Yecenia is 79. She fell 2 days ago and sustained an injury to her right knee. She has a total knee there. Today she experienced progressive swelling pain as well is blistering of the skin. There was concern of compartment syndrome. She did not have compartment syndrome. She may have a nondisplaced fracture of the superior medial border of her patella. Otherwise her total knee arthroplasty is in place. I attempted to aspirate a large subcutaneous hematoma unsuccessfully. I recommended surgical intervention to evacuate the hematoma due to the evolving skin necrosis. She agreed to proceed. There was blistering and areas of black discoloration along with significant bruising on the lateral skin flap of the knee. Description of Procedure Informed consent. Patient identified. She identified the procedure site as the right knee which I marked with my initials. A preoperative surgical timeout was performed and a preop dose of IV antibiotics was given. She previously had a do se of TXA. She was positioned supine on the OR table. Several large blisters over the anterior aspect of the knee were ruptured during the Betadine scrub and prep prep process. A tourniquet was applied to the right thigh. The leg was prepped and draped in the usual sterile fashion. DVT prophylaxis with foot pumps intraoperatively. Postop early mobility and mechanical devices. Eventually we will restart her blood thinner. Limb exsanguinated the Esmarch. Tourniquet inflated to 275 mmHg. There was a large tense hematoma over the anterior aspect of the upper knee. The patella could not be palpated. The previous incision was marked out and the upper half to two thirds of this was opened. Approximately 8 cm. Immediately upon entering the skin a large hematoma was encountered. This was evacuated and measured to be 300 to 325 cc. I then thoroughly debrided the hematoma Dhruv that was remaining out of the knee cavity. This tracked a little bit proximal and medial somewhat distal medial distal lateral and proximal lateral. Care was taken to protect the soft tissues. Irrigation was performed with approximately 2 L of pulsatile lavage. The vast majority of the hematoma was evacuated. The patella could be palpated. The extensor mechanism was intact and the knee joint capsule was not traumatically or surgically opened. The patella itself was not bruised and nothing there suggested fracture of the patella. The wound was packed off with moist lap sponges and compression was applied for several minutes. This was done x 2 and after reinspecting there was no significant arterial bleeding encountered. I then inserted 2 Hemovac drains 1 medial and lateral exiting proximally. The skin was then closed with horizontal mattress stitches and simple stitches of 3-0 nylon. The leg was cleaned with wet and dry sponges. A soft sterile dressing was applied Xeroform 4 x 4's ABD soft wrap and a full-length García wrap with knee immobilizer. Patient awakened from anesthesia difficulty and taken to the recovery room in stable condition. There were no specimens or complications counts were correct and blood loss is estimated to be 10 cc. At the conclusion of the operation I spoke with patient's family informed of my findings. Postop instructions were given. Will hold Eliquis for now. She may weight-bear as tolerated. Will hold knee range of motion for a day or 2 to lessen the chances of recurrent bleeding. Dose of postop TXA.Tourniquet time approximately 10 minutes. I attest to the content of the Intraoperative Record and any orders documented therein. Any exceptions are noted below.
[2024-10-15] MEDS: ONDANSETRON INJ 2 MG/ML 2 ML VIAL IV PRN (21:10)
--- NOTE | 2024-10-15 21:18 | Anesthesiology Progress Note ---
Date of Service October 15, 2024 Anesthesia Post Procedure Vital Signs Vital Signs: Temp Pulse Pulse Resp BP BP Pulse Ox 10/15/24 16:23 78 10/15/24 15:17 36.6 C 70 20 164/86 H 97 10/15/24 14:34 36.6 C 14 163/86 H 93 10/15/24 13:59 36.7 C 72 22 180/82 H 97 10/15/24 13:26 181/84 H 10/15/24 13:24 71 24 94 10/15/24 13:10 36.7 C 71 22 181/84 H 95 10/15/24 12:57 70 20 96 10/15/24 12:54 70 24 90 10/15/24 12:45 70 22 92 10/15/24 12:27 70 24 96 10/15/24 12:15 71 23 95 10/15/24 12:15 150/95 H 10/15/24 12:15 150/95 H 10/15/24 12:15 150/95 H 10/15/24 12:10 36.5 C 71 23 180/80 H 98 10/15/24 12:00 180/80 H 10/15/24 12:00 180/80 H 10/15/24 12:00 180/80 H 10/15/24 12:00 180/80 H 10/15/24 12:00 70 26 H 90 10/15/24 11:45 151/78 H 10/15/24 11:42 70 20 97 10/15/24 11:40 36.8 C 69 24 151/78 H 94 10/15/24 11:30 71 25 H 93 10/15/24 11:30 152/92 H 10/15/24 11:27 72 23 93 10/15/24 11:27 162/81 H 10/15/24 11:27 162/81 H 10/15/24 11:27 162/81 H 10/15/24 11:25 36.8 C 72 21 162/81 H 94 10/15/24 11:24 71 25 H 96 10/15/24 11:12 70 23 96 10/15/24 11:09 71 23 166/89 H 97 10/15/24 11:07 166/89 H 10/15/24 11:06 70 28 H 93 10/15/24 11:05 36.7 C 70 22 176/90 H 97 10/15/24 11:00 70 24 94 10/15/24 10:00 71 22 95 10/15/24 09:57 70 24 93 10/15/24 09:33 71 23 92 10/15/24 09:15 71 28 H 95 10/15/24 08:51 70 27 H 93 10/15/24 08:36 71 22 176/90 H 95 10/15/24 08:12 71 24 90 10/15/24 08:00 71 25 H 97 10/15/24 07:57 70 25 H 92 10/15/24 07:36 71 21 93 10/15/24 07:21 70 19 92 10/15/24 07:18 70 10/15/24 07:06 71 22 90 10/15/24 07:02 169/77 H 10/15/24 07:01 169/77 H 10/15/24 07:01 169/77 H 10/15/24 06:57 70 19 95 10/15/24 06:54 72 19 93 10/15/24 06:42 70 22 10/15/24 06:39 71 23 96 10/15/24 06:24 70 25 H 92 10/15/24 06:15 73 18 95 10/15/24 06:04 69 20 184/93 H 95 10/15/24 05:42 70 22 93 10/15/24 05:39 70 26 H 91 10/15/24 05:21 71 24 96 10/15/24 05:18 71 22 88 L 10/15/24 05:00 70 25 H 90 10/15/24 04:45 78 21 92 10/15/24 04:33 70 25 H 95 10/15/24 04:05 184/93 H 10/15/24 04:05 184/93 H 10/15/24 04:03 71 16 10/15/24 03:48 71 22 92 10/15/24 03:30 70 18 94 10/15/24 03:21 71 23 96 10/15/24 02:42 70 27 H 96 10/15/24 02:30 70 22 96 10/15/24 02:21 75 28 H 90 10/15/24 02:15 70 25 H 96 10/15/24 02:06 69 30 H 94 10/15/24 01:54 73 24 94 10/15/24 01:21 70 24 90 10/15/24 01:12 73 27 H 91 10/15/24 01:00 112/83 10/15/24 01:00 11283 O2 Del Method 10/15/24 16:23 10/15/24 15:17 Room Air 10/15/24 14:34 Room Air 10/15/24 13:59 10/15/24 13:26 10/15/24 13:24 10/15/24 13:10 10/15/24 12:57 10/15/24 12:54 10/15/24 12:45 10/15/24 12:27 10/15/24 12:15 10/15/24 12:15 10/15/24 12:15 10/15/24 12:15 10/15/24 12:10 10/15/24 12:00 10/15/24 12:00 10/15/24 12:00 10/15/24 12:00 10/15/24 12:00 10/15/24 11:45 10/15/24 11:42 10/15/24 11:40 10/15/24 11:30 10/15/24 11:30 10/15/24 11:27 10/15/24 11:27 10/15/24 11:27 10/15/24 11:27 10/15/24 11:25 10/15/24 11:24 10/15/24 11:12 10/15/24 11:09 10/15/24 11:07 10/15/24 11:06 10/15/24 11:05 10/15/24 11:00 10/15/24 10:00 10/15/24 09:57 10/15/24 09:33 10/15/24 09:15 10/15/24 08:51 10/15/24 08:36 10/15/24 08:12 10/15/24 08:00 10/15/24 07:57 10/15/24 07:36 10/15/24 07:21 10/15/24 07:18 10/15/24 07:06 10/15/24 07:02 10/15/24 07:01 10/15/24 07:01 10/15/24 06:57 10/15/24 06:54 10/15/24 06:42 10/15/24 06:39 10/15/24 06:24 10/15/24 06:15 10/15/24 06:04 10/15/24 05:42 10/15/24 05:39 10/15/24 05:21 10/15/24 05:18 10/15/24 05:00 10/15/24 04:45 10/15/24 04:33 10/15/24 04:05 10/15/24 04:05 10/15/24 04:03 10/15/24 03:48 10/15/24 03:30 10/15/24 03:21 10/15/24 02:42 10/15/24 02:30 10/15/24 02:21 10/15/24 02:15 10/15/24 02:06 10/15/24 01:54 10/15/24 01:21 10/15/24 01:12 10/15/24 01:00 10/15/24 01:00 Pain Intensity Knee: Pain Intensity: 5 Transfer of Care Handoff Completed per policy Notes Mental Status: alert / awake / arousable and participated in evaluation Patient Amnestic to Procedure: Yes Nausea / Vomiting: adequately controlled Pain: adequately controlled Airway Patency, RR, SpO2: stable & adequate BP & HR: stable & adequate Hydration State: stable & adequate Anesthetic Complications: no major complications apparent and Pt Satisfied with anesthetic care
[2024-10-15] MEDS: LABETALOL HCL IV 5 MG/ML 20ML IV PRN (21:29)
--- NOTE | 2024-10-15 21:46 | Operative Report ---
Post Operative Report Pre & Post Diagnosis Operation Date: 10/15/24 20:00 Pre-Op Diagnosis: Right Knee Hematoma Post-Op Diagnosis: Right Knee Hematoma I identified the patient and participated in the time-out.: Yes Procedure Operation Date: 10/15/24 20:00 Actual Procedures p Incision and Evacuationof Right Knee Hematoma - Femi Miller MD Surgeon Ally Miller MD Mailroom Coordinator Orlando Hahn physician bookkeeper assistant no resident or fellow available Estimated Blood Loss 10 (Hematoma removed was 325ml) Findings Consistent with Post-Op Diagnosis See operative report Specimens None Drains Hemovac x 2 right thigh Complications none Disposition Accompanied Patient To Recovery: Yes Indications This 79-year-old female presented to the hospital after falling on and landing on her right knee. She sustained a large hematoma that seem to be increasing, causing her more pain. She came to the ED for evaluation and required admission. After orthopedic evaluation, hematoma evacuation was recommended to decrease the pain and pressure on the knee. Informed written consent was obtained. Description of Procedure The patient was taken to the operating room where she was administered general anesthesia. She was prepped and draped in the usual sterile fashion. Please see Dr. Miller's operative report for specifics of the procedure. I was present for the case from hematoma evacuation through final wound closure. Assistance was provided in tissue retraction, hemostasis, clot evacuation, drain placement, and final wound closure. The patient was taken to the recovery room in satisfactory condition. I attest to the content of the Intraoperative Record and any orders documented therein. Any exceptions are noted below.
[2024-10-16] MEDS: TRANEXAMIC ACID / 0.7% NACL 1,000 MG/100 ML BAG IV ONE (03:41)
[2024-10-16] MEDS: ceFAZolin 2000MG 2,000 MG/15 ML SYR IV SCH (03:41)
[2024-10-16 06:40] LABS: Hematocrit (blood only) 27.8 % (37.0-47.0); Hemoglobin 8.9 g/dl (12.0-16.0); Mean Corpuscular Hemoglobin 31.3 pg (25.0-34.0); Mean Corpuscular Volume 97.9 fL (80.0-100.0); Platelet Count 183 K/uL (130-400); RDW Coefficient of Variation 16.2 % (11.5-14.5); Red Blood Count 2.84 M/uL (4.20-5.40); White Blood Count 12.55 K/ul (4.8-10.8)
[2024-10-16 06:51] LABS: BUN Creatinine Ratio 16.9 (10-20); Calcium 8.3 mg/dl (8.6-10.3); Creatinine Clr Calc Pharmacy 55.3 ml/min; Potassium 4.8 mmol/L (3.5-5.1)
--- NOTE | 2024-10-16 11:03 | Hospitalist Progress Note ---
Date of Service October 16, 2024 Assessment & Plan (1) Fracture of nasal bones, closed: (2) Hematoma of right lower leg: (3) Atrial fibrillation: (4) Hypothyroidism: (5) Hypertension: Plan #Fall #RLE ecchymosis #Periocular ecchymosis stable - cont inpt management with telemetry - hold eliquis (last dose AM of 10/14/24) - fall precautions - 10/15: due to acute development of hematoma, pt was emergently taken to the OR for hematoma evacuation - PT / OT eval pending - cont to monitor neurovascular checks of RLE - CT head / Cervical neck: without acute abnormalities #Anemia - admission Hgb 8.3--> 7.3 --> (9.6) --> 8.9, baseline Hgb around 11 - trend Hgb q6h x24 hrs - given drop in Hgb, will give 1 unit PRBC. Pt is currently hemodynamically stable - holding eliquis for now - pt did receive TXA x2 prior to OR on 10/15/24 #Leukocytosis - suspect reactive - monitor at this time #Nondisplaced right nasal bone fracture #Nondisplaced right nasal septal fracture - noted on CT face - no intervention while inpt, likely heal on its own - pt can follow up with ENT as outpatient if she wishes #AFib - hold eliquis - cont amio, metoprolol #Hypothyroidism - cont synthroid #HLD - cont Lipitor #HTN - cont metoprolol and losartan #h/o epistaxis - recent epistaxis with episode lasting about 15 hours - PCP lowered eliquis dose to 2.5mg BID about 2 weeks ago Dispo: discharge pending ortho clearance, resuming eliquis and observing for bleed, PT / OT eval Admission and Anticipated Discharge Date Admission Date: October 14, 2024 Subjective Had hematoma evacuated from the right knee Right knee wrapped and immobilized, drain in place Review of Systems Review of Systems: Comprehensive ROS neg Physical Exam Physical Exam: Gen: NAD, in bed comfortable, conversing appropriately HEENT: robert ocular ecchymosis, MMM Lungs: CTAB CVS: [id number], RRR Abd: nl bowel sounds, soft, NT Ext: right leg wrapped and immobilized with drain in place, cap refill about 2 secs but brisk on the left with good palpable pulse Results & Data Results & Data Vital Signs (Past 12 Hours) Vital Signs Temp Pulse Pulse Resp BP BP Pulse Ox 10/16/24 08:02 36.9 C 70 18 147/73 H 97 10/16/24 08:00 70 10/16/24 06:00 152/76 H 10/16/24 06:00 71 21 95 10/16/24 05:45 70 14 96 10/16/24 05:30 70 16 96 10/16/24 05:15 69 17 97 10/16/24 05:03 70 20 98 10/16/24 05:00 110/62 10/16/24 05:00 110/62 10/16/24 05:00 110/62 10/16/24 04:45 70 18 98 10/16/24 04:27 70 18 98 10/16/24 04:09 73 17 96 10/16/24 04:00 138/73 10/16/24 04:00 138/73 10/16/24 03:54 70 21 94 10/16/24 03:30 70 16 100 10/16/24 03:21 70 16 100 10/16/24 03:09 70 18 97 10/16/24 03:00 128/66 10/16/24 03:00 128/66 10/16/24 02:57 70 16 98 10/16/24 02:15 71 16 96 10/16/24 02:00 70 15 100 10/16/24 02:00 117/67 10/16/24 02:00 117/67 10/16/24 02:00 117/67 10/16/24 01:54 70 16 100 10/16/24 01:33 70 16 99 10/16/24 01:18 70 18 98 10/16/24 01:03 74 22 95 10/16/24 01:01 173/86 H 10/16/24 01:01 173/86 H 10/16/24 01:01 173/86 H 10/16/24 00:57 70 15 97 10/16/24 00:15 70 19 97 10/16/24 00:15 141/75 H 10/16/24 00:15 141/75 H 10/16/24 00:03 83 22 81 L 10/16/24 00:00 138/67 10/16/24 00:00 138/67 10/16/24 00:00 138/67 10/15/24 23:57 70 15 98 10/15/24 23:45 131/77 10/15/24 23:42 70 16 98 10/15/24 23:30 152/71 H 10/15/24 23:30 152/71 H 10/15/24 23:30 152/71 H 10/15/24 23:30 152/71 H 10/15/24 23:30 70 17 96 10/15/24 23:24 72 21 97 10/15/24 23:15 142/73 H 10/15/24 23:15 142/73 H 10/15/24 23:03 70 16 98 10/15/24 23:00 10/15/24 23:00 36.8 C 10/15/24 23:00 143/82 H 10/15/24 23:00 143/82 H O2 Del Method O2 Flow Rate 10/16/24 08:02 Nasal Cannula 2 10/16/24 08:00 10/16/24 06:00 10/16/24 06:00 10/16/24 05:45 10/16/24 05:30 10/16/24 05:15 10/16/24 05:03 10/16/24 05:00 10/16/24 05:00 10/16/24 05:00 10/16/24 04:45 10/16/24 04:27 10/16/24 04:09 10/16/24 04:00 10/16/24 04:00 10/16/24 03:54 10/16/24 03:30 10/16/24 03:21 10/16/24 03:09 10/16/24 03:00 10/16/24 03:00 10/16/24 02:57 10/16/24 02:15 10/16/24 02:00 10/16/24 02:00 10/16/24 02:00 10/16/24 02:00 10/16/24 01:54 Nasal Cannula 2 10/16/24 01:33 10/16/24 01:18 10/16/24 01:03 10/16/24 01:01 10/16/24 01:01 10/16/24 01:01 10/16/24 00:57 10/16/24 00:15 10/16/24 00:15 10/16/24 00:15 10/16/24 00:03 10/16/24 00:00 10/16/24 00:00 10/16/24 00:00 10/15/24 23:57 10/15/24 23:45 10/15/24 23:42 10/15/24 23:30 10/15/24 23:30 10/15/24 23:30 10/15/24 23:30 10/15/24 23:30 10/15/24 23:24 10/15/24 23:15 10/15/24 23:15 10/15/24 23:03 10/15/24 23:00 Nasal Cannula 3 10/15/24 23:00 10/15/24 23:00 10/15/24 23:00 PG Care Time/CCT Total # of Minutes Spent Total Time Spent with Patient: Total time spent is greater than 50% in coordination of care (as documented) at patient's floor/unit and/or counseling patient: Coding Level of Care Code 39371 SUB INP/OBS CARE 3/50MIN Diagnoses Fracture of nasal bones, closed S02.2XXA Encounter type: initial encounter Hematoma of right lower leg S80.11XA Atrial fibrillation I48.91 Hypothyroidism E03.9 Primary hypertension I10 Hypertension type: primary hypertension (1) Fracture of nasal bones, closed Encounter type: initial encounter Qualified Code(s): S02.2XXA - Fracture of nasal bones, initial encounter for closed fracture (5) Hypertension Hypertension type: primary hypertension Qualified Code(s): I10 - Essential (primary) hypertension
--- NOTE | 2024-10-16 13:04 | Orthopedic Progress Note ---
Date of Service October 16, 2024 Assessment & Plan (1) Traumatic hematoma of right knee: Plan: The patient was educated regarding today's findings. She was seen in conjunction with Dr. Miller, who was also present. Drain output since 7 AM is 85 mL. Due to the volume, her Hemovac was left in place. It would likely be removed tomorrow. García wrap and dressings will be changed tomorrow, with inspection of her skin. Possibility of devitalization of her skin at the knee was discussed. The patient states she is anxious to get up and move. She would like to start participating in PT. She may be weightbearing as tolerated in her brace with assistance from therapy. She may start this today or tomorrow. Continue with use of the knee immobilizer. Ice and elevate the leg frequently to reduce any pain or swelling. Continue to hold anticoagulation at this point. Admission and Anticipated Discharge Date Admission Date: October 16, 2024 Subjective This 79-year-old female seen today in her room. No family is present. She is in good spirits. Conversive. She denies any current pain. No additional complaints. Physical Exam Physical Exam: General: Well-developed, well-nourished, elderly female, in no acute distress. Laying in bed. Alert and oriented. Skin: Warm and dry with good turgor. Extensive ecchymosis present on her face, arms, and legs, identical to yesterday. García wrap and dressing is in place on the right leg. Hemovac drain is present on the right thigh as well. Musculoskeletal: The patient has intact motor function of her right ankle and toes. Range of motion of the right knee is not attempted. Neurologic: Gross sensation is intact across both feet by soft touch. Capillary refill is brisk for her right toes. Results & Data Vital Signs (Past 12 Hours) Vital Signs Temp Pulse Pulse Resp BP BP Pulse Ox 10/16/24 12:00 36.8 C 69 18 124/75 93 10/16/24 08:02 36.9 C 70 18 147/73 H 97 10/16/24 08:00 70 10/16/24 06:00 152/76 H 10/16/24 06:00 71 21 95 10/16/24 05:45 70 14 96 10/16/24 05:30 70 16 96 10/16/24 05:15 69 17 97 10/16/24 05:03 70 20 98 10/16/24 05:00 110/62 10/16/24 05:00 110/62 10/16/24 05:00 110/62 10/16/24 04:45 70 18 98 10/16/24 04:27 70 18 98 10/16/24 04:09 73 17 96 10/16/24 04:00 138/73 10/16/24 04:00 138/73 10/16/24 03:54 70 21 94 10/16/24 03:30 70 16 100 10/16/24 03:21 70 16 100 10/16/24 03:09 70 18 97 10/16/24 03:00 128/66 10/16/24 03:00 128/66 10/16/24 02:57 70 16 98 10/16/24 02:15 71 16 96 10/16/24 02:00 70 15 100 10/16/24 02:00 11710/16/24 02:00 11710/16/24 02:00 117/67 10/16/24 01:54 70 16 100 10/16/24 01:33 70 16 99 10/16/24 01:18 70 18 98 10/16/24 01:03 74 22 95 10/16/24 01:01 173/86 H 10/16/24 01:01 173/86 H 10/16/24 01:01 173/86 H O2 Del Method O2 Flow Rate 10/16/24 12:00 Room Air 10/16/24 08:02 Nasal Cannula 2 10/16/24 08:00 10/16/24 06:00 10/16/24 06:00 10/16/24 05:45 10/16/24 05:30 10/16/24 05:15 10/16/24 05:03 10/16/24 05:00 10/16/24 05:00 10/16/24 05:00 10/16/24 04:45 10/16/24 04:27 10/16/24 04:09 10/16/24 04:00 10/16/24 04:00 10/16/24 03:54 10/16/24 03:30 10/16/24 03:21 10/16/24 03:09 10/16/24 03:00 10/16/24 03:00 10/16/24 02:57 10/16/24 02:15 10/16/24 02:00 10/16/24 02:00 10/16/24 02:00 10/16/24 02:00 10/16/24 01:54 Nasal Cannula 2 10/16/24 01:33 10/16/24 01:18 10/16/24 01:03 10/16/24 01:01 10/16/24 01:01 10/16/24 01:01 Laboratory Results CBC obtained this morning shows a white count of 12.55. H&H of 8.9 and 27.8. Normal platelets at 183,000. PRP obtained this morning was unremarkable. Drain output overnight was 60 mL. The Hemovac was emptied today and measured an additional 85 mL.
[2024-10-16 22:57] VITALS: RESP 18
[2024-10-17 07:50] LABS: Hematocrit (blood only) 24.4 % (37.0-47.0); Mean Corpuscular Hemoglobin 31.4 pg (25.0-34.0); Mean Corpuscular Hgb Conc 32.8 g/dL (32.0-36.0); Mean Corpuscular Volume 95.7 fL (80.0-100.0); Mean Platelet Volume 10.9 fL (9.4-12.4); Platelet Count 205 K/uL (130-400); RDW Coefficient of Variation 16.1 % (11.5-14.5); RDW Standard Deviation 55.4 fL (36.4-46.3); Red Blood Count 2.55 M/uL (4.20-5.40); White Blood Count 9.85 K/ul (4.8-10.8)
[2024-10-17 08:17] LABS: Calcium 8.3 mg/dl (8.6-10.3); Creatinine Clr Calc Pharmacy 53.9 ml/min; Magnesium 1.9 mg/dl (1.7-2.4); Phosphorus 3.1 mg/dl (2.5-4.9); Potassium 3.9 mmol/L (3.5-5.1)
--- NOTE | 2024-10-17 12:00 | Orthopedic Progress Note ---
Date of Service October 17, 2024 Assessment & Plan (1) Traumatic hematoma of right knee: Plan: Minimal pain. Out of bed sitting in a chair. Hemoglobin approximately 8. Hematocrit approximately 24. Her vitals are noted. Drain output was 125 cc yesterday. There is minimal fluid within it now. Her dressing is changed. The drains were pulled. She has a trace PT pulse intact sensation and 5 out of 5 ankle and toe plantarflexion dorsiflexion inversion and eversion strength. Swelling is much improved but there is extensive ecchymosis over the knee leg and thigh. I can palpate her patella. There is no significant intra-articular effusion. Fluid has not reaccumulated in the subcutaneous level either. Her incision is healing well. She is able to bend her knee from 0 to about 45 degrees without difficulty and she is able to do a straight leg raise. She reported no pain when transferring bed to chair. There is an ischemic area over the lateral skin flap which is 3 to 4 cm wide and 6 to 8 cm in length. Could be partial or full-thickness skin necrosis. Otherwise looks healthy. Yecenia is status post evacuation of a traumatic right knee subcutaneous hematoma with an underlying total knee arthroplasty and evolving skin necrosis. Plan: She can do ankle pumps leg raises and knee motion as tolerated. A new dressing is applied today Xeroform 4 x 4's and García wrap. Continue to elevate the leg. Apply ice. She may weight-bear as tolerated once she has been evaluated by physical therapy and use a walker. I will let Dr. Luna know that the patient is here in the hospital. I think plastic surgery consultation is needed given the evolving skin necrosis that is present. Unfortunately Dr. Marino is out. We may need to get an outpatient appointment at [facility] or [place]. If this is a full-thickness skin necrosis she may need a wound VAC and eventually a skin graft depending on the circumstances. I would have heightened awareness given the underlying total knee arthroplasty. In terms of her anticoagulation, she could be restarted on an anticoagulant if necessary for treatment of her atrial fibrillation. Preferably something that could be reversed fairly quickly in case she would need further orthopedic or plastic surgical procedures in the next couple weeks. Admission and Anticipated Discharge Date Admission Date: October 16, 2024
--- NOTE | 2024-10-17 15:41 | Hospitalist Progress Note ---
Date of Service October 17, 2024 Assessment & Plan (1) Fracture of nasal bones, closed: (2) Hematoma of right lower leg: (3) Atrial fibrillation: (4) Hypothyroidism: (5) Hypertension: Plan Traumatic Hematoma of right knee Now s/p OR evacuation patient feels better There is an area of necrotic skin around the scar, per ortho, may need plastic surgery. However, patient not keen on plastic surgery continue wound care #Fall #RLE ecchymosis #Periocular ecchymosis stable - cont inpt management with telemetry - May resume eliquis (last dose AM of 10/14/24) - fall precautions - PT / OT eval pending - cont to monitor neurovascular checks of RLE - CT head / Cervical neck: without acute abnormalities #Anemia - admission Hgb 8.3--> 7.3 --> (9.6) --> 8.9, baseline Hgb around 11 - trend Hgb q6h x24 hrs #Leukocytosis - suspect reactive - monitor at this time #Nondisplaced right nasal bone fracture #Nondisplaced right nasal septal fracture - noted on CT face - no intervention while inpt, likely heal on its own - pt can follow up with ENT as outpatient if she wishes #AFib - hold eliquis - cont amio, metoprolol #Hypothyroidism - cont synthroid #HLD - cont Lipitor #HTN - cont metoprolol and losartan #h/o epistaxis - recent epistaxis with episode lasting about 15 hours - PCP lowered eliquis dose to 2.5mg BID about 2 weeks ago Dispo:hopefully d/c in the next 24 hrs Admission and Anticipated Discharge Date Admission Date: October 16, 2024 Subjective patient seen and examined, says she feels over all better Review of Systems Review of Systems: All systems reviewed are negative, apart from the ones contained in the history. Physical Exam Physical Exam: The patient is awake, alert and oriented 3, well developed and well nourished, normocephalic and atraumatic, lying in bed and in no acute distress. HEENT--PERRL, EOMI, mucous membranes and oropharynx mildly dry Neck--supple. No JVD. No bruits. Thyroid normal, trachea midline, no paulette opathy. Heart--normal S1 and S2. No murmurs, rubs or gallops. Lungs--clear bilaterally, no respiratory distress, no accessory muscle use. Abdomen--normal bowel sounds and soft. Extremities--no cyanosis or clubbing. No edema. Dermatologic--normal skin turgor, normal color, no abnormal lymph nodes, no rash. Neurologic--cranial nerves II through XII grossly intact. Rheumatologic--normal range of motion. Psychiatric--normal affect. Results & Data Results & Data Vital Signs (Past 12 Hours) Vital Signs Temp Pulse Pulse Pulse Resp BP Pulse Ox 10/17/24 14:34 71 10/17/24 14:28 99.1 F 71 18 125/84 90 10/17/24 11:43 10/17/24 11:02 98.1 F 73 18 134/89 94 10/17/24 07:57 98.2 F 72 18 155/63 H 95 10/17/24 07:12 72 10/17/24 04:47 98.2 F 71 18 152/83 H 93 10/17/24 03:45 98.2 F 72 18 129/76 95 Pulse Ox Pulse Ox Pulse Ox O2 Del Method O2 Flow Rate O2 Flow Rate O2 Flow Rate 10/17/24 14:34 10/17/24 14:28 Room Air 10/17/24 11:43 91 91 85 L 1 1 10/17/24 11:02 Room Air 10/17/24 07:57 Nasal Cannula 2 10/17/24 07:12 10/17/24 04:47 Nasal Cannula 2 10/17/24 03:45 Nasal Cannula 2 O2 Flow Rate 10/17/24 14:34 10/17/24 14:28 10/17/24 11:43 0 10/17/24 11:02 10/17/24 07:57 10/17/24 07:12 10/17/24 04:47 10/17/24 03:45 PG Care Time/CCT Total # of Minutes Spent Total Time Spent with Patient: Total time spent is greater than 50% in coordination of care (as documented) at patient's floor/unit and/or counseling patient: Coding Level of Care Code 80575 SUB INP/OBS CARE 2/35MIN Diagnoses Fracture of nasal bones, closed S02.2XXA Encounter type: initial encounter Hematoma of right lower leg S80.11XA Atrial fibrillation I48.91 Hypothyroidism E03.9 Primary hypertension I10 Hypertension type: primary hypertension Time Spent (min) 35 (1) Fracture of nasal bones, closed Encounter type: initial encounter Qualified Code(s): S02.2XXA - Fracture of nasal bones, initial encounter for closed fracture (5) Hypertension Hypertension type: primary hypertension Qualified Code(s): I10 - Essential (primary) hypertension
[2024-10-17] MEDS: ENOXAPARIN INJ 120 MG/0.8 ML SYR SC SCH (17:25)
[2024-10-17] MEDS: traMADol HCL 50 MG TABLET PO PRN (17:32)
[2024-10-18 08:15] LABS: Hematocrit (blood only) 25.4 % (37.0-47.0); Mean Corpuscular Hemoglobin 30.9 pg (25.0-34.0); Mean Corpuscular Hgb Conc 31.5 g/dL (32.0-36.0); Mean Corpuscular Volume 98.1 fL (80.0-100.0); Mean Platelet Volume 10.8 fL (9.4-12.4); Platelet Count 219 K/uL (130-400); RDW Standard Deviation 57.2 fL (36.4-46.3); Red Blood Count 2.59 M/uL (4.20-5.40)
[2024-10-18 08:20] LABS: BUN Creatinine Ratio 23.8 (10-20); Calcium 8.2 mg/dl (8.6-10.3); Creatinine Clr Calc Pharmacy 52.7 ml/min; Potassium 3.9 mmol/L (3.5-5.1)
[2024-10-18 11:09] VITALS: PULSE 70; TEMP 97.5; O2SAT 94
--- NOTE | 2024-10-18 12:14 | Hospitalist Progress Note ---
Date of Service October 18, 2024 Assessment & Plan (1) Fracture of nasal bones, closed: (2) Hematoma of right lower leg: (3) Atrial fibrillation: (4) Hypothyroidism: (5) Hypertension: (6) UTI (urinary tract infection): Plan Traumatic Hematoma of right knee Now s/p OR evacuation patient feels better There is an area of necrotic skin around the scar, per ortho, may need plastic surgery. However, patient not keen on plastic surgery continue wound care UTI Urinalysis positive for uti cultures growing E coli, dolan sensitive will start ceftriaoxone transition to PO abx on d/c #Fall #RLE ecchymosis #Periocular ecchymosis stable - cont inpt management with telemetry - May resume eliquis (last dose AM of 10/14/24) - fall precautions - PT / OT recommends rehab - cont to monitor neurovascular checks of RLE - CT head / Cervical neck: without acute abnormalities #Anemia Likely Acute blood loss anemia due to Eliquis therapy causing traumatic hematoma of the right knee - admission Hgb 8.3--> 7.3 --> (9.6) --> 8.9, baseline Hgb around 11 - trend Hgb q6h x24 hrs #Leukocytosis - suspect reactive - monitor at this time #Nondisplaced right nasal bone fracture #Nondisplaced right nasal septal fracture - noted on CT face - no intervention while inpt, likely heal on its own - pt can follow up with ENT as outpatient if she wishes #AFib - hold eliquis - cont amio, metoprolol #Hypothyroidism - cont synthroid #HLD - cont Lipitor #HTN - cont metoprolol and losartan #h/o epistaxis - recent epistaxis with episode lasting about 15 hours - PCP lowered eliquis dose to 2.5mg BID about 2 weeks ago Dispo:hopefully d/c to rehab when accepted Admission and Anticipated Discharge Date Admission Date: October 16, 2024 Subjective patient seen and examined, says she feels over all better Review of Systems Review of Systems: All systems reviewed are negative, apart from the ones contained in the history. Physical Exam Physical Exam: The patient is awake, alert and oriented 3, well developed and well nourished, normocephalic and atraumatic, lying in bed and in no acute distress. HEENT--PERRL, EOMI, mucous membranes and oropharynx mildly dry Neck--supple. No JVD. No bruits. Thyroid normal, trachea midline, no adenopathy. Heart--normal S1 and S2. No murmurs, rubs or gallops. Lungs--clear bilaterally, no respiratory distress, no accessory muscle use. Abdomen--normal bowel sounds and soft. Extremities--no cyanosis or clubbing. No edema. Dermatologic--normal skin turgor, normal color, no abnormal lymph nodes, no rash. Neurologic--cranial nerves II through XII grossly intact. Rheumatologic--normal range of motion. Psychiatric--normal affect. Results & Data Results & Data Vital Signs (Past 12 Hours) Vital Signs Temp Pulse Pulse Resp BP BP Pulse Ox 10/18/24 11:09 97.5 F L 70 18 132/77 94 10/18/24 07:19 98.6 F 69 18 137/75 92 10/18/24 07:19 72 10/18/24 03:44 98.1 F 70 18 135/82 95 O2 Del Method O2 Flow Rate 10/18/24 11:09 Room Air 10/18/24 07:19 Room Air 10/18/24 07:19 10/18/24 03:44 Nasal Cannula 2 PG Care Time/CCT Total # of Minutes Spent Total Time Spent with Patient: Total time spent is greater than 50% in coordination of care (as documented) at patient's floor/unit and/or counseling patient: Coding Level of Care Code 34300 SUB INP/OBS CARE 2/35MIN Diagnoses Fracture of nasal bones, closed S02.2XXA Encounter type: initial encounter Hematoma of right lower leg S80.11XA Atrial fibrillation I48.91 Hypothyroidism E03.9 Primary hypertension I10 Hypertension type: primary hypertension UTI (urinary tract infection) N39.0 Time Spent (min) 35 (1) Fracture of nasal bones, closed Encounter type: initial encounter Qualified Code(s): S02.2XXA - Fracture of nasal bones, initial encounter for closed fracture (5) Hypertension Hypertension type: primary hypertension Qualified Code(s): I10 - Essential (primary) hypertension
--- NOTE | 2024-10-18 12:43 | Orthopedic Progress Note ---
Date of Service October 18, 2024 Assessment & Plan (1) Traumatic hematoma of right knee: Plan: Postop day 3 s/p right knee hematoma incision and evacuation. Hemoglobin remains at 8.0. She is feeling well. OT evaluated her today and recommended home OT evaluation. Patient states that she is comfortable going home today and would prefer to be at home. She did see Dr. Luna yesterday inpatient and has an appointment scheduled with him next week. We are comfortable with her following up with him. Dressing was left in place today. It was dry. She is neurovascularly intact. She can be weightbearing as tolerated with a walker. Leave dressing in place and keep dry until appointment with Dr. Luna. Dr. Miller communicated with Dr. Luna regarding the case. Anticoagulation per primary service, Dr. Miller had recommended something that could easily be reversed quickly in case she needs additional surgical intervention in the next few weeks. Continue with ankle pumps and leg raises and knee range of motion as tolerated. Ok for discharge from an orthopedic standpoint. Admission and Anticipated Discharge Date Admission Date: October 16, 2024 Subjective Patient seen in bed today. She states that she is feeling well. No significant pain in the right knee. She saw Dr. Luna yesterday in the hospital and has an appointment scheduled with him next week. She has been working on straight leg raises and ankle pumps. Has been participating with physical therapy. She is hopeful she can go home today. Has lots of support from her family at home and would be agreeable with home health services if needed. Physical Exam Constitutional: Resting comfortably in bed. Pleasant. In no distress. Cardiovascular: Right DP pulse 1+ Musculoskeletal: Right lower extremity: Dressing is in place. It appears dry. Strength 5/5 with ankle plantarflexion, dorsiflexion, inversion, eversion. Able to perform stra ight leg raise. No calf tenderness. Neurologic: No sensory deficits in right lower extremity to light touch. Results & Data Vital Signs (Past 12 Hours) Vital Signs Temp Pulse Pulse Resp BP BP Pulse Ox 10/18/24 11:09 97.5 F L 70 18 132/77 94 10/18/24 07:19 98.6 F 69 18 137/75 92 10/18/24 07:19 72 10/18/24 03:44 98.1 F 70 18 135/82 95 O2 Del Method O2 Flow Rate 10/18/24 11:09 Room Air 10/18/24 07:19 Room Air 10/18/24 07:19 10/18/24 03:44 Nasal Cannula 2 Laboratory Results 10/15/24 Unknown Urine Culture - Final Urine,Clean Catch Escherichia coli 10/18/24 07:24 WBC 7.60 RBC 2.59 L Hgb 8.0 L Hct 25.4 L MCV 98.1 MCH 30.9 MCHC 31.5 L RDW Std Deviation 57.2 H RDW Coeff of Ezequiel 16.0 H Plt Count 219 MPV 10.8 Sodium 140 Potassium 3.9 Chloride 107 Carbon Dioxide 28 Anion Gap 5 BUN 19 Creatinine 0.80 Est Cr Clr Drug Dosing 52.7 eGFR 74.90 BUN/Creatinine Ratio 23.8 H Glucose 100 H Calcium 8.2 L
[2024-10-18] MEDS: cefTRIAXone SODIUM 1,000 MG/50 ML BAG IV SCH (12:52)
--- NOTE | 2024-10-18 14:21 | Discharge Summary ---
Date of Service October 18, 2024 Admission HPI Per Admitting Provider 79 yo F with PMHx of AFib, Hypothyroidism, HTN, HLD presents to the hospital for the evaluation after a fall. Pt had a fall 430am on 10/13/24. She was fully awake during the episode and did not lose consciousness. She did not have any prodromal symptoms. Since she is on Eliquis, she had significant bruising of the anterior right leg as well as around her eyes. She is otherwise asymptomatic. She did note that she has chronic lower extremity swelling that is causing some numbness and tingling and decreased sensation. She also noted that she has carpets in the room and possible that she may have tripped on it. She will be getting rid of them once she gets home. Admission Exam (Per Admitting) Constitutional The patient is awake, alert and oriented 3, well developed and well nourished, normocephalic and atraumatic, lying in bed and in no acute distress. HEENT--PERRL, EOMI, mucous membranes and oropharynx mildly dry Neck--supple. No JVD. No bruits. Thyroid normal, trachea midline, no adenopathy. Heart--normal S1 and S2. No murmurs, rubs or gallops. Lungs--clear bilaterally, no respiratory distress, no accessory muscle use. Abdomen--normal bowel sounds and soft. Extremities--no cyanosis or clubbing. No edema. Dermatologic--normal skin turgor, normal color, no abnormal lymph nodes, no rash. Neurologic--cranial nerves II through XII grossly intact. Rheumatologic--normal range of motion. Psychiatric--normal affect. Discharge Data Consultations 10/14/24 17:02 ED Decision to Admit Stat 10/15/24 16:39 Consult Orthopedic Surgery Routine Procedures Performed Operation Date: 10/15/24 20:00 Actual Procedures p Incision and Evacuationof Right Knee Hematoma - Feim Miller MD Hospital Course (1) Fracture of nasal bones, closed: (2) Hematoma of right lower leg: (3) Atrial fibrillation: (4) Hypothyroidism: (5) Hypertension: (6) UTI (urinary tract infection): Plan Traumatic Hematoma of right knee Now s/p OR evacuation patient feels better There is an area of necrotic skin around the scar, per ortho, may need plastic surgery. However, patient not keen on plastic surgery continue wound care UTI Urinalysis positive for uti cultures growing E coli, dolan sensitive will start ceftriaoxone transition to PO abx on d/c #Fall #RLE ecchymosis #Periocular ecchymosis stable - cont inpt management with telemetry - May resume eliquis (last dose AM of 10/14/24) - fall precautions - PT / OT recommends rehab - cont to monitor neurovascular checks of RLE - CT head / Cervical neck: without acute abnormalities #Anemia Likely Acute blood loss anemia due to Eliquis therapy causing traumatic hematoma of the right knee - admission Hgb 8.3--> 7.3 --> (9.6) --> 8.9, baseline Hgb around 11 - trend Hgb q6h x24 hrs #Leukocytosis - suspect reactive - monitor at this time #Nondisplaced right nasal bone fracture #Nondisplaced right nasal septal fracture - noted on CT face - no intervention while inpt, likely heal on its own - pt can follow up with ENT as outpatient if she wishes #AFib - hold eliquis - cont amio, metoprolol #Hypothyroidism - cont synthroid #HLD - cont Lipitor #HTN - cont metoprolol and losartan #h/o epistaxis - recent epistaxis with episode lasting about 15 hours - PCP lowered eliquis dose to 2.5mg BID about 2 weeks ago Dispo:hopefully d/c to rehab when accepted Coding Level of Care Code 32340 INP/OBS DISCH >30 MIN Diagnoses Fracture of nasal bones, closed S02.2XXA Encounter type: initial encounter Hematoma of right lower leg S80.11XA Atrial fibrillation I48.91 Hypothyroidism E03.9 Primary hypertension I10 Hypertension type: primary hypertension UTI (urinary tract infection) N39.0 Time Spent (min) 35
[2024-10-18 14:53] VITALS: BP 137/75
[2024-10-18] MEDS ORDERED: cephALEXin 500 MG CAP PO SCH (17:00)
== END 2024-10-18 16:53 | disposition home health service (06) | DRG 580 ==
LOC: ED 11:49 → EDINP 11:49 → 2E 20:46 → SUATTDRO 10-16 11:58 → 2N 10-17 04:42

== ENCOUNTER 2024-12-26 17:30 | Inpatient (IN) ==
[2024-12-26 18:25] LABS: Basophils # (auto) 0.01 K/uL (0.00-0.20); Basophils % (auto) 0.1 %; Hematocrit (blood only) 32.3 % (37.0-47.0); Hemoglobin 10.1 g/dl (12.0-16.0); Immature Granulocytes # (auto) 0.03 K/uL (0.01-0.20); Immature Granulocytes % (auto) 0.4 %; Lymphocytes # (auto) 0.65 K/uL (1.20-3.40); Lymphocytes % (auto) 9.5 %; Mean Corpuscular Hgb Conc 31.3 g/dL (32.0-36.0); Mean Corpuscular Volume 89.5 fL (80.0-100.0); Mean Platelet Volume 11.3 fL (9.4-12.4); Monocytes # (auto) 0.21 K/uL (0.11-0.59); Monocytes % (auto) 3.1 %; Neutrophils # (auto) 5.97 K/uL (1.40-6.50); Neutrophils % (auto) 86.9 %; Platelet Count 211 K/uL (130-400); RDW Coefficient of Variation 15.4 % (11.5-14.5); Red Blood Count 3.61 M/uL (4.20-5.40); White Blood Count 6.87 K/ul (4.8-10.8)
--- NOTE | 2024-12-26 18:25 | Emergency Department Note ---
Impression & Plan Infection due to human metapneumovirus (hMPV), Fluid overload, Non-ST elevation PR (NSTEMI), Hypoxia ED Provider Note Provider: William Lopez MD CHIEF COMPLAINT: Cough, referred HISTORY OF PRESENT ILLNESS: Patient is a 79-year-old female history of atrial fibrillation on Eliquis and amiodarone, aortic stenosis, hypertension, hypothyroidism, GERD presenting here today referred by home health. Patient has been following of the past several months regarding right knee wound which is improving nicely according patient and daughter. Home health visited however noted her to be a bit short of breath and not herself and with a low oxygen level. Contacted primary care office as well as daughter and eventually patient was agreeable to come here. Began to feel ill on Thursday. Nonproductive cough. Not eating so well. Body aches over the weekend. No significant nausea vomiting or diarrhea. Has been using some cough medicine at homeTessalon Perles from primary care with minimal improvement.. No Tylenol today. PAST MEDICAL HISTORY: As noted above MEDICATIONS: Reviewed home medications SOCIAL HISTORY: Resides at home, non-smoker PHYSICAL EXAM: GENERAL: alert and oriented in no acute distress on stretcher Head: normocephalic and atraumatic EYES: No injection, discharge or icterus. NECK: Trachea midline. ENT: Mucous membranes pink and moist. LUNGS: Airway patent. No retractions. Breath sounds diffuse fine crackles HEART: Regular rate and rhythm. No chest wall tenderness ABDOMEN: Soft and non-tender, without guarding or rebound. SKIN: Acyanotic, warm, dry, without rashes EXTREMITIES: Without tenderness or deformity with trace to 1+ bilateral lower extremity edema. NEUROLOGICAL: No focal deficits. No aphasia. No facial droop or slurred speech. Ambulatory. EK bpm normal sinus rhythm with sinus arrhythmia occasionally atrially paced. No PVC or PAC. No acute ST segment elevation or depression with a QTc of 475. CONTINUOUS CARDIAC MONITORING: was ordered and showed a heart rate of 60s to 80s bpm in atrial fibrillation occasionally atrially paced and occasional sinus arrhythmia Patient's laboratory studies and imaging reviewed. Differential includes Reactive airway disease, pneumonia, pneumothorax, COPD, CHF, infections, cardiac ischemia, pulmonary embolism, musculoskeletal, gastrointestinal, as well as other pathologies. IMPRESSION/MEDICAL DECISION MAKING: Patient noted in triage to have borderline fever and some hypoxia. Ordered some Tylenol here. Certainly with coughing fits does desaturate even on 2 L of oxygen into the 80s. Chest x-ray obtained here to exclude pneumonia and respiratory viral panel sent. Does describe a viral syndrome over the weekend with myalgias. Anticoagulated doubt PE at this time.. Blood work here today stable mild anemia. No leukocytosis. No significant electrolyte abnormality signs of renal dysfunction. No transaminitis. Troponin is elevated at 251 new from previous. Chest x-ray questions a bit of pulmonary edema but not significantly swollen lower extremities. Not having active chest pain. Question of this demand from her hypoxia. Is anticoagulated again and lower suspicion for PE. Does intermittently take Lasix at home but again states chronic trace edema is unchanged. Respiratory viral panel positive for human metapneumovirus. Believe likely this viral infection is prompting her hypoxia and illness and may have a little bit of fluid overload. Given some IV Lasix. Given some Hycodan for cough. Discussed with her and her daughter given her hypoxia as well as the elevated troponin do recommend we bring her in for further care and observation and the hospitalist team was contacted. Patient states compliance with her anticoagulation currently as such will not add additional especially as she is not having active chest pain. Repeat troponin flat/not increasing at 248. DIAGNOSIS: Cough, human metapneumovirus, hypoxia, NSTEMI DISPOSITION: Hospitalist will evaluate Patient was agreeable with this plan. Critical Care I have personally spent 31 minutes of critical care time in the direct management of this patient. This includes bedside care, interpretation of diagnostic studies, and testing, discussion with consultants, patient, and family members, and other required patient management activities. These 31 minutes is in excess of all separately billable procedures. Past Med/Surg History Problem List (Updated 12/26/24 @ 19:39 by William Lopez M.D.) Hypoxia (Acute) Non-ST elevation PR (NSTEMI) (Acute) Fluid overload (Acute) Infection due to human metapneumovirus (hMPV) (Acute) GERD (gastroesophageal reflux disease) (Chronic) Hypothyroidism (Chronic) Hypertension (Chronic) Mitral regurgitation (Chronic) Aortic stenosis (Chronic) Paroxysmal atrial fibrillation (Chronic) Biventricular cardiac pacemaker in situ (Chronic) Venous insufficiency (Chronic) Degenerative disc disease at L5-S1 level (Chronic) Impaired fasting glucose (Chronic) Hormone replacement therapy (Chronic) Lumbosacral facet joint syndrome (Chronic) Hyperlipidemia (Chronic) Osteopenia (Chronic) Tendinitis of right rotator cuff (Chronic) Prolonged Q-T interval on ECG (Chronic) SSS (sick sinus syndrome) (Chronic) s/p pacemaker On amiodarone therapy (Chronic) 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 No postop issues per anesthesia progress note. History of Ishmael fundoplication 2003, hiatal hernia H/O breast augmentation Hx of cataract surgery right and left S/P total abdominal hysterectomy w/ removal of both ovaries H/O colonoscopy Family History Father Acute myocardial infarction Mother Acute myocardial infarction Hypertension Brother Acute myocardial infarction Sister Hypertension Pure hypercholesterolemia Unknown Diabetes Other Stroke Denies family history of Breast cancer Colorectal cancer Colonic polyp Social History (Updated 12/23/24 @ 14:29 by DAPHNE Ponce) Smoking Status: Never smoker Second Hand Exposure: No; Do You Dip or Chew Tobacco: No; Hx Alcohol Use: Yes Alcohol type: wine and hard liquor Alcohol Intake Frequency Comment: very seldom Hx Substance Use: No Preferred Language: Belarusian Communication Ability: Effective Visual Impairment: No Limitations Hearing Ability: Normal Environmental Studies Professor Required: No Beliefs That Will Affect Care: None marital status: Current Living Situation: Alone current occupational status: retired How many Children do You have: 1 How many Children do You have Comment: Daughter lives close to patient. Pt independent with majority of care Feels Safe at Home: Yes Childhood Exposure to Second-Hand Smoke: Yes Diet: regular caffeine: Yes Dental Care, Regularly: Yes Physical Activity Frequency: Daily Physical Activity Frequency Comment: walking 20 min Seatbelt Use: always Sunscreen Use: Yes Assistive Devices: Cane and Walker Allergies Allergies Allergy/AdvReac Type Severity Reaction Status Date / Time No Known Allergies Allergy Verified 12/26/24 19:46 Home Meds Home Medications Medication Instructions Recorded Confirmed cholecalciferol (vitamin D3) 125 125 mcg PO QAM 11/25/21 12/26/24 mcg (5,000 unit) capsule multivitamin 1 tab PO DAILY 03/11/22 12/26/24 levothyroxine 150 mcg tablet 150 mcg PO DAILYBB 10/14/24 12/26/24 losartan 50 mg tablet 50 mg PO DAILY 10/14/24 12/26/24 pantoprazole 40 mg tablet,delayed 40 mg PO DAILY PRN Indigestion 11/09/24 12/26/24 release acetaminophen 500 mg tablet 500 - 1,000 mg PO Q6H PRN 12/26/24 12/26/24 (Tylenol Extra Strength) PAIN/FEVER estradiol 0.01% (0.1 mg/gram) 0.5 g vaginal 2XWK 12/26/24 12/26/24 vaginal cream Previous Rx's Medication Instructions Recorded famotidine 20 mg tablet 20 mg PO HS PRN breakthrough acid 01/22/24 reflux #90 tabs ipratropium bromide 21 mcg (0.03 2 spray intranasal TID PRN 03/24/24 %) nasal spray Congestion #30 mL atorvastatin 20 mg tablet 20 mg PO DAILY #90 tabs 05/15/24 amiodarone 100 mg tablet 100 mg PO DAILY #90 tabs 06/28/24 lorazepam 0.5 mg tablet 0.5 mg PO Q8H PRN anxiety #30 tabs 10/21/24 benzonatate 100 mg capsule 100 mg PO TID PRN cough #30 caps 11/16/24 furosemide 20 mg tablet 20 mg PO DAILY PRN Leg swelling 11/16/24 #30 tabs metoprolol succinate 200 mg 200 mg PO DAILY #90 tabs 12/09/24 tablet,extended release 24 hr apixaban 2.5 mg tablet 2.5 mg PO BID #60 tabs 12/10/24 Results & Data (ED) Vital Signs Vital Signs - 24 hr 12/26/24 17:34 12/26/24 17:34 12/26/24 18:57 Temperature 37.8 C H Temperature Source Temporal Artery Scan Pulse Rate 79 Pulse Rate [Apical] 75 Pulse Rhythm Regular Pulse Strength Normal Respiratory Rate 20 22 Respiratory Effort / Characteristics Non-Labored Spontaneous Respiratory Depth Normal Blood Pressure 134/66 Blood Pressure [Left Arm] 139/79 Blood Pressure Mean 88 Blood Pressure Mean [Left Arm] 99 Pulse Oximetry 88 L 88 L 94 Oxygen Delivery Method Nasal Cannula Oxygen Flow Rate 0 2 Sepsis New/Unexplained Change in Mental Status N/A Sepsis Action Taken by Nursing No Action Required Oxygen Flow Rate - Titration 2 Pulse Oximetry Post Tiitration 92 12/26/24 18:59 12/26/24 19:00 12/26/24 19:00 Temperature Temperature Source Pulse Rate 72 77 Pulse Rate [Apical] Pulse Rhythm Pulse Strength Respiratory Rate 22 Respiratory Effort / Characteristics Respiratory Depth Blood Pressure Blood Pressure [Left Arm] Blood Pressure Mean Blood Pressure Mean [Left Arm] Pulse Oximetry 88 L 94 Oxygen Delivery Method Room Air Nasal Cannula Nasal Cannula Oxygen Flow Rate 0 2 Sepsis New/Unexplained Change in Mental Status Sepsis Action Taken by Nursing Oxygen Flow Rate - Titration 2 Pulse Oximetry Post Tiitration 94 12/26/24 20:00 Temperature 37.1 C Temperature Source Oral Pulse Rate Pulse Rate [Apical] Pulse Rhythm Pulse Strength Respiratory Rate Respiratory Effort / Characteristics Respiratory Depth Blood Pressure Blood Pressure [Left Arm] Blood Pressure Mean Blood Pressure Mean [Left Arm] Pulse Oximetry Oxygen Delivery Method Oxygen Flow Rate Sepsis New/Unexplained Change in Mental Status Sepsis Action Taken by Nursing Oxygen Flow Rate - Titration Pulse Oximetry Post Tiitration Laboratory Data 12/26/24 17:49 12/26/24 17:49 Lab Results 12/26/24 12/26/24 Range/Units 17:49 19:45 WBC 6.87 (4.8-10.8) K/ul RBC 3.61 L (4.20-5.40) M/uL Hgb 10.1 L (12.0-16.0) g/dl Hct 32.3 L (37.0-47.0) % MCV 89.5 (80.0-100.0) fL MCH 28.0 (25.0-34.0) pg MCHC 31.3 L (32.0-36.0) g/dL RDW Std Deviation 50.0 H (36.4-46.3) fL RDW Coeff of Ezequiel 15.4 H (11.5-14.5) % Plt Count 211 (130-400) K/uL MPV 11.3 (9.4-12.4) fL Immature Gran % (Auto) 0.4 % Neut % (Auto) 86.9 % Lymph % (Auto) 9.5 % Runnels % (Auto) 3.1 % Eos % (Auto) 0.0 % Baso % (Auto) 0.1 % Neut # (Auto) 5.97 (1.40-6.50) K/uL Lymph # (Auto) 0.65 L (1.20-3.40) K/uL Runnels # (Auto) 0.21 (0.11-0.59) K/uL Eos # (Auto) 0.00 (0.00-0.50) K/uL Baso # (Auto) 0.01 (0.00-0.20) K/uL Immature Gran # (Auto) 0.03 (0.01-0.20) K/uL PT 10.9 (9.0-12.0) Seconds INR 1.0 (0.9-1.1) APTT 28 (21-31) Seconds PTT Ratio 1.0 Sodium 138 (136-145) mmol/L Potassium 3.7 (3.5-5.1) mmol/L Chloride 102 (98-107) mmol/L Carbon Dioxide 30 (21-32) mmol/L Anion Gap 6 (3-11) BUN 14 (6-23) mg/dl Creatinine 0.78 (0.6-1.2) mg/dl Est Cr Clr Drug Dosing 49.6 ml/min eGFR 77.21 BUN/Creatinine Ratio 17.9 (10-20) Glucose 127 H (70-99(Fasting)) mg/dl Calcium 8.9 (8.6-10.3) mg/dl Total Bilirubin 0.6 (0.2-1.0) mg/dl AST 30 (13-39) U/L ALT 11 (7-52) U/L Alkaline Phosphatase 66 (34-104) U/L Troponin I High Sens 251.5 H* 248.6 H* (0-14) pg/ml Total Protein 6.7 (6.0-8.3) gm/dl Albumin 3.9 (3.4-5.0) gm/dl Globulin 2.8 (2.5-4.0) gm/dl Albumin/Globulin Ratio 1.4 (0.9-2) Adenovirus (PCR) Not Detected (NotDetected) B. pertussis DNA (PCR) Not Detected (NotDetected) B.parapertussis DNA PCR Not Detected (NotDetected) C. pneumoniae DNA (PCR) Not Detected (NotDetected) Coronavirus OC43 (PCR) Not Detected (NotDetected) Coronavirus HKU1 (PCR) Not Detected (NotDetected) Coronavirus 229E (PCR) Not Detected (NotDetected) SARS-CoV-2 (PCR) Not Detected (NotDetected) Coronavirus NL63 (PCR) Not Detected (NotDetected) Human Metapneumovir PCR DETECTED A (NotDetected) Influenza Type A (PCR) Not Detected (NotDetected) Influenza Type B (PCR) Not Detected (NotDetected) M. pneumoniae (PCR) Not Detected (NotDetected) Parainfluenza 1 (PCR) Not Detected (NotDetected) Parainfluenza 2 (PCR) Not Detected (NotDetected) Parainfluenza 3 (PCR) Not Detected (NotDetected) Parainfluenza 4 (PCR) Not Detected (NotDetected) RSV (PCR) Not Detected (NotDetected) Entero/Rhino (PCR) Not Detected (NotDetected) Administered Medications Discontinued Medications Acetaminophen (Acetaminophen 500 Mg Tab) 1,000 mg PO NOW STA Stop: 12/26/24 18:25 Last Admin: 12/26/24 19:24 Dose: 1,000 mg Documented By: QGV Furosemide (Furosemide 40 Mg/4 Ml Vial) 40 mg IV ONE ONE Stop: 12/26/24 19:32 Last Admin: 12/26/24 19:45 Dose: 40 mg Documented By: QGV Hydrocodone Bit/Homatropine Methylb (Hydrocodone/Homatropine Syrup 5mg/1.5mg 5ml Udp) 5 ml PO NOW STA Stop: 12/26/24 19:38 Last Admin: 12/26/24 19:45 Dose: 5 ml Documented By: QGV Imaging Data Radiologist's Impression: Chest X-Ray 12/26/24 17:38 INDICATION: Chest pain. TECHNIQUE: Frontal radiograph of the chest. COMPARISON: Radiograph from 03/15/2022. FINDINGS: Cardiomegaly. Mild pulmonary vascular congestion. Bilateral lower lobe atelectasis/airspace disease. No pleural effusion or pneumothorax. No acute fracture. Left-sided pacemaker again noted. IMPRESSION: 1. Mild pulmonary vascular congestion. 2. Bilateral lower lobe atelectasis/airspace disease. Electronically signed by Mekhi Colbert 12-26-2024 6:43 PM Discharge Plan Visit Data Chief Complaint: Respiratory Problems Stated Complaint: COUGH, OX LOW, HEART RATE ELEVATED ED Provider: William Lopez Discharge Problem: Infection due to human metapneumovirus (hMPV), Fluid overload, Non-ST elevation PR (NSTEMI), Hypoxia Patient Disposition: Being Evaluated by Hospitalist Forms Stand Alone Forms: [facility] Prescriptions Prescriptions: No Action pantoprazole 40 mg tablet,delayed release (DR/EC) 40 mg PO DAILY PRN (Reason: Indigestion) ipratropium bromide 21 mcg (0.03 %) spray,non-aerosol 2 spray INTNAS TID PRN (Reason: Congestion) Qty: 30 5RF Rx Instructions: administer into each nostril atorvastatin 20 mg tablet 20 mg PO DAILY Qty: 90 3RF amiodarone 100 mg tablet 100 mg PO DAILY Qty: 90 3RF lorazepam 0.5 mg tablet 0.5 mg PO Q8H PRN (Reason: anxiety) Qty: 30 1RF metoprolol succinate 200 mg tablet extended release 24 hr 200 mg PO DAILY Qty: 90 3RF apixaban 2.5 mg tablet 2.5 mg PO BID Qty: 60 2RF famotidine 20 mg tablet 20 mg PO HS PRN (Reason: breakthrough acid reflux) Qty: 90 0RF benzonatate 100 mg capsule 100 mg PO TID PRN (Reason: cough) Qty: 30 0RF furosemide 20 mg tablet 20 mg PO DAILY PRN (Reason: Leg swelling) Qty: 30 0RF cholecalciferol (vitamin D3) 125 mcg (5,000 unit) capsule 125 mcg PO QAM multivitamin Tablet 1 tab PO DAILY acetaminophen [Tylenol Extra Strength] 500 mg Tablet 500 - 1,000 mg PO Q6H PRN (Reason: PAIN/FEVER) estradiol 0.01 % (0.1 mg/gram) cream 0.5 g vaginal 2XWK Rx Instructions: 0.5 grams vaginally twice weekly; levothyroxine 150 mcg tablet 150 mcg PO DAILYBB losartan 50 mg tablet 50 mg PO DAILY Rx Instructions: TAKE 1 TABLET BY MOUTH ONCE DAILY Referrals Referrals: Socorro Fan MD [Primary Care Provider] -
[2024-12-26 18:36] LABS: Albumin Globulin Ratio 1.4 (0.9-2); Albumin Level 3.9 gm/dl (3.4-5.0); BUN Creatinine Ratio 17.9 (10-20); Bilirubin,Total 0.6 mg/dl (0.2-1.0); Calcium 8.9 mg/dl (8.6-10.3); Creatinine Clr Calc Pharmacy 49.6 ml/min; Globulin 2.8 gm/dl (2.5-4.0); Potassium 3.7 mmol/L (3.5-5.1); Total Protein 6.7 gm/dl (6.0-8.3)
--- NOTE | 2024-12-26 18:44 | XRay Report ---
INDICATION: Chest pain. TECHNIQUE: Frontal radiograph of the chest. COMPARISON: Radiograph from 03/15/2022. FINDINGS: Cardiomegaly. Mild pulmonary vascular congestion. Bilateral lower lobe atelectasis/airspace disease. No pleural effusion or pneumothorax. No acute fracture. Left-sided pacemaker again noted. IMPRESSION: 1. Mild pulmonary vascular congestion. 2. Bilateral lower lobe atelectasis/airspace disease. Electronically signed by Mekhi Colbert 12-26-2024 6:43 PM
[2024-12-26 18:46] LABS: Troponin I High Sensitivity 251.5 pg/ml (0-14)
[2024-12-26 18:54] LABS: Partial Thromboplastin Time 28 Seconds (21-31); Prothrombin Time 10.9 Seconds (9.0-12.0)
[2024-12-26 19:19] LABS: Adenovirus PCR Not Detected (NotDetected); Bordetella parapertussis PCR Not Detected (NotDetected); Bordetella pertussis PCR Not Detected (NotDetected); Chlamydia pneumoniae PCR Not Detected (NotDetected); Coronavirus 229E PCR Not Detected (NotDetected); Coronavirus CoV-2 (COVID19)PCR Not Detected (NotDetected); Coronavirus HKU1 PCR Not Detected (NotDetected); Coronavirus NL63 PCR Not Detected (NotDetected); Coronavirus OC43PCR Not Detected (NotDetected); Human Metapneumovirus PCR DETECTED (NotDetected); Influenza A PCR Not Detected (NotDetected); Influenza B PCR Not Detected (NotDetected); Mycoplasma pneumoniae PCR Not Detected (NotDetected); Parainfluenza Virus 1 PCR Not Detected (NotDetected); Parainfluenza Virus 2 PCR Not Detected (NotDetected); Parainfluenza Virus 3 PCR Not Detected (NotDetected); Parainfluenza Virus 4 PCR Not Detected (NotDetected); Respiratory Syncytial VirusPCR Not Detected (NotDetected); Rhinovirus/Enterovirus PCR Not Detected (NotDetected)
[2024-12-26] MEDS: ACETAMINOPHEN 500 MG TAB PO STA (19:24)
[2024-12-26] MEDS: FUROSEMIDE 40 MG/4 ML VIAL IV ONE (19:45)
[2024-12-26] MEDS: HYDROcodone/HOMATROPINE SYRUP 5MG/1.5MG 5ML UDP PO STA (19:45)
--- NOTE | 2024-12-26 20:20 | History & Physical Report ---
Date of Service December 26, 2024 Assessment & Plan (1) Infection due to human metapneumovirus (hMPV): (2) Elevated troponin: (3) Traumatic hematoma of right knee: Plan 79-year-old female PMHx GERD, hypothyroidism, HTN, MR, AAS, PAF, biventricular cardiac pacer, hyperlipidemia, and SSS presenting for reported hypoxia. ED evaluation reveals no leukocytosis, H&H 10.1/32.3; PT/INR WNL; CMP grossly WNL with exception glucose 127; troponin initially to 251.5 now improving; BioFire positive for human metapneumovirus; CXR with mild pulmonary vascular congestion and bilateral lower lobe atelectasis/airspace disease; EKG normal sinus with sinus arrhythmia at 75 bpm, no ischemic changes; provided with Hycodan, furosemide, acetaminophen in ED. #Human metapneumovirus/Acute hypoxia Presenting with cough + some SOB x 3 days; home health reported hypoxia with r eadings in the 80s on the day of arrival - CBC w/o leukocytosis- CBC am - CXR with mild pulm vasc congestion + bilateral lower lobe atelectasis/airspace disease - Contact precautions - Benzonatate prn for cough, nasal spray prn - Wheezing on admission- Solumedrol 60mg IV provided, duoneb x 1 then prn - FV + IC; O2 prn (none at baseline) - ? fluid overload on CXR, provided with furosemide 40mg IV in ED- defer further diuresis and reevaluate in am - Defer abx at admission given no leukocytosis, no F/C - Sputum culture - pending #Elevated troponin Pt w/ h/o paroxysmal A-fib, SSS, biventricular pacer in place; no report of or current chest pain. - Troponin 251.5, repeat 248.6 - EKG normal sinus with sinus arrhythmia at 75 bpm, without ischemic changes - Likely 2/2 demand- hypoxia #R knee wound S/p fall at home, resulting in traumatic hematoma of R knee. Resulted in necrotic skin area that turned into an open wound, currently following with wound clinic for such. Following with PCP for general care of this, plans to start PT soon. Healing well per patient, no active complaints. - Daily dressing changes - Wound care consult placed #PAF/SSS/S/p pacemaker- Cardiology; Eliquis, amiodarone, Lasix prn (held at admission, received 1 dose IV in ED) #HLD- Atorvastatin #HTN- Losartan, metoprolol #Hypothyroidism- Levothyroxine #GERD- Famotidine, pantoprazole #Anxiety- Lorazepam prn Dispo: Admit, PCU VTE Prophylaxis: Eliquis This document was dictated utilizing Synthace. Please excuse any grammatical errors that may be secondary to use of this software. Admission and Anticipated Discharge Date Admission Date: 12/26/2024 History of Present Illness Chief Complaint: Hypoxia Primary Care Provider: Socorro Fan MD 79-year-old female PMHx GERD, hypothyroidism, HTN, MR, AAS, PAF, biventricular cardiac pacer, hyperlipidemia, and SSS presenting for reported hypoxia. States at approximately 4 days [employer] she started to have a hacking cough that was productive at times, and this was ongoing since then. States that when she is time coughing she does have some SOB but otherwise not complaining of any SOB. SOB does not change with positional changes. States that she has also been having some sinus congestion, but her main concern is this ongoing cough. States that she was reported to have "low oxygen" on the day of arrival. Also having rhinorrhea, but no sore throat or fever/chills. Sick contacts include daughter, son-in-law, and granddaughter. Was seen by her PCP approximately 3 days [employer] who prescribed her Tessalon Perles which she stated may have helped somewhat. Denying chest pain, palpitations, abdominal pain, N/V/D/C, LUTS, weakness, headache, fever or chills, or syncope. Does not wear oxygen at baseline. ED evaluation reveals no leukocytosis, H&H 10.1/32.3; PT/INR WNL; CMP grossly WNL with exception glucose 127; troponin initially to 251.5, pending repeat; BioFire positive for metapneumovirus; CXR with mild pulmonary vascular congestion and bilateral lower lobe atelectasis/airspace disease; EKG normal sinus with sinus arrhythmia at 75 bpm, no ischemic changes; provided with Hycodan, furosemide, acetaminophen in ED. Please see Dr. Gomez's attestation for adjustments/additions to treatment plan. Allergies Allergy/AdvReac Type Severity Reaction Status Date / Time No Known Allergies Allergy Verified 12/26/24 19:46 Home Medications Medication Instructions Recorded Confirmed Type cholecalciferol (vitamin D3) 125 125 mcg PO QAM 11/25/21 12/26/24 History mcg (5,000 unit) capsule multivitamin 1 tab PO DAILY 03/11/22 12/26/24 History famotidine 20 mg tablet 20 mg PO HS PRN breakthrough acid 01/22/24 12/26/24 Rx reflux #90 tabs ipratropium bromide 21 mcg (0.03 2 spray intranasal TID PRN 03/24/24 12/26/24 Rx %) nasal spray Congestion #30 mL atorvastatin 20 mg tablet 20 mg PO DAILY #90 tabs 05/15/24 12/26/24 Rx amiodarone 100 mg tablet 100 mg PO DAILY #90 tabs 06/28/24 12/26/24 Rx levothyroxine 150 mcg tablet 150 mcg PO DAILYBB 10/14/24 12/26/24 History losartan 50 mg tablet 50 mg PO DAILY 10/14/24 12/26/24 History lorazepam 0.5 mg tablet 0.5 mg PO Q8H PRN anxiety #30 tabs 10/21/24 12/26/24 Rx pantoprazole 40 mg tablet,delayed 40 mg PO DAILY PRN Indigestion 11/09/24 12/26/24 History release benzonatate 100 mg capsule 100 mg PO TID PRN cough #30 caps 11/16/24 12/26/24 Rx furosemide 20 mg tablet 20 mg PO DAILY PRN Leg swelling 11/16/24 12/26/24 Rx #30 tabs metoprolol succinate 200 mg 200 mg PO DAILY #90 tabs 12/09/24 12/26/24 Rx tablet,extended release 24 hr apixaban 2.5 mg tablet 2.5 mg PO BID #60 tabs 12/10/24 12/26/24 Rx acetaminophen 500 mg tablet 500 - 1,000 mg PO Q6H PRN 12/26/24 12/26/24 History (Tylenol Extra Strength) PAIN/FEVER estradiol 0.01% (0.1 mg/gram) 0.5 g vaginal 2XWK 12/26/24 12/26/24 History vaginal cream Past Med/Surg History Problem List Elevated troponin Hypoxia (Acute) Non-ST elevation ID (NSTEMI) (Acute) Fluid overload (Acute) Infection due to human metapneumovirus (hMPV) (Acute) GERD (gastroesophageal reflux disease) (Chronic) Hypothyroidism (Chronic) Hypertension (Chronic) Mitral regurgitation (Chronic) Aortic stenosis (Chronic) Paroxysmal atrial fibrillation (Chronic) Biventricular cardiac pacemaker in situ (Chronic) Venous insufficiency (Chronic) Degenerative disc disease at L5-S1 level (Chronic) Impaired fasting glucose (Chronic) Hormone replacement therapy (Chronic) Lumbosacral facet joint syndrome (Chronic) Hyperlipidemia (Chronic) Osteopenia (Chronic) Tendinitis of right rotator cuff (Chronic) Prolonged Q-T interval on ECG (Chronic) SSS (sick sinus syndrome) (Chronic) s/p pacemaker On amiodarone therapy (Chronic) 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 No postop issues per anesthesia progress note. History of Ishmael fundoplication 2003, hiatal hernia H/O breast augmentation Hx of cataract surgery right and left S/P total abdominal hysterectomy w/ removal of both ovaries H/O colonoscopy Family History Father Acute myocardial infarction Mother Acute myocardial infarction Hypertension Brother Acute myocardial infarction Sister Hypertension Pure hypercholesterolemia Unknown Diabetes Other Stroke Denies family history of Breast cancer Colorectal cancer Colonic polyp Social History Smoking Status: Never smoker Second Hand Exposure: No; Do You Dip or Chew Tobacco: No; Hx Alcohol Use: Yes Alcohol type: wine Alcohol Intake Frequency Comment: very seldom Hx Substance Use: No Preferred Language: Dutch Communication Ability: Effective Visual Impairment: No Limitations Hearing Ability: Normal Resident Athletic Trainer Required: No Beliefs That Will Affect Care: None marital status: Current Living Situation: Alone current occupational status: retired How many Children do You have: 1 How many Children do You have Comment: Daughter lives close to patient. Pt independent with majority of care Feels Safe at Home: Yes Childhood Exposure to Second-Hand Smoke: Yes Diet: regular caffeine: Yes Dental Care, Regularly: Yes Physical Activity Frequency: Daily Physical Activity Frequency Comment: walking 20 min Seatbelt Use: always Sunscreen Use: Yes Assistive Devices: Cane and Glasses Review of Systems Review of Systems: All systems reviewed & are unremarkable except as noted in Subjective Physical Exam Physical Exam: General: No acute distress Skin: Warm and dry; R knee covered in bandage, bandage removed with healing skin underneath, appropriate erythema conducive with healing, no discharge Head: Normocephalic, atraumatic Eyes: PERRL, conjunctivae clear, sclera non-icteric ENT: External ear and ear canal without swelling; nose atraumatic; good dentition, tongue normal appearance, pharynx normal Neck: Supple, no LAD Cardio: RRR, no M/G/R, S1 and S2 normal Resp: No respiratory distress, inspiratory and expiratory wheezing on exam, conversational dyspnea, poor air movement throughout, no rales or rhonchi Abdomen: No visible lesions or scars; no distention; No masses or hepatosplenomegaly; Bowel sounds normoactive MSK: No deformities; pulses palpable and equal; no edema. Neuro: Awake, alert; CN grossly intact Psych: Appropriate mood and affect; good judgement and insight. Results & Data Results & Data Vital Signs (Past 12 Hours) Vital Signs Temp Pulse Pulse Resp BP BP Pulse Ox 12/26/24 19:00 77 22 94 12/26/24 19:00 88 L 12/26/24 18:59 72 12/26/24 18:57 75 22 139/79 94 12/26/24 17:34 88 L 12/26/24 17:34 37.8 C H 79 20 134/66 88 L O2 Del Method O2 Flow Rate 12/26/24 19:00 Nasal Cannula 2 12/26/24 19:00 Room Air, Nasal Cannula 0 12/26/24 18:59 12/26/24 18:57 Nasal Cannula 2 12/26/24 17:34 0 12/26/24 17:34 Laboratory Results 12/26/24 17:49 WBC 6.87 RBC 3.61 L Hgb 10.1 L Hct 32.3 L MCV 89.5 MCH 28.0 MCHC 31.3 L RDW Std Deviation 50.0 H RDW Coeff of Ezequiel 15.4 H Plt Count 211 MPV 11.3 Immature Gran % (Auto) 0.4 Neut % (Auto) 86.9 Lymph % (Auto) 9.5 [place] % (Auto) 3.1 Eos % (Auto) 0.0 Baso % (Auto) 0.1 Neut # (Auto) 5.97 Lymph # (Auto) 0.65 L [place] # (Auto) 0.21 Eos # (Auto) 0.00 Baso # (Auto) 0.01 Immature Gran # (Auto) 0.03 PT 10.9 INR 1.0 APTT 28 PTT Ratio 1.0 Sodium 138 Potassium 3.7 Chloride 102 Carbon Dioxide 30 Anion Gap 6 BUN 14 Creatinine 0.78 Est Cr Clr Drug Dosing 49.6 eGFR 77.21 BUN/Creatinine Ratio 17.9 Glucose 127 H Calcium 8.9 Total Bilirubin 0.6 AST 30 ALT 11 Alkaline Phosphatase 66 Troponin I High Sens 251.5 H* Total Protein 6.7 Albumin 3.9 Globulin 2.8 Albumin/Globulin Ratio 1.4 Adenovirus (PCR) Not Detected B. pertussis DNA (PCR) Not Detected B.parapertussis DNA PCR Not Detected C. pneumoniae DNA (PCR) Not Detected Coronavirus OC43 (PCR) Not Detected Coronavirus HKU1 (PCR) Not Detected Coronavirus 229E (PCR) Not Detected SARS-CoV-2 (PCR) Not Detected Coronavirus NL63 (PCR) Not Detected Human Metapneumovir PCR DETECTED A Influenza Type A (PCR) Not Detected Influenza Type B (PCR) Not Detected M. pneumoniae (PCR) Not Detected Parainfluenza 1 (PCR) Not Detected Parainfluenza 2 (PCR) Not Detected Parainfluenza 3 (PCR) Not Detected Parainfluenza 4 (PCR) Not Detected RSV (PCR) Not Detected Entero/Rhino (PCR) Not Detected Diagnostic Findings Chest X-Ray 12/26/24 17:38 INDICATION: Chest pain. TECHNIQUE: Frontal radiograph of the chest. COMPARISON: Radiograph from 03/15/2022. FINDINGS: Cardiomegaly. Mild pulmonary vascular congestion. Bilateral lower lobe atelectasis/airspace disease. No pleural effusion or pneumothorax. No acute fracture. Left-sided pacemaker again noted. IMPRESSION: 1. Mild pulmonary vascular congestion. 2. Bilateral lower lobe atelectasis/airspace disease. Electronically signed by Sayra Mekhi 12-26-2024 6:43 PM Medications Administered Hycodan 5 mL p.o. Furosemide 40 mg IV Acetaminophen 1 g p.o. ECG Additional Comments: Sinus rhythm with sinus arrhythmia, low voltage QRS 75 bpm, CO 130, QRS 88, QT/QTc 426/475, PRT 42/-26/25 Code Status & VTE Plan Code Status Full Supervising Physician Co-Signing Physician Notes Patient seen and examined, chart reviewed, case discussed with JEZ Figueroa and I agree with the assessment and plan as above. In brief, patient is a 79yo female with history of PAF on Amiodarone, GERD, HTN presenting with ongoing SOB and cough. Found to have human metapneumovirus infection. Hypoxic in the ER at 88% on room air - no supplemental O2 at baseline On exam patient is resting comfortably, does start coughing with conversation with SOB Diffuse wheezing, coarse rhonchi throughout bilateral lungs +S1/S2, regular Abdomen soft, NT/ND Labs and images reviewed Trop 251.5 --> 248.6 + Human metapneumovirus CXR with mild pulmonary vascular congestion and bilateral LL atelectasis Assessment/Plan Acute hypoxic respiratory failure secondary to human metapneumovirus Solumedrol 60mg IV given Lasix 40mg IV given Continue supportive care Remainder of plan as above PG Care Time/CCT Total # of Minutes Spent Total Time Spent with Patient: Total time spent is greater than 50% in coordination of care (as documented) at patient's floor/unit and/or counseling patient: Coding Level of Care Code 10623 INT INP/OBS CARE MIN Diagnoses Infection due to human metapneumovirus (hMPV) B34.8 Elevated troponin R79.89 Traumatic hematoma of right knee, initial encounter S80.01XA Encounter type: initial encounter (3) Traumatic hematoma of right knee Encounter type: initial encounter Qualified Code(s): S80.01XA - Contusion of right knee, initial encounter
[2024-12-26] MEDS ORDERED: ALBUT/IPRATROP 3MG/0.5MG NEB 3 ML VIAL NEB PRN (20:51)
[2024-12-26] MEDS: methylPREDNISolone 125 MG/2 ML VIAL IV STA (21:00)
[2024-12-26] MEDS: ALBUT/IPRATROP 3MG/0.5MG NEB 3 ML VIAL NEB STA (21:00)
[2024-12-26] MEDS ORDERED: FAMOTIDINE 20 MG TAB PO PRN (23:06)
[2024-12-26] MEDS ORDERED: POLYETHYLENE (MIRALAX) 17 GM PACK PO PRN (23:06)
[2024-12-26] MEDS ORDERED: ONDANSETRON INJ 2 MG/ML 2 ML VIAL IV PRN (23:06)
[2024-12-26] MEDS ORDERED: IPRATROPIUM BROMIDE NASAL SPRAY 0.06% 15ML NAE PRN (23:24)
[2024-12-26] MEDS: APIXABAN 2.5 MG TAB PO SCH (23:42)
[2024-12-26] MEDS: LORazepam 0.5 MG TAB PO PRN (23:52)
[2024-12-27] MEDS: LEVOTHYROXINE SODIUM 150 MCG TABLET PO SCH (05:39)
[2024-12-27 07:44] LABS: Hematocrit (blood only) 30.1 % (37.0-47.0); Hemoglobin 9.4 g/dl (12.0-16.0); Mean Corpuscular Hemoglobin 27.8 pg (25.0-34.0); Mean Corpuscular Hgb Conc 31.2 g/dL (32.0-36.0); Mean Corpuscular Volume 89.1 fL (80.0-100.0); Mean Platelet Volume 11.1 fL (9.4-12.4); Platelet Count 177 K/uL (130-400); RDW Coefficient of Variation 15.2 % (11.5-14.5); RDW Standard Deviation 49.6 fL (36.4-46.3); Red Blood Count 3.38 M/uL (4.20-5.40); White Blood Count 4.81 K/ul (4.8-10.8)
[2024-12-27 07:53] LABS: BUN Creatinine Ratio 20.5 (10-20); Calcium 8.6 mg/dl (8.6-10.3); Creatinine Clr Calc Pharmacy 45.8 ml/min; Potassium 3.3 mmol/L (3.5-5.1)
[2024-12-27] MEDS: LOSARTAN POTASSIUM 50 MG TAB PO SCH (08:34)
[2024-12-27] MEDS: METOPROLOL SUCC 50MG EXT REL TAB PO SCH (08:34)
[2024-12-27] MEDS: ATORVASTATIN 20 MG TAB PO SCH (08:34)
[2024-12-27] MEDS: AMIODARONE 200 MG TAB PO SCH (08:34)
[2024-12-27 09:49] LABS: Magnesium 1.9 mg/dl (1.7-2.4)
[2024-12-27] MEDS: POTASSIUM CHLORIDE CRTAB 20 MEQ TABCR PO STA (09:54)
--- NOTE | 2024-12-27 12:57 | Hospitalist Progress Note ---
Date of Service December 27, 2024 Assessment & Plan (1) Infection due to human metapneumovirus (hMPV): (2) Paroxysmal atrial fibrillation: (3) Biventricular cardiac pacemaker in situ: (4) Hypertension: (5) Hypothyroidism: (6) SSS (sick sinus syndrome): (7) Hypoxia: (8) Elevated troponin: Plan 79-year-old female with past medical history of hypothyroidism, hypertension, history of sick sinus syndrome status post biventricular cardiac pacer, paroxysmal atrial fibrillation, aortic stenosis presents to the ED with worsening shortness of breath, BioFire positive for human metapneumovirus and chest x-ray showed mild pulmonary vascular congestion with bilateral lower lobe atelectasis/airspace disease. She was given furosemide IV in ED and admitted to the hospitalist service #Acute hypoxic respiratory failure likely secondary to human metapneumovirus infection in combination with CHF #Human metapneumovirus infection Check two-view chest x-ray White count is normal Hold off on antibiotics Incentive spirometry Oxygen as needed to keep saturations above 90% Patient received 1 dose of IV Solu-Medrol in ED, hold off on steroids at this point DuoNebs as needed Isolation precautions #Acute on chronic diastolic congestive heart failure with EF of 55% #Paroxysmal atrial fibrillation #Essential hypertension #Mild to moderate aortic stenosis #Moderate tricuspid regurgitation #Mild mitral regurgitation #History of sick sinus syndrome status post biventricular pacemaker #Elevated troponin, likely type II VA in setting of demand ischemia from CHF/metapneumovirus infection Outpatient field attendant is Dr. Yao Echocardiogram from April 20, 2024 shows normal biventricular systolic function, mild left ventricular hypertrophy, moderate aortic regurgitation, mild to moderate aortic stenosis, mild mitral regurgitation, moderate tricuspid regurgitation, EF is 55 to 60% with class II diastolic dysfunction Check two-view chest x-ray Start Bumex 1 mg p.o. daily Continue amiodarone 100 mg p.o. daily Continue apixaban 2.5 mg p.o. twice daily for anticoagulation Continue losartan 50 mg p.o. daily Continue Toprol-XL 200 mg p.o. daily Continue statin #Hyperglycemia Check hemoglobin A1c #Hypothyroidism TSH is 2.588 on 11/14/2024 Continue levothyroxine 150 mcg p.o. daily #Right knee wound Since October 2024 As per patient has improved and completed antibiotics She is under the care of wound care team in the wound care clinic Continue dressing changes CODE STATUS: Full code DVT prophylaxis: Patient on apixaban PT consult for discharge planning Care plan discussed with patient, nursing staff Admission and Anticipated Discharge Date Admission Date: December 26, 2024 Subjective Patient seen and examined H&P reviewed Patient states her breathing is better today although she is still requiring oxygen She denies any chest pain Cough is a dry cough with occasional white sputum production She has been sick for almost a week with worsening of her symptoms the last few days She denies any nausea, vomiting, diarrhea, abdominal pain She denies any fever chills She lives by herself and is independent of ADLs. She uses cane occasionally and drives Physical Exam Physical Exam: General: No acute distress Psych: Awake and alert HEENT: Anicteric sclera, moist oral mucosa CVS: Regular rate and rhythm, systolic murmur noted Lungs: Bilateral air entry, decreased breath sounds at bases, no wheezing noted Abdomen: Soft, nontender, no rebound, no guarding Ext: No lower extremity edema, no calf tenderness, right knee wound and dressing Neuro: No focal motor deficits noted Results & Data Results & Data Vital Signs (Past 12 Hours) Vital Signs Temp Pulse Pulse Resp BP Pulse Ox O2 Del Method 12/27/24 12:16 36.9 C 70 18 142/71 H 95 Nasal Cannula 12/27/24 08:13 36.9 C 70 18 95 Nasal Cannula 12/27/24 07:14 70 12/27/24 07:00 Nasal Cannula 12/27/24 02:39 36.8 C 81 16 144/61 H 95 Nasal Cannula O2 Flow Rate 12/27/24 12:16 2 12/27/24 08:13 1 12/27/24 07:14 12/27/24 07:00 2 12/27/24 02:39 2 Laboratory Results Laboratory Results - last 24 hr 12/26/24 12/26/24 12/27/24 17:49 19:45 06:25 WBC 6.87 4.81 RBC 3.61 L 3.38 L Hgb 10.1 L 9.4 L Hct 32.3 L 30.1 L MCV 89.5 89.1 MCH 28.0 27.8 MCHC 31.3 L 31.2 L RDW Std Deviation 50.0 H 49.6 H RDW Coeff of Ezequiel 15.4 H 15.2 H Plt Count 211 177 MPV 11.3 11.1 Immature Gran % (Auto) 0.4 Neut % (Auto) 86.9 Lymph % (Auto) 9.5 Day % (Auto) 3.1 Eos % (Auto) 0.0 Baso % (Auto) 0.1 Neut # (Auto) 5.97 Lymph # (Auto) 0.65 L Day # (Auto) 0.21 Eos # (Auto) 0.00 Baso # (Auto) 0.01 Immature Gran # (Auto) 0.03 PT 10.9 INR 1.0 APTT 28 PTT Ratio 1.0 Sodium 138 141 Potassium 3.7 3.3 L Chloride 102 104 Carbon Dioxide 30 31 Anion Gap 6 6 BUN 14 18 Creatinine 0.78 0.88 Est Cr Clr Drug Dosing 49.6 45.8 eGFR 77.21 66.81 BUN/Creatinine Ratio 17.9 20.5 H Glucose 127 H 152 H Calcium 8.9 8.6 Magnesium 1.9 Total Bilirubin 0.6 AST 30 ALT 11 Alkaline Phosphatase 66 Troponin I High Sens 251.5 H* 248.6 H* Total Protein 6.7 Albumin 3.9 Globulin 2.8 Albumin/Globulin Ratio 1.4 Adenovirus (PCR) Not Detected B. pertussis DNA (PCR) Not Detected B.parapertussis DNA PCR Not Detected C. pneumoniae DNA (PCR) Not Detected Coronavirus OC43 (PCR) Not Detected Coronavirus HKU1 (PCR) Not Detected Coronavirus 229E (PCR) Not Detected SARS-CoV-2 (PCR) Not Detected Coronavirus NL63 (PCR) Not Detected Human Metapneumovir PCR DETECTED A Influenza Type A (PCR) Not Detected Influenza Type B (PCR) Not Detected M. pneumoniae (PCR) Not Detected Parainfluenza 1 (PCR) Not Detected Parainfluenza 2 (PCR) Not Detected Parainfluenza 3 (PCR) Not Detected Parainfluenza 4 (PCR) Not Detected RSV (PCR) Not Detected Entero/Rhino (PCR) Not Detected Diagnostic Findings Chest X-Ray 12/26/24 17:38 INDICATION: Chest pain. TECHNIQUE: Frontal radiograph of the chest. COMPARISON: Radiograph from 03/15/2022. FINDINGS: Cardiomegaly. Mild pulmonary vascular congestion. Bilateral lower lobe atelectasis/airspace disease. No pleural effusion or pneumothorax. No acute fracture. Left-sided pacemaker again noted. IMPRESSION: 1. Mild pulmonary vascular congestion. 2. Bilateral lower lobe atelectasis/airspace disease. Electronically signed by Mekhi Colbert 12-26-2024 6:43 PM PG Care Time/CCT Total # of Minutes Spent Total Time Spent with Patient: Total time spent is greater than 50% in coordination of care (as documented) at patient's floor/unit and/or counseling patient: Coding Level of Care Code 12324 SUB INP/OBS CARE 3/50MIN Diagnoses Infection due to human metapneumovirus (hMPV) B34.8 Paroxysmal atrial fibrillation I48.0 Biventricular cardiac pacemaker in situ Z95.0 Primary hypertension I10 Hypertension type: primary hypertension Hypothyroidism E03.9 SSS (sick sinus syndrome) I49.5 Hypoxia R09.02 Elevated troponin R79.89 Time Spent (min) 50 (4) Hypertension Hypertension type: primary hypertension Qualified Code(s): I10 - Essential (primary) hypertension
--- NOTE | 2024-12-27 14:45 | Electrocardiogram Report ---
Test Reason : Blood Pressure : */* mmHG Vent. Rate : 75 BPM Atrial Rate : 75 BPM P-R Int : 130 ms QRS Dur : 88 ms QT Int : 426 ms P-R-T Axes : 42 -26 25 degrees QTcB Int : 475 ms Normal sinus rhythm with sinus arrhythmia and competinig atrial pacing Low voltage QRS Borderline ECG When compared with ECG of 14-Oct-2024 13:08, Sinus rhythm has replaced Electronic atrial pacemaker Confirmed by Darin Chen ([id number]) on 12/27/2024 2:44:36 PM Referred By: REFERRED SELF Confirmed By: Darin Chen
--- NOTE | 2024-12-27 19:11 | XRay Report ---
Clinical History: Hypoxia Technique: PA and lateral views of the chest were obtained Comparison is made to the prior examination dated 12/26/2024 Findings: There is suspected mild bilateral lower lobe atelectasis. The heart size is within normal limits. No pleural effusion or pneumothorax is seen. There is no definite pulmonary nodule. There is a left chest wall pacemaker device. Bilateral breast implants are again seen Impression: Mild bilateral lower lobe atelectasis Electronically signed by Naveen Bravo 12-27-2024 7:11 PM
[2024-12-27] MEDS: BUMETANIDE 1 MG TAB PO ONE (20:16)
[2024-12-28] MEDS: ACETAMINOPHEN 500 MG TAB PO PRN (04:13)
[2024-12-28 07:37] LABS: Calcium 8.4 mg/dl (8.6-10.3); Creatinine Clr Calc Pharmacy 43.3 ml/min; Magnesium 1.9 mg/dl (1.7-2.4); Potassium 3.9 mmol/L (3.5-5.1)
[2024-12-28] MEDS ORDERED: BUMETANIDE 1 MG TAB PO SCH (09:00)
--- NOTE | 2024-12-28 12:35 | Hospitalist Progress Note ---
Date of Service December 28, 2024 Assessment & Plan (1) Infection due to human metapneumovirus (hMPV): (2) Paroxysmal atrial fibrillation: (3) Biventricular cardiac pacemaker in situ: (4) Hypertension: (5) Hypothyroidism: (6) SSS (sick sinus syndrome): (7) Hypoxia: (8) Elevated troponin: Plan 79-year-old female with past medical history of hypothyroidism, hypertension, history of sick sinus syndrome status post biventricular cardiac pacer, paroxysmal atrial fibrillation, aortic stenosis presents to the ED with worsening shortness of breath, BioFire positive for human metapneumovirus and chest x-ray showed mild pulmonary vascular congestion with bilateral lower lobe atelectasis/airspace disease. She was given furosemide IV in ED and admitted to the hospitalist service #Acute hypoxic respiratory failure likely secondary to human metapneumovirus infection in combination with CHF #Human metapneumovirus infection 2 view chest x-ray from 12/27/2024 does not show any evidence of infiltrates White count is normal Incentive spirometry Oxygen as needed to keep saturations above 90% Patient received 1 dose of IV Solu-Medrol in ED, hold off on steroids at this point DuoNebs as needed Isolation precautions Two-step evaluation for home O2 #Acute on chronic diastolic congestive heart failure with EF of 55% #Paroxysmal atrial fibrillation #Essential hypertension #Mild to moderate aortic stenosis #Moderate tricuspid regurgitation #Mild mitral regurgitation #History of sick sinus syndrome status post biventricular pacemaker #Elevated troponin, likely type II [place] in setting of demand ischemia from CHF/metapneumovirus infection 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 daily Continue apixaban 2.5 mg p.o. twice daily for anticoagulation Continue losartan 50 mg p.o. daily Continue Toprol-XL 200 mg p.o. daily Continue statin # Prediabetes A1c 6.1 Lifestyle counseling regarding diet, exercise and weight loss provided Outpatient follow-up with PCP #Hypothyroidism TSH is 2.588 on 11/14/2024 Continue levothyroxine 150 mcg p.o. daily #Right knee wound Since October 2024 As per patient has improved and completed antibiotics She is under the care of wound care team in the wound care clinic and with home nursing for wound care Continue dressing changes CODE STATUS: Full code DVT prophylaxis: Patient on apixaban Patient needs two-step evaluation for home oxygen evaluation Discharge planning Home with home health and home health PT likely tomorrow if medically stable Care plan discussed with patient, nursing staff Admission and Anticipated Discharge Date Admission Date: December 26, 2024 Subjective Patient seen and examined She reports feeling much better today Cough is improved Weakness is slowly improving Overall feels her energy levels have improved She is ambulating to the bathroom She denies any chest pain, shortness of breath, nausea, vomiting, diarrhea, abdominal pain Patient states she already has home health care coming in her home for her right knee wound Physical Exam Physical Exam: General: No acute distress Psych: Awake and alert, oriented to place and person HEENT: Anicteric sclera, moist oral mucosa CVS: Regular rate and rhythm, systolic murmur noted Lungs: Bilateral air entry, improved breath sounds at bases, no wheezing noted Abdomen: Soft, nontender, no rebound, no guarding Ext: No lower extremity edema, no calf tenderness, right knee wound and dressing Neuro: No focal motor deficits noted Results & Data Results & Data Vital Signs (Past 12 Hours) Vital Signs Temp Pulse Pulse Resp BP Pulse Ox O2 Del Method 12/28/24 12:00 36.6 C 74 16 130/77 97 Nasal Cannula 12/28/24 08:01 70 12/28/24 07:49 36.5 C 88 16 146/71 H 96 Nasal Cannula 12/28/24 07:30 Nasal Cannula 12/28/24 02:36 36.7 C 71 18 150/82 H 94 Nasal Cannula O2 Flow Rate 12/28/24 12:00 2 12/28/24 08:01 12/28/24 07:49 2 12/28/24 07:30 2 12/28/24 02:36 2 Laboratory Results Laboratory Results - last 24 hr 12/28/24 06:05 Sodium 137 Potassium 3.9 Chloride 104 Carbon Dioxide 29 Anion Gap 4 BUN 27 H Creatinine 0.93 Est Cr Clr Drug Dosing 43.3 eGFR 62.52 BUN/Creatinine Ratio 29.0 H Glucose 129 H Estimat Average Glucose Pending Hemoglobin A1c Pending Calcium 8.4 L Magnesium 1.9 B-Natriuretic Peptide 368 H Vitamin B12 854 Diagnostic Findings Chest X-Ray 12/27/24 18:32 Clinical History: Hypoxia Technique: PA and lateral views of the chest were obtained Comparison is made to the prior examination dated 12/26/2024 Findings: There is suspected mild bilateral lower lobe atelectasis. The heart size is within normal limits. No pleural effusion or pneumothorax is seen. There is no definite pulmonary nodule. There is a left chest wall pacemaker device. Bilateral breast implants are again seen Impression: Mild bilateral lower lobe atelectasis Electronically signed by Naveen Bravo 12-27-2024 7:11 PM PG Care Time/CCT Total # of Minutes Spent Total Time Spent with Patient: Total time spent is greater than 50% in coordination of care (as documented) at patient's floor/unit and/or counseling patient: Coding Level of Care Code 95702 SUB INP/OBS CARE 2/35MIN Diagnoses Infection due to human metapneumovirus (hMPV) B34.8 Paroxysmal atrial fibrillation I48.0 Biventricular cardiac pacemaker in situ Z95.0 Primary hypertension I10 Hypertension type: primary hypertension Hypothyroidism E03.9 SSS (sick sinus syndrome) I49.5 Hypoxia R09.02 Elevated troponin R79.89 (4) Hypertension Hypertension type: primary hypertension Qualified Code(s): I10 - Essential (primary) hypertension
[2024-12-28] MEDS: PANTOprazole 40 MG TAB PO PRN (13:11)
[2024-12-28 15:06] LABS: Estimated Average Glucose 128 mg/dl; Hemoglobin A1C 6.1 % (4.5-5.6)
[2024-12-28 15:36] VITALS: RESP 18
[2024-12-28] MEDS: guaiFENesin/DEXTROM SYRUP 100MG/10MG 5ML UDC PO PRN (21:23)
[2024-12-28 23:03] VITALS: TEMP 98.2
[2024-12-29] MEDS: BENZONATATE 100 MG CAPSULE PO PRN (00:23)
[2024-12-29 09:07] VITALS: PULSE 73
[2024-12-29 10:34] VITALS: BP 148/67
--- NOTE | 2024-12-29 11:23 | Discharge Summary ---
Discharge Summary Date of Service December 29, 2024 Principal Dx & Hospital Course #1 = Principal Diagnosis (1) Infection due to human metapneumovirus (hMPV): (2) Paroxysmal atrial fibrillation: (3) Biventricular cardiac pacemaker in situ: (4) Hypertension: (5) Hypothyroidism: (6) SSS (sick sinus syndrome): (7) Hypoxia: (8) Elevated troponin: Plan 79-year-old female with past medical history of hypothyroidism, hypertension, history of sick sinus syndrome status post biventricular cardiac pacer, paroxysmal atrial fibrillation, aortic stenosis presents to the ED with worsening shortness of breath, BioFire positive for human metapneumovirus and chest x-ray showed mild pulmonary vascular congestion with bilateral lower lobe atelectasis/airspace disease. She was given furosemide IV in ED and admitted to the hospitalist service #Acute hypoxic respiratory failure likely secondary to human metapneumovirus infection in combination with CHF #Human metapneumovirus infection 2 view chest x-ray from 12/27/2024 did not show any evidence of infiltrates White count is normal Incentive spirometry Patient was initially requiring oxygen and is currently weaned off oxygen and is saturating well on room air Overall clinically patient has improved Albuterol inhaler as needed #Acute on chronic diastolic congestive heart failure with EF of 55% #Paroxysmal atrial fibrillation #Essential hypertension #Mild to moderate aortic stenosis #Moderate tricuspid regurgitation #Mild mitral regurgitation #History of sick sinus syndrome status post biventricular pacemaker #Elevated troponin, likely type II [place] in setting of demand ischemia from CHF/metapneumovirus infection 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 daily Continue apixaban 2.5 mg p.o. twice daily for anticoagulation Continue losartan 50 mg p.o. daily Continue Toprol-XL 200 mg p.o. daily Continue statin Continue Lasix as needed per home dose Have advised patient to follow-up with her outpatient dairy farm worker for CHF # Prediabetes A1c 6.1 Lifestyle counseling regarding diet, exercise and weight loss provided Outpatient follow-up with PCP #Hypothyroidism TSH is 2.588 on 11/14/2024 Continue levothyroxine 150 mcg p.o. daily Outpatient follow-up with PCP #Right knee wound Since October 2024 As per patient has improved and completed antibiotics She is under the care of wound care team in the wound care clinic and with home nursing for wound care Continue dressing changes Patient seen and examined today. She is off oxygen and is saturating well on room air. She is ambulating to the bathroom and appetite is slowly improving. She is stable for discharge home with home health. I gone over the discharge care plan, medications and follow-up with the patient in great detail and answered all her questions. This discharge took greater than 30 minutes to coordinate Admission HPI Per Admitting Provider 79-year-old female PMHx GERD, hypothyroidism, HTN, MR, AAS, PAF, biventricular c ardiac pacer, hyperlipidemia, and SSS presenting for reported hypoxia. States at approximately 4 days BEHAVIORAL ANALYST she started to have a hacking cough that was productive at times, and this was ongoing since then. States that when she is time coughing she does have some SOB but otherwise not complaining of any SOB. SOB does not change with positional changes. States that she has also been having some sinus congestion, but her main concern is this ongoing cough. States that she was reported to have "low oxygen" on the day of arrival. Also having rhinorrhea, but no sore throat or fever/chills. Sick contacts include daughter, son-in-law, and granddaughter. Was seen by her PCP approximately 3 days BEHAVIORAL ANALYST who prescribed her Tessalon Perles which she stated may have helped somewhat. Denying chest pain, palpitations, abdominal pain, N/V/D/C, LUTS, weakness, headache, fever or chills, or syncope. Does not wear oxygen at baseline. ED evaluation reveals no leukocytosis, H&H 10.1/32.3; PT/INR WNL; CMP grossly WNL with exception glucose 127; troponin initially to 251.5, pending repeat; BioFire positive for metapneumovirus; CXR with mild pulmonary vascular congestion and bilateral lower lobe atelectasis/airspace disease; EKG normal sinus with sinus arrhythmia at 75 bpm, no ischemic changes; provided with Hycodan, furosemide, acetaminophen in ED. Discharge Exam General: No acute distress Psych: Awake and alert, oriented to place and person HEENT: Anicteric sclera, moist oral mucosa CVS: Regular rate and rhythm, systolic murmur noted Lungs: Bilateral air entry, improved breath sounds at bases, no wheezing noted Abdomen: Soft, nontender, no rebound, no guarding Ext: No lower extremity edema, no calf tenderness, right knee wound and dressing Neuro: No focal motor deficits noted Discharge Plan Discharge Items Patient Disposition: Home - Home Health Services Reason For Visit: HYPOXIA, HUMAN METAPN. VIRUS Discharge Diagnosis: #Human metapneumovirus infection #Acute on chronic diastolic congestive heart failure with EF of 55% #Paroxysmal atrial fibrillation #Essential hypertension #Mild to moderate aortic stenosis #Moderate tricuspid regurgitation #Mild mitral regurgitation #History of sick sinus syndrome status post biventricular pacemaker #Elevated troponin, likely type II [place] in setting of demand ischemia from CHF/metapneumovirus infection # Prediabetes #Hypothyroidism #Right knee wound Activity: As commented below Activity Comment: As tolerated with assistance Non-emergency contact: Primary Care Provider Call non-emergency contact if: you have any medication questions, your symptoms worsen, you have a fever, your wound has increased redness, your wound has increased drainage and your wound pain has increased Follow-up/Referrals: Jesus Yao MD [Physician] - 01/03/25 10:00 am (Hospital follow up on January 03 at 10 am.) Socorro Fan MD [Primary Care Provider] - 01/06/25 2:00 pm (Hospital follow up on January 06 at 2 pm.) Diet: Heart Healthy Diet Comment: You have prediabetes, avoid high sugar content foods and drinks Addtl Attending Provider Instructions: DISCHARGE INSTRUCTION TO PATIENT/FAMILY: Follow-up with your primary care provider within 1 week regarding: Posthospital discharge, medication review, medication refills and follow-up on all your medical problems, PRE-DIABETES Please take all your discharge medications, discharge information and discharge instructions to all your doctors appointments. Avoid all NSAIDs including ibuprofen, Motrin, Advil, Aleve, naproxen, meloxicam, Toradol, diclofenac Labs through PCP in 1 week: CBC, CMP, MG You have congestive heart failure and you have a prescription for Lasix 20 mg daily as needed. Please weigh yourself every day and if your weight increases by over 2 pounds in 24 hours, or you are feeling short of breath or experiencing any increased leg swelling, please take Lasix (furosemide). 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 Your A1c is 6.1. He would benefit from avoiding high sugar content food and sugary drinks. Please follow-up with your PCP regarding this. You were admitted with shortness of breath from a human metapneumovirus infection. Pending Studies at Discharge: No Stand-Alone Forms: My [facility], Smoking Cessation Medications and DC Order Prescriptions: New albuterol sulfate [Ventolin HFA] 90 mcg/actuation HFA aerosol inhaler 2 inh inhalation Q6H PRN (Reason: shortness of breath or wheezing) Qty: 8.5 0RF Continued pantoprazole 40 mg tablet,delayed release (DR/EC) 40 mg PO DAILY PRN (Reason: Indigestion) ipratropium bromide 21 mcg (0.03 %) spray,non-aerosol 2 spray INTNAS TID PRN (Reason: Congestion) Qty: 30 5RF Rx Instructions: administer into each nostril atorvastatin 20 mg tablet 20 mg PO DAILY Qty: 90 3RF amiodarone 100 mg tablet 100 mg PO DAILY Qty: 90 3RF metoprolol succinate 200 mg tablet extended release 24 hr 200 mg PO DAILY Qty: 90 3RF apixaban 2.5 mg tablet 2.5 mg PO BID Qty: 60 2RF lorazepam 0.5 mg tablet 0.5 mg PO Q8H PRN (Reason: anxiety) Qty: 30 1RF famotidine 20 mg tablet 20 mg PO HS PRN (Reason: breakthrough acid reflux) Qty: 90 0RF benzonatate 100 mg capsule 100 mg PO TID PRN (Reason: cough) Qty: 30 0RF furosemide 20 mg tablet 20 mg PO DAILY PRN (Reason: Leg swelling) Qty: 30 0RF cholecalciferol (vitamin D3) 125 mcg (5,000 unit) capsule 125 mcg PO QAM multivitamin Tablet 1 tab PO DAILY acetaminophen [Tylenol Extra Strength] 500 mg Tablet 500 - 1,000 mg PO Q6H PRN (Reason: PAIN/FEVER) estradiol 0.01 % (0.1 mg/gram) cream 0.5 g vaginal 2XWK Rx Instructions: 0.5 grams vaginally twice weekly; levothyroxine 150 mcg tablet 150 mcg PO DAILYBB losartan 50 mg tablet 50 mg PO DAILY Rx Instructions: TAKE 1 TABLET BY MOUTH ONCE DAILY Discharge Orders: Discharge Order- CHF (Routine); Ordered 12/29/24 Ordered By: Herb Fernandez/Other Patient Handouts: Prediabetes Admission Data Admit Date/Time: 12/26/24 20:50 Attending Provider: Herb Collins Admit Provider: Lala Gomez Primary Care Provider: Socorro Fan Other Providers: Lala Gomez Other Interventions: Discharge Summary Assessment (RN) Last Done: 12/29/24 12:10 Hospital Stay Data Consultations 12/26/24 19:34 ED Decision to Admit Stat Procedures Performed Laboratory Results - last 48 hr 12/28/24 06:05 Sodium 137 Potassium 3.9 Chloride 104 Carbon Dioxide 29 Anion Gap 4 BUN 27 H Creatinine 0.93 Est Cr Clr Drug Dosing 43.3 eGFR 62.52 BUN/Creatinine Ratio 29.0 H Glucose 129 H Estimat Average Glucose 128 Hemoglobin A1c 6.1 H Calcium 8.4 L Magnesium 1.9 B-Natriuretic Peptide 368 H Vitamin B12 854 Diagnostic Imagining Performed Chest X-Ray 12/26/24 17:38 INDICATION: Chest pain. TECHNIQUE: Frontal radiograph of the chest. COMPARISON: Radiograph from 03/15/2022. FINDINGS: Cardiomegaly. Mild pulmonary vascular congestion. Bilateral lower lobe atelectasis/airspace disease. No pleural effusion or pneumothorax. No acute fracture. Left-sided pacemaker again noted. IMPRESSION: 1. Mild pulmonary vascular congestion. 2. Bilateral lower lobe atelectasis/airspace disease. Electronically signed by Mekhi Colbert 12-26-2024 6:43 PM Chest X-Ray 12/27/24 18:32 Clinical History: Hypoxia Technique: PA and lateral views of the chest were obtained Comparison is made to the prior examination dated 12/26/2024 Findings: There is suspected mild bilateral lower lobe atelectasis. The heart size is within normal limits. No pleural effusion or pneumothorax is seen. There is no definite pulmonary nodule. There is a left chest wall pacemaker device. Bilateral breast implants are again seen Impression: Mild bilateral lower lobe atelectasis Electronically signed by Naveen Bravo 12-27-2024 7:11 PM Pending Results Patient Have Any Pending Studies at Discharge: No Discharge Instructions Given to Patient (Per Discharging Provider) DISCHARGE INSTRUCTION TO PATIENT/FAMILY: Follow-up with your primary care provider within 1 week regarding: Posthospital discharge, medication review, medication refills and follow-up on all your medical problems, PRE-DIABETES Please take all your discharge medications, discharge information and discharge instructions to all your doctors appointments. Avoid all NSAIDs including ibuprofen, Motrin, Advil, Aleve, naproxen, meloxicam, Toradol, diclofenac Labs through PCP in 1 week: CBC, CMP, MG You have congestive heart failure and you have a prescription for Lasix 20 mg daily as needed. Please weigh yourself every day and if your weight increases by over 2 pounds in 24 hours, or you are feeling short of breath or experiencing any increased leg swelling, please take Lasix (furosemide). 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 Your A1c is 6.1. He would benefit from avoiding high sugar content food and sugary drinks. Please follow-up with your PCP regarding this. You were admitted with shortness of breath from a human metapneumovirus infection. Total Time Total Time Spent Total Time Spent (In Minutes): 40 minutes Coding Level of Care Code 48390 INP/OBS DISCH >30 MIN Diagnoses Infection due to human metapneumovirus (hMPV) B34.8 Paroxysmal atrial fibrillation I48.0 Biventricular cardiac pacemaker in situ Z95.0 Primary hypertension I10 Hypertension type: primary hypertension Hypothyroidism E03.9 SSS (sick sinus syndrome) I49.5 Hypoxia R09.02 Elevated troponin R79.89
[2024-12-29 12:11] VITALS: O2SAT 91
== END 2024-12-29 13:18 | disposition home health service (06) | DRG 189 ==
LOC: ED 17:30 → SUATTDRO 20:50 → 2S 20:50